=== PATIENT | female | born 1995 | race Caucasian/White ===

== ENCOUNTER 2019-03-29 01:18 | Inpatient (IN) ==
[2019-03-29] MEDS ORDERED: SODIUM CHLORIDE 0.9% 1000ML 1,000 ML IV ONE ×3 (01:31→02:42)
[2019-03-29] MEDS ORDERED: CALCIUM CHLORIDE 10% 1,000 MG in SODIUM CHLORIDE 0.9% 50 ML IV STA ×2 (01:52→02:48)
[2019-03-29] MEDS ORDERED: SODIUM BICARB 8.4% INJ 50 MEQ/50 ML SYR IV STA ×2 (01:52→05:04)
[2019-03-29] MEDS ORDERED: CALCIUM CHLORIDE 10% 10 ML SYR IV ONE ×2 (01:57→02:55)
[2019-03-29 02:10] LABS: Hematocrit (blood only) 47.9 % (37-47); Hemoglobin 15.3 g/dL (12.0-16.0); Mean Corpuscular Hemoglobin 30.4 pg (25-34); Mean Corpuscular Hgb Conc 31.9 g/dL (32-36); Mean Corpuscular Volume 95.2 fL (80-100); Mean Platelet Volume 12.3 fL (7.4-10.4); Platelet Count 384 K/uL (130-400); RDW Coefficient of Variation 12.9 % (11.5-14.5); RDW Standard Deviation 44.4 fL (36.4-46.3); Red Blood Count 5.03 M/uL (4.2-5.4)
[2019-03-29] MEDS ORDERED: GLUCAGON FOR INJ 1 MG VIAL SQ PRN (02:19)
[2019-03-29] MEDS ORDERED: GLUCOSE 40% GEL 15 GM TUBE PO PRN ×2 (02:19→02:30)
[2019-03-29] MEDS ORDERED: DKA GOAL RANGE 150-250 mg/dl ONE ×2 (02:19→09:22)
[2019-03-29] MEDS ORDERED: GLUCOSE 10 TABS/TUBE PO PRN ×2 (02:19→02:30)
[2019-03-29] MEDS ORDERED: ED DKA INSULIN DRIP ONE (02:19)
[2019-03-29] MEDS ORDERED: CARBOHYDRATES FOR HYPOGLYCEMIA PO PRN ×2 (02:19→02:30)
[2019-03-29] MEDS ORDERED: DEXTROSE 50% 50 ML SYRINGE IV PRN ×2 (02:19→02:30)
[2019-03-29] MEDS ORDERED: ALBUTEROL 0.5% NEB SOLN 2.5 MG/0.5 ML VIAL NEB STA (02:20)
[2019-03-29] MEDS ORDERED: INSULIN HUMAN REGULAR PER UNIT 10 UNITS in SYRINGE 9.9 ML IV STA (02:20)
[2019-03-29] MEDS ORDERED: FUROSEMIDE 20 MG in SYRINGE 0 ML IV STA (02:20)
[2019-03-29 02:25] LABS: Basophils # (auto) 0.08 K/uL (0-0.2); Basophils % (auto) 0.2 %; Eosinophils # (auto) 0.04 K/uL (0-0.5); Eosinophils % (auto) 0.1 %; Immature Granulocytes # (auto) 0.75 K/uL (0.00-0.02); Immature Granulocytes % (auto) 1.8 %; Lymphocytes # (auto) 4.45 K/uL (1.2-3.4); Lymphocytes % (auto) 10.7 %; Monocytes % (auto) 9.9 %; Neutrophils # (auto) 32.18 K/uL (1.4-6.5); Neutrophils % (auto) 77.3 %; Toxic Vacuolation 3+
[2019-03-29] MEDS ORDERED: GLUCAGON FOR INJ 1 MG VIAL IM PRN (02:30)
[2019-03-29] MEDS ORDERED: NovoLIN-R BOLUS FROM BAG IV ONE (02:30)
[2019-03-29] MEDS ORDERED: FUROSEMIDE 40 MG/4 ML VIAL IV ONE (02:37)
[2019-03-29] MEDS ORDERED: NovoLIN-R INSULIN PER UNIT CHARGE ONE (02:38)
[2019-03-29] MEDS: INSULIN REGULAR 250 UNITS in SODIUM CHLORIDE 0.9% 247.5 ML IV SCH ×2 (02:40→21:08)
[2019-03-29 02:44] LABS: Albumin Level 4.2 gm/dl (3.4-5.0); Bilirubin,Total 0.5 mg/dl (0.2-1); Creatinine Clr Calc Pharmacy 45.1 ml/min; Est GFR (Non-African American) 35.4; Total Protein 8.4 gm/dl (6.4-8.2)
[2019-03-29 02:45] LABS: BUN Creatinine Ratio 14.8 (10-20); Globulin 4.2 gm/dl (2.5-4.0); Phosphorus 8.7 mg/dl (2.5-4.9)
[2019-03-29 03:02] LABS: Base Excess ABG -26.8 mEq/L (-9-1.8); HCO3 ABG 4 mmol/L (19-24); Oxygen Saturation ABG 99.2 % (90-95); PCO2 ABG 18 mmHg (35-46); PO2 ABG 201 mm/Hg (80-95)
[2019-03-29 03:06] LABS: Allen Test POS (Pos)
[2019-03-29] MEDS: SODIUM BICARBONATE 8.4% 150 MEQ in WATER, STERILE 1,000 ML IV SCH ×2 (03:10→11:12)
[2019-03-29 03:13] LABS: pH ABG 6.95 (7.35-7.45)
[2019-03-29] MEDS ORDERED: CALCIUM CHLORIDE 10% 500 MG in SODIUM CHLORIDE 0.9% 50 ML IV STA (03:29)
[2019-03-29 03:31] LABS: Magnesium 2.4 mg/dl (1.8-2.4)
[2019-03-29 03:53] LABS: iSTAT Creatinine 1.5 mg/dl (0.6-1.3); iSTAT Hemoglobin 16.3 g/dl (12.0-16.0); iSTAT Ionized Calcium 1.36 mmol/l (1.12-1.32)
--- NOTE | 2019-03-29 04:11 | History & Physical Report ---
Date of Service March 29, 2019 Assessment & Plan (1) DKA (diabetic ketoacidoses): 24 y/o F Hx DM I, celiac disease, autism. Pt is brought in by her mother as her glucometer was reading "high". She has had nausea, vomiting and diarrhea for 2 days. A fever was not confirmed. Initial labs on arrival to the ER were alarming and demonstrate severe acidosis with a PH of 6.95, CLEMENTINE and a K of 8.0, NA 123, leukocytosis - WBC 41. The pt was hypothermic on arrival to the ER as well with a temp of 94.5. Initial EKG demonstrated tachycardia and a RBBB which resolved on a subsequent following an hour of treatment in the ER. 1) Critical DKA - IVF/bicarb, insulin provided - trend and correct electrolytes as possible. The pt may be transferred to a tertiary center as her PH and clinical condition have not improved. 2) Enteritis / infection - provided with empiric Zosyn due to critical condition - no other source of infection has been identified. A UA is pending and she has not had diarrhea while in the ER. 3) Hyperkalemia may have improved per repeat ABG - repeat BMP pending - it is difficult to discern specific changes on the EKG due to the rate. Aggressive IVF is provided. 4) Hypothermia - warming blanket Course of treatment and potential transfer TBD - mother at bedside and aware of pt's critical condition. Total time for this initial medical evaluation including review of labs, meds, imaging, records, EKG - discussion with pt's mother, ER attending - 46 min includes critical care time. The ER attending has discussed the case both with the ICU attending and the ICU attending at [facility] to discuss transfer. Present on Admission?: Yes History of Present Illness Chief Complaint: AMS, hyperglycemia Primary Care Provider: NO PCP 24 y/o F Hx DM I, celiac disease, autism. Pt is brought in by her mother as her glucometer was reading "high". She has had nausea, vomiting and diarrhea for 2 days. A fever was not confirmed. Initial labs on arrival to the ER were alarming and demonstrate severe acidosis with a PH of 6.95, CLEMENTINE and a K of 8.0, NA 123, leukocytosis - WBC 41. The pt was hypothermic on arrival to the ER as well with a temp of 94.5. Initial EKG demonstrated tachycardia and a RBBB which resolved on a subsequent following an hour of treatment in the ER. The pt received 3L saline, 3 amps calcium gluconate, bicarb, insulin. Despite this, her repeat ABG demonstrated a PH of 6.85. Her HR remains between 130-140 at the time of medical evaluation, she has had transient hypotensive episodes and her resp rate is over 30. PMH: 1) Celiac disease 2) DM I - diagnosed age 11 3) Autism - Mother states that this is relatively severe Surgical: Limited to wisdom tooth extraction Social: No history of drinking or smoking, under the care of her mother Family: Mother with DM and history of CVA Father alive and well Sister with celiac disease Allergies Allergy/AdvReac Type Severity Reaction Status Date / Time adhesive tape Allergy Unknown Verified 03/29/19 02:18 erythromycin base Allergy Unknown Verified 03/29/19 02:18 gluten Allergy Unknown Verified 03/29/19 02:18 Penicillins Allergy Unknown Verified 03/29/19 02:18 Sulfa (Sulfonamide Allergy Unknown Verified 03/29/19 02:18 Antibiotics) wheat Allergy Unknown Verified 03/29/19 02:18 Home Medications Home Medications Medication Instructions Recorded Confirmed Type insulin glargine [Lantus U-100 30 unit SUBCUT QAM 03/29/19 03/29/19 History Insulin] insulin lispro [Humalog U-100 1 sliding scale dose SUBCUT 03/29/19 03/29/19 History Insulin] USEASDIRECTD Past Med/Surg History Medical History Autism Celiac disease Type 1 diabetes Surgical History No pertinent past surgical history Social History Feels Safe at Home: Yes Smoking Status: Never smoker Review of Systems Review of Systems: Unobtainable due to cognitive status Cannot obtain from pt. She was bought in by her mother per the HPI. Physical Exam Physical Exam: General: Young female who is tachypneic and appears u ncomfortable. Eyes: RADHA, EOMI Head and neck: Normocephalic, atraumatic, No JVD, neck is supple. Chest/heart: Nontender, S1,2, tachy, no murmurs, no gallops Lungs: CTAB, no wheezing or crackles Abdomen: Nontender, nondistended, BS+ Neuro: Awake, somnolent, no unilateral weakness Musculoskeletal: No joint inflammation, muscle tenderness, FROM Skin: No acute rashes or ulcers Extremities: Extremities have good capillary return but do exhibit some purple discoloration. Results & Data Vital Signs (Past 12 Hours) Vital Signs Temp Pulse Pulse Resp BP BP Pulse Ox 03/29/19 04:03 127 H 35 H 153/88 H 100 03/29/19 03:52 131 H 30 H 140/92 99 03/29/19 03:46 94.5 F L 03/29/19 03:03 127 H 28 H 108/91 100 03/29/19 01:53 96.4 F L 123 H 32 H 82/56 L 94 PG Care Time/CCT Total # of Minutes Spent Total Time Spent with Patient: Total time spent is greater than 50% in coordination of care (as documented) at patient's floor/unit and/or counseling patient:
[2019-03-29] MEDS ORDERED: VANCOMYCIN CONSULT ACTIVE PRN (04:31)
[2019-03-29] MEDS ORDERED: CEFEPIME 2,000 MG/20 ML VIAL IV STA (04:31)
[2019-03-29] MEDS ORDERED: VANCOMYCIN CONSULT ACTIVE ONE (04:31)
[2019-03-29] MEDS ORDERED: VANCOMYCIN HCL 1,750 MG in SODIUM CHLORIDE 0.9% 500 ML IV ONE (04:31)
[2019-03-29 05:15] LABS: BUN Creatinine Ratio 16.6 (10-20); Blood Urea Nitrogen 28 mg/dl (7-18); Calcium 12.7 mg/dl (8.5-10.1); Carbon Dioxide 6 mmol/L (21-32); Chloride 110 mmol/L (98-107); Est GFR (African American) 48.8; Est GFR (Non-African American) 42.1; Glucose 477 mg/dl (70-99)
[2019-03-29 05:19] LABS: Sodium 136 mmol/L (136-145)
[2019-03-29 05:28] LABS: Appearance Urine Cloudy (Clear); Bacteria Urine Automated Negative (Negative); Bilirubin Urine Negative (Negative); Blood Urine 2+ (Negative); Color Urine Yellow; Epithelial Cell Urine Auto >30 /lpf (0-5); Glucose Urine UA 3+ (Negative); Ketones Urine 2+ (Negative); Leukocyte Esterase Urine Negative (Negative); Nitrite Urine Negative (Negative); Protein Urine 2+ (Negative); Specific Gravity Urine 1.023 (1.000-1.030); Urobilinogen Urine Negative (Negative)
--- NOTE | 2019-03-29 05:31 | Critical Care Consultation ---
Date of Consultation March 29, 2019 Assessment & Plan (1) Admitted to intensive care unit: Reason Critically Ill: 24-year-old female presenting with severe DKA and high anion gap metabolic acidosis in the setting of DKA requiring aggressive hydration and electrolyte management. Presenting with hyperkalemia and concern EKG changes with widening QRS pattern. NEURO - * CAM ICU: Unable to assess secondary to patient's baseline mental status. CARDIAC/VASCULAR - * EKG changes: * Presenting with QRS widening with near sinusoidal wave pattern in the setting of hyperkalemia. * Showed resolve with return to sinus tachycardia after aggressive management. * Likely all metabolically induced. * Will continue to monitor and replace lytes as needed. * Monitor on telemetry. RESPIRATORY - * Tachypnea: * Compensatory in the DKA patient. * Monitor ABGs frequently. GI/NUTRITION - * N.p.o. at this time. RENAL/LYTES - * Hyperkalemia: * With concerning EKG changes on presentation. * Since resolved after aggressive management. * We will continue to monitor electrolytes and replace as needed in the setting of DKA. * CLEMENTINE: * Prerenal in the setting of severe dehydration with gastroenteritis and DKA. * IVF: Per protocol. - * Joel in place - Strict I&Os. ENDO - * DKA: * Insulin drip per unit protocol. HEME - * Leukocytosis: * Likely secondary to stress with reported significant vomiting as well as metabolic demands in the DKA patient. * Stable H&H. ID - * Meets sirs criteria: * CT the abdomen pelvis demonstrates a enlarged area in the pelvic region. * Currently being treated with Zosyn. Vancomycin ordered. * Can likely discontinue vancomycin. * Trend lactate. * Check procalcitonin. LINES/IV ACCESS - * PIVs x2 * LEFT radial arterial line DVT PROPHYLAXIS - * SCDs I have personally spent 45 minutes of critical care time in the direct management of this patient. This is a life/limb threatening event. This includes time spent evaluating patient, direct bedside care, chart review, placing orders, interpretation of diagnostic studies, discussion with consultants, patient, and family members, as well as other required patient management activities. This time is exclusive of all separately billable procedures, and teaching time and separate from and in addition to any other critical care service time. Thank you for allowing us to participate in the care of this patient. Please refer to my attending physician's documentation for any further recommendations. (2) DKA (diabetic ketoacidoses): (3) Hyperkalemia: (4) Acute electrocardiogram changes: (5) Tachycardia: (6) Diarrhea: (7) Vomiting: (8) Dehydration: (9) Type 1 diabetes: (10) Celiac disease: (11) Autism: Supervising Physician Co-Signing Physician Notes I was advised of this patient via telephone from the ED provider. Upon my arrival in the ED I was updated with regards to the patient's treatment course she received while in the emergency department. The patient is critically ill. The patient's mother is highly involved in the care of this patient. It was expressed that the patient's mother had been in contact with the endocrinology department at [facility] for which she follows up with. It is the mother's desire to have the admitted at [facility]. At this time no beds were available for admission in the foreseeable future. Transfer to [facility] and its pediatric endocrinology service was considered and discussed. Per report the [facility] medical team felt as if she was receiving appropriate therapy and could continue to receive therapy at [facility]. At this point I was contacted for further evaluation and management. Please see my documentation for additional information. History of Present Illness History of Present Illness Patient is a 24-year-old female with a significant past medical history of autism, insulin-dependent diabetes, and celiac disease who presented to the emergency department after 24 hours of nausea, vomiting, diarrhea. Her mother had been sick with previous symptoms over the past week. Daughter started with diarrhea yesterday. She started vomiting last evening and mother noticed that she was breathing heavy as well. She had been taking her blood sugar readings which had been reading "high" for most of the day. Upon awakening from a nap, the mother noted that the patient appeared more somnolent which was concerning to her. She contacted the patient's endocrinology team in [place] and it was recommended that she come to the emergency department. Patient arrived via EMS. Upon arrival, the patient was noted to be tachycardic with heart rates in the 150s as well as tachypneic. EKG demonstrated a near sinusoidal wave pattern with QRS widening. Patient was aggressively treated with calcium, insulin, bicarb, and Lasix. This did show great improvement with QRS complex. Patient received a total of 3 L initially of crystalloid therapy. She was started on bicarb drip after she was noted to be severely acidotic. She was noted to have significant leukocytosis. She is noted to have an CLEMENTINE as well. Her potassium came back at greater than 8. This appears to have been corrected status post aggressive administration of IV medications. Upon evaluation in the emergency department, the patient is somnolent. She pers everates questions. Her mother is present at bedside and reports that she does appear to be improving somewhat. She is at least somewhat communicative at this point. Mother reports that she was complaining of diffuse abdominal pain, however she was unable to localize area. Mother was adamant that they had been checking her vomiting stool and there had not been any blood noted. Allergies Allergy/AdvReac Type Severity Reaction Status Date / Time adhesive tape Allergy Unknown Verified 03/29/19 02:18 erythromycin base Allergy Unknown Verified 03/29/19 02:18 gluten Allergy Unknown Verified 03/29/19 02:18 Penicillins Allergy Unknown Verified 03/29/19 02:18 Sulfa (Sulfonamide Allergy Unknown Verified 03/29/19 02:18 Antibiotics) wheat Allergy Unknown Verified 03/29/19 02:18 Home Medications Home Medications Medication Instructions Recorded Confirmed Type insulin glargine [Lantus U-100 30 unit SUBCUT QAM 03/29/19 03/29/19 History Insulin] insulin lispro [Humalog U-100 1 sliding scale dose SUBCUT 03/29/19 03/29/19 History Insulin] USEASDIRECTD Patient History Medical History Autism Celiac disease DKA (diabetic ketoacidoses) (Acute) Tachycardia (Acute) Type 1 diabetes Surgical History No pertinent past surgical history Social History Preferred Language: Upper Sorbian Communication Ability: Impaired Office Services Clerk Required: No Beliefs That Will Affect Care: None Current Living Situation: Parent and Family Other Information That Helps Us Care for You: No Feels Safe at Home: Yes Safety Concerns: Feels Safe At This Time Smoking Status: Never smoker Hx Alcohol Use: No Hx Substance Use: No Review of Systems Review of Systems: Unobtainable due to cognitive status Physical Exam Physical Exam: VITAL SIGNS - Vital signs and nursing notes were reviewed. GENERAL - 24-year-old female appearing her stated age who is in moderate respiratory distress. Perseverates. SKIN - Without rashes. HEAD - NC/AT. EYES - PERRL with EOMI bilaterally. Sclera anicteric. EARS - No deformities of external structures noted on gross examination bilaterally. NOSE - Midline and without cyanosis. No epistaxis or purulent drainage noted. MOUTH/OROPHARYNX - Without perioral cyanosis. Buccal mucosa pink and dry. Tongue midline with equal elevation of palate bilaterally. NECK - Neck with FROM. Supple to palpation. No lymphadenopathy noted. No nuchal rigidity. LUNGS - Tachypneic. All symmetric without accessory muscle use, intercostals retractions, or central cyanosis. Normal vesicular breath sounds CTA B/L. No wheezes, rales, or rhonchi appreciated. CARDIAC - RRR with S1/S2. No murmur, rubs, or gallops appreciated. ABDOMEN - Abdominal contour obese without pulsations or visible masses. BS hyperactive all four quadrants. Mild TTP throughout. No palpable masses, hepatosplenomegaly, or ascites noted. EXTREMITIES - Moderate edema noted to the RIGHT upper bicep area. No clubbing or peripheral cyanosis. No pretibial edema present. +2/5 radial and dorsalis pedis pulses palpated throughout. NEUROLOGIC - Cranial nerves II through XII grossly intact. PSYCH - A&O to conversation. She perseverates answers which is apparently close to baseline per mother. Limited secondary to baseline mental status. Results & Data Vital Signs (Past 12 Hours) Vital Signs Temp Pulse Pulse Resp BP BP Pulse Ox 03/29/19 04:03 127 H 35 H 153/88 H 100 03/29/19 03:52 131 H 30 H 140/92 99 03/29/19 03:46 34.7 C L 03/29/19 03:03 127 H 28 H 108/91 100 03/29/19 01:53 35.8 C L 123 H 32 H 82/56 L 94 Coding Level of Care Code Critical Care 1st 30-74 mins Diagnoses Admitted to intensive care unit Z78.9 DKA (diabetic ketoacidoses) E10.10 Diabetes mellitus complication detail: without coma Diabetes mellitus type: type 1 Hyperkalemia E87.5 Acute electrocardiogram changes R94.31 Tachycardia R00.0 Diarrhea R19.7 Diarrhea type: unspecified type Vomiting R11.10 Nausea presence: unspecified Vomiting Intractability: unspecified Vomiting type: unspecified Dehydration E86.0 Type 1 diabetes E10.9 Celiac disease K90.0 Autism F84.0 Time Spent (min) 45 (1) DKA (diabetic ketoacidoses) Diabetes mellitus complication detail: without coma Diabetes mellitus type: type 1 Qualified Code(s): E10.10 - Type 1 diabetes mellitus with ketoacidosis without coma (2) Diarrhea Diarrhea type: unspecified type Qualified Code(s): R19.7 - Diarrhea, unspecified (3) Vomiting Nausea presence: unspecified Vomiting Intractability: unspecified Vomiting type: unspecified Qualified Code(s): R11.10 - Vomiting, unspecified
[2019-03-29 05:44] LABS: Allen Test Pos (Pos); Base Excess ABG -27.1 mEq/L (-9-1.8); HCO3 ABG 4 mmol/L (19-24); PCO2 ABG 16 mmHg (35-46); PO2 ABG 116 mm/Hg (80-95)
[2019-03-29 05:45] LABS: pH ABG 6.95 (7.35-7.45)
[2019-03-29] MEDS ORDERED: SODIUM BICARBONATE 8.4% INJ 50 MEQ/50 ML VIAL ONE (05:48)
[2019-03-29 05:51] LABS: Pregnancy Test, Serum Negative (Negative)
[2019-03-29 06:09] LABS: Estimated Average Glucose 229 mg/dl; Hemoglobin A1C 9.6 % (4.5-5.6)
[2019-03-29 06:15] LABS: Potassium 4.7 mmol/L (3.5-5.1)
--- NOTE | 2019-03-29 07:23 | Procedure Note ---
Procedure Note Date of Service March 29, 2019 Procedure: Arterial Line Placement Attending: Dr. Ring APC: Apolinar Henry PA-C Indication: Monitoring on Pressors Anesthesia: Lidocaine 1% I had a lengthy discussion with the patient's family regarding management of patient and need for close hemodynamic monitoring as well as frequent ABGs in the DKA patient. Given her tenuous status with hypotension, verbal consent obtained to proceed emergently with procedure. Indication, risks, and benefits were explained at length. A time-out was completed verifying correct patient, procedure, site, positioning, and implant(s) or special equipment if applicable. Allens test was performed to ensure adequate perfusion. Patients LEFT wrist was prepped and draped in the usual sterile fashion. Ultrasound guidance was used to aid needle placement. A 20g Arrow arterial line was introduced into the LEFT radial artery. Catheter was threaded, and the needle was removed with appropriate blood return. Good waveform was observed. The patient tolerated the procedure well. Confirmation of placement with ultrasound. Blood Loss: Minimal Complications: None Procedural Ultrasound Guidance: Procedure Date: 03/29/2018 Indication: Frequent ABGs, Frequent lab draws Attending: Dr. Ring APC: Apolinar Henry PA-C Artery Identified: YES Line confirmed in Artery with ultrasound: YES Complications: NONE Patient tolerated procedure: WELL Supervising Physician Co-Signing Physician Notes I would was advised of this patient via telephone from the ED provider Dr. skaggs. By the time I arrived in the ED the arterial line had already been placed, again it was placed for a wide-complex tachycardia and what was felt to be caused by significant hyperkalemia with associated hypotension from profound hypotension due to diabetic ketoacidosis. Coding CPT Codes Tubes, Drains, and Vasc Access - Tubes, Drains, and Vasc Access: [id number] Place Catheter In Artery ([id number])
--- NOTE | 2019-03-29 07:27 | XRay Report ---
XR chest 1V portable HISTORY: Nausea. Vomiting. Diarrhea. COMPARISON: None. FINDINGS: There are low lung volumes. Significant gaseous distention of the stomach. The heart is nor mal in size. No pleural effusions. No pneumothorax. No rib fractures. No evidence for pulmonary edema . IMPRESSION: 1. Low lung volumes. Otherwise, no acute process within the chest. 2. Significant gaseous distention of the stomach. ACT 112: Negative or not required by law. Electronically signed by: Prem Dickson M.D. 03/29/2019 7:26 AM
--- NOTE | 2019-03-29 07:27 | XRay Report ---
KUB HISTORY: Nausea. Vomiting. Diarrhea. COMPARISON: None. FINDINGS: Significant gaseous distention of the stomach. The remaining loops of large and small bowel are normal in caliber. No renal calculi. No ureteral calculi. No pneumoperitoneum or pneumatosis. IMPRESSION: Significant gaseous distention of the stomach concerning for gastric outlet obstruction. ACT 112: Negative or not required by law. Electronically signed by: Prem Dickson M.D. 03/29/2019 7:26 AM
[2019-03-29] MEDS ORDERED: INSULIN ASPART 100 UNITS/ML 3 ML PEN SC SCH (07:30)
--- NOTE | 2019-03-29 07:32 | CT Scan Report ---
CT OF THE ABDOMEN AND PELVIS WITHOUT CONTRAST CLINICAL HISTORY: Nausea, vomiting and diarrhea. COMPARISON STUDY: KUB March 29, 2019 at 2:31 AM. TECHNIQUE: Axial images of the abdomen and pelvis were obtained without IV contrast. Images were revi ewed in the axial, sagittal, and coronal planes. Automated exposure control was utilized for the sridhar dy. A dose lowering technique was utilized adhering to the principles of ALARA. FINDINGS: Imaged portions of the right upper arm demonstrate subcutaneous partially visualize multipl e locules of gas as well as moderate fluid within the deep subcutaneous tissues. Evaluation of the ab domen and pelvis is suboptimal on this unenhanced exam, particularly given motion artifact. The stoma ch is moderately distended. There is probable fatty infiltration of the liver. The spleen, adrenal gl ands, kidneys and pancreas are unremarkable on this unenhanced exam. There is no biliary or pancreati c ductal dilatation. No pneumatosis, free air or portal venous gas is present. There is no evidence f or a bowel obstruction. Visualized portions of the appendix are normal. The appendix is partially obs cured. 3 cm water attenuation right adnexal lesion favors an ovarian cyst. A Joel balloon is present within the bladder. There are no suspicious osseous lesions. IMPRESSION: 1. Soft tissue gas and fluid within the deep subcutaneous tissues of the right upper arm, partially i hilda on this exam. By report, recent IV infiltration which would account for these findings. This wa s discussed with Apolinar Henry at time of dictation. 2. Moderate gastric distention. 3. No bowel obstruction. 4. Exam mildly compromised given motion artifact and lack of contrast. Appendix partially obscured bu t visualized portions normal. 5. 3 cm right ovarian cyst. ACT 112: Negative or not required by law. Electronically signed by: Carlos Bermeo M.D. 03/29/2019 7:31 AM
[2019-03-29 08:37] LABS: Influenza A virus by PCR Neg for Influ A (Neg); Influenza B virus by PCR Neg for Influ B (Neg)
--- NOTE | 2019-03-29 09:20 | Anesthesiology Consultation ---
Date of Service March 29, 2019 Assessment & Plan (1) Encounter for pre-operative examination: Chart Review Chart Review: Patient NOT seen in Pre Admission Testing See assessment below Consults Requested none ASA ASA4 Proposed Anesthesia Anesthesia Type: MAC Risk / Benefits Reviewed With: PT / POA / Parent / Guardian, Accepts Plan and Informed Consent Obtained Additional Notes Patient admitted early this morning in DKA. PMH significant for autism and per patients mother, patient has been complaining of abdominal pain. Imaging this morning revealed ovarian cyst and primary team is concerned about possible ovarian torsion with the history of abdominal pain. Patient has been vomiting and, although improved from earlier this morning, is actively in DKA. At this time our options for safe anesthetics are limited. We could provide a small dosage of anxiety medications, but with DKA, a distended stomach on imaging, and a history of recent N/V, it is imperative that the patient remain awake enough to provide her own airway protection due to being a high aspiration risk and that we dont sedate to the point of slowing her respiratory rate and thereby, worsening her acidosis. The only other remaining option at this time would be to provide a rapid sequence intubation for full airway protection and mechanical ventilation. I spoke with the patient's mother and older sister extensively about these limitations. At this time they would like to have further discussions with the primary team before proceeding. History Height/Weight Height: 5 ft 2 in Weight: 84.4 kg Allergies Allergy/AdvReac Type Severity Reaction Status Date / Time adhesive tape Allergy Unknown Verified 04/01/19 14:41 erythromycin base Allergy Unknown Verified 04/01/19 14:41 gluten Allergy Unknown Verified 04/01/19 14:41 Penicillins Allergy Unknown Verified 04/01/19 14:41 Sulfa (Sulfonamide Allergy Unknown Verified 04/01/19 14:41 Antibiotics) wheat Allergy Unknown Verified 04/01/19 14:41 Medications Home Medications Medication Instructions Recorded Confirmed Last Taken insulin lispro [Humalog U-100 1 sliding scale dose SUBCUT TIDM 03/29/19 04/01/19 03/31/19 Insulin] Lantus U-100 Insulin 30 unit SUBCUT QAM 04/01/19 04/01/19 04/01/19 nystatin 300,000 units BUCCAL QID 7 Days 04/01/19 04/01/19 Unknown #84 ml NPO Date Last Intake of Fluids: 03/28/19 Time Last Intake of Fluids: 23:59 Date Last Intake of Solids: 03/28/19 Time Last Intake of Solids: 23:59 Past Medical History Medical History Autism Celiac disease DKA (diabetic ketoacidoses) (Acute) Tachycardia (Acute) Type 1 diabetes Exercise / Class Metabolic Activity III < 4 Walking/Shop/Light housework Past Surgical History Surgical History No pertinent past surgical history Past Anesthesia History No Hx of Anesthesia Complications History of PONV No Hx of PONV Social History Smoking Status: Never smoker Review of Systems Positive for N/V Positive for abdominal pain Physical Exam Vital Signs Last Vital Signs Temp 37.4 C 03/31/19 10:51 Pulse 92 H 03/31/19 10:51 Resp 20 03/31/19 10:51 BP 129/83 03/31/19 10:51 Pulse Ox 99 03/31/19 10:51 Constitutional + obese ENMT Mouth: + small oral opening; no TMJ abnormality Thyromental Distance: > or= 3.5 Finger Breadths Mallampati Class: III Neck normal visual inspection Respiratory + tachypneic Auscultation: lungs clear to auscultation bilaterally Cardiovascular Rate/Rhythm: regular rhythm and + tachycardic Heart Sounds: no murmur Neurologic moves all extremities Psychiatric Orientation: alert Patient with a history of Autism. Mildly cooperative on exam. Oriented to self. Testing Laboratory Results 03/31/19 07:34 03/30/19 18:52 Hemoglobin A1c 9.6 % (4.5-5.6) H 03/29/19 02:47 Urine Color Yellow 03/29/19 05:18 Urine Appearance Cloudy (Clear) A 03/29/19 05:18 Urine pH 5.0 (4.5-7.5) 03/29/19 05:18 Ur Specific [place] 1.023 (1.000-1.030) 03/29/19 05:18 Urine Protein 2+ (Negative) H 03/29/19 05:18 Urine Glucose (UA) 3+ (Negative) H 03/29/19 05:18 Urine Ketones 2+ (Negative) H 03/29/19 05:18 Urine Nitrite Negative (Negative) 03/29/19 05:18 Ur Leukocyte Esterase Negative (Negative) 03/29/19 05:18 Urine WBC (Auto) 1-5 /hpf (0-5) 03/29/19 05:18 Urine RBC (Auto) 5-10 /hpf (0-4) H 03/29/19 05:18 U Hyaline Cast (Auto) 5-10 /lpf (0-5) H 03/29/19 05:18 U Epithel Cells (Auto) >30 /lpf (0-5) H 03/29/19 05:18 Urine Bacteria (Auto) Negative (Negative) 03/29/19 05:18 03/29/19 16:20 Urine Culture - Final Urine,Indwelling Cath No growth - less than 1,000 colonies/mL. 03/29/19 04:44 Aerobic Blood Culture - Preliminary Blood No growth in Aerobic bottle after 48 hours. Anaerobic Blood Culture - Preliminary No growth in Anaerobic bottle after 48 hours. 03/29/19 02:40 Aerobic Blood Culture - Preliminary Blood No growth in Aerobic bottle after 48 hours. Anaerobic Blood Culture - Preliminary No growth in Anaerobic bottle after 48 hours. 03/29/19 03/29/19 03/29/19 10:13 09:12 07:47 POC Glucose 230 H 275 H 341 H* POC Glucose (other) 03/29/19 03/29/19 03/29/19 06:41 05:27 04:35 POC Glucose 327 H* 398 H* 544 H* POC Glucose (other) 03/29/19 03/29/19 03/29/19 03:34 03:31 02:33 POC Glucose > 600 H* > 600 H* POC Glucose (other) 640 H* 03/29/19 03/29/19 03/29/19 02:03 01:29 01:26 POC Glucose > 600 H* > 600 H* POC Glucose (other) > 700 H* Electrocardiogram Date: 03/29/19 Findings: + ST @ (139) Most recent EKG significantly improved from prior 2 EKGs this morning now that patients potassium is normalized. Chest X-Ray Date: 03/29/19 1. Low lung volumes. Otherwise, no acute process within the chest. 2. Significant gaseous distention of the stomach.
[2019-03-29] MEDS ORDERED: PHARMACY GLYCEMIC MGMT CONSULT STA (09:22)
[2019-03-29] MEDS ORDERED: LANTUS PER UNIT CHARGE SQ SCH (09:22)
[2019-03-29] MEDS ORDERED: INSULIN REGULAR 250 UNITS in SODIUM CHLORIDE 0.9% 247.5 ML IV SCH (09:22)
[2019-03-29] MEDS ORDERED: DC ALL PREVIOUSLY ORDERED DIABETES MEDS ONE (09:22)
[2019-03-29] MEDS ORDERED: ICU PROTOCOL FOR HYPERGLYCEMIA PRN ×3 (09:22)
[2019-03-29 10:07] LABS: Allen Test A LINE (Pos); Base Excess ABG -14.9 mEq/L (-9-1.8); HCO3 ABG 10 mmol/L (19-24); Oxygen Saturation ABG 97.2 % (90-95); PCO2 ABG 20 mmHg (35-46); PO2 ABG 95 mm/Hg (80-95); pH ABG 7.29 (7.35-7.45)
[2019-03-29] MEDS ORDERED: NORMOSOL-R 1,000 ML IV SCH (10:15)
[2019-03-29 10:22] LABS: Calcium 9.8 mg/dl (8.5-10.1); Creatinine Clr Calc Pharmacy 70.5 ml/min; Est GFR (African American) 70.4; Est GFR (Non-African American) 60.7; Magnesium 1.4 mg/dl (1.8-2.4); Phosphorus 1.1 mg/dl (2.5-4.9); Potassium 4.1 mmol/L (3.5-5.1)
[2019-03-29] MEDS ORDERED: METOCLOPRAMIDE HCL INJ 5 MG/ML 2 ML VIAL IV PRN (10:31)
[2019-03-29] MEDS ORDERED: MAGNESIUM SULFATE / D5W 1 GM/100 ML BAG IV ONE (10:45)
[2019-03-29] MEDS: SODIUM CHLORIDE 0.9% 1000ML 1,000 ML IV SCH ×2 (10:48→11:25)
[2019-03-29 10:58] LABS: iSTAT Blood Urea Nitrogen 45 mg/dl (7-18); iSTAT Carbon Dioxide < 5 mEq/l (24-31); iSTAT Chloride 107 mEq/L (101-112); iSTAT Creatinine 1.7 mg/dl (0.6-1.3); iSTAT Glucose > 700 mg/dl (70-99); iSTAT Hematocrit 45 % (37-47); iSTAT Hemoglobin 15.3 g/dl (12.0-16.0); iSTAT Ionized Calcium 1.11 mmol/l (1.12-1.32); iSTAT Potassium > 9.0 mEq/L (3.3-5.0); iSTAT Sodium 123 mEq/L (135-144)
[2019-03-29] MEDS: INSULIN ASPART 100 UNITS/ML 3 ML PEN SC SCH ×4 (11:15→21:13)
[2019-03-29] MEDS: PENDING D5 1/2NS+20mEq KCL IVF SCH ×2 (11:16→12:43)
--- NOTE | 2019-03-29 11:18 | Communication Note ---
Date of Service: March 29, 2019 Patient's mother refusing to go through with transvaginal ultrasound secondary to concerns of lifelong mental trauma. Spoke with Dr. Robertson and her PA Dr. Sylwia Sa[facility] from [facility] [place] who patient follows with regularly. They agree that patient would benefit from transvaginal ultrasound to rule out torsion and knowing the patient they feel she would tolerate this procedure well with just some benzodiazepine sedation if needed. They have generously offered to call the mother and offer their recommendation to her directly since they already have an established trusting relationship. We are very appreciative of their input.
[2019-03-29 11:30] LABS: iSTAT Hematocrit 44 % (37-47); iSTAT Potassium 4.6 mEq/L (3.3-5.0); iSTAT Sodium 136 mEq/L (135-144)
[2019-03-29 11:31] LABS: iSTAT Arterial Blood Gas HCO3 3 meg/L (19-24); iSTAT Arterial Blood Gas pCO2 124 mmHg (35-46); iSTAT Arterial Blood Gas pH 6.92 (7.35-7.45); iSTAT Arterial Blood Gas pO2 124 mmHg (80-95); iSTAT Carbon Dioxide < 5 mEq/l (24-31)
[2019-03-29 11:32] LABS: iSTAT Sample Type Arterial
[2019-03-29] MEDS ORDERED: POTASSIUM ACETATE IV SCH (11:45)
[2019-03-29] MEDS ORDERED: DEXTROSE 5% IV SCH (11:45)
[2019-03-29] MEDS ORDERED: SODIUM BICARBONATE IV SCH (11:45)
--- NOTE | 2019-03-29 12:16 | OB/GYN Consultation ---
Date of Consultation March 29, 2019 Assessment & Plan (1) Right ovarian cyst: Patient is a reproductive-age female with multiple current possible causes of abdominal discomfort. The most likely cause currently seems to be gastroenteritis, which her mother notes has already gone through several members of the family and all had debilitating gut cramps during their infection. There are of course other possibilities, and one of them is the 3cm ovarian cyst identified on CT scan. I am consulted to help evaluate this in the setting of a developmentally delayed and acutely encephalopathic young woman whose mother prefers to avoid any vaginal exams or procedures without anesthesia, but for whom no adult has legal guardianship or decision making authority, and in whom anesthesia is currently not an option. The patient herself is unable to understand the risks and/or to offer consent for such exams at this time. Her mother, who is at the bedside, appears to be acting in both good duran and from a well-informed standpoint. She is able to explain to me her understanding that an ovarian cyst can lead to ovarian torsion, which manifests as abdominal pain. She understands that if torsion is present and we do not diagnose or treat it, her daughter could experience loss of fertility and/or worsening condition due to ovarian . She and I did discuss that statistically a 3cm cyst is not very likely to cause torsion, but that the possibility is not zero; that her daughter is not currently responding to abdominal exam in a way that suggests she has a torsed ovary in her RLQ, but that abdominal exam has very limited sensitivity and specificity for ovarian torsion; and that although a 3cm cyst in a 24yo is often a part of normal ovary function, it can also be a pathologic finding. At this time she wishes to decline both a bimanual exam and a transvaginal ultrasound in favor of continued observation. I feel this is reasonable for this patient at this time. History of Present Illness Reason for Consultation: Right ovarian cyst Requesting Physician: Jhonathan Attending Physician: Ivis Pratt DO History of Present Illness 24yo G0 developmentally delayed female with T1DM and celiac disease as well as recent exposure to gastroenteritis, admitted in DKA with cardiac arrhythmia due to hyperkalemia. History provided includes mom with 7 days of severely painful gastroenteritis including emesis and diarrhea. Patient herself began to exhibit signs of abdominal discomfort, emesis and diarrhea about 36-48 hours ago. She began to experience uncontrolled hyperglycemia and was brought to ER and found to have K 8.0, wide complex tachycardia, hypothermia and acidosis with pH 6.95. She was stabilized and admitted to ICU where I see her today. I am consulted because during the patient's workup, she was found to have a 3cm R ovarian cyst on CT scan. Given her obvious abdominal discomfort and limited ability to communicate her symptoms with specificity, it was recommended by the admitting team that further testing be done to evaluate for the possibility of ovarian torsion. Mom is hesitant to accept either transvaginal ultrasound or pelvic exam and has asked to decline both of these in order to avoid traumatizing the patient. She notes that the patient was planned for her first pelvic exam and pap smear at age 25, under general anesthesia, by her usual providers at [facility]. She is aware that at this time our anesthesia team feels comfortable only with conscious sedation, and not with GETA, due to the patient's current medical condition. She also notes that she is aware of the risks associated with undiagnosed and untreated ovarian torsion and still does not wish further evaluation. The patient is 24 and unable to consent for self at this time, however mom has not yet established guardianship due solely to the legal costs involved, which she notes she has been unable to pay. The patient's parents are and admitting team is also attempting to communicate with patient's father who is not present in room today. Allergies Allergy/AdvReac Type Severity Reaction Status Date / Time adhesive tape Allergy Unknown Verified 03/29/19 02:18 erythromycin base Allergy Unknown Verified 03/29/19 02:18 gluten Allergy Unknown Verified 03/29/19 02:18 Penicillins Allergy Unknown Verified 03/29/19 02:18 Sulfa (Sulfonamide Allergy Unknown Verified 03/29/19 02:18 Antibiotics) wheat Allergy Unknown Verified 03/29/19 02:18 Home Medications Home Medications Medication Instructions Recorded Confirmed Type insulin glargine [Lantus U-100 30 unit SUBCUT QAM 03/29/19 03/29/19 History Insulin] insulin lispro [Humalog U-100 1 sliding scale dose SUBCUT 03/29/19 03/29/19 History Insulin] USEASDIRECTD Patient History Medical History Autism Celiac disease DKA (diabetic ketoacidoses) (Acute) Tachycardia (Acute) Type 1 diabetes Surgical History No pertinent past surgical history Social History Preferred Language: [place] Communication Ability: Impaired 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 She notes on and off nausea, but otherwise offers no spontaneous complaints. She appears to be resting comfortably in between episodes of nausea and does not currently display grimace or painful postures. Eyes: reactive pupils; no conjunctival abnormality ENMT: Ears: no hearing impairment (responds normally to vocal stimulus from both sides of bed.) Neck: Line in place with dressing, c/d/i. Respiratory: no respiratory distress Cardiovascular: Rate/Rhythm: regular rate and regular rhythm Chest (Breasts): Additional Comments: Chest normal above gown. Breast development appears present and approp for age. Gastrointestinal (Abdomen): Inspection/Auscultation: abdomen normal to inspect ion Percussion/Palpation: abdomen soft; abdomen nontender and no guarding Patient's abdomen soft, nontender to palpation in all four quadrants. She displays no guarding, no rigidity, no desire to push examiner's hand away or resist exam. Normal dark pubic hair present on mons. Musculoskeletal: Head/Neck/Chest: normocephalic and head atraumatic Skin: no rashes, warm and dry Belly and visible skin areas only Psychiatric: Affect: euthymic affect (appears calm, pleasant demeanor.) Results & Data Vital Signs (Past 12 Hours) Vital Signs Temp Pulse Pulse Resp BP BP Pulse Ox 03/29/19 11:00 115 H 22 100 03/29/19 10:35 114 H 22 113/78 88 L 03/29/19 10:09 99.7 F H 128 H 24 107/72 100 03/29/19 10:00 120 H 25 H 100 03/29/19 09:36 127 H 28 H 107/72 100 03/29/19 09:27 99.3 F 127 H 31 H 100 03/29/19 08:30 127 H 26 H 97 03/29/19 08:15 124 H 25 H 95/35 L 98 03/29/19 08:00 126 H 25 H 99/40 L 98 03/29/19 07:30 134 H 27 H 100/37 L 99 03/29/19 07:00 132 H 27 H 106/38 L 99 03/29/19 06:13 148 H 23 03/29/19 05:50 140 H 33 H 98 03/29/19 05:40 98.6 F 144 H 34 H 98 03/29/19 05:30 141 H 36 H 116/76 98 03/29/19 05:20 141 H 34 H 99 03/29/19 05:15 143 H 31 H 110/70 97 03/29/19 05:11 141 H 33 H 97 03/29/19 05:09 141 H 35 H 123/66 97 03/29/19 05:01 143 H 29 H 116/76 98 03/29/19 05:00 143 H 31 H 98 03/29/19 04:50 142 H 35 H 97 03/29/19 04:45 136 H 29 H 103/71 98 03/29/19 04:40 139 H 35 H 98 03/29/19 04:35 140 H 32 H 85/64 L 97 03/29/19 04:30 133 H 32 H 98 03/29/19 04:20 135 H 28 H 98 03/29/19 04:16 126 H 32 H 112/74 99 03/29/19 04:10 123 H 34 H 98 03/29/19 04:03 127 H 35 H 153/88 H 100 03/29/19 04:01 131 H 29 H 153/88 H 98 03/29/19 04:00 129 H 33 H 98 03/29/19 03:52 131 H 30 H 140/92 99 03/29/19 03:50 133 H 39 H 99 03/29/19 03:46 94.5 F L 03/29/19 03:45 131 H 35 H 140/92 100 03/29/19 03:40 135 H 38 H 99 03/29/19 03:30 137 H 39 H 99 03/29/19 03:21 133 H 39 H 98 03/29/19 03:19 133 H 34 H 127/103 H 98 03/29/19 03:10 129 H 40 H 95 03/29/19 03:03 127 H 28 H 108/91 100 03/29/19 03:00 131 H 32 H 95 03/29/19 02:56 129 H 44 H 106/55 L 98 03/29/19 02:53 131 H 47 H 155/102 H 98 03/29/19 02:50 130 H 37 H 99 03/29/19 02:40 124 H 36 H 03/29/19 02:31 120 H 36 H 117/80 03/29/19 02:30 121 H 31 H 03/29/19 02:29 121 H 29 H 149/54 H 03/29/19 02:20 122 H 37 H 03/29/19 02:10 108 H 41 H 92 03/29/19 02:00 112 H 29 H 89 L 03/29/19 01:53 96.4 F L 123 H 32 H 82/56 L 94 03/29/19 01:50 110 H 33 H 97 03/29/19 01:40 135 H 33 H 95 03/29/19 01:32 137 H 44 H 95 03/29/19 01:30 135 H 44 H 82/56 L 95
[2019-03-29 12:21] LABS: iSTAT Arterial Blood Gas HCO3 5 meg/L (19-24); iSTAT Arterial Blood Gas pCO2 28 mmHg (35-46); iSTAT Arterial Blood Gas pH 6.86 (7.35-7.45); iSTAT Arterial Blood Gas pO2 29 mmHg (80-95); iSTAT Carbon Dioxide 6 mEq/l (24-31); iSTAT Hematocrit 44 % (37-47); iSTAT Potassium 5.4 mEq/L (3.3-5.0); iSTAT Sodium 133 mEq/L (135-144)
[2019-03-29 12:22] LABS: iSTAT Sample Type Arterial
--- NOTE | 2019-03-29 12:22 | Communication Note ---
Date of Service: March 29, 2019 During my initial evaluation of the patient she exhibits clinical signs consistent with severe diabetic ketoacidosis. General: Moderate distress. Exhibiting tachypnea and breath odor consistent with ketoacidosis Skin: Warm, dry, Head: Atraumatic Ears, nose, mouth and throat: airway patent, by enlarge part dry mucous membranes (in the setting of having recent large-volume crystalloid administration) Cardiovascular: Normal peripheral perfusion, tachycardia Respiratory: Tachypnea Gastrointestinal: Non distended, positive tenderness, grimacing with moderate palpation, tenderness through all 4 quadrants, no guarding no obvious rebound at this time no obvious hepatosplenomegaly Neuro: Somnolent, able to follow most one-step simple commands, not able to hold conversation. I reviewed the EKGs, laboratory analysis, as well as the radiology report of the CT scan of the chest and independently reviewed the images. Initial discussion with the patient's surrogate decision maker: Her mother, the mother's understanding at that time was the patient was going to be admitted temporarily at our institution while awaiting transfer to [facility]. That was not my understanding so I contacted [facility] to clarify. In speaking with the PICU fellow who controls bed flow, the [facility] is on total [facility] and does not have any available bed openings in the foreseeable future. Additionally I discussed with the pediatric endocrinology service fellow who reports that the service will at times indivi dually admit patients to their own service however, they would not admit a patient in DKA and those are routinely sent to the pediatric ICU. The [facility] transfer center did indicate that they had beds currently available at [facility]. This was declined by the patient's mother. We discussed the possibility of transfer to [facility] however this had been explored by the emergency department team and it was reported that her she declined the transfer as we were treating the patient appropriately and there was not significant additional services that the [facility] system could offer at the present moment. I discussed with the mother additional possible transfers such as [place] for which she responded that she would not go there as it was 1 of the worst hospitals in the nation according to the [employer]. Emphasized we will undertake the best care possible not withstanding the limitations we have in resources when compared to [facility] and additional therapeutic modalities for patients with developmental delays such as autism. Repeat evaluation the patient still had abdominal pain and would grimace with movement. I reviewed the CT scan which demonstrated a what appeared to be an ovarian cyst. I was concerned that this could be a possible cause of patient's DKA as the patient's mother felt this was profoundly rapid onset compared to previous episodes and the lack of vomiting and diarrhea in the emergency department. Mother was obviously concerned that the patient has not had a pelvic exam and is scheduled for her first pelvic exam under the assistance of general anesthesia at [facility] in [place]. Mother's concerns are regarding long-term mental health considerations of possible PTSD. Admitted this concerns are certainly valid however the symptoms could have been caused by a compromised organs such as a torsed ovary and the patient has limited capacity to describe the pain and was exhibiting signs of abdominal irritation. Additionally the patient is still encephalopathic which may mask additional underlying conditions. Accordingly we will attempt to provide some form of sedation or at least anxiolysis. I discussed the possibility of anesthesiology providing sedation during a transvaginal ultrasound to evaluate for flow as I felt that would be the most information providing and least invasive imaging modality to check for possible surgical emergency. Anesthesiology evaluated the patient and would attempt to provide anxiolysis but up she was not a candidate for safe sedation. Subsequent to that the patient's mother refused additional evaluation of the pelvic ultrasound. My staff discussed this with [facility] providers which the patient's mother called, report given to me was these providers were going to attempt and call the patient's mother back and attempt to express our concerns. As the patient currently unable to consent for herself patient's surrogate decision maker would be her mother, and father. Given the long-term issue of fertility as well as hormonal implications if the patient were to lose an ovary I discussed the case with administration. I have additionally consulted gynecology to further weigh in given the evidence we have. Of note patient's mother states they would be attempting to obtain guardianship of this patient in 2 years when the patient's sisters are all of legal age (18) (the sisters are 18 and 16 respectively) and due to costs of legal fees they family is hoping to complete this process once. I discussed the case with Dr. Garrett, please see her evaluation for further details. I evaluated the patient again after Dr. Garcia, the patient does appear to have an improving abdominal exam. The patient's mother does not desire additional testing at this time and I have had the patient's mother sign a treatment refusal form for the pelvic ultrasound indicating she understands that we may be missing a potential surgical emergency. I also discussed this with the patient's father who is in agreement with the patient's mother to defer evaluation at this time. Given the clinical improvement of the abdominal exam it is reassuring and d ecreases the likelihood but not totally excluding the chance of an ovarian torsion or intermittent torsion; and given that the patient's parents both understand our potential concerns of a missed diagnosis, and I do feel that the parents have the patient's best interest in mind we can continue to observe the patient clinically as she recovers from severe diabetic ketoacidosis and if we see additional worrisome signs we could rediscuss diagnostic and therapeutic modalities at that time.
[2019-03-29] MEDS ORDERED: PHARMACY GLYCEMIC MGMT CONSULT PRN (13:09)
[2019-03-29 13:30] LABS: Base Excess ABG -6.6 mEq/L (-9-1.8); HCO3 ABG 17 mmol/L (19-24); Oxygen Saturation ABG 97.2 % (90-95); PCO2 ABG 27 mmHg (35-46); PO2 ABG 89 mm/Hg (80-95)
--- NOTE | 2019-03-29 13:30 | Pharmacy Report ---
Glycemic Control Consultation - Date of Service March 29, 2019 - Scope Scope: Glycemic Pharmacist consulted by Dr Burkett on 03/29/19 for glycemic control and to write orders per [facility] inpatient glycemic control protocol - Objective Weight: 84.4 kg Accuchecks BSG (last 24hrs): 03/29/19 03/29/19 03/29/19 01:26 01:29 01:51 Glucose 800 H* POC Glucose > 600 H* > 600 H* POC Glucose (other) 03/29/19 03/29/19 03/29/19 02:03 02:33 03:31 Glucose POC Glucose > 600 H* > 600 H* POC Glucose (other) > 700 H* 03/29/19 03/29/19 03/29/19 03:34 04:35 04:44 Glucose 477 H* POC Glucose 544 H* POC Glucose (other) 640 H* 03/29/19 03/29/19 03/29/19 05:27 06:41 07:47 Glucose POC Glucose 398 H* 327 H* 341 H* POC Glucose (other) 03/29/19 03/29/19 03/29/19 09:12 09:30 10:13 Glucose 234 H POC Glucose 275 H 230 H POC Glucose (other) 03/29/19 03/29/19 11:36 12:31 Glucose POC Glucose 187 H 167 H POC Glucose (other) Laboratory Data (last 24hrs): 03/29/19 03/29/19 03/29/19 01:51 02:47 04:44 Potassium 8.0 H* TNP Carbon Dioxide 5 L* 6 L* Anion Gap 24.0 H 20.0 H Creatinine 1.94 H 1.68 H Est Cr Clr Drug Dosing 45.1 52.0 Osmolality Beta-Hydroxybutyric Acd 03/29/19 03/29/19 03/29/19 05:18 05:18 09:30 Potassium 4.7 D 4.1 Carbon Dioxide 8 L* Anion Gap 22.0 H Creatinine 1.24 H D Est Cr Clr Drug Dosing 70.5 Osmolality 325 H Beta-Hydroxybutyric Acd HbA1c: Hemoglobin A1c 9.6 % (4.5-5.6) H 03/29/19 02:47 - Recent Pertinent Medications Outpatient Anti-diabetic Regimen: * Lantus 30 units HS, Novolog per sliding scale * A1c = 9.6 % 03/29/19 The patient is currently receiving: * Insulin infusion @ 14 units an hour Risk Factors for Insulin Resistance: * Infection: Rocephin + Doxy (dose of cefepime in the ED) * IVF: 150 meq Bicarb + 10 meq K acetate in D5W * Diet: NPO - Assessment & Plan Assessment & Plan: ASSESSMENT: * 24 y/o F Hx DM I, celiac disease, autism presenting to emergency department in severe DKA; per home medication list patient takes 30 units of lantus in the evening in addition to novolog with meals/correctional * AM labs anion gap 22, bicarb 8, arterial pH 7.29, potassium 4.1 * Potassium has corrected and now within normal range, glucose also down to goal range and fluids switched to 150 meQ Bicarb + 10 meq Potassium acetate in D5W @150 ml/hr * Patient continues on insulin infusion; Leukocytosis on admission, started empirically on ceftriaxone/doxycycline, also with abdominal pain. PLAN FOR INPATIENT GLYCEMIC CONTROL: * Continuing insulin infusion per DKA protocol * Goal Range 150-250 mg/dl; will continue infusion protocol until determined safe to transition and DKA resolved * Please note that the plan above was derived based on current level of insulin resistance and hospital stress. These recommendations are appropriate for inpatient admission only. Plan of care upon discharge will need to be reassessed to avoid potential outpatient hypo/hyperglycemia. Thank you.
[2019-03-29 13:34] LABS: Allen Test ARTLINE (Pos)
[2019-03-29 13:43] LABS: BUN Creatinine Ratio 17.3 (10-20); Calcium 9.8 mg/dl (8.5-10.1); Creatinine Clr Calc Pharmacy 78.7 ml/min; Est GFR (African American) 80.5; Est GFR (Non-African American) 69.5; Magnesium 1.6 mg/dl (1.8-2.4); Potassium 3.7 mmol/L (3.5-5.1)
[2019-03-29 13:58] LABS: Phosphorus 1.1 mg/dl (2.5-4.9)
[2019-03-29] MEDS ORDERED: cefTRIAXone SODIUM 2,000 MG in DEXTROSE 5% 50 ML IV SCH (14:00)
[2019-03-29] MEDS ORDERED: POTASSIUM PHOS 3 MMOL/1 ML INFUSION IV STA (14:14)
[2019-03-29] MEDS ORDERED: POTASSIUM PHOSPHATE 30 MMOL in SODIUM CHLORIDE 0.9% 500 ML IV ONE (14:30)
--- NOTE | 2019-03-29 16:39 | Ultrasound Report ---
ULTRASOUND OF THE PELVIS CLINICAL HISTORY: Right ovarian cyst. COMPARISON STUDY: Pelvic CT dated 03/29/2019. TECHNIQUE: Real-time, grayscale, and color flow sonography of the pelvis is performed transabdominall y. The endovaginal examination was deferred. Images are reviewed in the transverse and longitudinal p lanes. FINDINGS: Uterus: The uterus is normal in size and echotexture, measuring 6.0 x 3.4 x 4.3 cm. Endometrium: The endometrium is normal in appearance, and the endometrial stripe is normal in thickne ss measuring up to 0.8 cm. Ovaries: The ovaries are normal in size and morphology. The right ovary measures 3.7 x 2.8 x 2.9 cm a nd the left ovary measures 3.0 x 1.9 x 2.5 cm. A 3.3 cm dominant follicle is noted in the right ovary . Additional smaller follicles are seen bilaterally. Normal Doppler waveforms are shown within both o varies. Pelvis: There is no free fluid in the cul-de-sac. No concerning adnexal lesion is seen. IMPRESSION: 1. No acute sonographic abnormality is identified in the pelvis. 2. A 3.3 cm dominant follicle is incidentally noted in the right ovary. ACT 112: Negative or not required by law. Electronically signed by: Fede Nettles M.D. 03/29/2019 4:38 PM
[2019-03-29 17:50] LABS: Base Excess ABG -0.9 mEq/L (-9-1.8); HCO3 ABG 22 mmol/L (19-24); Oxygen Saturation ABG 96.8 % (90-95); PCO2 ABG 32 mmHg (35-46); PO2 ABG 82 mm/Hg (80-95); pH ABG 7.46 (7.35-7.45)
[2019-03-29 17:56] LABS: BUN Creatinine Ratio 15.3 (10-20); Est GFR (African American) 87.1; Est GFR (Non-African American) 75.1; Magnesium 1.6 mg/dl (1.8-2.4); Potassium 4.2 mmol/L (3.5-5.1)
[2019-03-29 17:58] LABS: Allen Test POS (Pos)
[2019-03-29] MEDS ORDERED: D5W AND 1/2NSS + 20MEQ KCL 20 MEQ/1,000 ML BAG IV SCH (18:30)
[2019-03-29] MEDS: MAGNESIUM SULFATE / D5W 1 GM/100 ML BAG IV SCH ×2 (19:09→20:17)
[2019-03-29 20:33] LABS: Phosphorus 2.9 mg/dl (2.5-4.9)
[2019-03-29] MEDS: DOXYCYCLINE HYCLATE 100 MG in DEXTROSE 5% 100 ML IV SCH (21:40)
[2019-03-30 00:01] LABS: Base Excess ABG 0.6 mEq/L (-9-1.8); HCO3 ABG 24 mmol/L (19-24); Oxygen Saturation ABG 96.7 % (90-95); PCO2 ABG 32 mmHg (35-46); PO2 ABG 80 mm/Hg (80-95); pH ABG 7.48 (7.35-7.45)
[2019-03-30 00:49] LABS: BUN Creatinine Ratio 14.5 (10-20); Calcium 8.9 mg/dl (8.5-10.1); Creatinine Clr Calc Pharmacy 87.4 ml/min; Est GFR (African American) 91.3; Est GFR (Non-African American) 78.8; Magnesium 2.2 mg/dl (1.8-2.4); Phosphorus 2.4 mg/dl (2.5-4.9)
[2019-03-30 01:25] LABS: Potassium 3.5 mmol/L (3.5-5.1)
[2019-03-30] MEDS ORDERED: POTASSIUM CHLORIDE / WTR 10 MEQ/100 ML PLCT IV ONE (01:48)
[2019-03-30 03:01] LABS: Basophils # (auto) 0.01 K/uL (0-0.2); Eosinophils # (auto) 0.02 K/uL (0-0.5); Eosinophils % (auto) 0.1 %; Hematocrit (blood only) 35.3 % (37-47); Hemoglobin 12.6 g/dL (12.0-16.0); Immature Granulocytes # (auto) 0.09 K/uL (0.00-0.02); Immature Granulocytes % (auto) 0.4 %; Lymphocytes % (auto) 10.5 %; Mean Corpuscular Hemoglobin 29.4 pg (25-34); Mean Corpuscular Hgb Conc 35.7 g/dL (32-36); Mean Corpuscular Volume 82.3 fL (80-100); Monocytes # (auto) 2.09 K/uL (0.11-0.59); Monocytes % (auto) 9.9 %; Neutrophils % (auto) 79.1 %; Platelet Count 179 K/uL (130-400); RDW Coefficient of Variation 13.1 % (11.5-14.5); Red Blood Count 4.29 M/uL (4.2-5.4); White Blood Count 21.01 K/uL (4.8-10.8)
[2019-03-30 03:23] LABS: Est GFR (African American) 97.2; Est GFR (Non-African American) 83.8; Magnesium 2.2 mg/dl (1.8-2.4); Phosphorus 2.2 mg/dl (2.5-4.9); Potassium 3.5 mmol/L (3.5-5.1)
[2019-03-30] MEDS ORDERED: POTASSIUM PHOS 3 MMOL/1 ML INFUSION IV STA (03:53)
[2019-03-30] MEDS ORDERED: POTASSIUM PHOSPHATE 15 MMOL in SODIUM CHLORIDE 0.9% 250 ML IV ONE (05:00)
--- NOTE | 2019-03-30 06:22 | Critical Care Progress Note ---
Date of Service March 30, 2019 Assessment & Plan (1) Autism: Reason critically ill: Lucy Romero is a 24 year old admitted to the ICU for DKA in existing type I diabetic young woman with autism Neuro: At baseline mentation SOmewhat somnolent today Intellectual disability at baseline REspiratory: No concerns breathing comfortably on room air Cardiovascular: ECG normalized with correction in serum potassium No acute concerns GI: Abdominal pain resolved Abdominal echo shows pelvic mass as enlarged ovarian cyst Renal/Lytes: Electrolytes completely resolved Gap closed Continuing insulin drip and D5 fluid Endocrine: Gap closed Electrolytes and sugars normalized no further ketones measured Okay to transition from insulin drip to basal insulin Will continue insulin drip for two hours post admnistration of basal insulin to prevent rebound Okay to transition to floor (2) Celiac disease: (3) Type 1 diabetes: (4) DKA (diabetic ketoacidoses): (5) Dehydration: (6) Vomiting: (7) Diarrhea: (8) Hyperkalemia: (9) Tachycardia: (10) Encounter for pre-operative examination: (11) Admitted to intensive care unit: (12) Acute electrocardiogram changes: (13) Right ovarian cyst: Supervising Physician Co-Signing Physician Notes Dr. Mckinnon was resident physician during care of patient. I separately evaluated patient for mcneill portions of the history and the exam. I was present during the critical portion of medical decision making, and I discussed the case with the resident. I generally agree with the findings and plan. Patient's anion gap has closed, will transition from insulin infusion to subcutaneous insulin. Extremely elevated white count I would consider to be a leukemoid reaction, continue to trend to rule out any other form of blood dyscrasia which I think is unlikely at this time. There is been no growth in her blood cultures nor urine culture. She has not required supplemental oxygen. I suspect the most likely trigger is a viral enteritis which mother reports symptoms of a few days preceding. Patient is stable for downgrade out of the ICU. Subjective Lucy Romero is sleeping comfortably in bed this morning, dad at bedside updated of Lucy's improvement in her labwork and plan to wean off of insulin drip this morning. Review of Systems Review of Systems: Unobtainable due to cognitive status Physical Exam Physical Exam: Constitutional: Ms. Romero is lying in bed sleeping soundly this morning, no apparent distress at this time though dried tears present in corner of her eyes. Respiratory: Chest expansion symmetric, no increased work of breathing, lungs clear to auscultation Cardiovascular: heart sounds dual, tachycardic, peripheral pulses intact. GI: Abdomen soft, previous tenderness appears to have abated. Skin: No rashes warm and dry Results & Data Vital Signs (Past 12 Hours) Vital Signs Temp Pulse Resp Pulse Ox 03/30/19 05:00 116 H 20 99 03/30/19 04:00 37.0 C 129 H 23 98 03/30/19 03:00 126 H 17 98 03/30/19 02:00 123 H 24 100 03/30/19 01:00 121 H 15 100 03/30/19 00:00 37.5 C 120 H 23 100 03/29/19 23:00 37.6 C H 128 H 22 100 03/29/19 22:00 111 H 19 100 03/29/19 21:00 113 H 24 100 03/29/19 20:45 114 H 03/29/19 20:00 36.8 C 113 H 16 97 03/29/19 19:00 114 H 16 100 Resident Activity Tracking Resident Involvement: Resident Care Provided Care Provided: Adult Hospital Medicine (1) DKA (diabetic ketoacidoses) Diabetes mellitus complication detail: without coma Diabetes mellitus type: type 1 Qualified Code(s): E10.10 - Type 1 diabetes mellitus with ketoacidosis without coma (2) Diarrhea Diarrhea type: unspecified type Qualified Code(s): R19.7 - Diarrhea, unspecified (3) Vomiting Nausea presence: unspecified Vomiting Intractability: unspecified Vomiting type: unspecified Qualified Code(s): R11.10 - Vomiting, unspecified
[2019-03-30] MEDS: INSULIN REGULAR 250 UNITS in SODIUM CHLORIDE 0.9% 247.5 ML IV SCH (07:53)
[2019-03-30] MEDS: INSULIN ASPART 100 UNITS/ML 3 ML PEN SC SCH ×2 (07:53→11:41)
[2019-03-30] MEDS: DOXYCYCLINE HYCLATE 100 MG in DEXTROSE 5% 100 ML IV SCH (07:55)
--- NOTE | 2019-03-30 08:14 | Electrocardiogram Report ---
Test Reason : Blood Pressure : / mmHG Vent. Rate : 139 BPM Atrial Rate : 139 BPM P-R Int : 132 ms QRS Dur : 082 ms QT Int : 294 ms P-R-T Axes : 048 047 039 degrees QTc Int : 447 ms Poor data quality, interpretation may be adversely affected Sinus tachycardia Otherwise normal ECG When compared with ECG of 29-MAR-2019 02:46, (unconfirmed) Right bundle branch block is no longer Present Confirmed by Damien Henderson ([id number]) on 03/29/2019 5:41:25 PM Referred By: REFERRED SELF Confirmed By:Asael Henderson
[2019-03-30] MEDS ORDERED: INSULIN GLARGINE SOLOSTAR 100 UNITS/ML 3 ML PEN SC ONE (09:15)
--- NOTE | 2019-03-30 10:32 | Hospitalist Progress Note ---
Date of Service March 30, 2019 Assessment & Plan (1) DKA (diabetic ketoacidoses): Lucy is a 24yo F PMH severe autism, type 1 diabetes, celiac disease, admitted to ICU on 03/29/19 for severe DKA, severe electrolyte abnormality, wide complex tachycardia. DKA, resolving -On 03/30/19 her electrolytes have normalized, her anion gap had closed, and she was tolerating PO intake -Will resume home bolus/basal regimen and wean insulin drip. Appreciate pharmacy input -Remove dextrose from IVF -WBC improving from metabolic stress of DKA T1DM -Resume home regimen, wean drip as above -BSG ACHS -Pt will not tolerate insulin pump -Mom requesting SQ injections from vials, not pens as well as humalog and lantus brands. -Pt may bring home insulin Celiac disease -Gluten free diet Severe autism -mom reaching out for assistance with establishing guardianship for Lucy -Legal visited this AM to help cut down on costs of this. R ovarian cyst -Follow clinically. Will DC antibiotics at this time. Dispo: admit to medical, expect 1 more day in hospital DVTP: SCDs Code: FULL (2) Type 1 diabetes: (3) Celiac disease: (4) Autism: (5) Right ovarian cyst: Supervising Physician Co-Signing Physician Notes Attending attestation Pt seen and examined in concert with Dr. Johnson. In agreement with the documented findings as noted in the resident documentation with any exceptions or additions as noted here. Patient without complaints at present, mental status at baseline per family at bedside. Full history unobtainable from this patient. On examination, S1/S2 nl, tachycardic, no M/C/G. CTAB. Abd NT/ND BS +ve DKA in the setting of type 1 DM - transition to SQ insulin per protocol. Continue IVF supplementation, encourage POI. Monitor BMP. Mother checking glucose frequently, would benefit from CGM if tolerated. Else see resident documentation as noted. Subjective Lucy is awake and alert this morning, sitting up and eating breakfast. Dad at bedside, reports she looks "a lot better". Unfortunately, Lucy cannot appropriately answer questions but does not appear in any distress. Review of Systems Review of Systems: Unobtainable due to cognitive status (Denies belly pain, nausea, headache.) Physical Exam Constitutional: WD/WN, vitals as above + behavioral limitations Eyes: PERRL, conjunctivae normal, anicteric sclerae ENMT: external ear and nose normal, oropharynx normal Neck: normal visual inspection Respiratory: normal respiratory effort, lungs clear to auscultation Cardiovascular: RRR, no murmur, no edema Gastrointestinal (Abdomen): normal bowel sounds, soft, nontender, no hepatosplenomegaly Musculoskeletal: no cyanosis or clubbing, extremities motor strength 5/5 Skin: no rashes, warm and dry Neurologic: PERRL, EOMI, accommodation nl, no face palsy, no dysarthria Psychiatric: Orientation: alert Insight: + limited insight Results & Data Vital Signs (Past 12 Hours) Vital Signs Temp Pulse Resp Pulse Ox 03/30/19 05:00 116 H 20 99 03/30/19 04:00 98.6 F 129 H 23 98 03/30/19 03:00 126 H 17 98 03/30/19 02:00 123 H 24 100 03/30/19 01:00 121 H 15 100 03/30/19 00:00 99.5 F 120 H 23 100 03/29/19 23:00 99.7 F H 128 H 22 100 Laboratory Results 03/30/19 03/30/19 03/30/19 Range/Units 07:21 06:02 05:01 WBC (4.8-10.8) K/uL RBC (4.2-5.4) M/uL Hgb (12.0-16.0) g/dL POC Hgb (12.0-16.0) g/dl Hct (37-47) % POC Hct (37-47) % MCV (80-100) fL MCH (25-34) pg MCHC (32-36) g/dL RDW Std Deviation (36.4-46.3) fL RDW Coeff of Olesya (11.5-14.5) % Plt Count (130-400) K/uL MPV (7.4-10.4) fL Immature Gran % (Auto) % Neut % (Auto) % Lymph % (Auto) % Maury % (Auto) % Eos % (Auto) % Baso % (Auto) % Immature Gran # (Auto) (0.00-0.02) K/uL Neut # (Auto) (1.4-6.5) K/uL Lymph # (Auto) (1.2-3.4) K/uL Maury # (Auto) (0.11-0.59) K/uL Eos # (Auto) (0-0.5) K/uL Baso # (Auto) (0-0.2) K/uL Specimen Type POC pH (7.35-7.45) POC pCO2 (35-46) mmHg POC pO2 (80-95) mmHg POC HCO3 (19-24) jeremiah/L POC Base Excess (-9-1.8) jeremiah/L POC O2 Saturation ABG pH (7.35-7.45) ABG pCO2 (35-46) mmHg ABG pO2 (80-95) mm/Hg ABG HCO3 (19-24) mmol/L ABG O2 Saturation (90-95) % ABG Base Excess (-9-1.8) mEq/L Jovon Test (Pos) VBG pH Barometric Pressure mm/Hg Oxygen Given POC Sodium (135-144) mEq/L Sodium (136-145) mmol/L POC Potassium (3.3-5.0) mEq/L Potassium (3.5-5.1) mmol/L POC Chloride (101-112) mEq/L Chloride (98-107) mmol/L Carbon Dioxide (21-32) mmol/L POC Total CO2 (24-31) mEq/l Anion Gap (3-11) POC Anion Gap POC BUN (7-18) mg/dl BUN (7-18) mg/dl Creatinine (0.6-1.2) mg/dl POC Creatinine (0.6-1.3) mg/dl Est Cr Clr Drug Dosing ml/min Est GFR ( Amer) Est GFR (Non-Af Amer) BUN/Creatinine Ratio (10-20) Glucose (70-99) mg/dl POC Glucose 192 H 204 H 210 H (70-99) POC Glucose (other) (70-99) mg/dl Calcium (8.5-10.1) mg/dl POC Ioniz Calcium Jose (1.12-1.32) mmol/l Phosphorus (2.5-4.9) mg/dl Magnesium (1.8-2.4) mg/dl Specimen Hemolysis Nasal Screen MRSA (PCR) (Negative) 03/30/19 03/30/19 03/30/19 Range/Units 04:03 03:12 02:34 WBC (4.8-10.8) K/uL RBC (4.2-5.4) M/uL Hgb (12.0-16.0) g/dL POC Hgb (12.0-16.0) g/dl Hct (37-47) % POC Hct (37-47) % MCV (80-100) fL MCH (25-34) pg MCHC (32-36) g/dL RDW Std Deviation (36.4-46.3) fL RDW Coeff of Olesya (11.5-14.5) % Plt Count (130-400) K/uL MPV (7.4-10.4) fL Immature Gran % (Auto) % Neut % (Auto) % Lymph % (Auto) % Maury % (Auto) % Eos % (Auto) % Baso % (Auto) % Immature Gran # (Auto) (0.00-0.02) K/uL Neut # (Auto) (1.4-6.5) K/uL Lymph # (Auto) (1.2-3.4) K/uL Maury # (Auto) (0.11-0.59) K/uL Eos # (Auto) (0-0.5) K/uL Baso # (Auto) (0-0.2) K/uL Specimen Type POC pH (7.35-7.45) POC pCO2 (35-46) mmHg POC pO2 (80-95) mmHg POC HCO3 (19-24) jeremiah/L POC Base Excess (-9-1.8) jeremiah/L POC O2 Saturation ABG pH (7.35-7.45) ABG pCO2 (35-46) mmHg ABG pO2 (80-95) mm/Hg ABG HCO3 (19-24) mmol/L ABG O2 Saturation (90-95) % ABG Base Excess (-9-1.8) mEq/L Jovon Test (Pos) VBG pH Barometric Pressure mm/Hg Oxygen Given POC Sodium (135-144) mEq/L Sodium (136-145) mmol/L POC Potassium (3.3-5.0) mEq/L Potassium (3.5-5.1) mmol/L POC Chloride (101-112) mEq/L Chloride (98-107) mmol/L Carbon Dioxide (21-32) mmol/L POC Total CO2 (24-31) mEq/l Anion Gap (3-11) POC Anion Gap POC BUN (7-18) mg/dl BUN (7-18) mg/dl Creatinine (0.6-1.2) mg/dl POC Creatinine (0.6-1.3) mg/dl Est Cr Clr Drug Dosing ml/min Est GFR ( Amer) Est GFR (Non-Af Amer) BUN/Creatinine Ratio (10-20) Glucose (70-99) mg/dl POC Glucose 184 H 160 H 107 H (70-99) POC Glucose (other) (70-99) mg/dl Calcium (8.5-10.1) mg/dl POC Ioniz Calcium Jose (1.12-1.32) mmol/l Phosphorus (2.5-4.9) mg/dl Magnesium (1.8-2.4) mg/dl Specimen Hemolysis Nasal Screen MRSA (PCR) (Negative) 03/30/19 03/30/19 03/30/19 Range/Units 02:32 02:32 02:11 WBC 21.01 H (4.8-10.8) K/uL RBC 4.29 (4.2-5.4) M/uL Hgb 12.6 (12.0-16.0) g/dL POC Hgb (12.0-16.0) g/dl Hct 35.3 L (37-47) % POC Hct (37-47) % MCV 82.3 D (80-100) fL MCH 29.4 (25-34) pg MCHC 35.7 (32-36) g/dL RDW Std Deviation 39.0 (36.4-46.3) fL RDW Coeff of Olesya 13.1 (11.5-14.5) % Plt Count 179 D (130-400) K/uL MPV 11.0 H (7.4-10.4) fL Immature Gran % (Auto) 0.4 % Neut % (Auto) 79.1 % Lymph % (Auto) 10.5 % Maury % (Auto) 9.9 % Eos % (Auto) 0.1 % Baso % (Auto) 0.0 % Immature Gran # (Auto) 0.09 H (0.00-0.02) K/uL Neut # (Auto) 16.60 H (1.4-6.5) K/uL Lymph # (Auto) 2.20 (1.2-3.4) K/uL Maury # (Auto) 2.09 H (0.11-0.59) K/uL Eos # (Auto) 0.02 (0-0.5) K/uL Baso # (Auto) 0.01 (0-0.2) K/uL Specimen Type POC pH (7.35-7.45) POC pCO2 (35-46) mmHg POC pO2 (80-95) mmHg POC HCO3 (19-24) jeremiah/L POC Base Excess (-9-1.8) jeremiah/L POC O2 Saturation ABG pH (7.35-7.45) ABG pCO2 (35-46) mmHg ABG pO2 (80-95) mm/Hg ABG HCO3 (19-24) mmol/L ABG O2 Saturation (90-95) % ABG Base Excess (-9-1.8) mEq/L Jovon Test (Pos) VBG pH Barometric Pressure mm/Hg Oxygen Given POC Sodium (135-144) mEq/L Sodium 138 (136-145) mmol/L POC Potassium (3.3-5.0) mEq/L Potassium 3.5 (3.5-5.1) mmol/L POC Chloride (101-112) mEq/L Chloride 107 (98-107) mmol/L Carbon Dioxide 23 (21-32) mmol/L POC Total CO2 (24-31) mEq/l Anion Gap 8.0 (3-11) POC Anion Gap POC BUN (7-18) mg/dl BUN 13 (7-18) mg/dl Creatinine 0.95 (0.6-1.2) mg/dl POC Creatinine (0.6-1.3) mg/dl Est Cr Clr Drug Dosing 92.0 ml/min Est GFR ( Amer) 97.2 Est GFR (Non-Af Amer) 83.8 BUN/Creatinine Ratio 14.0 (10-20) Glucose 104 H (70-99) mg/dl POC Glucose 110 H (70-99) POC Glucose (other) (70-99) mg/dl Calcium 9.0 (8.5-10.1) mg/dl POC Ioniz Calcium Jose (1.12-1.32) mmol/l Phosphorus 2.2 L (2.5-4.9) mg/dl Magnesium 2.2 (1.8-2.4) mg/dl Specimen Hemolysis Nasal Screen MRSA (PCR) (Negative) 03/30/19 03/29/19 03/29/19 Range/Units 01:03 23:53 23:53 WBC (4.8-10.8) K/uL RBC (4.2-5.4) M/uL Hgb (12.0-16.0) g/dL POC Hgb (12.0-16.0) g/dl Hct (37-47) % POC Hct (37-47) % MCV (80-100) fL MCH (25-34) pg MCHC (32-36) g/dL RDW Std Deviation (36.4-46.3) fL RDW Coeff of Olesya (11.5-14.5) % Plt Count (130-400) K/uL MPV (7.4-10.4) fL Immature Gran % (Auto) % Neut % (Auto) % Lymph % (Auto) % Maury % (Auto) % Eos % (Auto) % Baso % (Auto) % Immature Gran # (Auto) (0.00-0.02) K/uL Neut # (Auto) (1.4-6.5) K/uL Lymph # (Auto) (1.2-3.4) K/uL Maury # (Auto) (0.11-0.59) K/uL Eos # (Auto) (0-0.5) K/uL Baso # (Auto) (0-0.2) K/uL Specimen Type POC pH (7.35-7.45) POC pCO2 (35-46) mmHg POC pO2 (80-95) mmHg POC HCO3 (19-24) jeremiah/L POC Base Excess (-9-1.8) jeremiah/L POC O2 Saturation ABG pH 7.48 H (7.35-7.45) ABG pCO2 32 L (35-46) mmHg ABG pO2 80 (80-95) mm/Hg ABG HCO3 24 (19-24) mmol/L ABG O2 Saturation 96.7 H (90-95) % ABG Base Excess 0.6 (-9-1.8) mEq/L Jovon Test TNP (Pos) VBG pH Barometric Pressure 726.8 mm/Hg Oxygen Given ROOM AIR POC Sodium (135-144) mEq/L Sodium 138 (136-145) mmol/L POC Potassium (3.3-5.0) mEq/L Potassium 3.5 D (3.5-5.1) mmol/L POC Chloride (101-112) mEq/L Chloride 107 (98-107) mmol/L Carbon Dioxide 24 (21-32) mmol/L POC Total CO2 (24-31) mEq/l Anion Gap 7.0 (3-11) POC Anion Gap POC BUN (7-18) mg/dl BUN 15 (7-18) mg/dl Creatinine 1.00 (0.6-1.2) mg/dl POC Creatinine (0.6-1.3) mg/dl Est Cr Clr Drug Dosing 87.4 ml/min Est GFR ( Amer) 91.3 Est GFR (Non-Af Amer) 78.8 BUN/Creatinine Ratio 14.5 (10-20) Glucose 136 H (70-99) mg/dl POC Glucose 121 H (70-99) POC Glucose (other) (70-99) mg/dl Calcium 8.9 (8.5-10.1) mg/dl POC Ioniz Calcium Jose (1.12-1.32) mmol/l Phosphorus 2.4 L (2.5-4.9) mg/dl Magnesium 2.2 (1.8-2.4) mg/dl Specimen Hemolysis Nasal Screen MRSA (PCR) (Negative) 03/29/19 03/29/19 03/29/19 Range/Units 23:52 23:02 21:59 WBC (4.8-10.8) K/uL RBC (4.2-5.4) M/uL Hgb (12.0-16.0) g/dL POC Hgb (12.0-16.0) g/dl Hct (37-47) % POC Hct (37-47) % MCV (80-100) fL MCH (25-34) pg MCHC (32-36) g/dL RDW Std Deviation (36.4-46.3) fL RDW Coeff of Olesya (11.5-14.5) % Plt Count (130-400) K/uL MPV (7.4-10.4) fL Immature Gran % (Auto) % Neut % (Auto) % Lymph % (Auto) % Maury % (Auto) % Eos % (Auto) % Baso % (Auto) % Immature Gran # (Auto) (0.00-0.02) K/uL Neut # (Auto) (1.4-6.5) K/uL Lymph # (Auto) (1.2-3.4) K/uL Maury # (Auto) (0.11-0.59) K/uL Eos # (Auto) (0-0.5) K/uL Baso # (Auto) (0-0.2) K/uL Specimen Type POC pH (7.35-7.45) POC pCO2 (35-46) mmHg POC pO2 (80-95) mmHg POC HCO3 (19-24) jeremiah/L POC Base Excess (-9-1.8) jeremiah/L POC O2 Saturation ABG pH (7.35-7.45) ABG pCO2 (35-46) mmHg ABG pO2 (80-95) mm/Hg ABG HCO3 (19-24) mmol/L ABG O2 Saturation (90-95) % ABG Base Excess (-9-1.8) mEq/L Jovon Test (Pos) VBG pH Barometric Pressure mm/Hg Oxygen Given POC Sodium (135-144) mEq/L Sodium (136-145) mmol/L POC Potassium (3.3-5.0) mEq/L Potassium (3.5-5.1) mmol/L POC Chloride (101-112) mEq/L Chloride (98-107) mmol/L Carbon Dioxide (21-32) mmol/L POC Total CO2 (24-31) mEq/l Anion Gap (3-11) POC Anion Gap POC BUN (7-18) mg/dl BUN (7-18) mg/dl Creatinine (0.6-1.2) mg/dl POC Creatinine (0.6-1.3) mg/dl Est Cr Clr Drug Dosing ml/min Est GFR ( Amer) Est GFR (Non-Af Amer) BUN/Creatinine Ratio (10-20) Glucose (70-99) mg/dl POC Glucose 140 H 168 H 171 H (70-99) POC Glucose (other) (70-99) mg/dl Calcium (8.5-10.1) mg/dl POC Ioniz Calcium Jose (1.12-1.32) mmol/l Phosphorus (2.5-4.9) mg/dl Magnesium (1.8-2.4) mg/dl Specimen Hemolysis Nasal Screen MRSA (PCR) (Negative) 03/29/19 03/29/19 03/29/19 Range/Units 21:02 20:32 20:04 WBC (4.8-10.8) K/uL RBC (4.2-5.4) M/uL Hgb (12.0-16.0) g/dL POC Hgb (12.0-16.0) g/dl Hct (37-47) % POC Hct (37-47) % MCV (80-100) fL MCH (25-34) pg MCHC (32-36) g/dL RDW Std Deviation (36.4-46.3) fL RDW Coeff of Olesya (11.5-14.5) % Plt Count (130-400) K/uL MPV (7.4-10.4) fL Immature Gran % (Auto) % Neut % (Auto) % Lymph % (Auto) % Maury % (Auto) % Eos % (Auto) % Baso % (Auto) % Immature Gran # (Auto) (0.00-0.02) K/uL Neut # (Auto) (1.4-6.5) K/uL Lymph # (Auto) (1.2-3.4) K/uL Maury # (Auto) (0.11-0.59) K/uL Eos # (Auto) (0-0.5) K/uL Baso # (Auto) (0-0.2) K/uL Specimen Type POC pH (7.35-7.45) POC pCO2 (35-46) mmHg POC pO2 (80-95) mmHg POC HCO3 (19-24) jeremiah/L POC Base Excess (-9-1.8) jeremiah/L POC O2 Saturation ABG pH (7.35-7.45) ABG pCO2 (35-46) mmHg ABG pO2 (80-95) mm/Hg ABG HCO3 (19-24) mmol/L ABG O2 Saturation (90-95) % ABG Base Excess (-9-1.8) mEq/L Jovon Test (Pos) VBG pH Barometric Pressure mm/Hg Oxygen Given POC Sodium (135-144) mEq/L Sodium (136-145) mmol/L POC Potassium (3.3-5.0) mEq/L Potassium (3.5-5.1) mmol/L POC Chloride (101-112) mEq/L Chloride (98-107) mmol/L Carbon Dioxide (21-32) mmol/L POC Total CO2 (24-31) mEq/l Anion Gap (3-11) POC Anion Gap POC BUN (7-18) mg/dl BUN (7-18) mg/dl Creatinine (0.6-1.2) mg/dl POC Creatinine (0.6-1.3) mg/dl Est Cr Clr Drug Dosing ml/min Est GFR ( Amer) Est GFR (Non-Af Amer) BUN/Creatinine Ratio (10-20) Glucose (70-99) mg/dl POC Glucose 171 H 144 H 129 H (70-99) POC Glucose (other) (70-99) mg/dl Calcium (8.5-10.1) mg/dl POC Ioniz Calcium Jose (1.12-1.32) mmol/l Phosphorus (2.5-4.9) mg/dl Magnesium (1.8-2.4) mg/dl Specimen Hemolysis Nasal Screen MRSA (PCR) (Negative) 03/29/19 03/29/19 03/29/19 Range/Units 19:27 19:03 18:35 WBC (4.8-10.8) K/uL RBC (4.2-5.4) M/uL Hgb (12.0-16.0) g/dL POC Hgb (12.0-16.0) g/dl Hct (37-47) % POC Hct (37-47) % MCV (80-100) fL MCH (25-34) pg MCHC (32-36) g/dL RDW Std Deviation (36.4-46.3) fL RDW Coeff of Olesya (11.5-14.5) % Plt Count (130-400) K/uL MPV (7.4-10.4) fL Immature Gran % (Auto) % Neut % (Auto) % Lymph % (Auto) % Maury % (Auto) % Eos % (Auto) % Baso % (Auto) % Immature Gran # (Auto) (0.00-0.02) K/uL Neut # (Auto) (1.4-6.5) K/uL Lymph # (Auto) (1.2-3.4) K/uL Maury # (Auto) (0.11-0.59) K/uL Eos # (Auto) (0-0.5) K/uL Baso # (Auto) (0-0.2) K/uL Specimen Type POC pH (7.35-7.45) POC pCO2 (35-46) mmHg POC pO2 (80-95) mmHg POC HCO3 (19-24) jeremiah/L POC Base Excess (-9-1.8) jeremiah/L POC O2 Saturation ABG pH (7.35-7.45) ABG pCO2 (35-46) mmHg ABG pO2 (80-95) mm/Hg ABG HCO3 (19-24) mmol/L ABG O2 Saturation (90-95) % ABG Base Excess (-9-1.8) mEq/L Jovon Test (Pos) VBG pH Barometric Pressure mm/Hg Oxygen Given POC Sodium (135-144) mEq/L Sodium (136-145) mmol/L POC Potassium (3.3-5.0) mEq/L Potassium (3.5-5.1) mmol/L POC Chloride (101-112) mEq/L Chloride (98-107) mmol/L Carbon Dioxide (21-32) mmol/L POC Total CO2 (24-31) mEq/l Anion Gap (3-11) POC Anion Gap POC BUN (7-18) mg/dl BUN (7-18) mg/dl Creatinine (0.6-1.2) mg/dl POC Creatinine (0.6-1.3) mg/dl Est Cr Clr Drug Dosing ml/min Est GFR ( Amer) Est GFR (Non-Af Amer) BUN/Creatinine Ratio (10-20) Glucose (70-99) mg/dl POC Glucose 107 H 109 H 114 H (70-99) POC Glucose (other) (70-99) mg/dl Calcium (8.5-10.1) mg/dl POC Ioniz Calcium Jose (1.12-1.32) mmol/l Phosphorus (2.5-4.9) mg/dl Magnesium (1.8-2.4) mg/dl Specimen Hemolysis Nasal Screen MRSA (PCR) (Negative) 03/29/19 03/29/19 03/29/19 Range/Units 17:25 17:25 17:25 WBC (4.8-10.8) K/uL RBC (4.2-5.4) M/uL Hgb (12.0-16.0) g/dL POC Hgb (12.0-16.0) g/dl Hct (37-47) % POC Hct (37-47) % MCV (80-100) fL MCH (25-34) pg MCHC (32-36) g/dL RDW Std Deviation (36.4-46.3) fL RDW Coeff of Olesya (11.5-14.5) % Plt Count (130-400) K/uL MPV (7.4-10.4) fL Immature Gran % (Auto) % Neut % (Auto) % Lymph % (Auto) % Maury % (Auto) % Eos % (Auto) % Baso % (Auto) % Immature Gran # (Auto) (0.00-0.02) K/uL Neut # (Auto) (1.4-6.5) K/uL Lymph # (Auto) (1.2-3.4) K/uL Maury # (Auto) (0.11-0.59) K/uL Eos # (Auto) (0-0.5) K/uL Baso # (Auto) (0-0.2) K/uL Specimen Type POC pH (7.35-7.45) POC pCO2 (35-46) mmHg POC pO2 (80-95) mmHg POC HCO3 (19-24) jeremiah/L POC Base Excess (-9-1.8) jeremiah/L POC O2 Saturation ABG pH 7.46 H (7.35-7.45) ABG pCO2 32 L (35-46) mmHg ABG pO2 82 (80-95) mm/Hg ABG HCO3 22 (19-24) mmol/L ABG O2 Saturation 96.8 H (90-95) % ABG Base Excess -0.9 (-9-1.8) mEq/L Jovon Test POS (Pos) VBG pH Barometric Pressure 727.2 mm/Hg Oxygen Given ROOM AIR POC Sodium (135-144) mEq/L Sodium 138 (136-145) mmol/L POC Potassium (3.3-5.0) mEq/L Potassium 4.2 (3.5-5.1) mmol/L POC Chloride (101-112) mEq/L Chloride 107 (98-107) mmol/L Carbon Dioxide 24 (21-32) mmol/L POC Total CO2 (24-31) mEq/l Anion Gap 7.0 (3-11) POC Anion Gap POC BUN (7-18) mg/dl BUN 16 (7-18) mg/dl Creatinine 1.04 (0.6-1.2) mg/dl POC Creatinine (0.6-1.3) mg/dl Est Cr Clr Drug Dosing 84.0 ml/min Est GFR ( Amer) 87.1 Est GFR (Non-Af Amer) 75.1 BUN/Creatinine Ratio 15.3 (10-20) Glucose 146 H (70-99) mg/dl POC Glucose 152 H (70-99) POC Glucose (other) (70-99) mg/dl Calcium 9.0 (8.5-10.1) mg/dl POC Ioniz Calcium Jose (1.12-1.32) mmol/l Phosphorus 2.9 D (2.5-4.9) mg/dl Magnesium 1.6 L (1.8-2.4) mg/dl Specimen Hemolysis Nasal Screen MRSA (PCR) (Negative) 03/29/19 03/29/19 03/29/19 Range/Units 16:35 15:32 14:30 WBC (4.8-10.8) K/uL RBC (4.2-5.4) M/uL Hgb (12.0-16.0) g/dL POC Hgb (12.0-16.0) g/dl Hct (37-47) % POC Hct (37-47) % MCV (80-100) fL MCH (25-34) pg MCHC (32-36) g/dL RDW Std Deviation (36.4-46.3) fL RDW Coeff of Olesya (11.5-14.5) % Plt Count (130-400) K/uL MPV (7.4-10.4) fL Immature Gran % (Auto) % Neut % (Auto) % Lymph % (Auto) % Maury % (Auto) % Eos % (Auto) % Baso % (Auto) % Immature Gran # (Auto) (0.00-0.02) K/uL Neut # (Auto) (1.4-6.5) K/uL Lymph # (Auto) (1.2-3.4) K/uL Maury # (Auto) (0.11-0.59) K/uL Eos # (Auto) (0-0.5) K/uL Baso # (Auto) (0-0.2) K/uL Specimen Type POC pH (7.35-7.45) POC pCO2 (35-46) mmHg POC pO2 (80-95) mmHg POC HCO3 (19-24) jeremiah/L POC Base Excess (-9-1.8) jeremiah/L POC O2 Saturation ABG pH (7.35-7.45) ABG pCO2 (35-46) mmHg ABG pO2 (80-95) mm/Hg ABG HCO3 (19-24) mmol/L ABG O2 Saturation (90-95) % ABG Base Excess (-9-1.8) mEq/L Jovon Test (Pos) VBG pH Barometric Pressure mm/Hg Oxygen Given POC Sodium (135-144) mEq/L Sodium (136-145) mmol/L POC Potassium (3.3-5.0) mEq/L Potassium (3.5-5.1) mmol/L POC Chloride (101-112) mEq/L Chloride (98-107) mmol/L Carbon Dioxide (21-32) mmol/L POC Total CO2 (24-31) mEq/l Anion Gap (3-11) POC Anion Gap POC BUN (7-18) mg/dl BUN (7-18) mg/dl Creatinine (0.6-1.2) mg/dl POC Creatinine (0.6-1.3) mg/dl Est Cr Clr Drug Dosing ml/min Est GFR ( Amer) Est GFR (Non-Af Amer) BUN/Creatinine Ratio (10-20) Glucose (70-99) mg/dl POC Glucose 133 H 151 H 170 H (70-99) POC Glucose (other) (70-99) mg/dl Calcium (8.5-10.1) mg/dl POC Ioniz Calcium Jose (1.12-1.32) mmol/l Phosphorus (2.5-4.9) mg/dl Magnesium (1.8-2.4) mg/dl Specimen Hemolysis Nasal Screen MRSA (PCR) (Negative) 03/29/19 03/29/19 03/29/19 Range/Units 13:30 13:20 13:20 WBC (4.8-10.8) K/uL RBC (4.2-5.4) M/uL Hgb (12.0-16.0) g/dL POC Hgb (12.0-16.0) g/dl Hct (37-47) % POC Hct (37-47) % MCV (80-100) fL MCH (25-34) pg MCHC (32-36) g/dL RDW Std Deviation (36.4-46.3) fL RDW Coeff of Olesya (11.5-14.5) % Plt Count (130-400) K/uL MPV (7.4-10.4) fL Immature Gran % (Auto) % Neut % (Auto) % Lymph % (Auto) % Maury % (Auto) % Eos % (Auto) % Baso % (Auto) % Immature Gran # (Auto) (0.00-0.02) K/uL Neut # (Auto) (1.4-6.5) K/uL Lymph # (Auto) (1.2-3.4) K/uL Maury # (Auto) (0.11-0.59) K/uL Eos # (Auto) (0-0.5) K/uL Baso # (Auto) (0-0.2) K/uL Specimen Type POC pH (7.35-7.45) POC pCO2 (35-46) mmHg POC pO2 (80-95) mmHg POC HCO3 (19-24) jeremiah/L POC Base Excess (-9-1.8) jeremiah/L POC O2 Saturation ABG pH 7.40 (7.35-7.45) ABG pCO2 27 L (35-46) mmHg ABG pO2 89 (80-95) mm/Hg ABG HCO3 17 L (19-24) mmol/L ABG O2 Saturation 97.2 H (90-95) % ABG Base Excess -6.6 (-9-1.8) mEq/L Jovon Test ARTLINE (Pos) VBG pH Barometric Pressure 727.9 mm/Hg Oxygen Given ROOM AIR POC Sodium (135-144) mEq/L Sodium 140 (136-145) mmol/L POC Potassium (3.3-5.0) mEq/L Potassium 3.7 (3.5-5.1) mmol/L POC Chloride (101-112) mEq/L Chloride 109 H (98-107) mmol/L Carbon Dioxide 16 L (21-32) mmol/L POC Total CO2 (24-31) mEq/l Anion Gap 15.0 H (3-11) POC Anion Gap POC BUN (7-18) mg/dl BUN 19 H (7-18) mg/dl Creatinine 1.11 (0.6-1.2) mg/dl POC Creatinine (0.6-1.3) mg/dl Est Cr Clr Drug Dosing 78.7 ml/min Est GFR ( Amer) 80.5 Est GFR (Non-Af Amer) 69.5 BUN/Creatinine Ratio 17.3 (10-20) Glucose 157 H (70-99) mg/dl POC Glucose 134 H (70-99) POC Glucose (other) (70-99) mg/dl Calcium 9.8 (8.5-10.1) mg/dl POC Ioniz Calcium Jose (1.12-1.32) mmol/l Phosphorus 1.1 L* (2.5-4.9) mg/dl Magnesium 1.6 L (1.8-2.4) mg/dl Specimen Hemolysis Nasal Screen MRSA (PCR) (Negative) 03/29/19 03/29/19 03/29/19 Range/Units 12:31 11:36 10:13 WBC (4.8-10.8) K/uL RBC (4.2-5.4) M/uL Hgb (12.0-16.0) g/dL POC Hgb (12.0-16.0) g/dl Hct (37-47) % POC Hct (37-47) % MCV (80-100) fL MCH (25-34) pg MCHC (32-36) g/dL RDW Std Deviation (36.4-46.3) fL RDW Coeff of Olesya (11.5-14.5) % Plt Count (130-400) K/uL MPV (7.4-10.4) fL Immature Gran % (Auto) % Neut % (Auto) % Lymph % (Auto) % Maury % (Auto) % Eos % (Auto) % Baso % (Auto) % Immature Gran # (Auto) (0.00-0.02) K/uL Neut # (Auto) (1.4-6.5) K/uL Lymph # (Auto) (1.2-3.4) K/uL Maury # (Auto) (0.11-0.59) K/uL Eos # (Auto) (0-0.5) K/uL Baso # (Auto) (0-0.2) K/uL Specimen Type POC pH (7.35-7.45) POC pCO2 (35-46) mmHg POC pO2 (80-95) mmHg POC HCO3 (19-24) jeremiah/L POC Base Excess (-9-1.8) jeremiah/L POC O2 Saturation ABG pH (7.35-7.45) ABG pCO2 (35-46) mmHg ABG pO2 (80-95) mm/Hg ABG HCO3 (19-24) mmol/L ABG O2 Saturation (90-95) % ABG Base Excess (-9-1.8) mEq/L Jovon Test (Pos) VBG pH Barometric Pressure mm/Hg Oxygen Given POC Sodium (135-144) mEq/L Sodium (136-145) mmol/L POC Potassium (3.3-5.0) mEq/L Potassium (3.5-5.1) mmol/L POC Chloride (101-112) mEq/L Chloride (98-107) mmol/L Carbon Dioxide (21-32) mmol/L POC Total CO2 (24-31) mEq/l Anion Gap (3-11) POC Anion Gap POC BUN (7-18) mg/dl BUN (7-18) mg/dl Creatinine (0.6-1.2) mg/dl POC Creatinine (0.6-1.3) mg/dl Est Cr Clr Drug Dosing ml/min Est GFR ( Amer) Est GFR (Non-Af Amer) BUN/Creatinine Ratio (10-20) Glucose (70-99) mg/dl POC Glucose 167 H 187 H 230 H (70-99) POC Glucose (other) (70-99) mg/dl Calcium (8.5-10.1) mg/dl POC Ioniz Calcium Jose (1.12-1.32) mmol/l Phosphorus (2.5-4.9) mg/dl Magnesium (1.8-2.4) mg/dl Specimen Hemolysis Nasal Screen MRSA (PCR) (Negative) 03/29/19 03/29/19 03/29/19 Range/Units 09:42 09:37 09:30 WBC (4.8-10.8) K/uL RBC (4.2-5.4) M/uL Hgb (12.0-16.0) g/dL POC Hgb (12.0-16.0) g/dl Hct (37-47) % POC Hct (37-47) % MCV (80-100) fL MCH (25-34) pg MCHC (32-36) g/dL RDW Std Deviation (36.4-46.3) fL RDW Coeff of Olesya (11.5-14.5) % Plt Count (130-400) K/uL MPV (7.4-10.4) fL Immature Gran % (Auto) % Neut % (Auto) % Lymph % (Auto) % Maury % (Auto) % Eos % (Auto) % Baso % (Auto) % Immature Gran # (Auto) (0.00-0.02) K/uL Neut # (Auto) (1.4-6.5) K/uL Lymph # (Auto) (1.2-3.4) K/uL Maury # (Auto) (0.11-0.59) K/uL Eos # (Auto) (0-0.5) K/uL Baso # (Auto) (0-0.2) K/uL Specimen Type POC pH (7.35-7.45) POC pCO2 (35-46) mmHg POC pO2 (80-95) mmHg POC HCO3 (19-24) jeremiah/L POC Base Excess (-9-1.8) jeremiah/L POC O2 Saturation ABG pH (7.35-7.45) ABG pCO2 (35-46) mmHg ABG pO2 (80-95) mm/Hg ABG HCO3 (19-24) mmol/L ABG O2 Saturation (90-95) % ABG Base Excess (-9-1.8) mEq/L Jovon Test (Pos) VBG pH Cancelled Barometric Pressure mm/Hg Oxygen Given POC Sodium (135-144) mEq/L Sodium 138 (136-145) mmol/L POC Potassium (3.3-5.0) mEq/L Potassium 4.1 (3.5-5.1) mmol/L POC Chloride (101-112) mEq/L Chloride 109 H (98-107) mmol/L Carbon Dioxide 8 L* (21-32) mmol/L POC Total CO2 (24-31) mEq/l Anion Gap 22.0 H (3-11) POC Anion Gap POC BUN (7-18) mg/dl BUN 24 H (7-18) mg/dl Creatinine 1.24 H D (0.6-1.2) mg/dl POC Creatinine (0.6-1.3) mg/dl Est Cr Clr Drug Dosing 70.5 ml/min Est GFR ( Amer) 70.4 Est GFR (Non-Af Amer) 60.7 BUN/Creatinine Ratio 19.0 (10-20) Glucose 234 H (70-99) mg/dl POC Glucose (70-99) POC Glucose (other) (70-99) mg/dl Calcium 9.8 D (8.5-10.1) mg/dl POC Ioniz Calcium Jose (1.12-1.32) mmol/l Phosphorus 1.1 L* D (2.5-4.9) mg/dl Magnesium 1.4 L (1.8-2.4) mg/dl Specimen Hemolysis Nasal Screen MRSA (PCR) Negative (Negative) 03/29/19 03/29/19 03/29/19 Range/Units 09:12 05:21 04:23 WBC (4.8-10.8) K/uL RBC (4.2-5.4) M/uL Hgb (12.0-16.0) g/dL POC Hgb 15.0 15.0 (12.0-16.0) g/dl Hct (37-47) % POC Hct 44 44 (37-47) % MCV (80-100) fL MCH (25-34) pg MCHC (32-36) g/dL RDW Std Deviation (36.4-46.3) fL RDW Coeff of Olesya (11.5-14.5) % Plt Count (130-400) K/uL MPV (7.4-10.4) fL Immature Gran % (Auto) % Neut % (Auto) % Lymph % (Auto) % Maury % (Auto) % Eos % (Auto) % Baso % (Auto) % Immature Gran # (Auto) (0.00-0.02) K/uL Neut # (Auto) (1.4-6.5) K/uL Lymph # (Auto) (1.2-3.4) K/uL Maury # (Auto) (0.11-0.59) K/uL Eos # (Auto) (0-0.5) K/uL Baso # (Auto) (0-0.2) K/uL Specimen Type Arterial Arterial POC pH 6.92 L* 6.86 L* (7.35-7.45) POC pCO2 124 H 28 L (35-46) mmHg POC pO2 124 H 29 L (80-95) mmHg POC HCO3 3 L 5 L (19-24) jeremiah/L POC Base Excess -30.0 L -29.0 L (-9-1.8) jeremiah/L POC O2 Saturation 95 23 ABG pH (7.35-7.45) ABG pCO2 (35-46) mmHg ABG pO2 (80-95) mm/Hg ABG HCO3 (19-24) mmol/L ABG O2 Saturation (90-95) % ABG Base Excess (-9-1.8) mEq/L Jovon Test (Pos) VBG pH Barometric Pressure mm/Hg Oxygen Given POC Sodium 136 133 L (135-144) mEq/L Sodium (136-145) mmol/L POC Potassium 4.6 5.4 H (3.3-5.0) mEq/L Potassium (3.5-5.1) mmol/L POC Chloride (101-112) mEq/L Chloride (98-107) mmol/L Carbon Dioxide (21-32) mmol/L POC Total CO2 < 5 L* 6 L* (24-31) mEq/l Anion Gap (3-11) POC Anion Gap POC BUN (7-18) mg/dl BUN (7-18) mg/dl Creatinine (0.6-1.2) mg/dl POC Creatinine (0.6-1.3) mg/dl Est Cr Clr Drug Dosing ml/min Est GFR ( Amer) Est GFR (Non-Af Amer) BUN/Creatinine Ratio (10-20) Glucose (70-99) mg/dl POC Glucose 275 H (70-99) POC Glucose (other) (70-99) mg/dl Calcium (8.5-10.1) mg/dl POC Ioniz Calcium Jose (1.12-1.32) mmol/l Phosphorus (2.5-4.9) mg/dl Magnesium (1.8-2.4) mg/dl Specimen Hemolysis Nasal Screen MRSA (PCR) (Negative) 03/29/19 03/29/19 03/29/19 Range/Units 03:31 02:33 02:03 WBC (4.8-10.8) K/uL RBC (4.2-5.4) M/uL Hgb (12.0-16.0) g/dL POC Hgb 15.3 (12.0-16.0) g/dl Hct (37-47) % POC Hct 45 (37-47) % MCV (80-100) fL MCH (25-34) pg MCHC (32-36) g/dL RDW Std Deviation (36.4-46.3) fL RDW Coeff of Olesya (11.5-14.5) % Plt Count (130-400) K/uL MPV (7.4-10.4) fL Immature Gran % (Auto) % Neut % (Auto) % Lymph % (Auto) % Maury % (Auto) % Eos % (Auto) % Baso % (Auto) % Immature Gran # (Auto) (0.00-0.02) K/uL Neut # (Auto) (1.4-6.5) K/uL Lymph # (Auto) (1.2-3.4) K/uL Maury # (Auto) (0.11-0.59) K/uL Eos # (Auto) (0-0.5) K/uL Baso # (Auto) (0-0.2) K/uL Specimen Type POC pH (7.35-7.45) POC pCO2 (35-46) mmHg POC pO2 (80-95) mmHg POC HCO3 (19-24) jeremiah/L POC Base Excess (-9-1.8) jeremiah/L POC O2 Saturation ABG pH (7.35-7.45) ABG pCO2 (35-46) mmHg ABG pO2 (80-95) mm/Hg ABG HCO3 (19-24) mmol/L ABG O2 Saturation (90-95) % ABG Base Excess (-9-1.8) mEq/L Jovon Test (Pos) VBG pH Barometric Pressure mm/Hg Oxygen Given POC Sodium 123 L (135-144) mEq/L Sodium (136-145) mmol/L POC Potassium > 9.0 H* (3.3-5.0) mEq/L Potassium (3.5-5.1) mmol/L POC Chloride 107 (101-112) mEq/L Chloride (98-107) mmol/L Carbon Dioxide (21-32) mmol/L POC Total CO2 < 5 L* (24-31) mEq/l Anion Gap (3-11) POC Anion Gap TNP POC BUN 45 H (7-18) mg/dl BUN (7-18) mg/dl Creatinine (0.6-1.2) mg/dl POC Creatinine 1.7 H (0.6-1.3) mg/dl Est Cr Clr Drug Dosing ml/min Est GFR ( Amer) Est GFR (Non-Af Amer) BUN/Creatinine Ratio (10-20) Glucose (70-99) mg/dl POC Glucose > 600 H* > 600 H* (70-99) POC Glucose (other) > 700 H* (70-99) mg/dl Calcium (8.5-10.1) mg/dl POC Ioniz Calcium Jose 1.11 L (1.12-1.32) mmol/l Phosphorus (2.5-4.9) mg/dl Magnesium (1.8-2.4) mg/dl Specimen Hemolysis Nasal Screen MRSA (PCR) (Negative) 03/29/19 03/29/19 Range/Units 01:29 01:26 WBC (4.8-10.8) K/uL RBC (4.2-5.4) M/uL Hgb (12.0-16.0) g/dL POC Hgb (12.0-16.0) g/dl Hct (37-47) % POC Hct (37-47) % MCV (80-100) fL MCH (25-34) pg MCHC (32-36) g/dL RDW Std Deviation (36.4-46.3) fL RDW Coeff of Olesya (11.5-14.5) % Plt Count (130-400) K/uL MPV (7.4-10.4) fL Immature Gran % (Auto) % Neut % (Auto) % Lymph % (Auto) % Maury % (Auto) % Eos % (Auto) % Baso % (Auto) % Immature Gran # (Auto) (0.00-0.02) K/uL Neut # (Auto) (1.4-6.5) K/uL Lymph # (Auto) (1.2-3.4) K/uL Maury # (Auto) (0.11-0.59) K/uL Eos # (Auto) (0-0.5) K/uL Baso # (Auto) (0-0.2) K/uL Specimen Type POC pH (7.35-7.45) POC pCO2 (35-46) mmHg POC pO2 (80-95) mmHg POC HCO3 (19-24) jeremiah/L POC Base Excess (-9-1.8) jeremiah/L POC O2 Saturation ABG pH (7.35-7.45) ABG pCO2 (35-46) mmHg ABG pO2 (80-95) mm/Hg ABG HCO3 (19-24) mmol/L ABG O2 Saturation (90-95) % ABG Base Excess (-9-1.8) mEq/L Jovon Test (Pos) VBG pH Barometric Pressure mm/Hg Oxygen Given POC Sodium (135-144) mEq/L Sodium (136-145) mmol/L POC Potassium (3.3-5.0) mEq/L Potassium (3.5-5.1) mmol/L POC Chloride (101-112) mEq/L Chloride (98-107) mmol/L Carbon Dioxide (21-32) mmol/L POC Total CO2 (24-31) mEq/l Anion Gap (3-11) POC Anion Gap POC BUN (7-18) mg/dl BUN (7-18) mg/dl Creatinine (0.6-1.2) mg/dl POC Creatinine (0.6-1.3) mg/dl Est Cr Clr Drug Dosing ml/min Est GFR ( Amer) Est GFR (Non-Af Amer) BUN/Creatinine Ratio (10-20) Glucose (70-99) mg/dl POC Glucose > 600 H* > 600 H* (70-99) POC Glucose (other) (70-99) mg/dl Calcium (8.5-10.1) mg/dl POC Ioniz Calcium Jose (1.12-1.32) mmol/l Phosphorus (2.5-4.9) mg/dl Magnesium (1.8-2.4) mg/dl Specimen Hemolysis Nasal Screen MRSA (PCR) (Negative) Medications Administered Current Inpatient Medications Dextrose (Dextrose 50%) 25 - 50 ml IV UD PRN; Protocol PRN Reason: Hypoglycemia Protocol Stop: 04/28/19 02:18 Insulin Human Regular 250 (units/ Sodium Chloride) 250 mls @ 4 mls/hr IV .Q24H MATIAS; Protocol Stop: 04/28/19 02:29 Last Titration: 03/30/19 07:55 Dose: 1.6 units/hr, 1.6 mls/hr Documented by: Ceftriaxone Sodium 2,000 mg/ (Dextrose) 70 mls @ 140 mls/hr IV Q24H MATIAS Stop: 03/31/19 13:59 Last Infusion: 03/29/19 15:05 Dose: Infused Documented by: Doxycycline Hyclate 100 mg/ (Dextrose) 110 mls @ 55 mls/hr IV BID MATIAS Stop: 03/31/19 20:59 Last Infusion: 03/30/19 10:07 Dose: Infused Documented by: Potassium Chloride/Dextrose/Sod Cl (D5w And 1/2nss + 20meq Kcl) 20 meq in 1,000 mls @ 50 mls/hr IV .Q20H [facility] Stop: 04/28/19 18:29 Last Admin: 03/29/19 19:09 Dose: 50 mls/hr Documented by: Insulin Aspart (Novolog Flexpen) 0 units SC ACHS MATIAS Stop: 04/28/19 09:21 Last Admin: 03/30/19 07:53 Dose: Not Given Documented by: Metoclopramide HCl (Reglan) 10 mg IV Q6H PRN PRN Reason: Nausea Stop: 04/28/19 10:30 Miscellaneous (Icu Protocol For Hyperglycemia) 1 ea N/A PRN PRN; Protocol PRN Reason: Hyperglycemia Protocol Stop: 03/31/19 09:21 Miscellaneous Information (Consult Glycemic Management Pharmacy) 1 ea N/A UD PRN PRN Reason: Consult Stop: 04/28/19 13:08 Resident Activity Tracking Resident Involvement: Resident Care Provided Care Provided: Adult Hospital Medicine (1) DKA (diabetic ketoacidoses) Diabetes mellitus complication detail: without coma Diabetes mellitus type: type 1 Qualified Code(s): E10.10 - Type 1 diabetes mellitus with ketoacidosis without coma
[2019-03-30] MEDS: SODIUM CHLOR 0.45% + 20MEQ KCL 20 MEQ/1,000 ML BAG IV SCH (13:18)
--- NOTE | 2019-03-30 14:38 | Pharmacy Report ---
Pharmacy Glycemic Short Note 2 - Date of Service March 30, 2019 - Glycemic Short BSG Results (Last 24 hours): 03/29/19 03/29/19 03/29/19 14:30 15:32 16:35 Glucose POC Glucose 170 H 151 H 133 H 03/29/19 03/29/19 03/29/19 17:25 17:25 18:35 Glucose 146 H POC Glucose 152 H 114 H 03/29/19 03/29/19 03/29/19 19:03 19:27 20:04 Glucose POC Glucose 109 H 107 H 129 H 03/29/19 03/29/19 03/29/19 20:32 21:02 21:59 Glucose POC Glucose 144 H 171 H 171 H 03/29/19 03/29/19 03/29/19 23:02 23:52 23:53 Glucose 136 H POC Glucose 168 H 140 H 03/30/19 03/30/19 03/30/19 01:03 02:11 02:32 Glucose 104 H POC Glucose 121 H 110 H 03/30/19 03/30/19 03/30/19 02:34 03:12 04:03 Glucose POC Glucose 107 H 160 H 184 H 03/30/19 03/30/19 03/30/19 05:01 06:02 07:21 Glucose POC Glucose 210 H 204 H 192 H 03/30/19 03/30/19 03/30/19 07:57 09:55 11:04 Glucose POC Glucose 180 H 225 H 234 H 03/30/19 03/30/19 12:51 14:04 Glucose POC Glucose 217 H 242 H OUTPATIENT ANTIDIABETIC REGIMEN: * Lantus 30 units QAM * Humalog 6-15 units with breakfast; 8-15 units with lunch, 8-20 units with dinner ASSESSMENT: * Discussed with provider patient to transition off of insulin infusion this morning, insulin infusion currently running @ 1.6 units/hr- ~38 units of insulin * 33 units of lantus to help transition from drip (10% increase from home dose) * Per [employer] Infrastructure [employer] note, patient typically receives insulin post-prandially as uncertain of patient's intake as well as being unable to communicate hypoglycemia symptoms, patient usually ranges 150-250s, and 300 post meals, therefore will start conservative goal range of 150-180. * Will begin prandial/correctional with a correction factor of 25 and carb ratio of 8- this between weight based stress of 2 and 3, and a stress of 2 of patient's low end total daily dose * Discussed with provider- patient's mother requesting humalog and lantus vials- will switch to these * Patient follows with head teller in [place] recommend close follow-up with this provider PLAN FOR INPATIENT GLYCEMIC CONTROL: * Hold outpatient oral diabetes medications * Basal insulin * Lantus 33 units this morning * Bolus insulin * NovoLog per scale ACHS or Q6hrs while NPO * Goal Range: Low 150 mg/dL - High 180 mg/dL * Correction Factor: 25 mg/dL/unit * Nutritional / Prandial insulin per carb ratio of 1 unit per 8 grams CHO consumed
[2019-03-30] MEDS ORDERED: INSULIN ASPART 100 UNITS/ML 3 ML PEN SC SCH (16:30)
[2019-03-30] MEDS: INSULIN HUMAN LISPRO (humaLOG) 100 UNITS/ML VIAL SC SCH ×2 (17:24→20:44)
--- NOTE | 2019-03-30 18:52 | Billing Data ---
Date of Service March 30, 2019 Coding Level of Care Code 70045 Subseq Hosp Care Lvl 3
[2019-03-30 19:40] LABS: BUN Creatinine Ratio 10.3 (10-20); Creatinine Clr Calc Pharmacy 90.1 ml/min; Est GFR (African American) 94.7; Est GFR (Non-African American) 81.7
[2019-03-30] MEDS ORDERED: GLUCOSE 40% GEL 15 GM TUBE PO PRN (20:30)
[2019-03-30] MEDS ORDERED: GLUCAGON FOR INJ 1 MG VIAL IM PRN (20:30)
[2019-03-30] MEDS ORDERED: CARBOHYDRATES FOR HYPOGLYCEMIA PO PRN (20:30)
[2019-03-30] MEDS ORDERED: DEXTROSE 50% 50 ML SYRINGE IV PRN (20:30)
[2019-03-30] MEDS ORDERED: GLUCOSE 10 TABS/TUBE PO PRN (20:30)
--- NOTE | 2019-03-31 07:23 | Electrocardiogram Report ---
Test Reason : Blood Pressure : / mmHG Vent. Rate : 130 BPM Atrial Rate : 130 BPM P-R Int : 152 ms QRS Dur : 154 ms QT Int : 364 ms P-R-T Axes : 000 082 044 degrees QTc Int : 535 ms Probably sinus tachycardia Right bundle branch block , consider Brugada Abnormal ECG Confirmed by Damien Henderson ([id number]) on 03/31/2019 7:23:17 AM Referred By: REFERRED SELF Confirmed By:Asael Henderson
--- NOTE | 2019-03-31 07:55 | Electrocardiogram Report ---
Test Reason : Blood Pressure : / mmHG Vent. Rate : 136 BPM Atrial Rate : 136 BPM P-R Int : 128 ms QRS Dur : 178 ms QT Int : 328 ms P-R-T Axes : 041 092 204 degrees QTc Int : 493 ms Sinus tachycardia Right bundle branch block QRS widening concerning for electrolyte abnormality Abnormal ECG No previous ECGs available Confirmed by Damien Henderson ([id number]) on 03/31/2019 7:55:13 AM Referred By: REFERRED SELF Confirmed By:Asael Henderson
[2019-03-31 07:57] LABS: Basophils # (auto) 0.01 K/uL (0-0.2); Basophils % (auto) 0.1 %; Eosinophils # (auto) 0.01 K/uL (0-0.5); Eosinophils % (auto) 0.1 %; Hematocrit (blood only) 33.8 % (37-47); Hemoglobin 11.5 g/dL (12.0-16.0); Immature Granulocytes # (auto) 0.01 K/uL (0.00-0.02); Immature Granulocytes % (auto) 0.1 %; Lymphocytes # (auto) 2.24 K/uL (1.2-3.4); Mean Corpuscular Volume 85.1 fL (80-100); Mean Platelet Volume 11.7 fL (7.4-10.4); Monocytes # (auto) 0.77 K/uL (0.11-0.59); Monocytes % (auto) 7.2 %; Neutrophils # (auto) 7.63 K/uL (1.4-6.5); Neutrophils % (auto) 71.5 %; Platelet Count 142 K/uL (130-400); RDW Coefficient of Variation 13.5 % (11.5-14.5); Red Blood Count 3.97 M/uL (4.2-5.4); White Blood Count 10.67 K/uL (4.8-10.8)
--- NOTE | 2019-03-31 08:59 | Pharmacy Report ---
Pharmacy Glycemic Short Note 2 - Date of Service March 31, 2019 - Glycemic Short BSG Results (Last 24 hours): 03/30/19 03/30/19 03/30/19 07:57 09:55 11:04 Glucose POC Glucose 180 H 225 H 234 H 03/30/19 03/30/19 03/30/19 12:51 14:04 16:21 Glucose POC Glucose 217 H 242 H 251 H 03/30/19 03/30/19 03/31/19 18:52 20:07 07:34 Glucose 245 H POC Glucose 211 H 265 H OUTPATIENT ANTIDIABETIC REGIMEN: * Lantus 30 units QAM * Humalog 6-15 units with breakfast; 8-15 units with lunch, 8-20 units with dinner ASSESSMENT: * 24yo T1DM female admitted for DKA. * 03/29/18: Initiated on IV insulin infusion per protocol * 03/30/18: Transitioned to SQ basal bolus * Patient received 38 units of SQ insulin + IV insulin infusion yesterday * 33 units of basal insulin * 5 units of prandial/correctional insulin (d/t minimal CHO intake) * BSGs ranging 160- 251 over the past 24hrs but mainly all >200 * Changes needed for the next 24hrs d/t : * AM Fasting BSG = 265 mg/dl therefore Basal insulin needs increased * Total daily dose = 35 units therefore may need to evenly re-distribute regimen 50%:50% basal:prandial to prevent hypo/hyperglycemia. Regimen is weighted towards basal insulin secondary to low CHO intake (minimal HCO coverage given yesterday) * Post-prandial BSGs are elevated/BSGs rise throughout the day therefore Tighten CF/CR * Discussed with provider- patient's mother requesting humalog and lantus vials- will switch to these * Patient follows with account specialist in [place] recommend close follow-up with this provider PLAN FOR INPATIENT GLYCEMIC CONTROL: * Basal insulin: increase dosing from 33-40 units * Lantus 40 units this morning * Bolus insulin: lower goal range and tighten CR. No change needed to CF since we are increasing basal. * NovoLog per scale ACHS or Q6hrs while NPO * Goal Range: Low 120 mg/dL - High 160 mg/dL * Correction Factor: 25 mg/dL/unit * Nutritional / Prandial insulin per carb ratio of 1 unit per 6 grams CHO consumed
[2019-03-31] MEDS ORDERED: INSULIN GLARGINE 100 UNIT/ML VIAL SC SCH (09:00)
[2019-03-31] MEDS: SODIUM CHLOR 0.45% + 20MEQ KCL 20 MEQ/1,000 ML BAG IV SCH (09:00)
[2019-03-31] MEDS: INSULIN HUMAN LISPRO (humaLOG) 100 UNITS/ML VIAL SC SCH (09:08)
--- NOTE | 2019-03-31 09:42 | Discharge Summary ---
Date of Service March 31, 2019 Admission HPI Per Admitting Provider 24 y/o F Hx DM I, celiac disease, autism. Pt is brought in by her mother as her glucometer was reading "high". She has had nausea, vomiting and diarrhea for 2 days. A fever was not confirmed. Initial labs on arrival to the ER were alarming and demonstrate severe acidosis with a PH of 6.95, CLEMENTINE and a K of 8.0, NA 123, leukocytosis - WBC 41. The pt was hypothermic on arrival to the ER as well with a temp of 94.5. Initial EKG demonstrated tachycardia and a RBBB which resolved on a subsequent following an hour of treatment in the ER. The pt received 3L saline, 3 amps calcium gluconate, bicarb, insulin. Despite this, her repeat ABG demonstrated a PH of 6.85. Her HR remains between 130-140 at the time of medical evaluation, she has had transient hypotensive episodes and her resp rate is over 30. PMH: 1) Celiac disease 2) DM I - diagnosed age 11 3) Autism - Mother states that this is relatively severe Surgical: Limited to wisdom tooth extraction Social: No history of drinking or smoking, under the care of her mother Family: Mother with DM and history of CVA Father alive and well Sister with celiac disease Principal Diagnosis DKA Discharge Exam Constitutional WD/WN, vitals as above Eyes PERRL, conjunctivae normal, anicteric sclerae ENMT external ear and nose normal, oropharynx normal Neck normal visual inspection and trachea midline Respiratory normal respiratory effort, lungs clear to auscultation Cardiovascular RRR, no murmur, no edema Gastrointestinal (Abdomen) Percussion/Palpation: abdomen soft; abdomen nontender, no guarding and abdomen not rigid Musculoskeletal Head/Neck/Chest: normocephalic and head atraumatic Skin no rashes, warm and dry Neurologic moves all extremities and awake Psychiatric A+Ox3, euthymic affect Discharge Data Allergies Allergy/AdvReac Type Severity Reaction Status Date / Time adhesive tape Allergy Unknown Verified 03/29/19 15:49 erythromycin base Allergy Unknown Verified 03/29/19 15:49 gluten Allergy Unknown Verified 03/29/19 15:49 Penicillins Allergy Unknown Verified 03/29/19 15:49 Sulfa (Sulfonamide Allergy Unknown Verified 03/29/19 15:49 Antibiotics) wheat Allergy Unknown Verified 03/29/19 15:49 Consultations 03/29/19 06:14 ED Decision to Admit Stat 03/29/19 08:13 Consult Anesthesiology Stat 03/29/19 09:22 Consult Case Management - Discharge Planning Routine Consult Case Management - Discharge Planning Routine Consult Case Management - Discharge Planning Routine Consult Sensitized Paper Tester Routine 03/29/19 11:50 Consult Gynecology Routine Ordered Studies 03/29/19 04:28 CT abd pelvis wo con Urgent 1. Soft tissue gas and fluid within the deep subcutaneous tissues of the right upper arm, partially imaged on this exam. By report, recent IV infiltration which would account for these findings. This was discussed with Apolinar Henry at time of dictation. 2. Moderate gastric distention. 3. No bowel obstruction. 4. Exam mildly compromised given motion artifact and lack of contrast. Appendix partially obscured but visualized portions normal. 5. 3 cm right ovarian cyst. 03/29/19 07:10 US pelvic complete Stat 1. No acute sonographic abnormality is identified in the pelvis. 2. A 3.3 cm dominant follicle is incidentally noted in the right ovary. Hospital Course (1) Autism: (2) Celiac disease: (3) Type 1 diabetes: (4) DKA (diabetic ketoacidoses): Lucy is a 24yo F PMH severe autism, type 1 diabetes, celiac disease, admitted to ICU on 03/29/19 for severe DKA, severe electrolyte abnormality, wide complex tachycardia. Reported to have a viral gastroenteritis which resolved but caused volume depletion. DKA, resolved -On 03/30/19 her electrolytes have normalized, her anion gap had closed, and she was tolerating PO intake -Resumed home Insulin Glargine but increased from 30 units to 40 units qAM, recommended to mom to continue this dose as outpatient. -Hgb A1C here was 9.6 -WBC improving from metabolic stress of DKA T1DM -Resume home regimen, wean drip as above -BSG ACHS -Pt will not tolerate insulin pump -Mom requesting SQ injections from vials, not pens as well as humalog and lantus brands. -Recommended to avoid over frequent home glucose checks Celiac disease -Gluten free diet Severe autism -mom reaching out for assistance with establishing guardianship for Lucy -Legal visited to help cut down on costs of this. R ovarian cyst -Follow clinically. Will DC antibiotics at this time. -There was concern of possible intra abdominal infection, US Pelvis was performed without signs of infectious process Dispo: admit to medical, expect 1 more day in hospital DVTP: SCDs Code: FULL (5) Dehydration: (6) Vomiting: (7) Diarrhea: (8) Hyperkalemia: (9) Tachycardia: (10) Encounter for pre-operative examination: (11) Admitted to intensive care unit: (12) Acute electrocardiogram changes: (13) Right ovarian cyst: Total Time Total Time Spent Total Time Spent (In Minutes): 35 Total Time Includes: Examination of the Patient, Discharge Planning and Medication Reconciliation Discharge Plan Discharge Items Patient Disposition: Home - Self-Care Reason For Visit: DKA Discharge Diagnosis: DKA Activity: Resume your previous activity Non-emergency contact: Primary Care Provider Call non-emergency contact if: you have any medication questions and your symptoms worsen Follow-up/Referrals: PCP,NO [Physician] - Diet: Carb Count or DM1 Addtl Attending Provider Instructions: You were admitted for elevated Glucose level leading to Diabetic Keto Acidosis. You also were dealing with a stomach virus that caused further dehydration. You were treated with insulin and IV fluids here. You are okay to return home, but please make sure you take your diabetic medications and stay well hydrated. Please check your blood sugars. It is [facility] that [facility] and call for next available appointment. We do recommend increasing your Lantus to 40 units daily. Also please do not over do or take too many blood glucose checks. Pending Studies at Discharge: No Stand-Alone Forms: My [facility] UPR-Online, Smoking Cessation Medications and DC Order Prescriptions: Continued Insulin Lispro (Humalog) INJECTION 0 SC Qty: 0 RF: 0 Insulin Regular (Humulin-R) INJECTION Qty: 0 RF: 0 insulin lispro [Humalog U-100 Insulin] 100 unit/mL Solution 1 sliding scale dose SUBCUT USEASDIRECTD RF: 0 Changed Lantus U-100 Insulin 100 unit/mL Solution 40 unit SUBCUT QAM Qty: 0 RF: 0 Discharge Orders: Discharge Order (Routine); Ordered 03/31/19 Ordered By: Eddie Gu Admission Data Admit Date/Time: 03/29/19 09:05 Attending Provider: Yazan Grigsby Admit Provider: Mateo Mckinnon Primary Care Provider: Jose Paredes Other Providers: Eleno Burkett ; Trudy Peter ; Jesus Ring ; Mandi Alvarez Other Interventions: Discharge Summary Assessment (RN) Last Done: 03/31/19 10:51 DC Date/Time DO NOT enter until pt leaves facility: 03/31/19 11:34 Supervising Physician Co-Signing Physician Notes Attending attestation Pt seen and examined in concert with Dr. Gu. In agreement with the documented findings as noted in the resident documentation with any exceptions or additions as noted here. Comfortable in bed without complaint at family reported baseline. Full history unobtainable 2/2 severe autism. On examination, S1/S2 nl RRR no MCG. CTAB. Abd NT/ND BS+ve DKA in the setting of T1DM - increase home regimen to 40U lantus and continue present novolog regimen. Counseled on appropriate frequency of glycemic checks. Per family does not tolerate CGM. Else see resident documentation as noted. Resident Activity Tracking Resident Involvement: Resident Care Provided Care Provided: Adult Hospital Medicine
--- NOTE | 2019-03-31 19:05 | Emergency Department Note ---
Entered by Minal Loera acting as a scribe for History of Present Illness General Chief complaint: Illness Stated complaint: ILLNESS Time Seen by Provider: 03/29/19 01:20 Source: family (mother) and EMS Mode of arrival: EMS History of Present Illness Onset (ago): day(s) 1 Location: abdomen Pain Consistency: + constant Quality: + sharp Relieved By: + none Exacerbated By: + none Associated symptoms: + nausea/vomiting and + other (diarrhea, hyperglycemia, tachycardic, abdominal pain, back pain) The patient is a 24 year old female who presents to the Emergency Room with complaints of illness that began this morning. The patients mother reports that the flu has been going around their house recently. EMS reports the patient is tachycardic, hyperglycemic, and has an increased rate or respiration. She has a history of type 1 diabetes, Celiacs disease, and severe autism. Her mother notes that the patient first got sick this morning. The patient started throwing up, and complains of sharp abdominal pain and back pain. Her mother also noted she complained of diarrhea last night. The patient drank some water and ate a few pretzels earlier today, but has had nothing since. She reports her sugar has been reading "high" on their glucometer all day. Mother denies any prior history of admission for high blood sugar or DKA. Home Medications Home Medications Medication Instructions Recorded Confirmed Type Insulin Lispro (Humalog) 0 SC #0 10/08/08 History Insulin Regular (Humulin-R) #0 10/08/08 History insulin lispro [Humalog U-100 1 sliding scale dose SUBCUT 03/29/19 03/29/19 History Insulin] USEASDIRECTD Lantus U-100 Insulin 40 unit SUBCUT QAM #0 ml 03/31/19 03/29/19 Rx Allergies Allergy/AdvReac Type Severity Reaction Status Date / Time adhesive tape Allergy Unknown Verified 03/29/19 15:49 erythromycin base Allergy Unknown Verified 03/29/19 15:49 gluten Allergy Unknown Verified 03/29/19 15:49 Penicillins Allergy Unknown Verified 03/29/19 15:49 Sulfa (Sulfonamide Allergy Unknown Verified 03/29/19 15:49 Antibiotics) wheat Allergy Unknown Verified 03/29/19 15:49 Past Med/Surg History Medical History Autism Celiac disease DKA (diabetic ketoacidoses) (Acute) Tachycardia (Acute) Type 1 diabetes Surgical History No pertinent past surgical history Social History Preferred Language: Ukrainian Communication Ability: Effective Director Of Dementia Operations Required: No Beliefs That Will Affect Care: None Current Living Situation: Parent and Family Feels Safe at Home: Yes Smoking Status: Never smoker Hx Alcohol Use: No Hx Substance Use: No Review of Systems See HPI for pertinent positives & negatives. and A total of 10 systems reviewed and were otherwise negative Physical Exam Vital Signs Vital Signs - 24 hr 03/29/19 01:30 03/29/19 01:32 03/29/19 01:40 Temperature Temperature Source Pulse Rate 135 H 137 H 135 H Pulse Rate [Apical] Pulse Rate from SpO2 Sensor 136 H 139 H 135 H Pulse Rhythm [Apical] Respiratory Rate 44 H 44 H 33 H Respiratory Depth Blood Pressure 82/56 L Blood Pressure [Left Arm] Blood Pressure Mean 64 Blood Pressure Mean [Left Arm] Blood Pressure Position Pulse Oximetry 95 95 95 Oxygen Delivery Method Sepsis Recent Fever Within 48 Hours Sepsis New/Unexplained Change in Mental Status Sepsis Action Taken by Nursing Arterial BP Systolic Arterial BP Diastolic Arterial BP Mean Arterial Pulse Rate 03/29/19 01:50 03/29/19 01:53 03/29/19 02:00 Temperature 35.8 C L Temperature Source Rectal Pulse Rate 110 H 123 H 112 H Pulse Rate [Apical] Pulse Rate from SpO2 Sensor 118 H 106 H Pulse Rhythm [Apical] Respiratory Rate 33 H 32 H 29 H Respiratory Depth Blood Pressure 82/56 L Blood Pressure [Left Arm] Blood Pressure Mean 64 Blood Pressure Mean [Left Arm] Blood Pressure Position Lying Pulse Oximetry 97 94 89 L Oxygen Delivery Method Sepsis Recent Fever Within 48 Hours No Sepsis New/Unexplained Change in Mental Status No Sepsis Action Taken by Nursing Physician Notified Arterial BP Systolic Arterial BP Diastolic Arterial BP Mean Arterial Pulse Rate 03/29/19 02:10 03/29/19 02:20 03/29/19 02:29 Temperature Temperature Source Pulse Rate 108 H 122 H 121 H Pulse Rate [Apical] Pulse Rate from SpO2 Sensor 117 H Pulse Rhythm [Apical] Respiratory Rate 41 H 37 H 29 H Respiratory Depth Blood Pressure 149/54 H Blood Pressure [Left Arm] Blood Pressure Mean 64 Blood Pressure Mean [Left Arm] Blood Pressure Position Pulse Oximetry 92 Oxygen Delivery Method Sepsis Recent Fever Within 48 Hours Sepsis New/Unexplained Change in Mental Status Sepsis Action Taken by Nursing Arterial BP Systolic Arterial BP Diastolic Arterial BP Mean Arterial Pulse Rate 03/29/19 02:30 03/29/19 02:31 03/29/19 02:40 Temperature Temperature Source Pulse Rate 121 H 120 H 124 H Pulse Rate [Apical] Pulse Rate from SpO2 Sensor Pulse Rhythm [Apical] Respiratory Rate 31 H 36 H 36 H Respiratory Depth Blood Pressure 117/80 Blood Pressure [Left Arm] Blood Pressure Mean 93 Blood Pressure Mean [Left Arm] Blood Pressure Position Pulse Oximetry Oxygen Delivery Method Sepsis Recent Fever Within 48 Hours Sepsis New/Unexplained Change in Mental Status Sepsis Action Taken by Nursing Arterial BP Systolic Arterial BP Diastolic Arterial BP Mean Arterial Pulse Rate 03/29/19 02:50 03/29/19 02:53 03/29/19 02:56 Temperature Temperature Source Pulse Rate 130 H 131 H 129 H Pulse Rate [Apical] Pulse Rate from SpO2 Sensor 130 H 131 H 133 H Pulse Rhythm [Apical] Respiratory Rate 37 H 47 H 44 H Respiratory Depth Blood Pressure 155/102 H 106/55 L Blood Pressure [Left Arm] Blood Pressure Mean 106 95 Blood Pressure Mean [Left Arm] Blood Pressure Position Pulse Oximetry 99 98 98 Oxygen Delivery Method Sepsis Recent Fever Within 48 Hours Sepsis New/Unexplained Change in Mental Status Sepsis Action Taken by Nursing Arterial BP Systolic Arterial BP Diastolic Arterial BP Mean Arterial Pulse Rate 03/29/19 03:00 03/29/19 03:03 03/29/19 03:10 Temperature Temperature Source Pulse Rate 131 H 129 H Pulse Rate [Apical] 127 H Pulse Rate from SpO2 Sensor 129 H 130 H Pulse Rhythm [Apical] Regular Respiratory Rate 32 H 28 H 40 H Respiratory Depth Shallow Blood Pressure Blood Pressure [Left Arm] 108/91 Blood Pressure Mean Blood Pressure Mean [Left Arm] 96 Blood Pressure Position Pulse Oximetry 95 100 95 Oxygen Delivery Method Room Air Sepsis Recent Fever Within 48 Hours Sepsis New/Unexplained Change in Mental Status Sepsis Action Taken by Nursing Arterial BP Systolic Arterial BP Diastolic Arterial BP Mean Arterial Pulse Rate 03/29/19 03:19 03/29/19 03:21 03/29/19 03:30 Temperature Temperature Source Pulse Rate 133 H 133 H 137 H Pulse Rate [Apical] Pulse Rate from SpO2 Sensor 137 H 133 H 140 H Pulse Rhythm [Apical] Respiratory Rate 34 H 39 H 39 H Respiratory Depth Blood Pressure 127/103 H Blood Pressure [Left Arm] Blood Pressure Mean 116 Blood Pressure Mean [Left Arm] Blood Pressure Position Pulse Oximetry 98 98 99 Oxygen Delivery Method Sepsis Recent Fever Within 48 Hours Sepsis New/Unexplained Change in Mental Status Sepsis Action Taken by Nursing Arterial BP Systolic Arterial BP Diastolic Arterial BP Mean Arterial Pulse Rate 03/29/19 03:40 03/29/19 03:45 03/29/19 03:46 Temperature 34.7 C L Temperature Source Rectal Pulse Rate 135 H 131 H Pulse Rate [Apical] Pulse Rate from SpO2 Sensor 139 H 131 H Pulse Rhythm [Apical] Respiratory Rate 38 H 35 H Respiratory Depth Blood Pressure 140/92 Blood Pressure [Left Arm] Blood Pressure Mean 109 Blood Pressure Mean [Left Arm] Blood Pressure Position Pulse Oximetry 99 100 Oxygen Delivery Method Sepsis Recent Fever Within 48 Hours Sepsis New/Unexplained Change in Mental Status Sepsis Action Taken by Nursing Arterial BP Systolic Arterial BP Diastolic Arterial BP Mean Arterial Pulse Rate 03/29/19 03:50 03/29/19 03:52 03/29/19 04:00 Temperature Temperature Source Pulse Rate 133 H 129 H Pulse Rate [Apical] 131 H Pulse Rate from SpO2 Sensor 133 H 129 H Pulse Rhythm [Apical] Regular Respiratory Rate 39 H 30 H 33 H Respiratory Depth Shallow Blood Pressure Blood Pressure [Left Arm] 140/92 Blood Pressure Mean Blood Pressure Mean [Left Arm] 108 Blood Pressure Position Pulse Oximetry 99 99 98 Oxygen Delivery Method Nebulizer Sepsis Recent Fever Within 48 Hours Sepsis New/Unexplained Change in Mental Status Sepsis Action Taken by Nursing Arterial BP Systolic Arterial BP Diastolic Arterial BP Mean Arterial Pulse Rate 03/29/19 04:01 03/29/19 04:03 03/29/19 04:10 Temperature Temperature Source Pulse Rate 131 H 123 H Pulse Rate [Apical] 127 H Pulse Rate from SpO2 Sensor 131 H 123 H Pulse Rhythm [Apical] Respiratory Rate 29 H 35 H 34 H Respiratory Depth Shallow Blood Pressure 153/88 H Blood Pressure [Left Arm] 153/88 H Blood Pressure Mean 109 Blood Pressure Mean [Left Arm] 109 Blood Pressure Position Pulse Oximetry 98 100 98 Oxygen Delivery Method Nebulizer Sepsis Recent Fever Within 48 Hours Sepsis New/Unexplained Change in Mental Status Sepsis Action Taken by Nursing Arterial BP Systolic Arterial BP Diastolic Arterial BP Mean Arterial Pulse Rate 03/29/19 04:16 03/29/19 04:20 03/29/19 04:30 Temperature Temperature Source Pulse Rate 126 H 135 H 133 H Pulse Rate [Apical] Pulse Rate from SpO2 Sensor 126 H 136 H 133 H Pulse Rhythm [Apical] Respiratory Rate 32 H 28 H 32 H Respiratory Depth Blood Pressure 112/74 Blood Pressure [Left Arm] Blood Pressure Mean 83 Blood Pressure Mean [Left Arm] Blood Pressure Position Pulse Oximetry 99 98 98 Oxygen Delivery Method Sepsis Recent Fever Within 48 Hours Sepsis New/Unexplained Change in Mental Status Sepsis Action Taken by Nursing Arterial BP Systolic Arterial BP Diastolic Arterial BP Mean Arterial Pulse Rate 03/29/19 04:35 03/29/19 04:40 03/29/19 04:45 Temperature Temperature Source Pulse Rate 140 H 139 H 136 H Pulse Rate [Apical] Pulse Rate from SpO2 Sensor 140 H 139 H 136 H Pulse Rhythm [Apical] Respiratory Rate 32 H 35 H 29 H Respiratory Depth Blood Pressure 85/64 L 103/71 Blood Pressure [Left Arm] Blood Pressure Mean 77 85 Blood Pressure Mean [Left Arm] Blood Pressure Position Pulse Oximetry 97 98 98 Oxygen Delivery Method Sepsis Recent Fever Within 48 Hours Sepsis New/Unexplained Change in Mental Status Sepsis Action Taken by Nursing Arterial BP Systolic Arterial BP Diastolic Arterial BP Mean Arterial Pulse Rate 03/29/19 04:50 03/29/19 05:00 03/29/19 05:01 Temperature Temperature Source Pulse Rate 142 H 143 H 143 H Pulse Rate [Apical] Pulse Rate from SpO2 Sensor 142 H 143 H 143 H Pulse Rhythm [Apical] Respiratory Rate 35 H 31 H 29 H Respiratory Depth Blood Pressure 116/76 Blood Pressure [Left Arm] Blood Pressure Mean 86 Blood Pressure Mean [Left Arm] Blood Pressure Position Pulse Oximetry 97 98 98 Oxygen Delivery Method Sepsis Recent Fever Within 48 Hours Sepsis New/Unexplained Change in Mental Status Sepsis Action Taken by Nursing Arterial BP Systolic 26 Arterial BP Diastolic Arterial BP Mean Arterial Pulse Rate 278 H 03/29/19 05:09 03/29/19 05:11 03/29/19 05:15 Temperature Temperature Source Pulse Rate 141 H 141 H 143 H Pulse Rate [Apical] Pulse Rate from SpO2 Sensor 141 H 141 H 142 H Pulse Rhythm [Apical] Respiratory Rate 35 H 33 H 31 H Respiratory Depth Blood Pressure 123/66 110/70 Blood Pressure [Left Arm] Blood Pressure Mean 93 93 Blood Pressure Mean [Left Arm] Blood Pressure Position Pulse Oximetry 97 97 97 Oxygen Delivery Method Sepsis Recent Fever Within 48 Hours Sepsis New/Unexplained Change in Mental Status Sepsis Action Taken by Nursing Arterial BP Systolic 126 114 85 Arterial BP Diastolic 33 30 50 Arterial BP Mean 60 54 62 Arterial Pulse Rate 141 H 141 H 143 H 03/29/19 05:20 03/29/19 05:30 03/29/19 05:40 Temperature 37 C Temperature Source Rectal Pulse Rate 141 H 141 H 144 H Pulse Rate [Apical] Pulse Rate from SpO2 Sensor 143 H 142 H 144 H Pulse Rhythm [Apical] Respiratory Rate 34 H 36 H 34 H Respiratory Depth Blood Pressure 116/76 Blood Pressure [Left Arm] Blood Pressure Mean 92 Blood Pressure Mean [Left Arm] Blood Pressure Position Pulse Oximetry 99 98 98 Oxygen Delivery Method Sepsis Recent Fever Within 48 Hours Sepsis New/Unexplained Change in Mental Status Sepsis Action Taken by Nursing Arterial BP Systolic 108 141 Arterial BP Diastolic 25 56 Arterial BP Mean 56 76 Arterial Pulse Rate 0 L 141 H 144 H GENERAL: ill appearing, agitated, moderate distress, tachypnea, tachycardia EYE EXAM: normal conjunctiva, PERRL and EOM's grossly intact OROPHARYNX: no exudate, no erythema, lips, buccal mucosa, and tongue normal. Mucous membranes are dry. NECK: supple, no nuchal rigidity, no adenopathy, non-tender LUNGS: Tachypneic. Clear to auscultation. Normal chest wall mechanics, no w/r/r HEART: Tachycardic. no murmurs, S1 normal and S2 normal ABDOMEN: Mild generalized abdominal discomfort. abdomen soft, normo-active bowel sounds, no masses, no rebound or guarding. BACK: Back is symmetrical on inspection and there is no deformity, no midline tenderness, no CVA tenderness. SKIN: no rashes and no bruising UPPER EXTREMITIES: upper extremities are grossly normal. FROM, nml pulses b/l. LOWER EXTREMITIES: No pitting edema. FROM, nml pulses b/l. NEURO EXAM: Patient awake, responds to voice. Difficulty following commands, unable to perform other strength and neuro testing. Course Course 0117: Past medical records reviewed. The patient was evaluated in room B06. A complete history and physical exam was performed. 0157: I rechecked on the patient, and we are still trying to obtain IV access. 0213: I spoke to the patients mother, who agreed to placing the central line. The patient was moved to room B01 due to her clinical condition. 0236: QRS complex narrowed after administration of calcium chloride. 0300: Heart rate improved. Patient wakes up to voice, will answer a few questions. 0306: I updated the patients mother. 0316: I spoke to Dr. Arita, Pediatric [facility] [employer] [facility] at [facility], who states that he will call back to let us know if a bed is available for the patient. 0340: [facility] transfer center returned my call, and informed me that they have no available PICU beds. I discussed this with the mother at bedside, who states that she would not like to go to any other [facility] facility at this time. She would like to stay here at [facility] if possible. 0412: Discussed with ICU PA regarding the patient. 0416: I spoke to Dr. Burkett, [facility] hospitalist, who agreed to take over care of the patient. The patients mother understands and is agreeable to the treatment plan. The patient will be further evaluated. 0504: I consulted Dr. Ring, [facility] [employer], and updated him on the situation. I will call him back after speaking to Adalgisa. 0507: I spoke to Dr. Ruiz, [facility], who recommended keeping the patient at [facility]. 0524: I updated the patients mother on my phone call with Adalgisa. 0615: Dr. Ring now at bedside evaluating the patient. Administered Medications Discontinued Medications Albuterol (Ventolin 0.5% 2.5mg/0.5ml) 2.5 mg NEB NOW STA Stop: 03/29/19 02:21 Last Admin: 03/29/19 03:51 Dose: Not Given Documented by: [id number] Calcium Chloride (Calcium Chloride 10%) Confirm Administered Dose 1,000 mg IV .STK-MED ONE Stop: 03/29/19 01:58 Last Admin: 03/29/19 02:01 Dose: 1,000 mg Documented by: [id number] Calcium Chloride (Calcium Chloride 10%) Confirm Administered Dose 1,000 mg IV .STK-MED ONE Stop: 03/29/19 02:56 Last Admin: 03/29/19 03:51 Dose: 1,000 mg Documented by: [id number] Furosemide (Lasix) Confirm Administered Dose 40 mg IV .STK-MED ONE Stop: 03/29/19 02:38 Last Admin: 03/29/19 02:51 Dose: Not Given Documented by: [id number] Sodium Chloride (Nss 1000ml) 1,000 mls @ 999 mls/hr IV .Q1H1M ONE Stop: 03/29/19 02:31 Last Infusion: 03/29/19 03:01 Dose: 0 mls/hr Documented by: [id number] Admin: 03/29/19 01:46 Dose: 999 mls/hr Documented by: [id number] Calcium Chloride 1,000 mg/ (Sodium Chloride) 60 mls @ 240 mls/hr IV NOW STA Stop: 03/29/19 02:06 Last Infusion: 03/29/19 03:01 Dose: 0 mls/hr Documented by: [id number] Admin: 03/29/19 01:58 Dose: 240 mls/hr Documented by: [id number] Sodium Chloride (Nss 1000ml) 1,000 mls @ 999 mls/hr IV .Q1H1M ONE Stop: 03/29/19 03:19 Last Infusion: 03/29/19 03:01 Dose: 0 mls/hr Documented by: [id number] Admin: 03/29/19 02:35 Dose: 999 mls/hr Documented by: [id number] Insulin Human Regular 250 (units/ Sodium Chloride) 250 mls @ 1.6 mls/hr IV .Q24H [facility]; Protocol Stop: 04/28/19 02:29 Last Titration: 03/30/19 12:06 Dose: 0 units/hr, 0 mls/hr Documented by: [id number] Cosigned by: [id number] Titration: 03/30/19 10:00 Dose: 1.6 units/hr, 1.6 mls/hr Documented by: [id number] Cosigned by: [id number] Titration: 03/30/19 07:55 Dose: 1.6 units/hr, 1.6 mls/hr Documented by: [id number] Cosigned by: [id number] Admin: 03/30/19 07:53 Dose: Not Given Documented by: [id number] Titration: 03/30/19 07:13 Dose: 1.6 units/hr, 1.6 mls/hr Documented by: [id number] Cosigned by: [id number] Titration: 03/30/19 05:00 Dose: 1.6 units/hr, 1.6 mls/hr Documented by: [id number] Cosigned by: [id number] Titration: 03/30/19 04:00 Dose: 1.6 units/hr, 1.6 mls/hr Documented by: [id number] Cosigned by: [id number] Titration: 03/30/19 03:00 Dose: 1.6 units/hr, 1.6 mls/hr Documented by: [id number] Cosigned by: [id number] Titration: 03/30/19 02:00 Dose: 0 units/hr, 0 mls/hr Documented by: [id number] Cosigned by: [id number] Titration: 03/30/19 01:00 Dose: 2.6 units/hr, 2.6 mls/hr Documented by: [id number] Cosigned by: [id number] Titration: 03/30/19 00:00 Dose: 3.2 units/hr, 3.2 mls/hr Documented by: [id number] Cosigned by: [id number] Titration: 03/29/19 23:00 Dose: 4 units/hr, 4 mls/hr Documented by: [id number] Cosigned by: [id number] Titration: 03/29/19 22:00 Dose: 4 units/hr, 4 mls/hr Documented by: [id number] Cosigned by: [id number] Admin: 03/29/19 21:08 Dose: 4 units/hr, 4 mls/hr Documented by: [id number] Cosigned by: [id number] Titration: 03/29/19 21:08 Dose: 0 units/hr, 0 mls/hr Documented by: [id number] Cosigned by: [id number] Titration: 03/29/19 18:39 Dose: 0 units/hr, 0 mls/hr Documented by: [id number] Cosigned by: [id number] Titration: 03/29/19 17:43 Dose: 11 units/hr, 11 mls/hr Documented by: [id number] Cosigned by: [id number] Titration: 03/29/19 16:45 Dose: 11 units/hr, 11 mls/hr Documented by: [id number] Cosigned by: [id number] Titration: 03/29/19 15:34 Dose: 13.7 units/hr, 13.7 mls/hr Documented by: [id number] Cosigned by: [id number] Titration: 03/29/19 14:33 Dose: 13.7 units/hr, 13.7 mls/hr Documented by: [id number] Cosigned by: [id number] Titration: 03/29/19 13:32 Dose: 11.2 units/hr, 11.2 mls/hr Documented by: [id number] Cosigned by: [id number] Titration: 03/29/19 12:33 Dose: 14 units/hr, 14 mls/hr Documented by: [id number] Cosigned by: [id number] Titration: 03/29/19 11:30 Dose: 14 units/hr, 14 mls/hr Documented by: [id number] Cosigned by: [id number] Titration: 03/29/19 10:30 Dose: 17.5 units/hr, 17.5 mls/hr Documented by: [id number] Cosigned by: [id number] Titration: 03/29/19 09:13 Dose: 17.5 units/hr, 17.5 mls/hr Documented by: [id number] Cosigned by: [id number] Titration: 03/29/19 07:58 Dose: 17.5 units/hr, 17.5 mls/hr Documented by: [id number] Cosigned by: [id number] Titration: 03/29/19 06:44 Dose: 14.6 units/hr, 14.6 mls/hr Documented by: [id number] Cosigned by: [id number] Titration: 03/29/19 05:32 Dose: 14.6 units/hr, 14.6 mls/hr Documented by: [id number] Cosigned by: [id number] Titration: 03/29/19 04:38 Dose: 12.2 units/hr, 12.2 mls/hr Documented by: [id number] Cosigned by: [id number] Titration: 03/29/19 03:43 Dose: 10.2 units/hr, 10.2 mls/hr Documented by: [id number] Cosigned by: [id number] Admin: 03/29/19 02:40 Dose: 8.5 units/hr, 8.5 mls/hr Documented by: [id number] Cosigned by: [id number] Furosemide 20 mg/ Syringe 2 mls @ 4 mls/min IV NOW STA Stop: 03/29/19 02:21 Last Admin: 03/29/19 02:40 Dose: 4 mls/min Documented by: [id number] Sodium Chloride (Nss 1000ml) 1,000 mls @ 999 mls/hr IV .Q1H1M ONE Stop: 03/29/19 03:42 Last Infusion: 03/29/19 05:29 Dose: 0 mls/hr Documented by: [id number] Admin: 03/29/19 03:13 Dose: 999 mls/hr Documented by: [id number] Calcium Chloride 1,000 mg/ (Sodium Chloride) 60 mls @ 240 mls/hr IV NOW STA Stop: 03/29/19 03:02 Last Infusion: 03/29/19 03:01 Dose: 0 mls/hr Documented by: [id number] Admin: 03/29/19 02:57 Dose: 240 mls/hr Documented by: [id number] Sodium Bicarbonate 150 meq/ (Sterile Water) 1,150 mls @ 150 mls/hr IV .Q7H40M [facility] Stop: 03/29/19 11:45 Last Infusion: 03/29/19 12:43 Dose: 0 mls/hr Documented by: [id number] Infusion: 03/29/19 12:43 Dose: 0 mls/hr Documented by: [id number] Admin: 03/29/19 11:12 Dose: 150 mls/hr Documented by: [id number] Infusion: 03/29/19 10:51 Dose: 150 mls/hr Documented by: [id number] Admin: 03/29/19 03:10 Dose: 150 mls/hr Documented by: [id number] Calcium Chloride 500 mg/ (Sodium Chloride) 55 mls @ 240 mls/hr IV NOW STA Stop: 03/29/19 03:42 Last Admin: 03/29/19 03:50 Dose: Not Given Documented by: [id number] Sodium Chloride (Nss 1000ml) 1,000 mls @ 200 mls/hr IV .Q5H [facility] Stop: 04/28/19 03:59 Last Admin: 03/29/19 11:25 Dose: Not Given Documented by: [id number] Admin: 03/29/19 10:48 Dose: Not Given Documented by: [id number] Cefepime HCl (Maxipime) 2,000 mg in 20 mls @ 5 mls/min IV NOW STA Stop: 03/29/19 04:34 Last Admin: 03/29/19 05:24 Dose: 5 mls/min Documented by: [id number] Vancomycin HCl 1,750 mg/ (Sodium Chloride) 535 mls @ 200 mls/hr IV NOW ONE Stop: 03/29/19 07:11 Last Infusion: 03/29/19 13:50 Dose: 0 mls/hr Documented by: [id number] Infusion: 03/29/19 05:25 Dose: 0 mls/hr Documented by: [id number] Admin: 03/29/19 05:24 Dose: 200 mls/hr Documented by: [id number] Magnesium Sulfate/Dextrose (Magnesium Sulfate / D5w) 1 gm in 100 mls @ 50 mls/hr IV NOW ONE Stop: 03/29/19 12:44 Last Infusion: 03/29/19 14:33 Dose: 0 mls/hr Documented by: [id number] Admin: 03/29/19 12:25 Dose: 50 mls/hr Documented by: [id number] Sodium Bicarbonate 150 meq/Potassium Acetate 10 meq/Dextrose 1,155 mls @ 150 mls/hr IV .Q7H42M [facility] Stop: 04/28/19 11:44 Last Infusion: 03/29/19 19:08 Dose: 0 mls/hr Documented by: [id number] Admin: 03/29/19 12:25 Dose: 150 mls/hr Documented by: [id number] Ceftriaxone Sodium 2,000 mg/ (Dextrose) 70 mls @ 140 mls/hr IV Q24H [facility] Stop: 03/31/19 13:59 Last Infusion: 03/29/19 15:05 Dose: 0 mls/hr Documented by: [id number] Admin: 03/29/19 14:24 Dose: 140 mls/hr Documented by: [id number] Doxycycline Hyclate 100 mg/ (Dextrose) 110 mls @ 55 mls/hr IV BID [facility] Stop: 03/31/19 20:59 Last Infusion: 03/30/19 10:07 Dose: 0 mls/hr Documented by: [id number] Admin: 03/30/19 07:55 Dose: 55 mls/hr Documented by: [id number] Infusion: 03/29/19 23:45 Dose: 0 mls/hr Documented by: [id number] Admin: 03/29/19 21:40 Dose: 55 mls/hr Documented by: [id number] Potassium Phosphate 30 mmol/ (Sodium Chloride) 510 mls @ 88 mls/hr IV ONE ONE Stop: 03/29/19 20:17 Last Infusion: 03/29/19 21:13 Dose: 0 mls/hr Documented by: [id number] Admin: 03/29/19 15:04 Dose: 88 mls/hr Documented by: [id number] Potassium Chloride/Dextrose/Sod Cl (D5w And 1/2nss + 20meq Kcl) 20 meq in 1,000 mls @ 50 mls/hr IV .Q20H [facility] Stop: 04/28/19 18:29 Last Infusion: 03/30/19 11:41 Dose: 0 mls/hr Documented by: [id number] Admin: 03/29/19 19:09 Dose: 50 mls/hr Documented by: [id number] Magnesium Sulfate/Dextrose (Magnesium Sulfate / D5w) 1 gm in 100 mls @ 100 mls/hr IV Q1H [facility] Stop: 03/29/19 20:44 Last Infusion: 03/29/19 21:13 Dose: 0 mls/hr Documented by: [id number] Admin: 03/29/19 20:17 Dose: 100 mls/hr Documented by: [id number] Infusion: 03/29/19 20:09 Dose: 100 mls/hr Documented by: [id number] Admin: 03/29/19 19:09 Dose: 100 mls/hr Documented by: [id number] Potassium Chloride (K Zaid / Wtr) 10 meq in 100 mls @ 100 mls/hr IV ONE ONE Stop: 03/30/19 02:47 Last Infusion: 03/30/19 05:23 Dose: 0 mls/hr Documented by: [id number] Admin: 03/30/19 04:14 Dose: 100 mls/hr Documented by: [id number] Potassium Phosphate 15 mmol/ (Sodium Chloride) 255 mls @ 100 mls/hr IV ONE ONE Stop: 03/30/19 07:32 Last Infusion: 03/30/19 08:13 Dose: 0 mls/hr Documented by: [id number] Admin: 03/30/19 05:20 Dose: 100 mls/hr Documented by: [id number] Potassium Chloride/Sodium Chloride (1/2 Nss + 20meq Kcl 1000ml) 20 meq in 1,000 mls @ 50 mls/hr IV .Q20H [facility] Stop: 04/29/19 12:29 Last Admin: 03/31/19 09:00 Dose: 50 mls/hr Documented by: [id number] Infusion: 03/31/19 09:00 Dose: 50 mls/hr Documented by: [id number] Admin: 03/30/19 13:18 Dose: 50 mls/hr Documented by: [id number] Insulin Aspart (Novolog Flexpen) 0 units SC [facility] Stop: 04/28/19 07:29 Last Admin: 03/29/19 09:53 Dose: Not Given Documented by: [id number] Cosigned by: [id number] Insulin Aspart (Novolog Flexpen) 0 units SC [facility] Stop: 04/28/19 09:21 Last Admin: 03/30/19 11:41 Dose: Not Given Documented by: [id number] Cosigned by: [id number] Admin: 03/30/19 07:53 Dose: Not Given Documented by: [id number] Cosigned by: [id number] Admin: 03/29/19 21:13 Dose: Not Given Documented by: [id number] Cosigned by: [id number] Admin: 03/29/19 16:48 Dose: Not Given Documented by: [id number] Cosigned by: [id number] Admin: 03/29/19 11:44 Dose: Not Given Documented by: [id number] Cosigned by: [id number] Admin: 03/29/19 11:15 Dose: Not Given Documented by: [id number] Cosigned by: [id number] Insulin Glargine (Lantus Solostar Pen) 33 units SC NOW ONE Stop: 03/30/19 09:16 Last Admin: 03/30/19 10:26 Dose: 33 units Documented by: [id number] Cosigned by: [id number] Insulin Glargine (Lantus) 40 units SC [facility]ILY [facility] Stop: 04/30/19 08:59 Last Admin: 03/31/19 09:07 Dose: 40 units Documented by: [id number] Cosigned by: [id number] Insulin Human Lispro (Humalog) 0 units SC [facility] Stop: 04/29/19 16:29 Last Admin: 03/31/19 09:08 Dose: 8 units Documented by: [id number] Cosigned by: [id number] Admin: 03/30/19 20:44 Dose: 2 units Documented by: [id number] Cosigned by: [id number] Admin: 03/30/19 17:24 Dose: 3 units Documented by: [id number] Cosigned by: [id number] Insulin Human Regular (Novolin R Bolus From Bag) 8.5 units IV ONE ONE Stop: 03/29/19 02:31 Last Admin: 03/29/19 02:40 Dose: 8.5 units Documented by: [id number] Cosigned by: [id number] Insulin Human Regular (Novolin R U-100 Per Unit) Confirm Administered Dose 1 units .ROUTE .STK-MED ONE Stop: 03/29/19 02:39 Last Admin: 03/29/19 02:41 Dose: Not Given Documented by: [id number] Miscellaneous (Insulin Protocol Dka Goal Range) 1 ea N/A ONE ONE Stop: 03/29/19 02:20 Last Admin: 03/29/19 10:50 Dose: Not Given Documented by: [id number] Miscellaneous (Insulin Protocol Dka Goal Range) 1 ea N/A ONE ONE Stop: 03/29/19 09:23 Last Admin: 03/29/19 11:15 Dose: Not Given Documented by: [id number] Miscellaneous (Pending D5 1/2ns+20meq Kcl Ivf) 1 ea N/A Q2H MATIAS Stop: 04/28/19 09:21 Last Admin: 03/29/19 12:43 Dose: Not Given Documented by: [id number] Admin: 03/29/19 11:16 Dose: Not Given Documented by: [id number] Miscellaneous Information (Consult) 1 ea N/A UD ONE Stop: 03/29/19 04:32 Last Admin: 03/29/19 10:50 Dose: Not Given Documented by: [id number] Miscellaneous Information (Dc All Previously Ordered Diabetes Meds) 1 ea N/A ONE ONE Stop: 03/29/19 09:23 Last Admin: 03/29/19 11:15 Dose: Not Given Documented by: [id number] Miscellaneous Information (Consult Glycemic Management Pharmacy) 1 ea N/A NOW STA Stop: 03/29/19 09:23 Last Admin: 03/29/19 10:50 Dose: Not Given Documented by: [id number] Sodium Bicarbonate (Sodium Bicarbonate 8.4%) 1 meq IV ONCE STA Stop: 03/29/19 01:53 Last Admin: 03/29/19 01:58 Dose: 1 meq Documented by: [id number] Sodium Bicarbonate (Sodium Bicarbonate 8.4%) 100 meq IV NOW STA Stop: 03/29/19 05:05 Last Admin: 03/29/19 06:18 Dose: Not Given Documented by: [id number] Sodium Bicarbonate (Sodium Bicarbonate 8.4%) Confirm Administered Dose 100 meq .ROUTE .STK-MED ONE Stop: 03/29/19 05:49 Last Admin: 03/29/19 05:51 Dose: 100 meq Documented by: [id number] Critical Care Time Critical Care Time: Yes Total Critical Care Time: 95 I have personally spent 95 minutes of critical care time in the direct management of this patient. This includes bedside care, interpretation of diagnostic studies, and testing, discussion with consultants, patient, and family members, and other required patient management activities. This 95 minutes is in excess of all separately billable procedures. Medical Decision Making Differential Diagnosis Differential diagnosis includes: gastroenteritis, food borne illness, infections, appendicitis, diverticulitis, inflammatory bowel disease, obstruction, GI bleed, biliary pathology, DKA, sepsis, renal failure, electrolyte abnormalities, as well as others were entertained. Medical Records Attestation: I reviewed the patient's medical records. Home Medications Current Medication List: was personally reviewed by me Laboratory Data Attestation: I reviewed the patient's lab results. Result diagrams: 03/31/19 07:34 03/30/19 18:52 Lab Results 03/29/19 03/29/19 03/29/19 Range/Units 01:26 01:29 01:51 WBC 41.60 H* (4.8-10.8) K/uL RBC 5.03 (4.2-5.4) M/uL Hgb 15.3 (12.0-16.0) g/dL POC Hgb (12.0-16.0) g/dl Hct 47.9 H (37-47) % POC Hct (37-47) % MCV 95.2 (80-100) fL MCH 30.4 (25-34) pg MCHC 31.9 L (32-36) g/dL RDW Std Deviation 44.4 (36.4-46.3) fL RDW Coeff of Olesya 12.9 (11.5-14.5) % Plt Count 384 (130-400) K/uL MPV 12.3 H (7.4-10.4) fL Immature Gran % (Auto) 1.8 % Neut % (Auto) 77.3 % Lymph % (Auto) 10.7 % [place] % (Auto) 9.9 % Eos % (Auto) 0.1 % Baso % (Auto) 0.2 % Immature Gran # (Auto) 0.75 H (0.00-0.02) K/uL Neut # (Auto) 32.18 H (1.4-6.5) K/uL Lymph # (Auto) 4.45 H (1.2-3.4) K/uL [place] # (Auto) 4.10 H (0.11-0.59) K/uL Eos # (Auto) 0.04 (0-0.5) K/uL Baso # (Auto) 0.08 (0-0.2) K/uL Toxic Vacuolation 3+ Specimen Type POC pH (7.35-7.45) POC pCO2 (35-46) mmHg POC pO2 (80-95) mmHg POC HCO3 (19-24) jeremiah/L POC Base Excess (-9-1.8) jeremiah/L POC O2 Saturation ABG pH (7.35-7.45) ABG pCO2 (35-46) mmHg ABG pO2 (80-95) mm/Hg ABG HCO3 (19-24) mmol/L ABG O2 Saturation (90-95) % ABG Base Excess (-9-1.8) mEq/L Jovon Test (Pos) Barometric Pressure mm/Hg Oxygen Given POC Sodium (135-144) mEq/L Sodium (136-145) mmol/L POC Potassium (3.3-5.0) mEq/L Potassium (3.5-5.1) mmol/L POC Chloride (101-112) mEq/L Chloride (98-107) mmol/L Carbon Dioxide (21-32) mmol/L POC Total CO2 (24-31) mEq/l Anion Gap (3-11) POC Anion Gap POC BUN (7-18) mg/dl BUN (7-18) mg/dl Creatinine (0.6-1.2) mg/dl POC Creatinine (0.6-1.3) mg/dl Est Cr Clr Drug Dosing ml/min Est GFR ( Amer) Est GFR (Non-Af Amer) BUN/Creatinine Ratio (10-20) Glucose (70-99) mg/dl POC Glucose > 600 H* > 600 H* (70-99) POC Glucose (other) (70-99) mg/dl Estimat Average Glucose mg/dl Hemoglobin A1c (4.5-5.6) % Osmolality (280-300) mOsm/kg POC Lactic Acid Arter (0.36-1.25) mmol/L POC Lactic Acid Matthew (0.90-1.70) mmol/L Lactate (0.4-2.0) mmol/L Calcium (8.5-10.1) mg/dl POC Ioniz Calcium Jose (1.12-1.32) mmol/l Phosphorus (2.5-4.9) mg/dl Magnesium (1.8-2.4) mg/dl Total Bilirubin (0.2-1) mg/dl AST (15-37) U/L ALT (12-78) U/L Alkaline Phosphatase (45-117) U/L Total Protein (6.4-8.2) gm/dl Albumin (3.4-5.0) gm/dl Globulin (2.5-4.0) gm/dl Albumin/Globulin Ratio (0.9-2) Beta-Hydroxybutyric Acd (0.2-2.81) mg/dl HCG, Qual (Negative) Specimen Hemolysis Urine Color Urine Appearance (Clear) Urine pH (4.5-7.5) Ur Specific [place] (1.000-1.030) Urine Protein (Negative) Urine Glucose (UA) (Negative) Urine Ketones (Negative) Urine Blood (Negative) Urine Nitrite (Negative) Urine Bilirubin (Negative) Urine Urobilinogen (Negative) Ur Leukocyte Esterase (Negative) Urine WBC (Auto) (0-5) /hpf Urine RBC (Auto) (0-4) /hpf U Hyaline Cast (Auto) (0-5) /lpf U Epithel Cells (Auto) (0-5) /lpf Urine Bacteria (Auto) (Negative) Urine Osmolality (500-800) mOsm/kg Influenza Type A (PCR) (Neg) Influenza Type B (PCR) (Neg) 03/29/19 03/29/19 03/29/19 Range/Units 01:51 02:03 02:25 WBC (4.8-10.8) K/uL RBC (4.2-5.4) M/uL Hgb (12.0-16.0) g/dL POC Hgb 15.3 (12.0-16.0) g/dl Hct (37-47) % POC Hct 45 (37-47) % MCV (80-100) fL MCH (25-34) pg MCHC (32-36) g/dL RDW Std Deviation (36.4-46.3) fL RDW Coeff of Olesya (11.5-14.5) % Plt Count (130-400) K/uL MPV (7.4-10.4) fL Immature Gran % (Auto) % Neut % (Auto) % Lymph % (Auto) % [place] % (Auto) % Eos % (Auto) % Baso % (Auto) % Immature Gran # (Auto) (0.00-0.02) K/uL Neut # (Auto) (1.4-6.5) K/uL Lymph # (Auto) (1.2-3.4) K/uL [place] # (Auto) (0.11-0.59) K/uL Eos # (Auto) (0-0.5) K/uL Baso # (Auto) (0-0.2) K/uL Toxic Vacuolation Specimen Type POC pH (7.35-7.45) POC pCO2 (35-46) mmHg POC pO2 (80-95) mmHg POC HCO3 (19-24) jeremiah/L POC Base Excess (-9-1.8) jeremiah/L POC O2 Saturation ABG pH (7.35-7.45) ABG pCO2 (35-46) mmHg ABG pO2 (80-95) mm/Hg ABG HCO3 (19-24) mmol/L ABG O2 Saturation (90-95) % ABG Base Excess (-9-1.8) mEq/L Jovon Test (Pos) Barometric Pressure mm/Hg Oxygen Given POC Sodium 123 L (135-144) mEq/L Sodium 127 L (136-145) mmol/L POC Potassium > 9.0 H* (3.3-5.0) mEq/L Potassium (3.5-5.1) mmol/L POC Chloride 107 (101-112) mEq/L Chloride 98 (98-107) mmol/L Carbon Dioxide 5 L* (21-32) mmol/L POC Total CO2 < 5 L* (24-31) mEq/l Anion Gap 24.0 H (3-11) POC Anion Gap TNP POC BUN 45 H (7-18) mg/dl BUN 29 H (7-18) mg/dl Creatinine 1.94 H (0.6-1.2) mg/dl POC Creatinine 1.7 H (0.6-1.3) mg/dl Est Cr Clr Drug Dosing 45.1 ml/min Est GFR ( Amer) 41.0 Est GFR (Non-Af Amer) 35.4 BUN/Creatinine Ratio 14.8 (10-20) Glucose 800 H* (70-99) mg/dl POC Glucose (70-99) POC Glucose (other) > 700 H* (70-99) mg/dl Estimat Average Glucose mg/dl Hemoglobin A1c (4.5-5.6) % Osmolality (280-300) mOsm/kg POC Lactic Acid Arter (0.36-1.25) mmol/L POC Lactic Acid Matthew (0.90-1.70) mmol/L Lactate (0.4-2.0) mmol/L Calcium 9.0 (8.5-10.1) mg/dl POC Ioniz Calcium Jose 1.11 L (1.12-1.32) mmol/l Phosphorus 8.7 H (2.5-4.9) mg/dl Magnesium (1.8-2.4) mg/dl Total Bilirubin 0.5 (0.2-1) mg/dl AST (15-37) U/L ALT 33 (12-78) U/L Alkaline Phosphatase 145 H (45-117) U/L Total Protein 8.4 H (6.4-8.2) gm/dl Albumin 4.2 (3.4-5.0) gm/dl Globulin 4.2 H (2.5-4.0) gm/dl Albumin/Globulin Ratio 1.0 (0.9-2) Beta-Hydroxybutyric Acd (0.2-2.81) mg/dl HCG, Qual (Negative) Specimen Hemolysis Urine Color Urine Appearance (Clear) Urine pH (4.5-7.5) Ur Specific [place] (1.000-1.030) Urine Protein (Negative) Urine Glucose (UA) (Negative) Urine Ketones (Negative) Urine Blood (Negative) Urine Nitrite (Negative) Urine Bilirubin (Negative) Urine Urobilinogen (Negative) Ur Leukocyte Esterase (Negative) Urine WBC (Auto) (0-5) /hpf Urine RBC (Auto) (0-4) /hpf U Hyaline Cast (Auto) (0-5) /lpf U Epithel Cells (Auto) (0-5) /lpf Urine Bacteria (Auto) (Negative) Urine Osmolality 467 L (500-800) mOsm/kg Influenza Type A (PCR) (Neg) Influenza Type B (PCR) (Neg) 03/29/19 03/29/19 03/29/19 Range/Units 02:30 02:33 02:45 WBC (4.8-10.8) K/uL RBC (4.2-5.4) M/uL Hgb (12.0-16.0) g/dL POC Hgb (12.0-16.0) g/dl Hct (37-47) % POC Hct (37-47) % MCV (80-100) fL MCH (25-34) pg MCHC (32-36) g/dL RDW Std Deviation (36.4-46.3) fL RDW Coeff of Olesya (11.5-14.5) % Plt Count (130-400) K/uL MPV (7.4-10.4) fL Immature Gran % (Auto) % Neut % (Auto) % Lymph % (Auto) % [place] % (Auto) % Eos % (Auto) % Baso % (Auto) % Immature Gran # (Auto) (0.00-0.02) K/uL Neut # (Auto) (1.4-6.5) K/uL Lymph # (Auto) (1.2-3.4) K/uL [place] # (Auto) (0.11-0.59) K/uL Eos # (Auto) (0-0.5) K/uL Baso # (Auto) (0-0.2) K/uL Toxic Vacuolation Specimen Type POC pH (7.35-7.45) POC pCO2 (35-46) mmHg POC pO2 (80-95) mmHg POC HCO3 (19-24) jeremiah/L POC Base Excess (-9-1.8) jeremiah/L POC O2 Saturation ABG pH 6.95 L* (7.35-7.45) ABG pCO2 18 L (35-46) mmHg ABG pO2 201 H (80-95) mm/Hg ABG HCO3 4 L (19-24) mmol/L ABG O2 Saturation 99.2 H (90-95) % ABG Base Excess -26.8 L (-9-1.8) mEq/L Jovon Test POS (Pos) Barometric Pressure 729.4 mm/Hg Oxygen Given 8L POC Sodium (135-144) mEq/L Sodium (136-145) mmol/L POC Potassium (3.3-5.0) mEq/L Potassium (3.5-5.1) mmol/L POC Chloride (101-112) mEq/L Chloride (98-107) mmol/L Carbon Dioxide (21-32) mmol/L POC Total CO2 (24-31) mEq/l Anion Gap (3-11) POC Anion Gap POC BUN (7-18) mg/dl BUN (7-18) mg/dl Creatinine (0.6-1.2) mg/dl POC Creatinine (0.6-1.3) mg/dl Est Cr Clr Drug Dosing ml/min Est GFR ( Amer) Est GFR (Non-Af Amer) BUN/Creatinine Ratio (10-20) Glucose (70-99) mg/dl POC Glucose > 600 H* (70-99) POC Glucose (other) (70-99) mg/dl Estimat Average Glucose mg/dl Hemoglobin A1c (4.5-5.6) % Osmolality (280-300) mOsm/kg POC Lactic Acid Arter (0.36-1.25) mmol/L POC Lactic Acid Matthew 5.33 H (0.90-1.70) mmol/L Lactate (0.4-2.0) mmol/L Calcium (8.5-10.1) mg/dl POC Ioniz Calcium Jose (1.12-1.32) mmol/l Phosphorus (2.5-4.9) mg/dl Magnesium (1.8-2.4) mg/dl Total Bilirubin (0.2-1) mg/dl AST (15-37) U/L ALT (12-78) U/L Alkaline Phosphatase (45-117) U/L Total Protein (6.4-8.2) gm/dl Albumin (3.4-5.0) gm/dl Globulin (2.5-4.0) gm/dl Albumin/Globulin Ratio (0.9-2) Beta-Hydroxybutyric Acd (0.2-2.81) mg/dl HCG, Qual (Negative) Specimen Hemolysis Urine Color Urine Appearance (Clear) Urine pH (4.5-7.5) Ur Specific [place] (1.000-1.030) Urine Protein (Negative) Urine Glucose (UA) (Negative) Urine Ketones (Negative) Urine Blood (Negative) Urine Nitrite (Negative) Urine Bilirubin (Negative) Urine Urobilinogen (Negative) Ur Leukocyte Esterase (Negative) Urine WBC (Auto) (0-5) /hpf Urine RBC (Auto) (0-4) /hpf U Hyaline Cast (Auto) (0-5) /lpf U Epithel Cells (Auto) (0-5) /lpf Urine Bacteria (Auto) (Negative) Urine Osmolality (500-800) mOsm/kg Influenza Type A (PCR) (Neg) Influenza Type B (PCR) (Neg) 03/29/19 03/29/19 03/29/19 Range/Units 02:47 02:47 03:31 WBC (4.8-10.8) K/uL RBC (4.2-5.4) M/uL Hgb (12.0-16.0) g/dL POC Hgb (12.0-16.0) g/dl Hct (37-47) % POC Hct (37-47) % MCV (80-100) fL MCH (25-34) pg MCHC (32-36) g/dL RDW Std Deviation (36.4-46.3) fL RDW Coeff of Olesya (11.5-14.5) % Plt Count (130-400) K/uL MPV (7.4-10.4) fL Immature Gran % (Auto) % Neut % (Auto) % Lymph % (Auto) % [place] % (Auto) % Eos % (Auto) % Baso % (Auto) % Immature Gran # (Auto) (0.00-0.02) K/uL Neut # (Auto) (1.4-6.5) K/uL Lymph # (Auto) (1.2-3.4) K/uL [place] # (Auto) (0.11-0.59) K/uL Eos # (Auto) (0-0.5) K/uL Baso # (Auto) (0-0.2) K/uL Toxic Vacuolation Specimen Type POC pH (7.35-7.45) POC pCO2 (35-46) mmHg POC pO2 (80-95) mmHg POC HCO3 (19-24) jeremiah/L POC Base Excess (-9-1.8) jeremiah/L POC O2 Saturation ABG pH (7.35-7.45) ABG pCO2 (35-46) mmHg ABG pO2 (80-95) mm/Hg ABG HCO3 (19-24) mmol/L ABG O2 Saturation (90-95) % ABG Base Excess (-9-1.8) mEq/L Jovon Test (Pos) Barometric Pressure mm/Hg Oxygen Given POC Sodium (135-144) mEq/L Sodium (136-145) mmol/L POC Potassium (3.3-5.0) mEq/L Potassium 8.0 H* (3.5-5.1) mmol/L POC Chloride (101-112) mEq/L Chloride (98-107) mmol/L Carbon Dioxide (21-32) mmol/L POC Total CO2 (24-31) mEq/l Anion Gap (3-11) POC Anion Gap POC BUN (7-18) mg/dl BUN (7-18) mg/dl Creatinine (0.6-1.2) mg/dl POC Creatinine (0.6-1.3) mg/dl Est Cr Clr Drug Dosing ml/min Est GFR ( Amer) Est GFR (Non-Af Amer) BUN/Creatinine Ratio (10-20) Glucose (70-99) mg/dl POC Glucose > 600 H* (70-99) POC Glucose (other) (70-99) mg/dl Estimat Average Glucose 229 mg/dl Hemoglobin A1c 9.6 H (4.5-5.6) % Osmolality (280-300) mOsm/kg POC Lactic Acid Arter (0.36-1.25) mmol/L POC Lactic Acid Matthew (0.90-1.70) mmol/L Lactate (0.4-2.0) mmol/L Calcium (8.5-10.1) mg/dl POC Ioniz Calcium Jose (1.12-1.32) mmol/l Phosphorus (2.5-4.9) mg/dl Magnesium 2.4 (1.8-2.4) mg/dl Total Bilirubin (0.2-1) mg/dl AST 13 L (15-37) U/L ALT (12-78) U/L Alkaline Phosphatase (45-117) U/L Total Protein (6.4-8.2) gm/dl Albumin (3.4-5.0) gm/dl Globulin (2.5-4.0) gm/dl Albumin/Globulin Ratio (0.9-2) Beta-Hydroxybutyric Acd (0.2-2.81) mg/dl HCG, Qual (Negative) Specimen Hemolysis Urine Color Urine Appearance (Clear) Urine pH (4.5-7.5) Ur Specific [place] (1.000-1.030) Urine Protein (Negative) Urine Glucose (UA) (Negative) Urine Ketones (Negative) Urine Blood (Negative) Urine Nitrite (Negative) Urine Bilirubin (Negative) Urine Urobilinogen (Negative) Ur Leukocyte Esterase (Negative) Urine WBC (Auto) (0-5) /hpf Urine RBC (Auto) (0-4) /hpf U Hyaline Cast (Auto) (0-5) /lpf U Epithel Cells (Auto) (0-5) /lpf Urine Bacteria (Auto) (Negative) Urine Osmolality (500-800) mOsm/kg Influenza Type A (PCR) (Neg) Influenza Type B (PCR) (Neg) 03/29/19 03/29/19 03/29/19 Range/Units 03:34 04:23 04:35 WBC (4.8-10.8) K/uL RBC (4.2-5.4) M/uL Hgb (12.0-16.0) g/dL POC Hgb 16.3 H 15.0 (12.0-16.0) g/dl Hct (37-47) % POC Hct 48 H 44 (37-47) % MCV (80-100) fL MCH (25-34) pg MCHC (32-36) g/dL RDW Std Deviation (36.4-46.3) fL RDW Coeff of Olesya (11.5-14.5) % Plt Count (130-400) K/uL MPV (7.4-10.4) fL Immature Gran % (Auto) % Neut % (Auto) % Lymph % (Auto) % [place] % (Auto) % Eos % (Auto) % Baso % (Auto) % Immature Gran # (Auto) (0.00-0.02) K/uL Neut # (Auto) (1.4-6.5) K/uL Lymph # (Auto) (1.2-3.4) K/uL [place] # (Auto) (0.11-0.59) K/uL Eos # (Auto) (0-0.5) K/uL Baso # (Auto) (0-0.2) K/uL Toxic Vacuolation Specimen Type Arterial POC pH 6.86 L* (7.35-7.45) POC pCO2 28 L (35-46) mmHg POC pO2 29 L (80-95) mmHg POC HCO3 5 L (19-24) jeremiah/L POC Base Excess -29.0 L (-9-1.8) jeremiah/L POC O2 Saturation 23 ABG pH (7.35-7.45) ABG pCO2 (35-46) mmHg ABG pO2 (80-95) mm/Hg ABG HCO3 (19-24) mmol/L ABG O2 Saturation (90-95) % ABG Base Excess (-9-1.8) mEq/L Jovon Test (Pos) Barometric Pressure mm/Hg Oxygen Given POC Sodium 131 L 133 L (135-144) mEq/L Sodium (136-145) mmol/L POC Potassium 7.0 H* 5.4 H (3.3-5.0) mEq/L Potassium (3.5-5.1) mmol/L POC Chloride 112 (101-112) mEq/L Chloride (98-107) mmol/L Carbon Dioxide (21-32) mmol/L POC Total CO2 7 L* 6 L* (24-31) mEq/l Anion Gap (3-11) POC Anion Gap 20.0 POC BUN 48 H (7-18) mg/dl BUN (7-18) mg/dl Creatinine (0.6-1.2) mg/dl POC Creatinine 1.5 H (0.6-1.3) mg/dl Est Cr Clr Drug Dosing ml/min Est GFR ( Amer) Est GFR (Non-Af Amer) BUN/Creatinine Ratio (10-20) Glucose (70-99) mg/dl POC Glucose 544 H* (70-99) POC Glucose (other) 640 H* (70-99) mg/dl Estimat Average Glucose mg/dl Hemoglobin A1c (4.5-5.6) % Osmolality (280-300) mOsm/kg POC Lactic Acid Arter (0.36-1.25) mmol/L POC Lactic Acid Matthew (0.90-1.70) mmol/L Lactate (0.4-2.0) mmol/L Calcium (8.5-10.1) mg/dl POC Ioniz Calcium Jose 1.36 H (1.12-1.32) mmol/l Phosphorus (2.5-4.9) mg/dl Magnesium (1.8-2.4) mg/dl Total Bilirubin (0.2-1) mg/dl AST (15-37) U/L ALT (12-78) U/L Alkaline Phosphatase (45-117) U/L Total Protein (6.4-8.2) gm/dl Albumin (3.4-5.0) gm/dl Globulin (2.5-4.0) gm/dl Albumin/Globulin Ratio (0.9-2) Beta-Hydroxybutyric Acd (0.2-2.81) mg/dl HCG, Qual (Negative) Specimen Hemolysis Urine Color Urine Appearance (Clear) Urine pH (4.5-7.5) Ur Specific [place] (1.000-1.030) Urine Protein (Negative) Urine Glucose (UA) (Negative) Urine Ketones (Negative) Urine Blood (Negative) Urine Nitrite (Negative) Urine Bilirubin (Negative) Urine Urobilinogen (Negative) Ur Leukocyte Esterase (Negative) Urine WBC (Auto) (0-5) /hpf Urine RBC (Auto) (0-4) /hpf U Hyaline Cast (Auto) (0-5) /lpf U Epithel Cells (Auto) (0-5) /lpf Urine Bacteria (Auto) (Negative) Urine Osmolality (500-800) mOsm/kg Influenza Type A (PCR) (Neg) Influenza Type B (PCR) (Neg) 03/29/19 03/29/19 03/29/19 Range/Units 04:44 05:10 05:18 WBC (4.8-10.8) K/uL RBC (4.2-5.4) M/uL Hgb (12.0-16.0) g/dL POC Hgb (12.0-16.0) g/dl Hct (37-47) % POC Hct (37-47) % MCV (80-100) fL MCH (25-34) pg MCHC (32-36) g/dL RDW Std Deviation (36.4-46.3) fL RDW Coeff of Olesya (11.5-14.5) % Plt Count (130-400) K/uL MPV (7.4-10.4) fL Immature Gran % (Auto) % Neut % (Auto) % Lymph % (Auto) % [place] % (Auto) % Eos % (Auto) % Baso % (Auto) % Immature Gran # (Auto) (0.00-0.02) K/uL Neut # (Auto) (1.4-6.5) K/uL Lymph # (Auto) (1.2-3.4) K/uL [place] # (Auto) (0.11-0.59) K/uL Eos # (Auto) (0-0.5) K/uL Baso # (Auto) (0-0.2) K/uL Toxic Vacuolation Specimen Type POC pH (7.35-7.45) POC pCO2 (35-46) mmHg POC pO2 (80-95) mmHg POC HCO3 (19-24) jeremiah/L POC Base Excess (-9-1.8) jeremiah/L POC O2 Saturation ABG pH (7.35-7.45) ABG pCO2 (35-46) mmHg ABG pO2 (80-95) mm/Hg ABG HCO3 (19-24) mmol/L ABG O2 Saturation (90-95) % ABG Base Excess (-9-1.8) mEq/L Jovon Test (Pos) Barometric Pressure mm/Hg Oxygen Given POC Sodium (135-144) mEq/L Sodium 136 D (136-145) mmol/L POC Potassium (3.3-5.0) mEq/L Potassium TNP (3.5-5.1) mmol/L POC Chloride (101-112) mEq/L Chloride 110 H (98-107) mmol/L Carbon Dioxide 6 L* (21-32) mmol/L POC Total CO2 (24-31) mEq/l Anion Gap 20.0 H (3-11) POC Anion Gap POC BUN (7-18) mg/dl BUN 28 H (7-18) mg/dl Creatinine 1.68 H (0.6-1.2) mg/dl POC Creatinine (0.6-1.3) mg/dl Est Cr Clr Drug Dosing 52.0 ml/min Est GFR ( Amer) 48.8 Est GFR (Non-Af Amer) 42.1 BUN/Creatinine Ratio 16.6 (10-20) Glucose 477 H* (70-99) mg/dl POC Glucose (70-99) POC Glucose (other) (70-99) mg/dl Estimat Average Glucose mg/dl Hemoglobin A1c (4.5-5.6) % Osmolality (280-300) mOsm/kg POC Lactic Acid Arter 3.25 H (0.36-1.25) mmol/L POC Lactic Acid Matthew (0.90-1.70) mmol/L Lactate (0.4-2.0) mmol/L Calcium 12.7 H* D (8.5-10.1) mg/dl POC Ioniz Calcium Jose (1.12-1.32) mmol/l Phosphorus (2.5-4.9) mg/dl Magnesium (1.8-2.4) mg/dl Total Bilirubin (0.2-1) mg/dl AST (15-37) U/L ALT (12-78) U/L Alkaline Phosphatase (45-117) U/L Total Protein (6.4-8.2) gm/dl Albumin (3.4-5.0) gm/dl Globulin (2.5-4.0) gm/dl Albumin/Globulin Ratio (0.9-2) Beta-Hydroxybutyric Acd (0.2-2.81) mg/dl HCG, Qual (Negative) Specimen Hemolysis Urine Color Yellow Urine Appearance Cloudy A (Clear) Urine pH 5.0 (4.5-7.5) Ur Specific [place] 1.023 (1.000-1.030) Urine Protein 2+ H (Negative) Urine Glucose (UA) 3+ H (Negative) Urine Ketones 2+ H (Negative) Urine Blood 2+ H (Negative) Urine Nitrite Negative (Negative) Urine Bilirubin Negative (Negative) Urine Urobilinogen Negative (Negative) Ur Leukocyte Esterase Negative (Negative) Urine WBC (Auto) 1-5 (0-5) /hpf Urine RBC (Auto) 5-10 H (0-4) /hpf U Hyaline Cast (Auto) 5-10 H (0-5) /lpf U Epithel Cells (Auto) >30 H (0-5) /lpf Urine Bacteria (Auto) Negative (Negative) Urine Osmolality (500-800) mOsm/kg Influenza Type A (PCR) (Neg) Influenza Type B (PCR) (Neg) 03/29/19 03/29/19 03/29/19 Range/Units 05:18 05:18 05:18 WBC (4.8-10.8) K/uL RBC (4.2-5.4) M/uL Hgb (12.0-16.0) g/dL POC Hgb (12.0-16.0) g/dl Hct (37-47) % POC Hct (37-47) % MCV (80-100) fL MCH (25-34) pg MCHC (32-36) g/dL RDW Std Deviation (36.4-46.3) fL RDW Coeff of [place] (11.5-14.5) % Plt Count (130-400) K/uL MPV (7.4-10.4) fL Immature Gran % (Auto) % Neut % (Auto) % Lymph % (Auto) % [place] % (Auto) % Eos % (Auto) % Baso % (Auto) % Immature Gran # (Auto) (0.00-0.02) K/uL Neut # (Auto) (1.4-6.5) K/uL Lymph # (Auto) (1.2-3.4) K/uL [place] # (Auto) (0.11-0.59) K/uL Eos # (Auto) (0-0.5) K/uL Baso # (Auto) (0-0.2) K/uL Toxic Vacuolation Specimen Type POC pH (7.35-7.45) POC pCO2 (35-46) mmHg POC pO2 (80-95) mmHg POC HCO3 (19-24) jeremiah/L POC Base Excess (-9-1.8) jeremiah/L POC O2 Saturation ABG pH (7.35-7.45) ABG pCO2 (35-46) mmHg ABG pO2 (80-95) mm/Hg ABG HCO3 (19-24) mmol/L ABG O2 Saturation (90-95) % ABG Base Excess (-9-1.8) mEq/L Jovon Test (Pos) Barometric Pressure mm/Hg Oxygen Given POC Sodium (135-144) mEq/L Sodium (136-145) mmol/L POC Potassium (3.3-5.0) mEq/L Potassium 4.7 D (3.5-5.1) mmol/L POC Chloride (101-112) mEq/L Chloride (98-107) mmol/L Carbon Dioxide (21-32) mmol/L POC Total CO2 (24-31) mEq/l Anion Gap (3-11) POC Anion Gap POC BUN (7-18) mg/dl BUN (7-18) mg/dl Creatinine (0.6-1.2) mg/dl POC Creatinine (0.6-1.3) mg/dl Est Cr Clr Drug Dosing ml/min Est GFR ( Amer) Est GFR (Non-Af Amer) BUN/Creatinine Ratio (10-20) Glucose (70-99) mg/dl POC Glucose (70-99) POC Glucose (other) (70-99) mg/dl Estimat Average Glucose mg/dl Hemoglobin A1c (4.5-5.6) % Osmolality 325 H (280-300) mOsm/kg POC Lactic Acid Arter (0.36-1.25) mmol/L POC Lactic Acid Matthew (0.90-1.70) mmol/L Lactate 3.4 H* (0.4-2.0) mmol/L Calcium (8.5-10.1) mg/dl POC Ioniz Calcium Jose (1.12-1.32) mmol/l Phosphorus (2.5-4.9) mg/dl Magnesium (1.8-2.4) mg/dl Total Bilirubin (0.2-1) mg/dl AST (15-37) U/L ALT (12-78) U/L Alkaline Phosphatase (45-117) U/L Total Protein (6.4-8.2) gm/dl Albumin (3.4-5.0) gm/dl Globulin (2.5-4.0) gm/dl Albumin/Globulin Ratio (0.9-2) Beta-Hydroxybutyric Acd (0.2-2.81) mg/dl HCG, Qual (Negative) Specimen Hemolysis Urine Color Urine Appearance (Clear) Urine pH (4.5-7.5) Ur Specific [place] (1.000-1.030) Urine Protein (Negative) Urine Glucose (UA) (Negative) Urine Ketones (Negative) Urine Blood (Negative) Urine Nitrite (Negative) Urine Bilirubin (Negative) Urine Urobilinogen (Negative) Ur Leukocyte Esterase (Negative) Urine WBC (Auto) (0-5) /hpf Urine RBC (Auto) (0-4) /hpf U Hyaline Cast (Auto) (0-5) /lpf U Epithel Cells (Auto) (0-5) /lpf Urine Bacteria (Auto) (Negative) Urine Osmolality (500-800) mOsm/kg Influenza Type A (PCR) (Neg) Influenza Type B (PCR) (Neg) 03/29/19 03/29/19 03/29/19 Range/Units 05:18 05:18 05:21 WBC (4.8-10.8) K/uL RBC (4.2-5.4) M/uL Hgb (12.0-16.0) g/dL POC Hgb 15.0 (12.0-16.0) g/dl Hct (37-47) % POC Hct 44 (37-47) % MCV (80-100) fL MCH (25-34) pg MCHC (32-36) g/dL RDW Std Deviation (36.4-46.3) fL RDW Coeff of Olesya (11.5-14.5) % Plt Count (130-400) K/uL MPV (7.4-10.4) fL Immature Gran % (Auto) % Neut % (Auto) % Lymph % (Auto) % [place] % (Auto) % Eos % (Auto) % Baso % (Auto) % Immature Gran # (Auto) (0.00-0.02) K/uL Neut # (Auto) (1.4-6.5) K/uL Lymph # (Auto) (1.2-3.4) K/uL [place] # (Auto) (0.11-0.59) K/uL Eos # (Auto) (0-0.5) K/uL Baso # (Auto) (0-0.2) K/uL Toxic Vacuolation Specimen Type Arterial POC pH 6.92 L* (7.35-7.45) POC pCO2 124 H (35-46) mmHg POC pO2 124 H (80-95) mmHg POC HCO3 3 L (19-24) jeremiah/L POC Base Excess -30.0 L (-9-1.8) jeremiah/L POC O2 Saturation 95 ABG pH 6.95 L* (7.35-7.45) ABG pCO2 16 L (35-46) mmHg ABG pO2 116 H (80-95) mm/Hg ABG HCO3 4 L (19-24) mmol/L ABG O2 Saturation 97.0 H (90-95) % ABG Base Excess -27.1 L (-9-1.8) mEq/L Jovon Test Pos (Pos) Barometric Pressure 730.0 mm/Hg Oxygen Given ROOM AIR POC Sodium 136 (135-144) mEq/L Sodium (136-145) mmol/L POC Potassium 4.6 (3.3-5.0) mEq/L Potassium (3.5-5.1) mmol/L POC Chloride (101-112) mEq/L Chloride (98-107) mmol/L Carbon Dioxide (21-32) mmol/L POC Total CO2 < 5 L* (24-31) mEq/l Anion Gap (3-11) POC Anion Gap POC BUN (7-18) mg/dl BUN (7-18) mg/dl Creatinine (0.6-1.2) mg/dl POC Creatinine (0.6-1.3) mg/dl Est Cr Clr Drug Dosing ml/min Est GFR ( Amer) Est GFR (Non-Af Amer) BUN/Creatinine Ratio (10-20) Glucose (70-99) mg/dl POC Glucose (70-99) POC Glucose (other) (70-99) mg/dl Estimat Average Glucose mg/dl Hemoglobin A1c (4.5-5.6) % Osmolality (280-300) mOsm/kg POC Lactic Acid Arter (0.36-1.25) mmol/L POC Lactic Acid Matthew (0.90-1.70) mmol/L Lactate (0.4-2.0) mmol/L Calcium (8.5-10.1) mg/dl POC Ioniz Calcium Jose (1.12-1.32) mmol/l Phosphorus (2.5-4.9) mg/dl Magnesium (1.8-2.4) mg/dl Total Bilirubin (0.2-1) mg/dl AST (15-37) U/L ALT (12-78) U/L Alkaline Phosphatase (45-117) U/L Total Protein (6.4-8.2) gm/dl Albumin (3.4-5.0) gm/dl Globulin (2.5-4.0) gm/dl Albumin/Globulin Ratio (0.9-2) Beta-Hydroxybutyric Acd (0.2-2.81) mg/dl HCG, Qual Negative (Negative) Specimen Hemolysis Urine Color Urine Appearance (Clear) Urine pH (4.5-7.5) Ur Specific [place] (1.000-1.030) Urine Protein (Negative) Urine Glucose (UA) (Negative) Urine Ketones (Negative) Urine Blood (Negative) Urine Nitrite (Negative) Urine Bilirubin (Negative) Urine Urobilinogen (Negative) Ur Leukocyte Esterase (Negative) Urine WBC (Auto) (0-5) /hpf Urine RBC (Auto) (0-4) /hpf U Hyaline Cast (Auto) (0-5) /lpf U Epithel Cells (Auto) (0-5) /lpf Urine Bacteria (Auto) (Negative) Urine Osmolality (500-800) mOsm/kg Influenza Type A (PCR) (Neg) Influenza Type B (PCR) (Neg) 03/29/19 03/29/19 03/29/19 Range/Units 05:27 06:41 06:41 WBC (4.8-10.8) K/uL RBC (4.2-5.4) M/uL Hgb (12.0-16.0) g/dL POC Hgb (12.0-16.0) g/dl Hct (37-47) % POC Hct (37-47) % MCV (80-100) fL MCH (25-34) pg MCHC (32-36) g/dL RDW Std Deviation (36.4-46.3) fL RDW Coeff of Olesya (11.5-14.5) % Plt Count (130-400) K/uL MPV (7.4-10.4) fL Immature Gran % (Auto) % Neut % (Auto) % Lymph % (Auto) % [place] % (Auto) % Eos % (Auto) % Baso % (Auto) % Immature Gran # (Auto) (0.00-0.02) K/uL Neut # (Auto) (1.4-6.5) K/uL Lymph # (Auto) (1.2-3.4) K/uL [place] # (Auto) (0.11-0.59) K/uL Eos # (Auto) (0-0.5) K/uL Baso # (Auto) (0-0.2) K/uL Toxic Vacuolation Specimen Type POC pH (7.35-7.45) POC pCO2 (35-46) mmHg POC pO2 (80-95) mmHg POC HCO3 (19-24) jeremiah/L POC Base Excess (-9-1.8) jeremiah/L POC O2 Saturation ABG pH (7.35-7.45) ABG pCO2 (35-46) mmHg ABG pO2 (80-95) mm/Hg ABG HCO3 (19-24) mmol/L ABG O2 Saturation (90-95) % ABG Base Excess (-9-1.8) mEq/L Jovon Test (Pos) Barometric Pressure mm/Hg Oxygen Given POC Sodium (135-144) mEq/L Sodium (136-145) mmol/L POC Potassium (3.3-5.0) mEq/L Potassium (3.5-5.1) mmol/L POC Chloride (101-112) mEq/L Chloride (98-107) mmol/L Carbon Dioxide (21-32) mmol/L POC Total CO2 (24-31) mEq/l Anion Gap (3-11) POC Anion Gap POC BUN (7-18) mg/dl BUN (7-18) mg/dl Creatinine (0.6-1.2) mg/dl POC Creatinine (0.6-1.3) mg/dl Est Cr Clr Drug Dosing ml/min Est GFR ( Amer) Est GFR (Non-Af Amer) BUN/Creatinine Ratio (10-20) Glucose (70-99) mg/dl POC Glucose 398 H* 327 H* (70-99) POC Glucose (other) (70-99) mg/dl Estimat Average Glucose mg/dl Hemoglobin A1c (4.5-5.6) % Osmolality (280-300) mOsm/kg POC Lactic Acid Arter (0.36-1.25) mmol/L POC Lactic Acid Matthew (0.90-1.70) mmol/L Lactate (0.4-2.0) mmol/L Calcium (8.5-10.1) mg/dl POC Ioniz Calcium Jose (1.12-1.32) mmol/l Phosphorus (2.5-4.9) mg/dl Magnesium (1.8-2.4) mg/dl Total Bilirubin (0.2-1) mg/dl AST (15-37) U/L ALT (12-78) U/L Alkaline Phosphatase (45-117) U/L Total Protein (6.4-8.2) gm/dl Albumin (3.4-5.0) gm/dl Globulin (2.5-4.0) gm/dl Albumin/Globulin Ratio (0.9-2) Beta-Hydroxybutyric Acd (0.2-2.81) mg/dl HCG, Qual (Negative) Specimen Hemolysis Urine Color Urine Appearance (Clear) Urine pH (4.5-7.5) Ur Specific [place] (1.000-1.030) Urine Protein (Negative) Urine Glucose (UA) (Negative) Urine Ketones (Negative) Urine Blood (Negative) Urine Nitrite (Negative) Urine Bilirubin (Negative) Urine Urobilinogen (Negative) Ur Leukocyte Esterase (Negative) Urine WBC (Auto) (0-5) /hpf Urine RBC (Auto) (0-4) /hpf U Hyaline Cast (Auto) (0-5) /lpf U Epithel Cells (Auto) (0-5) /lpf Urine Bacteria (Auto) (Negative) Urine Osmolality (500-800) mOsm/kg Influenza Type A (PCR) Neg for Influ A (Neg) Influenza Type B (PCR) Neg for Influ B (Neg) 03/29/19 Range/Units 07:47 WBC (4.8-10.8) K/uL RBC (4.2-5.4) M/uL Hgb (12.0-16.0) g/dL POC Hgb (12.0-16.0) g/dl Hct (37-47) % POC Hct (37-47) % MCV (80-100) fL MCH (25-34) pg MCHC (32-36) g/dL RDW Std Deviation (36.4-46.3) fL RDW Coeff of Olesya (11.5-14.5) % Plt Count (130-400) K/uL MPV (7.4-10.4) fL Immature Gran % (Auto) % Neut % (Auto) % Lymph % (Auto) % [place] % (Auto) % Eos % (Auto) % Baso % (Auto) % Immature Gran # (Auto) (0.00-0.02) K/uL Neut # (Auto) (1.4-6.5) K/uL Lymph # (Auto) (1.2-3.4) K/uL [place] # (Auto) (0.11-0.59) K/uL Eos # (Auto) (0-0.5) K/uL Baso # (Auto) (0-0.2) K/uL Toxic Vacuolation Specimen Type POC pH (7.35-7.45) POC pCO2 (35-46) mmHg POC pO2 (80-95) mmHg POC HCO3 (19-24) jeremiah/L POC Base Excess (-9-1.8) jeremiah/L POC O2 Saturation ABG pH (7.35-7.45) ABG pCO2 (35-46) mmHg ABG pO2 (80-95) mm/Hg ABG HCO3 (19-24) mmol/L ABG O2 Saturation (90-95) % ABG Base Excess (-9-1.8) mEq/L Jovon Test (Pos) Barometric Pressure mm/Hg Oxygen Given POC Sodium (135-144) mEq/L Sodium (136-145) mmol/L POC Potassium (3.3-5.0) mEq/L Potassium (3.5-5.1) mmol/L POC Chloride (101-112) mEq/L Chloride (98-107) mmol/L Carbon Dioxide (21-32) mmol/L POC Total CO2 (24-31) mEq/l Anion Gap (3-11) POC Anion Gap POC BUN (7-18) mg/dl BUN (7-18) mg/dl Creatinine (0.6-1.2) mg/dl POC Creatinine (0.6-1.3) mg/dl Est Cr Clr Drug Dosing ml/min Est GFR ( Amer) Est GFR (Non-Af Amer) BUN/Creatinine Ratio (10-20) Glucose (70-99) mg/dl POC Glucose 341 H* (70-99) POC Glucose (other) (70-99) mg/dl Estimat Average Glucose mg/dl Hemoglobin A1c (4.5-5.6) % Osmolality (280-300) mOsm/kg POC Lactic Acid Arter (0.36-1.25) mmol/L POC Lactic Acid Matthew (0.90-1.70) mmol/L Lactate (0.4-2.0) mmol/L Calcium (8.5-10.1) mg/dl POC Ioniz Calcium Jose (1.12-1.32) mmol/l Phosphorus (2.5-4.9) mg/dl Magnesium (1.8-2.4) mg/dl Total Bilirubin (0.2-1) mg/dl AST (15-37) U/L ALT (12-78) U/L Alkaline Phosphatase (45-117) U/L Total Protein (6.4-8.2) gm/dl Albumin (3.4-5.0) gm/dl Globulin (2.5-4.0) gm/dl Albumin/Globulin Ratio (0.9-2) Beta-Hydroxybutyric Acd (0.2-2.81) mg/dl HCG, Qual (Negative) Specimen Hemolysis Urine Color Urine Appearance (Clear) Urine pH (4.5-7.5) Ur Specific [place] (1.000-1.030) Urine Protein (Negative) Urine Glucose (UA) (Negative) Urine Ketones (Negative) Urine Blood (Negative) Urine Nitrite (Negative) Urine Bilirubin (Negative) Urine Urobilinogen (Negative) Ur Leukocyte Esterase (Negative) Urine WBC (Auto) (0-5) /hpf Urine RBC (Auto) (0-4) /hpf U Hyaline Cast (Auto) (0-5) /lpf U Epithel Cells (Auto) (0-5) /lpf Urine Bacteria (Auto) (Negative) Urine Osmolality (500-800) mOsm/kg Influenza Type A (PCR) (Neg) Influenza Type B (PCR) (Neg) Imaging Data Attestation: I personally reviewed and interpreted this imaging study as follows: My Impression: 1V Chest XR - read by me No cardiomegaly. No effusion. No focal consolidation. No wide mediastinum KUB Abdomen - read by me Gastric distension noted. No SBO. ECG Data Attestation: I personally reviewed and interpreted this ECG as follows: Indication: + altered mental status Rate (beats per minute): 136 Rhythm: + sinus tachycardia ECG Intervals/blocks: + Prolonged QT; no Normal QRS ECG ST segments: + ST depression ECG Findings: + Peaked T waves Additional Comments: 0246: Sinus tachycardia. Rate 130. Prolonged QRS and QTc. No acute ischemic changes. Rhythm now appears less chaotic. 0335: Sinus tachycardia. Rate 139. Normal intervals. Normal axis. No acute ischemic changes. Blood Pressure Blood Pressure Findings: Elevated blood pressure Blood Pressure Disposition: further management by hospitalist PASQUALE Brandon There is a 24-year-old type I diabetic who presented significantly ill with what family initially thought was a GI illness that several other family numbers had already had. Mother reports patient's glucometer had read high all day, and she was not eating or drinking at all. Patient with no prior history of DKA or admission for hyperglycemia. Due to high suspicion for DKA, attempts at IV access and blood draw were aggressively pursued. Lab a blood draw could not be performed, so i-STAT sent initially. Patient tachycardic and tachypneic, dehydrated in appearance. Concern due to telemetry tracing as well as bedside EKG which showed abnormal ST and T wave changes concerning for electrolyte abnormality. Initial i-STAT showed glucose of 800 and potassium greater than 9. Upon establishing an IV, IV fluids started, calcium given, bicarb given, patient moved to resuscitation room. Additional IV access obtained. Labs eventually revealed potassium of 8, glucose confirmed at 800, and an anion gap of 24. Additional hyperkalemia treatments continued including albuterol neb, Lasix, and IV insulin. Patient also found to have new acute kidney injury likely secondary to dehydration and DKA. Pharmacy was contacted regarding need for emergent insulin drip as well as bicarb drip. These were both started. Patient was provided volume resuscitation, and a repeat chemistry panel was drawn 2 hours and which showed slight improvement in the potassium, glucose, and anion gap. There was some delay in obtaining the ABG due to other treatment modalities being initiated, however this revealed the patient to be significantly acidemic. Treatment was continued on repeat ABG was drawn which appeared slightly worse. Patient's family had initially requested the patient be sent back to [facility] given that her specialist were there. They did not have any bed availability. After this patient's mother stated she was comfortable the patient staying here. As the patient continued to have lab abnormalities and derangements that were concerning, as well as persistent tachypnea and tachycardia, I did discuss with mom concern for possible additional treatment needed. Mom asked that we contact [facility] to discuss case with them for pos sible transfer. Upon discussion with her she, they felt that we were providing appropriate treatment, did not feel the patient required transfer at this time, and they had limited bed availability. This was conveyed to mom as well. Neurology Technologist contacted due to worsening blood gas despite appropriate initial treatment. IV fluids were continued, repeat blood gas and BMP added. Additional amps of bicarb given after repeat blood gas revealed worsening acidemia. Patient's mom kept updated on all results. Patient was checked frequently throughout her time in the emergency room. After second blood gas revealed worsening acidemia, patient covered with IV antibiotics, flu swab added, and patient sent for CT of the abdomen and pelvis as a precaution although my initial suspicion was that the leukocytosis was secondary to the GI symptoms and DKA and less likely from occult infectious etiology. CT was pending at the time of arrival of the set up mechanic coating machines at bedside. Around this time patient seemed much brighter. She had slowly become more awake and conversational during her volume resuscitation, however after 3 hours she seemed to make a more substantial improvement in her alertness and cooperation. Patient remained persistently tachycardic despite volume resuscitation, as well as tachypneic although this was slightly improved compared to her initial presentation. Patient was initially hypotensive, blood pressure did come up and stabilized with volume resuscitation. Renal function improved on repeat chemistry panel with volume resuscitation. At time patient was transferred to the intensive care unit, potassium down to 5.4, and repeat lactic acid improved from greater than 5 down to 3. Impression & Plan DKA (diabetic ketoacidoses), Dehydration, Vomiting, Diarrhea, Hyperkalemia, Tachycardia, Hypotension, Tachypnea, Acidemia, Acute renal failure (ARF) Discharge Plan Visit Data *Final* Discharge Date/Time: 03/29/19 08:50 Chief Complaint: Illness Stated Complaint: ILLNESS ED Provider: Dottie Hall Discharge Problem: DKA (diabetic ketoacidoses), Dehydration, Vomiting, Diarrhea, Hyperkalemia, Tachycardia, Hypotension, Tachypnea, Acidemia, Acute renal failure (ARF) Patient Disposition: Admitted As Inpatient Discharge Instructions Interventions: ED Discharge Assessment Last Done: 03/29/19 08:50 Discharge Problem: DKA (diabetic ketoacidoses) Qualifiers: Diabetes mellitus type: type 1 Diabetes mellitus complication detail: without coma Qualified Code(s): E10.10 - Type 1 diabetes mellitus with ketoacidosis without coma Vomiting Qualifiers: Vomiting type: unspecified Vomiting Intractability: unspecified Nausea presence: unspecified Qualified Code(s): R11.10 - Vomiting, unspecified Diarrhea Qualifiers: Diarrhea type: unspecified type Qualified Code(s): R19.7 - Diarrhea, unspecified Hypotension Qualifiers: Hypotension type: unspecified hypotension type Qualified Code(s): I95.9 - Hypotension, unspecified Acute renal failure (ARF) Qualifiers: Acute renal failure type: unspecified Qualified Code(s): N17.9 - Acute kidney failure, unspecified The scribe's documentation has been prepared under my direction and personally reviewed by me in its entirety. I confirm that the note above accurately reflects all work, treatment, procedures, and medical decision making performed by me.
== END 2019-03-31 11:34 | disposition home or self-care (01) | DRG 638 ==
LOC: ED 01:18 → 1E 08:50 → MERGE 09:05 → SUATTDRO 09:05 → 2W 03-30 12:16

== ENCOUNTER 2019-04-03 12:04 | Inpatient (IN) ==
[2019-04-03] MEDS ORDERED: SODIUM CHLORIDE 0.9% 1000ML 2,000 ML IV ONE (12:28)
[2019-04-03] MEDS ORDERED: ONDANSETRON INJ 2 MG/ML 2 ML VIAL ONE (13:08)
--- NOTE | 2019-04-03 13:15 | XRay Report ---
XR chest 1V portable CLINICAL HISTORY: Sepsis. COMPARISON STUDY: Chest radiograph April 01, 2019. FINDINGS: Lung volumes are diminished. Lungs are clear. There is no pneumothorax or pleural effusion. Cardiac size is normal. Mediastinal contours are normal. There is no evidence for pulmonary edema. IMPRESSION: Low lung volumes. No acute findings. ACT 112: Negative or not required by law. Electronically signed by: Carlos Bermeo M.D. 04/03/2019 1:14 PM
[2019-04-03] MEDS ORDERED: DKA GOAL RANGE 150-250 mg/dl ONE (13:18)
[2019-04-03] MEDS ORDERED: DEXTROSE 50% 50 ML SYRINGE IV PRN (13:30)
[2019-04-03] MEDS ORDERED: CARBOHYDRATES FOR HYPOGLYCEMIA PO PRN ×2 (13:30→16:11)
[2019-04-03] MEDS ORDERED: GLUCOSE 10 TABS/TUBE PO PRN ×2 (13:30→16:11)
[2019-04-03] MEDS ORDERED: NovoLIN-R BOLUS FROM BAG IV ONE (13:30)
[2019-04-03] MEDS ORDERED: GLUCOSE 40% GEL 15 GM TUBE PO PRN ×2 (13:30→16:11)
[2019-04-03] MEDS ORDERED: GLUCAGON FOR INJ 1 MG VIAL IM PRN (13:30)
[2019-04-03 13:34] LABS: Partial Thromboplastin Ratio 0.9; Partial Thromboplastin Time 25.4 Seconds (21.0-31.0); Prothrombin Time 10.3 Seconds (9.0-12.0)
[2019-04-03 13:42] LABS: Alanine Aminotransferase 33 U/L (12-78); Albumin Globulin Ratio 0.9 (0.9-2); Albumin Level 3.9 gm/dl (3.4-5.0); Alkaline Phosphatase 152 U/L (45-117); BUN Creatinine Ratio 10.7 (10-20); Bilirubin,Total 0.5 mg/dl (0.2-1); Blood Urea Nitrogen 12 mg/dl (7-18); Calcium 9.6 mg/dl (8.5-10.1); Carbon Dioxide < 5 mmol/L (21-32); Chloride 108 mmol/L (98-107); Creatinine Clr Calc Pharmacy 80.6 ml/min; Est GFR (African American) 81.4; Est GFR (Non-African American) 70.2; Globulin 4.2 gm/dl (2.5-4.0); Glucose 417 mg/dl (70-99); Sodium 133 mmol/L (136-145); Total Protein 8.1 gm/dl (6.4-8.2); Troponin I < 0.015 ng/ml (0-0.045)
[2019-04-03 13:51] LABS: Hemoglobin 14.3 g/dL (12.0-16.0); Mean Corpuscular Hemoglobin 29.6 pg (25-34); Mean Corpuscular Hgb Conc 32.5 g/dL (32-36); Mean Corpuscular Volume 91.1 fL (80-100); Platelet Count 357 K/uL (130-400); Red Blood Count 4.83 M/uL (4.2-5.4)
[2019-04-03] MEDS: INSULIN REGULAR 250 UNITS in SODIUM CHLORIDE 0.9% 247.5 ML IV SCH (13:53)
[2019-04-03 13:54] LABS: Basophils # (auto) 0.03 K/uL (0-0.2); Basophils % (auto) 0.2 %; Eosinophils # (auto) 0.03 K/uL (0-0.5); Eosinophils % (auto) 0.2 %; Immature Granulocytes # (auto) 0.13 K/uL (0.00-0.02); Immature Granulocytes % (auto) 0.7 %; Lymphocytes # (auto) 0.95 K/uL (1.2-3.4); Lymphocytes % (auto) 5.4 %; Monocytes # (auto) 0.77 K/uL (0.11-0.59); Monocytes % (auto) 4.4 %; Neutrophils # (auto) 15.69 K/uL (1.4-6.5); Neutrophils % (auto) 89.1 %; Toxic Vacuolation 1+
[2019-04-03 13:57] LABS: Base Excess VBG -27.3 mEq/L; Oxygen Saturation VBG 77.4 %; pH VBG 6.94 (7.36-7.41)
[2019-04-03] MEDS ORDERED: CEFEPIME 1,000 MG in SYRINGE 0 ML IV STA (13:58)
[2019-04-03] MEDS ORDERED: SODIUM CHLORIDE 0.9% 1000ML 1,000 ML IV ONE (14:01)
--- NOTE | 2019-04-03 14:04 | Electrocardiogram Report ---
Test Reason : Blood Pressure : / mmHG Vent. Rate : 116 BPM Atrial Rate : 116 BPM P-R Int : 148 ms QRS Dur : 086 ms QT Int : 338 ms P-R-T Axes : 073 069 060 degrees QTc Int : 469 ms Sinus tachycardia Otherwise normal ECG When compared with ECG of 01-APR-2019 14:30, No significant change was found Confirmed by Liang Dominguez ([id number]) on 04/03/2019 2:04:07 PM Referred By: REFERRED SELF Confirmed By:Liang Dominguez
[2019-04-03 14:24] LABS: Magnesium 2.1 mg/dl (1.8-2.4); Potassium 7.1 mmol/L (3.5-5.1)
[2019-04-03] MEDS ORDERED: SODIUM BICARB 8.4% INJ 50 MEQ/50 ML SYR IV STA ×4 (14:24→18:20)
[2019-04-03 14:25] LABS: Appearance Urine Clear (Clear); Bacteria Urine Automated Negative (Negative); Bilirubin Urine Negative (Negative); Blood Urine 3+ (Negative); Color Urine Yellow; Epithelial Cell Urine Auto 20-30 /lpf (0-5); Glucose Urine UA 3+ (Negative); Leukocyte Esterase Urine Negative (Negative); Nitrite Urine Negative (Negative); Protein Urine 1+ (Negative); RBC Urine Automated >30 /hpf (0-4); Specific Gravity Urine 1.023 (1.000-1.030); Urobilinogen Urine Negative (Negative)
[2019-04-03 14:29] LABS: Ketones Urine 4+ (Negative)
--- NOTE | 2019-04-03 14:39 | History & Physical Report ---
Date of Service April 03, 2019 Assessment & Plan (1) DKA, type 1: Admit to ICU for DKA type I and hyperkalemia. Monitor patient as per ICU team. 3 L of IV fluids are given in the emergency room. Continue insulin drip with bolus and adjusting IV fluids. pH is 6.94, A1c 9.2. It appears that mother did not understand properly how to administer Lantus at home with a sliding scale. This would need adjustment as well as total education. Patient would also need to follow-up with endocrinology in the transition to discharge home. With severe autism patient is at extremely low risk to have similar situation occurs again. Patient is a full code Present on Admission?: Yes (2) Metabolic acidosis: As the above Present on Admission?: Yes (3) Dehydration: Patient already received 3 L of fluid in the emergency room. Continue monitoring IV hydration in setting of DKA type I. Present on Admission?: Yes (4) Hyperkalemia: Continue monitoring potassium very closely as patient DKA and metabolic acidosis are resolving. Patient is asymptomatic at this time. Present on Admission?: Yes (5) Acute renal failure (ARF): Most likely due to acute dehydration and DKA type I. Avoid nephrotoxic agents. Continue monitoring creatinine and GFR. Continue IV fluid hydration. Present on Admission?: Yes (6) Hyponatremia: It is a part of DKA type I. Continue monitoring. Continue replenishing IV fluids. Present on Admission?: Yes (7) Autism: This is a chronic issue since the patient . Patient is severely autistic. She needs lifelong supportive care. The most importantly mom needs to be properly injured educated how to use long- acting insulin and sliding scale. They would need close follow-up with resistor tester. Present on Admission?: Yes History of Present Illness Chief Complaint: Shortness of breath and diabetic ketoacidosis Primary Care Juan morrison: Jose Staceybelle Patient is a 24 years old female with type 1 diabetes on insulin Lantus and lispro, autism, who presents to the emergency room for shortness of breath and feeling sick in general. Patient was brought by her mother who takes care of her. Patient said have severe autism. She is alert and oriented but unable to speak in articulate manner and due to her autism. She presented with tachypnea hypotension dehydration fever and hyperkalemia. Patient's mother reports that patient had stomach bug since March 28 as well as other members of their family. Labs are reviewed which shows: WBC 17.6, hemoglobin 14.3, hematocrit 44, platelets 357, PT 10.3, INR 1.0, APTT 25.4, VBG 6.92, PCO2 124, PO2 124, bicarb 3, calcium of 7.1, sodium of 133, creatinine of 1.1, GFR of 70, glucose of 417, lactate 1.7, AST 10, ALT 33, alkaline phosphatase 152, troponin 0.015. Urine urine positive for ketones 4+ urine nitrate negative urine leukocyte esterase negative, over 30 of RBCs. Urine test negative. Patient had checked flu A and B and that was negative on April 01. Chest x-rays: Lungs are clear. There is no pneumothorax or pleural effusion. Decision was made to admit patient to the ICU to critical care for DKA. Allergies Allergy/AdvReac Type Severity Reaction Status Date / Time adhesive tape Allergy Unknown Verified 04/03/19 15:01 erythromycin base Allergy Unknown Verified 04/03/19 15:01 gluten Allergy Unknown Verified 04/03/19 15:01 Penicillins Allergy Unknown Verified 04/03/19 15:01 Sulfa (Sulfonamide Allergy Unknown Verified 04/03/19 15:01 Antibiotics) wheat Allergy Unknown Verified 04/03/19 15:01 Home Medications Home Medications Medication Instructions Recorded Confirmed Type insulin lispro [Humalog U-100 1 sliding scale dose SUBCUT TIDM 03/29/19 04/03/19 History Insulin] Lantus U-100 Insulin 30 unit SUBCUT QAM 04/01/19 04/03/19 History nystatin 300,000 units BUCCAL QID 7 Days 04/01/19 04/03/19 Rx #84 ml Past Med/Surg History Medical History Acidemia (Acute) Acute renal failure (ARF) (Acute) Autism Celiac disease DKA (diabetic ketoacidoses) (Acute) DKA, type 1 Hyperkalemia (Acute) Hypotension (Acute) Metabolic acidosis Right ovarian cyst S/P admission to ICU (intensive care unit) Tachycardia (Acute) Tachypnea (Acute) Type 1 diabetes Surgical History No pertinent past surgical history Social History Preferred Language: French Communication Ability: Effective Advertising Copy Writer Required: No Beliefs That Will Affect Care: None Current Living Situation: Parent Other Information That Helps Us Care for You: No Feels Safe at Home: Yes Safety Concerns: Feels Safe At This Time Smoking Status: Never smoker Do You Dip or Chew Tobacco: No ; Second Hand Exposure: No ; Tobacco Cessation Education Requested by Patient: No Hx Alcohol Use: No Hx Substance Use: No Review of Systems Review of Systems: All systems reviewed & are unremarkable except as noted in HPI & below Physical Exam Constitutional: WD/WN, vitals as above well developed and + obese Eyes: PERRL, conjunctivae normal, anicteric sclerae ENMT: external ear and nose normal, oropharynx normal Neck: trachea midline, no thyromegaly normal visual inspection Respiratory: + respiratory distress and + labored breathing Cardiovascular: Rate/Rhythm: + tachycardic Heart Sounds: normal S1 and normal S2 Gastrointestinal (Abdomen): normal bowel sounds, soft, nontender, no hepatosp lenomegaly Musculoskeletal: no cyanosis or clubbing, extremities motor strength 5/5 Skin: no rashes, warm and dry Neurologic: patellar DTR's 2+ bilat, sensation intact CN's II-XI intact bilaterally Psychiatric: A+Ox3, euthymic affect Lymphatic: no cervical or axillary lymphadenopathy Results & Data Vital Signs (Past 12 Hours) Vital Signs Temp Pulse Resp BP Pulse Ox 04/03/19 13:45 117 H 36 H 04/03/19 13:30 120 H 38 H 100 04/03/19 13:15 126 H 42 H 100 04/03/19 13:00 134 H 25 H 04/03/19 12:12 129 H 29 H 184/95 H 04/03/19 12:10 36.6 C 125 H 24 184/95 H 95 Code Status & VTE Plan Code Status Full code VTE Prophylaxis Plan VTE Prophylaxis will be ordered: Yes PG Care Time/CCT Total # of Minutes Spent Total Time Spent with Patient: Total time spent is greater than 50% in coordination of care (as documented) at patient's floor/unit and/or counseling patient: (1) Acute renal failure (ARF) Acute renal failure type: unspecified Qualified Code(s): N17.9 - Acute kidney failure, unspecified (2) DKA, type 1 Diabetes mellitus complication detail: without coma Qualified Code(s): E10.10 - Type 1 diabetes mellitus with ketoacidosis without coma
[2019-04-03 15:46] LABS: iSTAT Creatinine 0.6 mg/dl (0.6-1.3); iSTAT Hemoglobin 15.6 g/dl (12.0-16.0); iSTAT Ionized Calcium 1.34 mmol/l (1.12-1.32); iSTAT Potassium 7.4 mEq/L (3.3-5.0)
[2019-04-03] MEDS ORDERED: POLYETHYLENE (MIRALAX) 17 GM PACK PO PRN (16:11)
[2019-04-03] MEDS ORDERED: ALUMINUM/MAGNESIUM SUSP 30 ML UDC PO PRN (16:11)
[2019-04-03] MEDS ORDERED: GLUCAGON FOR INJ 1 MG VIAL SQ PRN (16:11)
[2019-04-03] MEDS ORDERED: ACETAMINOPHEN 325 MG TAB PO PRN (16:11)
[2019-04-03] MEDS ORDERED: MAGNESIUM HYDROXIDE SUSP 30 ML UDC PO PRN (16:11)
[2019-04-03] MEDS ORDERED: ONDANSETRON INJ 2 MG/ML 2 ML VIAL IV PRN (16:11)
[2019-04-03] MEDS ORDERED: NORMOSOL-R 1,000 ML IV ONE ×2 (16:12→18:21)
[2019-04-03] MEDS ORDERED: CALCIUM GLUCONATE 10% 1,000 MG in SODIUM CHLORIDE 0.9% 50 ML IV STA (16:12)
[2019-04-03] MEDS ORDERED: PHARMACY GLYCEMIC MGMT CONSULT PRN (16:18)
--- NOTE | 2019-04-03 16:35 | Critical Care Consultation ---
Date of Consultation April 03, 2019 Assessment & Plan (1) S/P admission to ICU (intensive care unit): Patient with severe DKA and hyperkalemia. She has received IV insulin as a bolus and is currently on an insulin drip. She received 3 L of fluid in the emergency department. We are giving her another liter of Normosol. We are starting her on half-normal saline with D5 at 250 mL an hour. Continue insulin drip. Her glucose at this moment is 250. We are rechecking a BMP. We are maritza g to follow BMPs every 2 hours. We will also obtain a VBG given that she had a pH of 6.94. She does not appear to have peaked T waves on the EKG at this present time. However, given her severe hyperkalemia we will proceed cautiously and give her 1 g of calcium gluconate. Chest x-ray is unremarkable. Lactic acid is unremarkable as well. LFTs are generally unremarkable. Notably, she does have an hemoglobin A1c of 9.2 from her most recent DKA admission which was just within the past week. I am concerned that there is some misunderstanding at the home situation. The mother told me that she is giving her daughter 30 units of Lantus at home with a sliding scale. This likely needs adjustment. She will need close follow-up with endocrinology. I suggested we get endocrinology involved here while she is an inpatient to help transition when she is at home. Clearly, the patient is a very fragile diabetic. There is some concern previously mentioned of an ovarian cyst. This was worked up to a certain degree. A pelvic ultrasound was performed on 03/29/2019 which demonstrated a 3.3 cm dominant follicle in the right ovary. There is no acute sonographic abnormality identified in the pelvis. There were some smaller follicles noted bilaterally. Of note she is currently having her menstrual cycle and this may be related to her menstrual cycle. I do not think this is playing a pathological role in her diabetic ketoacidosis at this time. I have personally spent 35 minutes of critical care time in the direct management of this patient. This is a life/limb threatening event. This includes time spent evaluating patient, direct bedside care, chart review, placing orders, interpretation of diagnostic studies, discussion with consultants, patient, and family members, as well as other required patient management activities. This time is exclusive of all separately billable procedures, and teaching time and separate from and in addition to any other critical care service time. Thank you for allowing us to participate in the care of this patient. (2) DKA, type 1: (3) Dehydration: (4) Autism: (5) Tachypnea: (6) Tachycardia: (7) Hyperkalemia: (8) Metabolic acidosis: History of Present Illness Reason for Consultation: Severe diabetic ketoacidosis with hyperkalemia Requesting Physician: Dr. Bryan Attending Physician: Marisela Bryan MD History of Present Illness This is a 24-year-old female with a past medical history of type 1 diabetes mellitus on 30 units of Lantus every morning and sliding scale insulin with meals who is followed by [facility] pediatric endocrinology, history of severe autism and recent diabetic ketoacidosis who presented to the hospital and is accompanied by her mom and 2 sisters. Mother states that patient was having some abdominal discomfort and she had the impression that her daughter was having an infection with gastroenteritis. She was recently discharged on 03/31/19 for an episode of severe diabetic ketoacidosis with hyperkalemia. Since that discharge, she was actually very recently in the emergency department with thrush. The patient herself is unable to give much history as she has severe underlying autism. The mother notes that the patient has not been quite herself throughout the day. She notes that her glucose readings have been very high. The mother notes that she checks her daughters glucose 12 times a day and frequently in the evening as the patient cannot "sense hypoglycemia". The mother notes that the daughter recently started her menstrual cycle. A1c on 03/29/2019 was 9.2. The mother does note that the first episode of DKA happened this past week. She does follow closely with [facility] endocrinology and has an appointment scheduled with them in 2 weeks. She lives with her mother and is cared for by her mother and her sisters. Her sisters are 16 years old. Patient's mother is and the father does occasionally take care of the daughter. In the emergency department, she was found to have a leukocytosis of 17,600. VBG indicated a severe acidosis with a pH of 6.94. Potassium was 7.4 and bicarb was 6. Glucose was 432 on admission. Currently it is 250. LFTs were generally unremarkable. EKG demonstrated sinus tachycardia. Lactate was normal. Allergies Allergy/AdvReac Type Severity Reaction Status Date / Time adhesive tape Allergy Unknown Verified 04/03/19 15:01 erythromycin base Allergy Unknown Verified 04/03/19 15:01 gluten Allergy Unknown Verified 04/03/19 15:01 Penicillins Allergy Unknown Verified 04/03/19 15:01 Sulfa (Sulfonamide Allergy Unknown Verified 04/03/19 15:01 Antibiotics) wheat Allergy Unknown Verified 04/03/19 15:01 Home Medications Home Medications Medication Instructions Recorded Confirmed Type insulin lispro [Humalog U-100 1 sliding scale dose SUBCUT TIDM 03/29/19 04/03/19 History Insulin] Lantus U-100 Insulin 30 unit SUBCUT QAM 04/01/19 04/03/19 History nystatin 300,000 units BUCCAL QID 7 Days 04/01/19 04/03/19 Rx #84 ml Patient History Medical History Acidemia (Acute) Acute renal failure (ARF) (Acute) Autism Celiac disease DKA (diabetic ketoacidoses) (Acute) Hyperkalemia (Acute) Hypotension (Acute) Right ovarian cyst Tachycardia (Acute) Tachypnea (Acute) Type 1 diabetes Surgical History No pertinent past surgical history Social History Preferred Language: Macedonian Communication Ability: Effective Stripper Soft Plastic Required: No Beliefs That Will Affect Care: None Current Living Situation: Parent Other Information That Helps Us Care for You: No Feels Safe at Home: Yes Safety Concerns: Feels Safe At This Time Smoking Status: Never smoker Do You Dip or Chew Tobacco: No ; Second Hand Exposure: No ; Tobacco Cessation Education Requested by Patient: No Hx Alcohol Use: No Hx Substance Use: No Review of Systems Review of Systems: Unobtainable due to mental health condition Physical Exam Constitutional: The patient is short in stature. She is laying in bed. She is smiling. She is very tachypneic. Eyes: PERRL, conjunctivae normal, anicteric sclerae ENMT: external ear and nose normal, oropharynx normal Neck: normal visual inspection Respiratory: Severe tachypnea. Clear to auscultation bilaterally. Cardiovascular: Tachycardia. No murmurs rubs or gallops. Gastrointestinal (Abdomen): Soft, nontender, nondistended. Musculoskeletal: no cyanosis or clubbing, extremities motor strength 5/5 Skin: no rashes, warm and dry Neurologic: CN's II-XI intact bilaterally Psychiatric: Makes good eye contact. Smiling. Baseline autism. Results & Data Vital Signs (Past 12 Hours) Vital Signs Temp Pulse Resp BP Pulse Ox 04/03/19 15:16 33 H 144/92 H 100 04/03/19 15:00 30 H 150/101 H 98 04/03/19 14:45 29 H 139/109 H 100 04/03/19 14:15 130 H 25 H 138/71 100 04/03/19 14:01 128 H 33 H 147/103 H 100 04/03/19 13:50 119 H 37 H 147/83 H 100 04/03/19 13:45 117 H 36 H 04/03/19 13:30 120 H 38 H 100 04/03/19 13:15 126 H 42 H 100 04/03/19 13:00 134 H 25 H 04/03/19 12:12 129 H 29 H 184/95 H 04/03/19 12:10 97.9 F 125 H 24 184/95 H 95 I personally reviewed the patient's pertinent labs, chest imaging and recent notes. Coding Level of Care Code Critical Care 1st 30-74 mins Diagnoses S/P admission to ICU (intensive care unit) DKA, type 1 E10.10 Diabetes mellitus complication detail: without coma Dehydration E86.0 Autism F84.0 Tachypnea R06.82 Tachycardia R00.0 Hyperkalemia E87.5 Metabolic acidosis E87.2 Time Spent (min) 35 (1) DKA, type 1 Diabetes mellitus complication detail: without coma Qualified Code(s): E10.10 - Type 1 diabetes mellitus with ketoacidosis without coma
[2019-04-03] MEDS: D5W AND 1/2NSS 1,000 ML IV SCH ×2 (16:38→21:26)
[2019-04-03 17:35] LABS: Acetaminophen < 2 ug/ml (10-30); Salicylate 3.8 mg/dl (2.8-20)
[2019-04-03 18:13] LABS: BUN Creatinine Ratio 14.9 (10-20); Calcium 8.1 mg/dl (8.5-10.1); Creatinine Clr Calc Pharmacy 113.1 ml/min; Est GFR (African American) 123.3; Est GFR (Non-African American) 106.4; Magnesium 2.2 mg/dl (1.8-2.4)
[2019-04-03 18:14] LABS: Phosphorus 2.9 mg/dl (2.5-4.9); Potassium 5.5 mmol/L (3.5-5.1)
--- NOTE | 2019-04-03 18:57 | Emergency Department Note ---
Entered by Shobha Marshall acting as a scribe for History of Present Illness General Chief complaint: Illness Stated complaint: hypergylcemia Source: patient History of Present Illness Provider complaint: illness Location: left Severity: similar to prior episodes Pain Consistency: + constant Quality: + other (illness) Associated symptoms: + nausea/vomiting and + other (Positive abdominal pain; Positive back pain; Positive exacerbated breathing; Negative exacerbated breathing;) The patient, who is a 24 year old female with a medical history of autism, celiac disease and DKA, presents to the Emergency Room with complaints of an illness that started six days ago. The patient's mother states that on March 28 the patient was diagnosed with a stomach virus. The patient's mother explains that since her last visit to the hospital the patient has not been feeling well. The patient's mother states that the patient has had nausea and vomiting this morning. The patient mother expresses that the patient has abdominal pain and back pain. The patients mother states that the patient is experiencing exacerbated breathing. The patient denies diarrhea. The patient's mother informs that the patient was seen here two days ago for the same symptoms and received an oral flush. The patient's mother states that the patient was not DKA at the times. The patient's mother expresses that the patient is in ketoacidosis based on similar symptoms from a prior episode. The patient's mother informs that the patient currently has ketones. The patient's mother confirms that the patient has Type 1 diabetes and severe autism. Home Medications Home Medications Medication Instructions Recorded Confirmed Type insulin lispro [Humalog U-100 1 sliding scale dose SUBCUT TIDM 03/29/19 04/03/19 History Insulin] Lantus U-100 Insulin 30 unit SUBCUT QAM 04/01/19 04/03/19 History nystatin 300,000 units BUCCAL QID 7 Days 04/01/19 04/03/19 Rx #84 ml Allergies Allergy/AdvReac Type Severity Reaction Status Date / Time adhesive tape Allergy Unknown Verified 04/03/19 15:01 erythromycin base Allergy Unknown Verified 04/03/19 15:01 gluten Allergy Unknown Verified 04/03/19 15:01 Penicillins Allergy Unknown Verified 04/03/19 15:01 Sulfa (Sulfonamide Allergy Unknown Verified 04/03/19 15:01 Antibiotics) wheat Allergy Unknown Verified 04/03/19 15:01 Past Med/Surg History Medical History (Updated 04/03/19 @ 18:57 by Nicolas Hernandes DO) Acidemia (Acute) Acute renal failure (ARF) (Acute) Autism Celiac disease DKA (diabetic ketoacidoses) (Acute) DKA, type 1 Hyperkalemia (Acute) Hypotension (Acute) Metabolic acidosis Right ovarian cyst S/P admission to ICU (intensive care unit) Tachycardia (Acute) Tachypnea (Acute) Type 1 diabetes Surgical History No pertinent past surgical history Social History Preferred Language: Singaporean Communication Ability: Effective Trader Required: No Beliefs That Will Affect Care: None Current Living Situation: Parent Other Information That Helps Us Care for You: No Feels Safe at Home: Yes Safety Concerns: Feels Safe At This Time Smoking Status: Never smoker Do You Dip or Chew Tobacco: No ; Second Hand Exposure: No ; Tobacco Cessation Education Requested by Patient: No Hx Alcohol Use: No Hx Substance Use: No Review of Systems Unobtainable due to cognitive status Physical Exam Vital Signs Vital Signs - 24 hr 04/03/19 12:10 04/03/19 12:12 04/03/19 13:00 Temperature 36.6 C Temperature Source Oral Pulse Rate 125 H 129 H 134 H Pulse Rate from SpO2 Sensor Respiratory Rate 24 29 H 25 H Respiratory Effort / Characteristics Non-Labored Spontaneous Respiratory Depth Normal Respiratory Pattern Regular Blood Pressure 184/95 H 184/95 H Blood Pressure Mean 124 116 Blood Pressure Position Lying Pulse Oximetry 95 Oxygen Delivery Method Room Air Room Air Room Air Sepsis Recent Fever Within 48 Hours No Sepsis New/Unexplained Change in Mental Status No Sepsis Action Taken by Nursing No Action Required 04/03/19 13:15 04/03/19 13:30 04/03/19 13:45 Temperature Temperature Source Pulse Rate 126 H 120 H 117 H Pulse Rate from SpO2 Sensor 129 H 121 H Respiratory Rate 42 H 38 H 36 H Respiratory Effort / Characteristics Respiratory Depth Respiratory Pattern Blood Pressure Blood Pressure Mean Blood Pressure Position Pulse Oximetry 100 100 Oxygen Delivery Method Room Air Room Air Room Air Sepsis Recent Fever Within 48 Hours Sepsis New/Unexplained Change in Mental Status Sepsis Action Taken by Nursing 04/03/19 13:50 Temperature Temperature Source Pulse Rate 119 H Pulse Rate from SpO2 Sensor 118 H Respiratory Rate 37 H Respiratory Effort / Characteristics Respiratory Depth Respiratory Pattern Blood Pressure 147/83 H Blood Pressure Mean 101 Blood Pressure Position Pulse Oximetry 100 Oxygen Delivery Method Room Air Sepsis Recent Fever Within 48 Hours Sepsis New/Unexplained Change in Mental Status Sepsis Action Taken by Nursing GENERAL: laying in bed, tachypneic, moderate distress, in hospital gown EYE EXAM: normal conjunctiva OROPHARYNX: no exudate, no erythema, lips, buccal mucosa, and tongue normal and mucous membranes are dry NECK: supple, no nuchal rigidity, no adenopathy, non-tender LUNGS: Clear to auscultation. Normal chest wall mechanics HEART: no murmurs, S1 normal and S2 normal, tachycardic ABDOMEN: abdomen soft, mild tenderness to the epigastric region, normo-active bowel sounds, no masses, no rebound or guarding. BACK: Back is symmetrical on inspection and there is no deformity, no midline tenderness, no CVA tenderness. SKIN: no rashes and no bruising UPPER EXTREMITIES: upper extremities are grossly normal. LOWER EXTREMITIES: No pitting edema. NEURO EXAM: autistic at baseline per mother, sitting up in bed, moving all extremities, nonfocal Course Course ED COURSE: Vital signs were reviewed and showed hypertensive The patients medical record was reviewed The above diagnostic studies were performed and reviewed. ED treatments and interventions as stated above. 1225: The patient was evaluated in room C1. A complete history and physical examination was performed. 1308: I reassessed the patient who is DKA and has a bicarbonate of 6. 1338: I reassessed the patient and requested that the assign nurse get an WA stat again. 1359: I reviewed the patient's case with Dr. Jerome. [He will evaluate the patient for further management.] 1402: I reviewed the patient's case with Dr. Bryan. [She will evaluate the patient for further management. 1407: Upon reevaluation, the patient is resting.I discussed my findings with the patient's mother. I rediscussed with the patient's mother per ICU and she states that she is uncomfortable with transfer at this time. The patient's mother states that she would like to stay here. The patient's mother understands and agrees with the treatment plan. 1424: I reassessed te patient and administered AMP Bicarb. 1437: I reassessed the patient whose fluids were stopped for a short time. I made the nurse start the fluids and they are grabbing the bicarb now. 1450: I reassessed the patient and updated the patient's mother about the next plan of action. The patient is receiving fluids and the bicarb is going up now. Based on the patients age, coexisting illnesses, exam and lab findings the decision to treat as an inpatient was made. The patient remained stable while under my care. The patient will be evaluated for further management. Consultations Consultation #1: I reviewed the patient's case with Dr. Jerome. He will evaluate the patient for further management. Time: 13:59 Consultation #2: I reviewed the patient's case with Dr. Jerome. He will evaluate the patient for further management. Time: 14:02 Administered Medications Insulin Human Regular 250 (units/ Sodium Chloride) 250 mls @ 6.6 mls/hr IV .Q24H MATIAS; Protocol Stop: 05/03/19 13:29 Last Titration: 04/03/19 18:36 Dose: 6.6 units/hr, 6.6 mls/hr Documented by: [id number] Cosigned by: [id number] Titration: 04/03/19 17:31 Dose: 6.6 units/hr, 6.6 mls/hr Documented by: [id number] Cosigned by: [id number] Titration: 04/03/19 16:00 Dose: 8.3 units/hr, 8.3 mls/hr Documented by: [id number] Cosigned by: [id number] Admin: 04/03/19 13:53 Dose: 8.3 units/hr, 8.3 mls/hr Documented by: [id number] Cosigned by: [id number] Dextrose/Sodium Chloride (D5w And 1/2nss) 1,000 mls @ 250 mls/hr IV .Q4H MATIAS Stop: 05/03/19 17:12 Last Admin: 04/03/19 16:38 Dose: 250 mls/hr Documented by: [id number] Parenteral Electrolytes (Normosol-R) 1,000 mls @ 999 mls/hr IV .Q1H1M ONE Stop: 04/03/19 19:21 Last Admin: 04/03/19 18:33 Dose: 999 mls/hr Documented by: [id number] Discontinued Medications Sodium Chloride (Nss 1000ml) 2,000 mls @ 999 mls/hr IV .Q2H1M ONE Stop: 04/03/19 14:28 Last Infusion: 04/03/19 15:10 Dose: 0 mls/hr Documented by: [id number] Admin: 04/03/19 13:00 Dose: 999 mls/hr Documented by: [id number] Cefepime HCl 1,000 mg/ Syringe 11.3 mls @ 5.5 mls/min IV NOW STA; Protocol Stop: 04/03/19 14:00 Last Admin: 04/03/19 14:49 Dose: 5.5 mls/min Documented by: [id number] Sodium Chloride (Nss 1000ml) 1,000 mls @ 999 mls/hr IV .Q1H1M ONE Stop: 04/03/19 15:01 Last Infusion: 04/03/19 16:38 Dose: 0 mls/hr Documented by: [id number] Admin: 04/03/19 14:53 Dose: 999 mls/hr Documented by: [id number] Calcium Gluconate 1,000 mg/ (Sodium Chloride) 60 mls @ 240 mls/hr IV NOW STA Stop: 04/03/19 16:26 Last Infusion: 04/03/19 17:04 Dose: 0 mls/hr Documented by: [id number] Admin: 04/03/19 16:42 Dose: 240 mls/hr Documented by: [id number] Parenteral Electrolytes (Normosol-R) 1,000 mls @ 999 mls/hr IV .Q1H1M ONE Stop: 04/03/19 17:12 Last Infusion: 04/03/19 17:31 Dose: 0 mls/hr Documented by: [id number] Admin: 04/03/19 16:37 Dose: 999 mls/hr Documented by: [id number] Insulin Human Regular (Novolin R Bolus From Bag) 8.3 units IV ONE ONE Stop: 04/03/19 13:31 Last Admin: 04/03/19 13:53 Dose: 8.3 units Documented by: [id number] Cosigned by: [id number] Miscellaneous (Insulin Protocol Dka Goal Range) 1 ea N/A ONE ONE Stop: 04/03/19 13:19 Last Admin: 04/03/19 14:44 Dose: Not Given Documented by: [id number] Ondansetron HCl (Zofran) Confirm Administered Dose 4 mg .ROUTE .STK-MED ONE Stop: 04/03/19 13:09 Last Admin: 04/03/19 13:12 Dose: 4 mg Documented by: [id number] Sodium Bicarbonate (Sodium Bicarbonate 8.4%) 50 meq IV NOW STA Stop: 04/03/19 14:37 Last Admin: 04/03/19 14:53 Dose: 50 meq Documented by: [id number] Sodium Bicarbonate (Sodium Bicarbonate 8.4%) 50 meq IV NOW STA Stop: 04/03/19 14:37 Last Admin: 04/03/19 15:02 Dose: Not Given Documented by: [id number] Sodium Bicarbonate (Sodium Bicarbonate 8.4%) 50 meq IV NOW STA Stop: 04/03/19 18:21 Last Admin: 04/03/19 18:33 Dose: 50 meq Documented by: [id number] Critical Care Time Critical Care Time: Yes Total Critical Care Time: 75 I have personally spent approximatley 75 minutes of critical care time in the direct management of this patient. This includes bedside care, interpretation of diagnostic studies, and testing, discussion with consultants, patient, and family members, and other required patient management activities. This 75 minutes is in excess of all separately billable procedures. Medical Decision Making Differential Diagnosis Differential diagnoses includes but is not limited to gastritis, peptic ulcer disease, GERD, gallbladder disease, pancreatitis, small bowel obstruction, acute coronary syndrome, pericarditis, ischemic bowel, irritable bowel disease, irritable bowel syndrome, appendicitis, diverticulitis, malignancy, hernia, urinary tract infection, torsion, perforation, trauma, infectious, as well as others were entertained Medical Records Attestation: I reviewed the patient's medical records. The patient was here on March 29 for similar symptoms. Home Medications Current Medication List: was personally reviewed by me Laboratory Data Attestation: I reviewed the patient's lab results. Result diagrams: 04/03/19 13:04 04/03/19 17:02 Lab Results 04/03/19 04/03/19 04/03/19 Range/Units 12:16 13:04 13:04 WBC 17.60 H (4.8-10.8) K/uL RBC 4.83 (4.2-5.4) M/uL Hgb 14.3 D (12.0-16.0) g/dL POC Hgb (12.0-16.0) g/dl Hct 44.0 (37-47) % POC Hct (37-47) % MCV 91.1 D (80-100) fL MCH 29.6 (25-34) pg MCHC 32.5 (32-36) g/dL Plt Count 357 D (130-400) K/uL Immature Gran % (Auto) 0.7 % Neut % (Auto) 89.1 % Lymph % (Auto) 5.4 % [place] % (Auto) 4.4 % Eos % (Auto) 0.2 % Baso % (Auto) 0.2 % Immature Gran # (Auto) 0.13 H (0.00-0.02) K/uL Neut # (Auto) 15.69 H (1.4-6.5) K/uL Lymph # (Auto) 0.95 L (1.2-3.4) K/uL [place] # (Auto) 0.77 H (0.11-0.59) K/uL Eos # (Auto) 0.03 (0-0.5) K/uL Baso # (Auto) 0.03 (0-0.2) K/uL Toxic Vacuolation 1+ PT 10.3 (9.0-12.0) Seconds INR 1.0 (0.9-1.1) APTT 25.4 (21.0-31.0) Seconds PTT Ratio 0.9 VBG pH (7.36-7.41) VBG pCO2 (38-50) mmHg VBG pO2 mmHg VBG HCO3 mmol/L VBG O2 Saturation % VBG Base Excess mEq/L Barometric Pressure mm/Hg POC Sodium (135-144) mEq/L Sodium (136-145) mmol/L POC Potassium (3.3-5.0) mEq/L Potassium (3.5-5.1) mmol/L POC Chloride (101-112) mEq/L Chloride (98-107) mmol/L Carbon Dioxide (21-32) mmol/L POC Total CO2 (24-31) mEq/l Anion Gap (3-11) POC Anion Gap (16-25) mmol/L POC BUN (7-18) mg/dl BUN (7-18) mg/dl Creatinine (0.6-1.2) mg/dl POC Creatinine (0.6-1.3) mg/dl Est Cr Clr Drug Dosing ml/min Est GFR ( Amer) Est GFR (Non-Af Amer) BUN/Creatinine Ratio (10-20) Glucose (70-99) mg/dl POC Glucose 395 H* (70-99) POC Glucose (other) (70-99) mg/dl Lactate (0.4-2.0) mmol/L Calcium (8.5-10.1) mg/dl POC Ioniz Calcium Jose (1.12-1.32) mmol/l Phosphorus (2.5-4.9) mg/dl Magnesium (1.8-2.4) mg/dl Total Bilirubin (0.2-1) mg/dl AST (15-37) U/L ALT (12-78) U/L Alkaline Phosphatase (45-117) U/L Troponin I (0-0.045) ng/ml Total Protein (6.4-8.2) gm/dl Albumin (3.4-5.0) gm/dl Globulin (2.5-4.0) gm/dl Albumin/Globulin Ratio (0.9-2) Beta-Hydroxybutyric Acd (0.2-2.81) mg/dl Urine Color Urine Appearance (Clear) Urine pH (4.5-7.5) Ur Specific [place] (1.000-1.030) Urine Protein (Negative) Urine Glucose (UA) (Negative) Urine Ketones (Negative) Urine Blood (Negative) Urine Nitrite (Negative) Urine Bilirubin (Negative) Urine Urobilinogen (Negative) Ur Leukocyte Esterase (Negative) Urine WBC (Auto) (0-5) /hpf Urine RBC (Auto) (0-4) /hpf U Hyaline Cast (Auto) (0-5) /lpf U Epithel Cells (Auto) (0-5) /lpf Urine Bacteria (Auto) (Negative) 04/03/19 04/03/19 04/03/19 Range/Units 13:04 13:04 13:06 WBC (4.8-10.8) K/uL RBC (4.2-5.4) M/uL Hgb (12.0-16.0) g/dL POC Hgb 15.6 (12.0-16.0) g/dl Hct (37-47) % POC Hct 46 (37-47) % MCV (80-100) fL MCH (25-34) pg MCHC (32-36) g/dL Plt Count (130-400) K/uL Immature Gran % (Auto) % Neut % (Auto) % Lymph % (Auto) % [place] % (Auto) % Eos % (Auto) % Baso % (Auto) % Immature Gran # (Auto) (0.00-0.02) K/uL Neut # (Auto) (1.4-6.5) K/uL Lymph # (Auto) (1.2-3.4) K/uL [place] # (Auto) (0.11-0.59) K/uL Eos # (Auto) (0-0.5) K/uL Baso # (Auto) (0-0.2) K/uL Toxic Vacuolation PT (9.0-12.0) Seconds INR (0.9-1.1) APTT (21.0-31.0) Seconds PTT Ratio VBG pH (7.36-7.41) VBG pCO2 (38-50) mmHg VBG pO2 mmHg VBG HCO3 mmol/L VBG O2 Saturation % VBG Base Excess mEq/L Barometric Pressure mm/Hg POC Sodium 133 L (135-144) mEq/L Sodium 133 L (136-145) mmol/L POC Potassium 7.4 H* (3.3-5.0) mEq/L Potassium (3.5-5.1) mmol/L POC Chloride 116 H (101-112) mEq/L Chloride 108 H (98-107) mmol/L Carbon Dioxide < 5 L* (21-32) mmol/L POC Total CO2 6 L* (24-31) mEq/l Anion Gap 21.0 H (3-11) POC Anion Gap 20.0 (16-25) mmol/L POC BUN 14 (7-18) mg/dl BUN 12 (7-18) mg/dl Creatinine 1.10 D (0.6-1.2) mg/dl POC Creatinine 0.6 (0.6-1.3) mg/dl Est Cr Clr Drug Dosing 80.6 ml/min Est GFR ( Amer) 81.4 Est GFR (Non-Af Amer) 70.2 BUN/Creatinine Ratio 10.7 (10-20) Glucose 417 H* (70-99) mg/dl POC Glucose (70-99) POC Glucose (other) 432 H* (70-99) mg/dl Lactate (0.4-2.0) mmol/L Calcium 9.6 D (8.5-10.1) mg/dl POC Ioniz Calcium Jose 1.34 H (1.12-1.32) mmol/l Phosphorus 4.2 (2.5-4.9) mg/dl Magnesium (1.8-2.4) mg/dl Total Bilirubin 0.5 (0.2-1) mg/dl AST (15-37) U/L ALT 33 (12-78) U/L Alkaline Phosphatase 152 H (45-117) U/L Troponin I < 0.015 (0-0.045) ng/ml Total Protein 8.1 D (6.4-8.2) gm/dl Albumin 3.9 (3.4-5.0) gm/dl Globulin 4.2 H (2.5-4.0) gm/dl Albumin/Globulin Ratio 0.9 (0.9-2) Beta-Hydroxybutyric Acd (0.2-2.81) mg/dl Urine Color Urine Appearance (Clear) Urine pH (4.5-7.5) Ur Specific [place] (1.000-1.030) Urine Protein (Negative) Urine Glucose (UA) (Negative) Urine Ketones (Negative) Urine Blood (Negative) Urine Nitrite (Negative) Urine Bilirubin (Negative) Urine Urobilinogen (Negative) Ur Leukocyte Esterase (Negative) Urine WBC (Auto) (0-5) /hpf Urine RBC (Auto) (0-4) /hpf U Hyaline Cast (Auto) (0-5) /lpf U Epithel Cells (Auto) (0-5) /lpf Urine Bacteria (Auto) (Negative) 04/03/19 04/03/19 04/03/19 Range/Units 13:32 13:38 13:41 WBC (4.8-10.8) K/uL RBC (4.2-5.4) M/uL Hgb (12.0-16.0) g/dL POC Hgb (12.0-16.0) g/dl Hct (37-47) % POC Hct (37-47) % MCV (80-100) fL MCH (25-34) pg MCHC (32-36) g/dL Plt Count (130-400) K/uL Immature Gran % (Auto) % Neut % (Auto) % Lymph % (Auto) % [place] % (Auto) % Eos % (Auto) % Baso % (Auto) % Immature Gran # (Auto) (0.00-0.02) K/uL Neut # (Auto) (1.4-6.5) K/uL Lymph # (Auto) (1.2-3.4) K/uL [place] # (Auto) (0.11-0.59) K/uL Eos # (Auto) (0-0.5) K/uL Baso # (Auto) (0-0.2) K/uL Toxic Vacuolation PT (9.0-12.0) Seconds INR (0.9-1.1) APTT (21.0-31.0) Seconds PTT Ratio VBG pH 6.94 L (7.36-7.41) VBG pCO2 18 L (38-50) mmHg VBG pO2 51 mmHg VBG HCO3 4 mmol/L VBG O2 Saturation 77.4 % VBG Base Excess -27.3 mEq/L Barometric Pressure 729.5 mm/Hg POC Sodium (135-144) mEq/L Sodium (136-145) mmol/L POC Potassium (3.3-5.0) mEq/L Potassium 7.1 H* D (3.5-5.1) mmol/L POC Chloride (101-112) mEq/L Chloride (98-107) mmol/L Carbon Dioxide (21-32) mmol/L POC Total CO2 (24-31) mEq/l Anion Gap (3-11) POC Anion Gap (16-25) mmol/L POC BUN (7-18) mg/dl BUN (7-18) mg/dl Creatinine (0.6-1.2) mg/dl POC Creatinine (0.6-1.3) mg/dl Est Cr Clr Drug Dosing ml/min Est GFR ( Amer) Est GFR (Non-Af Amer) BUN/Creatinine Ratio (10-20) Glucose (70-99) mg/dl POC Glucose (70-99) POC Glucose (other) (70-99) mg/dl Lactate 1.7 (0.4-2.0) mmol/L Calcium (8.5-10.1) mg/dl POC Ioniz Calcium Jose (1.12-1.32) mmol/l Phosphorus (2.5-4.9) mg/dl Magnesium 2.1 (1.8-2.4) mg/dl Total Bilirubin (0.2-1) mg/dl AST 10 L (15-37) U/L ALT (12-78) U/L Alkaline Phosphatase (45-117) U/L Troponin I (0-0.045) ng/ml Total Protein (6.4-8.2) gm/dl Albumin (3.4-5.0) gm/dl Globulin (2.5-4.0) gm/dl Albumin/Globulin Ratio (0.9-2) Beta-Hydroxybutyric Acd (0.2-2.81) mg/dl Urine Color Urine Appearance (Clear) Urine pH (4.5-7.5) Ur Specific [place] (1.000-1.030) Urine Protein (Negative) Urine Glucose (UA) (Negative) Urine Ketones (Negative) Urine Blood (Negative) Urine Nitrite (Negative) Urine Bilirubin (Negative) Urine Urobilinogen (Negative) Ur Leukocyte Esterase (Negative) Urine WBC (Auto) (0-5) /hpf Urine RBC (Auto) (0-4) /hpf U Hyaline Cast (Auto) (0-5) /lpf U Epithel Cells (Auto) (0-5) /lpf Urine Bacteria (Auto) (Negative) 04/03/19 04/03/19 Range/Units 13:44 13:49 WBC (4.8-10.8) K/uL RBC (4.2-5.4) M/uL Hgb (12.0-16.0) g/dL POC Hgb (12.0-16.0) g/dl Hct (37-47) % POC Hct (37-47) % MCV (80-100) fL MCH (25-34) pg MCHC (32-36) g/dL Plt Count (130-400) K/uL Immature Gran % (Auto) % Neut % (Auto) % Lymph % (Auto) % [place] % (Auto) % Eos % (Auto) % Baso % (Auto) % Immature Gran # (Auto) (0.00-0.02) K/uL Neut # (Auto) (1.4-6.5) K/uL Lymph # (Auto) (1.2-3.4) K/uL [place] # (Auto) (0.11-0.59) K/uL Eos # (Auto) (0-0.5) K/uL Baso # (Auto) (0-0.2) K/uL Toxic Vacuolation PT (9.0-12.0) Seconds INR (0.9-1.1) APTT (21.0-31.0) Seconds PTT Ratio VBG pH (7.36-7.41) VBG pCO2 (38-50) mmHg VBG pO2 mmHg VBG HCO3 mmol/L VBG O2 Saturation % VBG Base Excess mEq/L Barometric Pressure mm/Hg POC Sodium (135-144) mEq/L Sodium (136-145) mmol/L POC Potassium (3.3-5.0) mEq/L Potassium (3.5-5.1) mmol/L POC Chloride (101-112) mEq/L Chloride (98-107) mmol/L Carbon Dioxide (21-32) mmol/L POC Total CO2 (24-31) mEq/l Anion Gap (3-11) POC Anion Gap (16-25) mmol/L POC BUN (7-18) mg/dl BUN (7-18) mg/dl Creatinine (0.6-1.2) mg/dl POC Creatinine (0.6-1.3) mg/dl Est Cr Clr Drug Dosing ml/min Est GFR ( Amer) Est GFR (Non-Af Amer) BUN/Creatinine Ratio (10-20) Glucose (70-99) mg/dl POC Glucose 346 H* (70-99) POC Glucose (other) (70-99) mg/dl Lactate (0.4-2.0) mmol/L Calcium (8.5-10.1) mg/dl POC Ioniz Calcium Jose (1.12-1.32) mmol/l Phosphorus (2.5-4.9) mg/dl Magnesium (1.8-2.4) mg/dl Total Bilirubin (0.2-1) mg/dl AST (15-37) U/L ALT (12-78) U/L Alkaline Phosphatase (45-117) U/L Troponin I (0-0.045) ng/ml Total Protein (6.4-8.2) gm/dl Albumin (3.4-5.0) gm/dl Globulin (2.5-4.0) gm/dl Albumin/Globulin Ratio (0.9-2) Beta-Hydroxybutyric Acd (0.2-2.81) mg/dl Urine Color Yellow Urine Appearance Clear (Clear) Urine pH 5.0 (4.5-7.5) Ur Specific [place] 1.023 (1.000-1.030) Urine Protein 1+ H (Negative) Urine Glucose (UA) 3+ H (Negative) Urine Ketones 4+ H (Negative) Urine Blood 3+ H (Negative) Urine Nitrite Negative (Negative) Urine Bilirubin Negative (Negative) Urine Urobilinogen Negative (Negative) Ur Leukocyte Esterase Negative (Negative) Urine WBC (Auto) 1-5 (0-5) /hpf Urine RBC (Auto) >30 H (0-4) /hpf U Hyaline Cast (Auto) 1-5 (0-5) /lpf U Epithel Cells (Auto) 20-30 H (0-5) /lpf Urine Bacteria (Auto) Negative (Negative) Imaging Data Radiologist's Impression: Radiology results as stated below per my review and the radiologist's interpretation: XR chest 1V portable CLINICAL HISTORY: Sepsis. COMPARISON STUDY: Chest radiograph April 01, 2019. FINDINGS: Lung volumes are diminished. Lungs are clear. There is no pneumothorax or pleural effusion. Cardiac size is normal. Mediastinal contours are normal. There is no evidence for pulmonary edema. IMPRESSION: Low lung volumes. No acute findings. ACT 112: Negative or not required by law. Electronically signed by: Carlos Bermeo M.D. 04/03/2019 1:14 PM ECG Data Attestation: I personally reviewed and interpreted this ECG as follows: Indication: + other (hyperkalemia) Rate (beats per minute): 116 Rhythm: + sinus tachycardia ECG Intervals/blocks: + Normal QT-c ECG Waterman: + Normal ECG Findings: + Peaked T waves (Anterior) and + Other (Poor baseline;) Blood Pressure Blood Pressure Findings: Elevated blood pressure Blood Pressure Disposition: further management by hospitalist PASQUALE Brandon The patient, who is a 24 year old female with a medical history of autism, celiac disease and DKA, presents to the Emergency Room with complaints of an illness that started six days ago. Upon arrival patient is in moderate distress and is extremely tachypneic and tachycardic. Initially called a sepsis alert to facilitate blood work and IVs. IV was placed by IV team. Patient was ordered 2 L IV fluids. Following the result of the i-STAT with a glucose of just under 500 and a bicarb of 6 insulin was started as the potassium was elevated at 7.4. EKG showed some peaked T waves but do favor this will come down after the insulin bolus and once we obtained a pH of 6.9 patient was given an amp of bicarb as well. CBC resulted and showed a leukocytosis of 17,000. INR was unremarkable. BMP with some mild hyponatremia, elevated potassium 7.4, anion gap as well as a CO2 of 5. LFTs bilirubin magnesium was unremarkable. UA with plus for ketones. Patient was given a total of 3 L IV fluids while in the ER as well as given an insulin drip and an insulin bolus. Mom was updated at bedside as well as the child. Discussed with the hospitalist as well as the windows systems administrator. Consulting Engineer did initially recommend transfer but family would prefer to stay here due to weather which I felt was very reasonable. I did give her a dose of antibiotics just in case there was an infectious source. Chest x-ray without any focal infiltrate. Impression & Plan DKA (diabetic ketoacidoses), Tachycardia, Metabolic acidosis, Hyponatremia, Hyperkalemia Discharge Plan Visit Data *Final* Discharge Date/Time: 04/03/19 15:11 Chief Complaint: Illness Stated Complaint: hypergylcemia ED Provider: Nicolas Hernandes Discharge Problem: DKA (diabetic ketoacidoses), Tachycardia, Metabolic acidosis, Hyponatremia, Hyperkalemia Patient Disposition: Admitted As Inpatient Discharge Instructions Interventions: ED Discharge Assessment Last Done: 04/03/19 15:11 Discharge Problem: DKA (diabetic ketoacidoses) Qualifiers: Diabetes mellitus type: type 1 Diabetes mellitus complication detail: without coma Qualified Code(s): E10.10 - Type 1 diabetes mellitus with ketoacidosis without coma The scribe's documentation has been prepared under my direction and personally reviewed by me in its entirety. I confirm that the note above accurately reflects all work, treatment, procedures, and medical decision making performed by me.
[2019-04-03 19:31] LABS: Base Excess VBG -18.9 mEq/L; Oxygen Saturation VBG 60.4 %; pH VBG 7.19 (7.36-7.41)
[2019-04-03 19:56] LABS: BUN Creatinine Ratio 12.7 (10-20); Calcium 7.7 mg/dl (8.5-10.1); Creatinine Clr Calc Pharmacy 131.6 ml/min; Est GFR (African American) 142.6; Phosphorus 0.9 mg/dl (2.5-4.9); Potassium 4.7 mmol/L (3.5-5.1)
[2019-04-03] MEDS ORDERED: SODIUM PHOSPHATE 3 MMOL/1 ML 5 ML VIAL IV SCH (20:00)
[2019-04-03] MEDS ORDERED: INSULIN ASPART 100 UNITS/ML 3 ML PEN SC SCH (21:00)
[2019-04-03] MEDS ORDERED: SODIUM PHOSPHATE 15 MMOL in SODIUM CHLORIDE 0.9% 250 ML IV ONE (21:00)
[2019-04-03] MEDS: NYSTATIN SUSP 500,000 U/5 ML UDC PO SCH (21:26)
[2019-04-03 23:53] LABS: BUN Creatinine Ratio 8.9 (10-20); Calcium 7.6 mg/dl (8.5-10.1); Creatinine Clr Calc Pharmacy 117.6 ml/min; Est GFR (African American) 129.3; Est GFR (Non-African American) 111.6; Potassium 4.1 mmol/L (3.5-5.1)
[2019-04-04] MEDS ORDERED: SODIUM BICARB 8.4% INJ 50 MEQ/50 ML SYR IV STA (00:28)
[2019-04-04] MEDS: D5W AND 1/2NSS + 20MEQ KCL 20 MEQ/1,000 ML BAG IV SCH ×3 (00:43→10:28)
[2019-04-04 03:10] LABS: Base Excess VBG -9.9 mEq/L; HCO3 VBG 15 mmol/L; Oxygen Saturation VBG 92.2 %; PCO2 VBG 28 mmHg (38-50); PO2 VBG 58 mmHg; pH VBG 7.34 (7.36-7.41)
[2019-04-04 03:15] LABS: Basophils # (auto) 0.01 K/uL (0-0.2); Basophils % (auto) 0.1 %; Eosinophils # (auto) 0.02 K/uL (0-0.5); Eosinophils % (auto) 0.3 %; Hematocrit (blood only) 29.9 % (37-47); Hemoglobin 10.5 g/dL (12.0-16.0); Immature Granulocytes # (auto) 0.04 K/uL (0.00-0.02); Immature Granulocytes % (auto) 0.5 %; Lymphocytes # (auto) 1.59 K/uL (1.2-3.4); Lymphocytes % (auto) 20.1 %; Mean Corpuscular Hgb Conc 35.1 g/dL (32-36); Mean Corpuscular Volume 85.4 fL (80-100); Mean Platelet Volume 9.8 fL (7.4-10.4); Monocytes # (auto) 0.89 K/uL (0.11-0.59); Monocytes % (auto) 11.2 %; Neutrophils # (auto) 5.37 K/uL (1.4-6.5); Neutrophils % (auto) 67.8 %; Platelet Count 216 K/uL (130-400); RDW Coefficient of Variation 13.2 % (11.5-14.5); RDW Standard Deviation 40.1 fL (36.4-46.3); White Blood Count 7.92 K/uL (4.8-10.8)
[2019-04-04 03:36] LABS: BUN Creatinine Ratio 8.8 (10-20); Calcium 7.5 mg/dl (8.5-10.1); Creatinine Clr Calc Pharmacy 122.5 ml/min; Est GFR (African American) 135.9; Est GFR (Non-African American) 117.2; Potassium 3.5 mmol/L (3.5-5.1)
[2019-04-04 04:10] LABS: Magnesium 1.7 mg/dl (1.8-2.4)
[2019-04-04] MEDS ORDERED: POTASSIUM PHOS 3 MMOL/1 ML INFUSION IV STA (04:10)
[2019-04-04] MEDS ORDERED: POTASSIUM PHOSPHATE 21 MMOL in SODIUM CHLORIDE 0.9% 500 ML IV ONE (04:15)
[2019-04-04] MEDS: MAGNESIUM SULFATE / D5W 1 GM/100 ML BAG IV SCH ×2 (04:34→05:29)
[2019-04-04 08:07] LABS: BUN Creatinine Ratio 7.7 (10-20); Calcium 7.8 mg/dl (8.5-10.1); Creatinine Clr Calc Pharmacy 122.2 ml/min; Est GFR (African American) 133.6; Est GFR (Non-African American) 115.3; Potassium 3.5 mmol/L (3.5-5.1)
[2019-04-04] MEDS: NYSTATIN SUSP 500,000 U/5 ML UDC PO SCH ×4 (09:24→20:37)
--- NOTE | 2019-04-04 10:00 | Hospitalist Progress Note ---
Date of Service April 04, 2019 Assessment & Plan (1) DKA (diabetic ketoacidoses): 24-year-old female with a past medical history of autism, type 1 diabetes, celiac disease, recently discharged from the hospital in early March for DKA admitted to the ICU for evaluation and management of DKA #DKA Patient with a history of type 1 diabetes, recently discharged from [facility] for DKA. During her last admission hemoglobin A1c was determined to be 9.2 indicating poor sugar control. Patient presented to the emergency department yesterday evening by personal transport, she was with her mother and 2 sisters. On presentation she was tachypneic, poorly mentating, sub jective fever. There does not appear to be any acute trigger to cause her DKA, with the exception of poor glucose control. VBG on presentation demonstrated a pH of 6.94, she was hyperkalemic, hyponatremic, appeared dehydrated on physical exam, and tachypneic. Patient was transferred to the ICU for further evaluation and management. She was placed on insulin drip, and her gap closed overnight. This morning she received 40 units of glargine, and tolerated her diet. She was subsequently deemed stable for transfer to the general medical floors. Blood sugar checks every hour Glycemic consult placed pharmacy managing Daily BMP Monitor for signs and symptoms of recurrence clinical staff educator consulted -DC fluids when patient is tolerating p.o. #Diabetes type 1 Patient with history of diabetes type 1, most recent A1c 9.2 indicating poor sugar control. Given the recent discharge from the hospital, and readmission for DKA. We are suspicious that the family needs education with regards to diet and glucose control. Furthermore they would likely benefit from having a local physical therapy aide. Should these episodes continue to recur and the patient become hyperglycemic with a would be able to contact the physical therapy aide for recommendations prior to presenting to the hospital hopefully averting a DKA admission. -clinical staff educator consulted -Pharmacy glycemic consult placed -Blood sugar checks every hour #Thrush Patient diagnosed with thrush as an outpatient on presentation in the ED. -Continue nystatin 4 times daily #Electrolyte abnormalities Patient presented with significant hyperkalemia and hyponatremia likely secondary to DKA. Mental status was intact. Most recent BMP demonstrated potassium of 3.5 and sodium of 141 within normal limits. -Trend daily BMP -Replace electrolytes as indicated FENa: Diabetic type I diet, gluten-free Code Status: Full code DVT PPX: Lovenox PT/OT: Not indicated Dispo: [facility] Lamberto Anne MD PGY 2, FCM This chart was completed utilizing [employer] voice recognition software. Grammatical errors, random word insertions, pronoun errors, and in complete sentences are an occasional consequence of the system. Any questions or concerns about the content, text, or information contained within the body of this dictation should be addressed directly to the physician for clarification. (2) S/P admission to ICU (intensive care unit): (3) Autism: (4) Celiac disease: (5) Type 1 diabetes: (6) Hyperkalemia: Supervising Physician Co-Signing Physician Notes I personally examined the patient and verified all mcneill points of history and exam, discussed case, and agree with decision making with Dr Anne. Seems to be feeling better. Eating dinner, her only complaint seems to be that she does not like the food. Father present. Updated and answered all questions. No other new issues today. He notes that the patient's mother takes care of the insulin. Vitals noted, in general she is awake and alert no distress. HEENT normocephalic atraumatic mucous membranes are moist, no mucosal lesions. Skin shows no rashes no pallor or icterus. Breathing unlabored no accessory muscle use good effort. No focal neuro deficits. DKAuncertain inciting etiology, will need to discuss with the mother who administers her insulin. Improved. Stable for transfer out of the ICU, continue fluid and insulin management. Otherwise as above. Thrushseems to have improved. Subjective Patient sitting up in bed this morning in no acute distress. Limited patient participation in the interview secondary to intellectual disability. Patient's father was in the room however patient lives with her mother father does not know a lot about her day-to-day care. Reports that when the patient is with him he attempts to ensure she eats a good diet. Will need to have diabetic education with the mother. Currently patient denies any pain is in no acute distress, gap is closed, eating applesauce while I was in the room, voiding, stooling, no acute distress. Acute concerns related to diabetic education, all questions answered. Physical Exam Physical Exam: General: Obese female in no acute distress HEENT: Normocephalic atraumatic Neck: Normal to visual inspection, negative JVD Cardiac: Regular rate and rhythm, I did not appreciate any significant murmurs, rubs, gallops, normal S1, normal S2, negative pedal edema, negative calf tenderness Respiratory: Clear to auscultation bilaterally with symmetrical chest expansion, I did not appreciate any significant wheezes, rales, rhonchi GI: Soft, nontender, nondistended, bowel sounds present MSK: Moves all extremities Neuro: Alert unable to assess orientation Psych: Calm, cooperative with the interview. Results & Data Vital Signs (Past 12 Hours) Vital Signs Temp Pulse Pulse Resp BP BP Pulse Ox 04/04/19 08:38 91 H 18 121/68 99 04/04/19 08:00 92 H 19 98 04/04/19 07:38 93 H 19 101/57 L 99 04/04/19 07:00 90 18 98 04/04/19 06:00 107 H 20 110/66 99 04/04/19 05:00 98 H 20 128/72 100 04/04/19 04:00 37.4 C 103 H 20 96/48 L 100 04/04/19 03:00 103 H 20 118/55 L 98 04/04/19 02:00 100 H 20 99/38 L 99 04/04/19 01:00 104 H 22 99 04/04/19 00:00 37.5 C 112 H 22 102/67 100 04/03/19 23:00 121 H 24 117/62 100 04/03/19 22:00 105 H 24 142/91 H 100 Laboratory Results 04/04/19 04/04/19 04/04/19 Range/Units 11:40 10:23 09:16 WBC (4.8-10.8) K/uL RBC (4.2-5.4) M/uL Hgb (12.0-16.0) g/dL POC Hgb (12.0-16.0) g/dl Hct (37-47) % POC Hct (37-47) % MCV (80-100) fL MCH (25-34) pg MCHC (32-36) g/dL RDW Std Deviation (36.4-46.3) fL RDW Coeff of Olesya (11.5-14.5) % Plt Count (130-400) K/uL MPV (7.4-10.4) fL Immature Gran % (Auto) % Neut % (Auto) % Lymph % (Auto) % Bee % (Auto) % Eos % (Auto) % Baso % (Auto) % Immature Gran # (Auto) (0.00-0.02) K/uL Neut # (Auto) (1.4-6.5) K/uL Lymph # (Auto) (1.2-3.4) K/uL Bee # (Auto) (0.11-0.59) K/uL Eos # (Auto) (0-0.5) K/uL Baso # (Auto) (0-0.2) K/uL Toxic Vacuolation PT (9.0-12.0) Seconds INR (0.9-1.1) APTT (21.0-31.0) Seconds PTT Ratio VBG pH (7.36-7.41) VBG pCO2 (38-50) mmHg VBG pO2 mmHg VBG HCO3 mmol/L VBG O2 Saturation % VBG Base Excess mEq/L Barometric Pressure mm/Hg POC Sodium (135-144) mEq/L Sodium (136-145) mmol/L POC Potassium (3.3-5.0) mEq/L Potassium (3.5-5.1) mmol/L POC Chloride (101-112) mEq/L Chloride (98-107) mmol/L Carbon Dioxide (21-32) mmol/L POC Total CO2 (24-31) mEq/l Anion Gap (3-11) POC Anion Gap (16-25) mmol/L POC BUN (7-18) mg/dl BUN (7-18) mg/dl Creatinine (0.6-1.2) mg/dl POC Creatinine (0.6-1.3) mg/dl Est Cr Clr Drug Dosing ml/min Est GFR ( Amer) Est GFR (Non-Af Amer) BUN/Creatinine Ratio (10-20) Glucose (70-99) mg/dl POC Glucose 124 H 104 H 132 H (70-99) POC Glucose (other) (70-99) mg/dl Lactate (0.4-2.0) mmol/L Calcium (8.5-10.1) mg/dl POC Ioniz Calcium Jose (1.12-1.32) mmol/l Phosphorus (2.5-4.9) mg/dl Magnesium (1.8-2.4) mg/dl Total Bilirubin (0.2-1) mg/dl AST (15-37) U/L ALT (12-78) U/L Alkaline Phosphatase (45-117) U/L Troponin I (0-0.045) ng/ml Total Protein (6.4-8.2) gm/dl Albumin (3.4-5.0) gm/dl Globulin (2.5-4.0) gm/dl Albumin/Globulin Ratio (0.9-2) Beta-Hydroxybutyric Acd (0.2-2.81) mg/dl Procalcitonin (0-0.5) ng/ml Urine Color Urine Appearance (Clear) Urine pH (4.5-7.5) Ur Specific Colon (1.000-1.030) Urine Protein (Negative) Urine Glucose (UA) (Negative) Urine Ketones (Negative) Urine Blood (Negative) Urine Nitrite (Negative) Urine Bilirubin (Negative) Urine Urobilinogen (Negative) Ur Leukocyte Esterase (Negative) Urine WBC (Auto) (0-5) /hpf Urine RBC (Auto) (0-4) /hpf U Hyaline Cast (Auto) (0-5) /lpf U Epithel Cells (Auto) (0-5) /lpf Urine Bacteria (Auto) (Negative) Nasal Screen MRSA (PCR) (Negative) Salicylates (2.8-20) mg/dl Acetaminophen (10-30) ug/ml 04/04/19 04/04/19 04/04/19 Range/Units 07:20 06:23 04:32 WBC (4.8-10.8) K/uL RBC (4.2-5.4) M/uL Hgb (12.0-16.0) g/dL POC Hgb (12.0-16.0) g/dl Hct (37-47) % POC Hct (37-47) % MCV (80-100) fL MCH (25-34) pg MCHC (32-36) g/dL RDW Std Deviation (36.4-46.3) fL RDW Coeff of Olesya (11.5-14.5) % Plt Count (130-400) K/uL MPV (7.4-10.4) fL Immature Gran % (Auto) % Neut % (Auto) % Lymph % (Auto) % Bee % (Auto) % Eos % (Auto) % Baso % (Auto) % Immature Gran # (Auto) (0.00-0.02) K/uL Neut # (Auto) (1.4-6.5) K/uL Lymph # (Auto) (1.2-3.4) K/uL Bee # (Auto) (0.11-0.59) K/uL Eos # (Auto) (0-0.5) K/uL Baso # (Auto) (0-0.2) K/uL Toxic Vacuolation PT (9.0-12.0) Seconds INR (0.9-1.1) APTT (21.0-31.0) Seconds PTT Ratio VBG pH (7.36-7.41) VBG pCO2 (38-50) mmHg VBG pO2 mmHg VBG HCO3 mmol/L VBG O2 Saturation % VBG Base Excess mEq/L Barometric Pressure mm/Hg POC Sodium (135-144) mEq/L Sodium 141 (136-145) mmol/L POC Potassium (3.3-5.0) mEq/L Potassium 3.5 (3.5-5.1) mmol/L POC Chloride (101-112) mEq/L Chloride 118 H (98-107) mmol/L Carbon Dioxide 17 L (21-32) mmol/L POC Total CO2 (24-31) mEq/l Anion Gap 6.0 (3-11) POC Anion Gap (16-25) mmol/L POC BUN (7-18) mg/dl BUN 6 L (7-18) mg/dl Creatinine 0.73 (0.6-1.2) mg/dl POC Creatinine (0.6-1.3) mg/dl Est Cr Clr Drug Dosing 122.2 ml/min Est GFR ( Amer) 133.6 Est GFR (Non-Af Amer) 115.3 BUN/Creatinine Ratio 7.7 L (10-20) Glucose 184 H (70-99) mg/dl POC Glucose 206 H 203 H (70-99) POC Glucose (other) (70-99) mg/dl Lactate (0.4-2.0) mmol/L Calcium 7.8 L (8.5-10.1) mg/dl POC Ioniz Calcium Jose (1.12-1.32) mmol/l Phosphorus (2.5-4.9) mg/dl Magnesium (1.8-2.4) mg/dl Total Bilirubin (0.2-1) mg/dl AST (15-37) U/L ALT (12-78) U/L Alkaline Phosphatase (45-117) U/L Troponin I (0-0.045) ng/ml Total Protein (6.4-8.2) gm/dl Albumin (3.4-5.0) gm/dl Globulin (2.5-4.0) gm/dl Albumin/Globulin Ratio (0.9-2) Beta-Hydroxybutyric Acd (0.2-2.81) mg/dl Procalcitonin (0-0.5) ng/ml Urine Color Urine Appearance (Clear) Urine pH (4.5-7.5) Ur Specific Colon (1.000-1.030) Urine Protein (Negative) Urine Glucose (UA) (Negative) Urine Ketones (Negative) Urine Blood (Negative) Urine Nitrite (Negative) Urine Bilirubin (Negative) Urine Urobilinogen (Negative) Ur Leukocyte Esterase (Negative) Urine WBC (Auto) (0-5) /hpf Urine RBC (Auto) (0-4) /hpf U Hyaline Cast (Auto) (0-5) /lpf U Epithel Cells (Auto) (0-5) /lpf Urine Bacteria (Auto) (Negative) Nasal Screen MRSA (PCR) (Negative) Salicylates (2.8-20) mg/dl Acetaminophen (10-30) ug/ml 04/04/19 04/04/19 04/04/19 Range/Units 02:53 02:53 02:53 WBC 7.92 (4.8-10.8) K/uL RBC 3.50 L (4.2-5.4) M/uL Hgb 10.5 L D (12.0-16.0) g/dL POC Hgb (12.0-16.0) g/dl Hct 29.9 L (37-47) % POC Hct (37-47) % MCV 85.4 D (80-100) fL MCH 30.0 (25-34) pg MCHC 35.1 (32-36) g/dL RDW Std Deviation 40.1 (36.4-46.3) fL RDW Coeff of Olesya 13.2 (11.5-14.5) % Plt Count 216 (130-400) K/uL MPV 9.8 (7.4-10.4) fL Immature Gran % (Auto) 0.5 % Neut % (Auto) 67.8 % Lymph % (Auto) 20.1 % Bee % (Auto) 11.2 % Eos % (Auto) 0.3 % Baso % (Auto) 0.1 % Immature Gran # (Auto) 0.04 H (0.00-0.02) K/uL Neut # (Auto) 5.37 (1.4-6.5) K/uL Lymph # (Auto) 1.59 (1.2-3.4) K/uL Bee # (Auto) 0.89 H (0.11-0.59) K/uL Eos # (Auto) 0.02 (0-0.5) K/uL Baso # (Auto) 0.01 (0-0.2) K/uL Toxic Vacuolation PT (9.0-12.0) Seconds INR (0.9-1.1) APTT (21.0-31.0) Seconds PTT Ratio VBG pH 7.34 L (7.36-7.41) VBG pCO2 28 L (38-50) mmHg VBG pO2 58 mmHg VBG HCO3 15 mmol/L VBG O2 Saturation 92.2 % VBG Base Excess -9.9 mEq/L Barometric Pressure mm/Hg POC Sodium (135-144) mEq/L Sodium 141 (136-145) mmol/L POC Potassium (3.3-5.0) mEq/L Potassium 3.5 (3.5-5.1) mmol/L POC Chloride (101-112) mEq/L Chloride 119 H (98-107) mmol/L Carbon Dioxide 16 L (21-32) mmol/L POC Total CO2 (24-31) mEq/l Anion Gap 6.0 (3-11) POC Anion Gap (16-25) mmol/L POC BUN (7-18) mg/dl BUN 6 L (7-18) mg/dl Creatinine 0.72 (0.6-1.2) mg/dl POC Creatinine (0.6-1.3) mg/dl Est Cr Clr Drug Dosing 122.5 ml/min Est GFR ( Amer) 135.9 Est GFR (Non-Af Amer) 117.2 BUN/Creatinine Ratio 8.8 L (10-20) Glucose 220 H (70-99) mg/dl POC Glucose (70-99) POC Glucose (other) (70-99) mg/dl Lactate (0.4-2.0) mmol/L Calcium 7.5 L (8.5-10.1) mg/dl POC Ioniz Calcium Jose (1.12-1.32) mmol/l Phosphorus 1.0 L* (2.5-4.9) mg/dl Magnesium 1.7 L (1.8-2.4) mg/dl Total Bilirubin (0.2-1) mg/dl AST (15-37) U/L ALT (12-78) U/L Alkaline Phosphatase (45-117) U/L Troponin I (0-0.045) ng/ml Total Protein (6.4-8.2) gm/dl Albumin (3.4-5.0) gm/dl Globulin (2.5-4.0) gm/dl Albumin/Globulin Ratio (0.9-2) Beta-Hydroxybutyric Acd (0.2-2.81) mg/dl Procalcitonin (0-0.5) ng/ml Urine Color Urine Appearance (Clear) Urine pH (4.5-7.5) Ur Specific Colon (1.000-1.030) Urine Protein (Negative) Urine Glucose (UA) (Negative) Urine Ketones (Negative) Urine Blood (Negative) Urine Nitrite (Negative) Urine Bilirubin (Negative) Urine Urobilinogen (Negative) Ur Leukocyte Esterase (Negative) Urine WBC (Auto) (0-5) /hpf Urine RBC (Auto) (0-4) /hpf U Hyaline Cast (Auto) (0-5) /lpf U Epithel Cells (Auto) (0-5) /lpf Urine Bacteria (Auto) (Negative) Nasal Screen MRSA (PCR) (Negative) Salicylates (2.8-20) mg/dl Acetaminophen (10-30) ug/ml 04/04/19 04/04/19 04/03/19 Range/Units 02:08 00:13 23:17 WBC (4.8-10.8) K/uL RBC (4.2-5.4) M/uL Hgb (12.0-16.0) g/dL POC Hgb (12.0-16.0) g/dl Hct (37-47) % POC Hct (37-47) % MCV (80-100) fL MCH (25-34) pg MCHC (32-36) g/dL RDW Std Deviation (36.4-46.3) fL RDW Coeff of Olesya (11.5-14.5) % Plt Count (130-400) K/uL MPV (7.4-10.4) fL Immature Gran % (Auto) % Neut % (Auto) % Lymph % (Auto) % Bee % (Auto) % Eos % (Auto) % Baso % (Auto) % Immature Gran # (Auto) (0.00-0.02) K/uL Neut # (Auto) (1.4-6.5) K/uL Lymph # (Auto) (1.2-3.4) K/uL Bee # (Auto) (0.11-0.59) K/uL Eos # (Auto) (0-0.5) K/uL Baso # (Auto) (0-0.2) K/uL Toxic Vacuolation PT (9.0-12.0) Seconds INR (0.9-1.1) APTT (21.0-31.0) Seconds PTT Ratio VBG pH (7.36-7.41) VBG pCO2 (38-50) mmHg VBG pO2 mmHg VBG HCO3 mmol/L VBG O2 Saturation % VBG Base Excess mEq/L Barometric Pressure mm/Hg POC Sodium (135-144) mEq/L Sodium (136-145) mmol/L POC Potassium (3.3-5.0) mEq/L Potassium (3.5-5.1) mmol/L POC Chloride (101-112) mEq/L Chloride (98-107) mmol/L Carbon Dioxide (21-32) mmol/L POC Total CO2 (24-31) mEq/l Anion Gap (3-11) POC Anion Gap (16-25) mmol/L POC BUN (7-18) mg/dl BUN (7-18) mg/dl Creatinine (0.6-1.2) mg/dl POC Creatinine (0.6-1.3) mg/dl Est Cr Clr Drug Dosing ml/min Est GFR ( Amer) Est GFR (Non-Af Amer) BUN/Creatinine Ratio (10-20) Glucose (70-99) mg/dl POC Glucose 224 H 240 H 206 H (70-99) POC Glucose (other) (70-99) mg/dl Lactate (0.4-2.0) mmol/L Calcium (8.5-10.1) mg/dl POC Ioniz Calcium Jose (1.12-1.32) mmol/l Phosphorus (2.5-4.9) mg/dl Magnesium (1.8-2.4) mg/dl Total Bilirubin (0.2-1) mg/dl AST (15-37) U/L ALT (12-78) U/L Alkaline Phosphatase (45-117) U/L Troponin I (0-0.045) ng/ml Total Protein (6.4-8.2) gm/dl Albumin (3.4-5.0) gm/dl Globulin (2.5-4.0) gm/dl Albumin/Globulin Ratio (0.9-2) Beta-Hydroxybutyric Acd (0.2-2.81) mg/dl Procalcitonin (0-0.5) ng/ml Urine Color Urine Appearance (Clear) Urine pH (4.5-7.5) Ur Specific Colon (1.000-1.030) Urine Protein (Negative) Urine Glucose (UA) (Negative) Urine Ketones (Negative) Urine Blood (Negative) Urine Nitrite (Negative) Urine Bilirubin (Negative) Urine Urobilinogen (Negative) Ur Leukocyte Esterase (Negative) Urine WBC (Auto) (0-5) /hpf Urine RBC (Auto) (0-4) /hpf U Hyaline Cast (Auto) (0-5) /lpf U Epithel Cells (Auto) (0-5) /lpf Urine Bacteria (Auto) (Negative) Nasal Screen MRSA (PCR) (Negative) Salicylates (2.8-20) mg/dl Acetaminophen (10-30) ug/ml 04/03/19 04/03/19 04/03/19 Range/Units 23:10 22:16 21:23 WBC (4.8-10.8) K/uL RBC (4.2-5.4) M/uL Hgb (12.0-16.0) g/dL POC Hgb (12.0-16.0) g/dl Hct (37-47) % POC Hct (37-47) % MCV (80-100) fL MCH (25-34) pg MCHC (32-36) g/dL RDW Std Deviation (36.4-46.3) fL RDW Coeff of Olesya (11.5-14.5) % Plt Count (130-400) K/uL MPV (7.4-10.4) fL Immature Gran % (Auto) % Neut % (Auto) % Lymph % (Auto) % Bee % (Auto) % Eos % (Auto) % Baso % (Auto) % Immature Gran # (Auto) (0.00-0.02) K/uL Neut # (Auto) (1.4-6.5) K/uL Lymph # (Auto) (1.2-3.4) K/uL Bee # (Auto) (0.11-0.59) K/uL Eos # (Auto) (0-0.5) K/uL Baso # (Auto) (0-0.2) K/uL Toxic Vacuolation PT (9.0-12.0) Seconds INR (0.9-1.1) APTT (21.0-31.0) Seconds PTT Ratio VBG pH (7.36-7.41) VBG pCO2 (38-50) mmHg VBG pO2 mmHg VBG HCO3 mmol/L VBG O2 Saturation % VBG Base Excess mEq/L Barometric Pressure mm/Hg POC Sodium (135-144) mEq/L Sodium 139 (136-145) mmol/L POC Potassium (3.3-5.0) mEq/L Potassium 4.1 (3.5-5.1) mmol/L POC Chloride (101-112) mEq/L Chloride 118 H (98-107) mmol/L Carbon Dioxide 9 L* (21-32) mmol/L POC Total CO2 (24-31) mEq/l Anion Gap 12.0 H (3-11) POC Anion Gap (16-25) mmol/L POC BUN (7-18) mg/dl BUN 7 (7-18) mg/dl Creatinine 0.75 (0.6-1.2) mg/dl POC Creatinine (0.6-1.3) mg/dl Est Cr Clr Drug Dosing 117.6 ml/min Est GFR ( Amer) 129.3 Est GFR (Non-Af Amer) 111.6 BUN/Creatinine Ratio 8.9 L (10-20) Glucose 246 H (70-99) mg/dl POC Glucose 217 H 208 H (70-99) POC Glucose (other) (70-99) mg/dl Lactate (0.4-2.0) mmol/L Calcium 7.6 L (8.5-10.1) mg/dl POC Ioniz Calcium Jose (1.12-1.32) mmol/l Phosphorus (2.5-4.9) mg/dl Magnesium (1.8-2.4) mg/dl Total Bilirubin (0.2-1) mg/dl AST (15-37) U/L ALT (12-78) U/L Alkaline Phosphatase (45-117) U/L Troponin I (0-0.045) ng/ml Total Protein (6.4-8.2) gm/dl Albumin (3.4-5.0) gm/dl Globulin (2.5-4.0) gm/dl Albumin/Globulin Ratio (0.9-2) Beta-Hydroxybutyric Acd (0.2-2.81) mg/dl Procalcitonin (0-0.5) ng/ml Urine Color Urine Appearance (Clear) Urine pH (4.5-7.5) Ur Specific Colon (1.000-1.030) Urine Protein (Negative) Urine Glucose (UA) (Negative) Urine Ketones (Negative) Urine Blood (Negative) Urine Nitrite (Negative) Urine Bilirubin (Negative) Urine Urobilinogen (Negative) Ur Leukocyte Esterase (Negative) Urine WBC (Auto) (0-5) /hpf Urine RBC (Auto) (0-4) /hpf U Hyaline Cast (Auto) (0-5) /lpf U Epithel Cells (Auto) (0-5) /lpf Urine Bacteria (Auto) (Negative) Nasal Screen MRSA (PCR) (Negative) Salicylates (2.8-20) mg/dl Acetaminophen (10-30) ug/ml 04/03/19 04/03/19 04/03/19 Range/Units 20:25 20:07 19:52 WBC (4.8-10.8) K/uL RBC (4.2-5.4) M/uL Hgb (12.0-16.0) g/dL POC Hgb (12.0-16.0) g/dl Hct (37-47) % POC Hct (37-47) % MCV (80-100) fL MCH (25-34) pg MCHC (32-36) g/dL RDW Std Deviation (36.4-46.3) fL RDW Coeff of Olesya (11.5-14.5) % Plt Count (130-400) K/uL MPV (7.4-10.4) fL Immature Gran % (Auto) % Neut % (Auto) % Lymph % (Auto) % Bee % (Auto) % Eos % (Auto) % Baso % (Auto) % Immature Gran # (Auto) (0.00-0.02) K/uL Neut # (Auto) (1.4-6.5) K/uL Lymph # (Auto) (1.2-3.4) K/uL Bee # (Auto) (0.11-0.59) K/uL Eos # (Auto) (0-0.5) K/uL Baso # (Auto) (0-0.2) K/uL Toxic Vacuolation PT (9.0-12.0) Seconds INR (0.9-1.1) APTT (21.0-31.0) Seconds PTT Ratio VBG pH (7.36-7.41) VBG pCO2 (38-50) mmHg VBG pO2 mmHg VBG HCO3 mmol/L VBG O2 Saturation % VBG Base Excess mEq/L Barometric Pressure mm/Hg POC Sodium (135-144) mEq/L Sodium (136-145) mmol/L POC Potassium (3.3-5.0) mEq/L Potassium (3.5-5.1) mmol/L POC Chloride (101-112) mEq/L Chloride (98-107) mmol/L Carbon Dioxide (21-32) mmol/L POC Total CO2 (24-31) mEq/l Anion Gap (3-11) POC Anion Gap (16-25) mmol/L POC BUN (7-18) mg/dl BUN (7-18) mg/dl Creatinine (0.6-1.2) mg/dl POC Creatinine (0.6-1.3) mg/dl Est Cr Clr Drug Dosing ml/min Est GFR ( Amer) Est GFR (Non-Af Amer) BUN/Creatinine Ratio (10-20) Glucose (70-99) mg/dl POC Glucose 165 H 139 H 128 H (70-99) POC Glucose (other) (70-99) mg/dl Lactate (0.4-2.0) mmol/L Calcium (8.5-10.1) mg/dl POC Ioniz Calcium Jose (1.12-1.32) mmol/l Phosphorus (2.5-4.9) mg/dl Magnesium (1.8-2.4) mg/dl Total Bilirubin (0.2-1) mg/dl AST (15-37) U/L ALT (12-78) U/L Alkaline Phosphatase (45-117) U/L Troponin I (0-0.045) ng/ml Total Protein (6.4-8.2) gm/dl Albumin (3.4-5.0) gm/dl Globulin (2.5-4.0) gm/dl Albumin/Globulin Ratio (0.9-2) Beta-Hydroxybutyric Acd (0.2-2.81) mg/dl Procalcitonin (0-0.5) ng/ml Urine Color Urine Appearance (Clear) Urine pH (4.5-7.5) Ur Specific Colon (1.000-1.030) Urine Protein (Negative) Urine Glucose (UA) (Negative) Urine Ketones (Negative) Urine Blood (Negative) Urine Nitrite (Negative) Urine Bilirubin (Negative) Urine Urobilinogen (Negative) Ur Leukocyte Esterase (Negative) Urine WBC (Auto) (0-5) /hpf Urine RBC (Auto) (0-4) /hpf U Hyaline Cast (Auto) (0-5) /lpf U Epithel Cells (Auto) (0-5) /lpf Urine Bacteria (Auto) (Negative) Nasal Screen MRSA (PCR) (Negative) Salicylates (2.8-20) mg/dl Acetaminophen (10-30) ug/ml 04/03/19 04/03/19 04/03/19 Range/Units 19:33 19:17 19:17 WBC (4.8-10.8) K/uL RBC (4.2-5.4) M/uL Hgb (12.0-16.0) g/dL POC Hgb (12.0-16.0) g/dl Hct (37-47) % POC Hct (37-47) % MCV (80-100) fL MCH (25-34) pg MCHC (32-36) g/dL RDW Std Deviation (36.4-46.3) fL RDW Coeff of Olesya (11.5-14.5) % Plt Count (130-400) K/uL MPV (7.4-10.4) fL Immature Gran % (Auto) % Neut % (Auto) % Lymph % (Auto) % Bee % (Auto) % Eos % (Auto) % Baso % (Auto) % Immature Gran # (Auto) (0.00-0.02) K/uL Neut # (Auto) (1.4-6.5) K/uL Lymph # (Auto) (1.2-3.4) K/uL Bee # (Auto) (0.11-0.59) K/uL Eos # (Auto) (0-0.5) K/uL Baso # (Auto) (0-0.2) K/uL Toxic Vacuolation PT (9.0-12.0) Seconds INR (0.9-1.1) APTT (21.0-31.0) Seconds PTT Ratio VBG pH 7.19 L (7.36-7.41) VBG pCO2 20 L (38-50) mmHg VBG pO2 29 mmHg VBG HCO3 7 mmol/L VBG O2 Saturation 60.4 % VBG Base Excess -18.9 mEq/L Barometric Pressure 730.5 mm/Hg POC Sodium (135-144) mEq/L Sodium 142 (136-145) mmol/L POC Potassium (3.3-5.0) mEq/L Potassium 4.7 (3.5-5.1) mmol/L POC Chloride (101-112) mEq/L Chloride 119 H (98-107) mmol/L Carbon Dioxide 10 L (21-32) mmol/L POC Total CO2 (24-31) mEq/l Anion Gap 13.0 H (3-11) POC Anion Gap (16-25) mmol/L POC BUN (7-18) mg/dl BUN 9 (7-18) mg/dl Creatinine 0.67 (0.6-1.2) mg/dl POC Creatinine (0.6-1.3) mg/dl Est Cr Clr Drug Dosing 131.6 ml/min Est GFR ( Amer) 142.6 Est GFR (Non-Af Amer) 123.0 BUN/Creatinine Ratio 12.7 (10-20) Glucose 147 H (70-99) mg/dl POC Glucose 132 H (70-99) POC Glucose (other) (70-99) mg/dl Lactate (0.4-2.0) mmol/L Calcium 7.7 L (8.5-10.1) mg/dl POC Ioniz Calcium Jose (1.12-1.32) mmol/l Phosphorus 0.9 L* D (2.5-4.9) mg/dl Magnesium 2.0 (1.8-2.4) mg/dl Total Bilirubin (0.2-1) mg/dl AST (15-37) U/L ALT (12-78) U/L Alkaline Phosphatase (45-117) U/L Troponin I (0-0.045) ng/ml Total Protein (6.4-8.2) gm/dl Albumin (3.4-5.0) gm/dl Globulin (2.5-4.0) gm/dl Albumin/Globulin Ratio (0.9-2) Beta-Hydroxybutyric Acd (0.2-2.81) mg/dl Procalcitonin (0-0.5) ng/ml Urine Color Urine Appearance (Clear) Urine pH (4.5-7.5) Ur Specific Colon (1.000-1.030) Urine Protein (Negative) Urine Glucose (UA) (Negative) Urine Ketones (Negative) Urine Blood (Negative) Urine Nitrite (Negative) Urine Bilirubin (Negative) Urine Urobilinogen (Negative) Ur Leukocyte Esterase (Negative) Urine WBC (Auto) (0-5) /hpf Urine RBC (Auto) (0-4) /hpf U Hyaline Cast (Auto) (0-5) /lpf U Epithel Cells (Auto) (0-5) /lpf Urine Bacteria (Auto) (Negative) Nasal Screen MRSA (PCR) (Negative) Salicylates (2.8-20) mg/dl Acetaminophen (10-30) ug/ml 04/03/19 04/03/19 04/03/19 Range/Units 19:17 18:35 17:17 WBC (4.8-10.8) K/uL RBC (4.2-5.4) M/uL Hgb (12.0-16.0) g/dL POC Hgb (12.0-16.0) g/dl Hct (37-47) % POC Hct (37-47) % MCV (80-100) fL MCH (25-34) pg MCHC (32-36) g/dL RDW Std Deviation (36.4-46.3) fL RDW Coeff of Olesya (11.5-14.5) % Plt Count (130-400) K/uL MPV (7.4-10.4) fL Immature Gran % (Auto) % Neut % (Auto) % Lymph % (Auto) % Bee % (Auto) % Eos % (Auto) % Baso % (Auto) % Immature Gran # (Auto) (0.00-0.02) K/uL Neut # (Auto) (1.4-6.5) K/uL Lymph # (Auto) (1.2-3.4) K/uL Bee # (Auto) (0.11-0.59) K/uL Eos # (Auto) (0-0.5) K/uL Baso # (Auto) (0-0.2) K/uL Toxic Vacuolation PT (9.0-12.0) Seconds INR (0.9-1.1) APTT (21.0-31.0) Seconds PTT Ratio VBG pH (7.36-7.41) VBG pCO2 (38-50) mmHg VBG pO2 mmHg VBG HCO3 mmol/L VBG O2 Saturation % VBG Base Excess mEq/L Barometric Pressure mm/Hg POC Sodium (135-144) mEq/L Sodium (136-145) mmol/L POC Potassium (3.3-5.0) mEq/L Potassium (3.5-5.1) mmol/L POC Chloride (101-112) mEq/L Chloride (98-107) mmol/L Carbon Dioxide (21-32) mmol/L POC Total CO2 (24-31) mEq/l Anion Gap (3-11) POC Anion Gap (16-25) mmol/L POC BUN (7-18) mg/dl BUN (7-18) mg/dl Creatinine (0.6-1.2) mg/dl POC Creatinine (0.6-1.3) mg/dl Est Cr Clr Drug Dosing ml/min Est GFR ( Amer) Est GFR (Non-Af Amer) BUN/Creatinine Ratio (10-20) Glucose (70-99) mg/dl POC Glucose 170 H 171 H (70-99) POC Glucose (other) (70-99) mg/dl Lactate (0.4-2.0) mmol/L Calcium (8.5-10.1) mg/dl POC Ioniz Calcium Jose (1.12-1.32) mmol/l Phosphorus (2.5-4.9) mg/dl Magnesium (1.8-2.4) mg/dl Total Bilirubin (0.2-1) mg/dl AST (15-37) U/L ALT (12-78) U/L Alkaline Phosphatase (45-117) U/L Troponin I (0-0.045) ng/ml Total Protein (6.4-8.2) gm/dl Albumin (3.4-5.0) gm/dl Globulin (2.5-4.0) gm/dl Albumin/Globulin Ratio (0.9-2) Beta-Hydroxybutyric Acd (0.2-2.81) mg/dl Procalcitonin 1.63 H (0-0.5) ng/ml Urine Color Urine Appearance (Clear) Urine pH (4.5-7.5) Ur Specific Colon (1.000-1.030) Urine Protein (Negative) Urine Glucose (UA) (Negative) Urine Ketones (Negative) Urine Blood (Negative) Urine Nitrite (Negative) Urine Bilirubin (Negative) Urine Urobilinogen (Negative) Ur Leukocyte Esterase (Negative) Urine WBC (Auto) (0-5) /hpf Urine RBC (Auto) (0-4) /hpf U Hyaline Cast (Auto) (0-5) /lpf U Epithel Cells (Auto) (0-5) /lpf Urine Bacteria (Auto) (Negative) Nasal Screen MRSA (PCR) (Negative) Salicylates (2.8-20) mg/dl Acetaminophen (10-30) ug/ml 04/03/19 04/03/19 04/03/19 Range/Units 17:12 17:02 17:02 WBC (4.8-10.8) K/uL RBC (4.2-5.4) M/uL Hgb (12.0-16.0) g/dL POC Hgb (12.0-16.0) g/dl Hct (37-47) % POC Hct (37-47) % MCV (80-100) fL MCH (25-34) pg MCHC (32-36) g/dL RDW Std Deviation (36.4-46.3) fL RDW Coeff of Olesya (11.5-14.5) % Plt Count (130-400) K/uL MPV (7.4-10.4) fL Immature Gran % (Auto) % Neut % (Auto) % Lymph % (Auto) % Bee % (Auto) % Eos % (Auto) % Baso % (Auto) % Immature Gran # (Auto) (0.00-0.02) K/uL Neut # (Auto) (1.4-6.5) K/uL Lymph # (Auto) (1.2-3.4) K/uL Bee # (Auto) (0.11-0.59) K/uL Eos # (Auto) (0-0.5) K/uL Baso # (Auto) (0-0.2) K/uL Toxic Vacuolation PT (9.0-12.0) Seconds INR (0.9-1.1) APTT (21.0-31.0) Seconds PTT Ratio VBG pH (7.36-7.41) VBG pCO2 (38-50) mmHg VBG pO2 mmHg VBG HCO3 mmol/L VBG O2 Saturation % VBG Base Excess mEq/L Barometric Pressure mm/Hg POC Sodium (135-144) mEq/L Sodium 143 D (136-145) mmol/L POC Potassium (3.3-5.0) mEq/L Potassium 5.5 H D (3.5-5.1) mmol/L POC Chloride (101-112) mEq/L Chloride 119 H (98-107) mmol/L Carbon Dioxide 5 L* (21-32) mmol/L POC Total CO2 (24-31) mEq/l Anion Gap 18.0 H (3-11) POC Anion Gap (16-25) mmol/L POC BUN (7-18) mg/dl BUN 12 (7-18) mg/dl Creatinine 0.78 D (0.6-1.2) mg/dl POC Creatinine (0.6-1.3) mg/dl Est Cr Clr Drug Dosing 113.1 ml/min Est GFR ( Amer) 123.3 Est GFR (Non-Af Amer) 106.4 BUN/Creatinine Ratio 14.9 (10-20) Glucose 183 H (70-99) mg/dl POC Glucose (70-99) POC Glucose (other) (70-99) mg/dl Lactate (0.4-2.0) mmol/L Calcium 8.1 L D (8.5-10.1) mg/dl POC Ioniz Calcium Jose (1.12-1.32) mmol/l Phosphorus 2.9 D (2.5-4.9) mg/dl Magnesium 2.2 (1.8-2.4) mg/dl Total Bilirubin (0.2-1) mg/dl AST (15-37) U/L ALT (12-78) U/L Alkaline Phosphatase (45-117) U/L Troponin I (0-0.045) ng/ml Total Protein (6.4-8.2) gm/dl Albumin (3.4-5.0) gm/dl Globulin (2.5-4.0) gm/dl Albumin/Globulin Ratio (0.9-2) Beta-Hydroxybutyric Acd (0.2-2.81) mg/dl Procalcitonin (0-0.5) ng/ml Urine Color Urine Appearance (Clear) Urine pH (4.5-7.5) Ur Specific Colon (1.000-1.030) Urine Protein (Negative) Urine Glucose (UA) (Negative) Urine Ketones (Negative) Urine Blood (Negative) Urine Nitrite (Negative) Urine Bilirubin (Negative) Urine Urobilinogen (Negative) Ur Leukocyte Esterase (Negative) Urine WBC (Auto) (0-5) /hpf Urine RBC (Auto) (0-4) /hpf U Hyaline Cast (Auto) (0-5) /lpf U Epithel Cells (Auto) (0-5) /lpf Urine Bacteria (Auto) (Negative) Nasal Screen MRSA (PCR) Negative (Negative) Salicylates 3.8 (2.8-20) mg/dl Acetaminophen < 2 L (10-30) ug/ml 04/03/19 04/03/19 04/03/19 Range/Units 15:49 14:59 13:49 WBC (4.8-10.8) K/uL RBC (4.2-5.4) M/uL Hgb (12.0-16.0) g/dL POC Hgb (12.0-16.0) g/dl Hct (37-47) % POC Hct (37-47) % MCV (80-100) fL MCH (25-34) pg MCHC (32-36) g/dL RDW Std Deviation (36.4-46.3) fL RDW Coeff of Olesya (11.5-14.5) % Plt Count (130-400) K/uL MPV (7.4-10.4) fL Immature Gran % (Auto) % Neut % (Auto) % Lymph % (Auto) % Bee % (Auto) % Eos % (Auto) % Baso % (Auto) % Immature Gran # (Auto) (0.00-0.02) K/uL Neut # (Auto) (1.4-6.5) K/uL Lymph # (Auto) (1.2-3.4) K/uL Bee # (Auto) (0.11-0.59) K/uL Eos # (Auto) (0-0.5) K/uL Baso # (Auto) (0-0.2) K/uL Toxic Vacuolation PT (9.0-12.0) Seconds INR (0.9-1.1) APTT (21.0-31.0) Seconds PTT Ratio VBG pH (7.36-7.41) VBG pCO2 (38-50) mmHg VBG pO2 mmHg VBG HCO3 mmol/L VBG O2 Saturation % VBG Base Excess mEq/L Barometric Pressure mm/Hg POC Sodium (135-144) mEq/L Sodium (136-145) mmol/L POC Potassium (3.3-5.0) mEq/L Potassium (3.5-5.1) mmol/L POC Chloride (101-112) mEq/L Chloride (98-107) mmol/L Carbon Dioxide (21-32) mmol/L POC Total CO2 (24-31) mEq/l Anion Gap (3-11) POC Anion Gap (16-25) mmol/L POC BUN (7-18) mg/dl BUN (7-18) mg/dl Creatinine (0.6-1.2) mg/dl POC Creatinine (0.6-1.3) mg/dl Est Cr Clr Drug Dosing ml/min Est GFR ( Amer) Est GFR (Non-Af Amer) BUN/Creatinine Ratio (10-20) Glucose (70-99) mg/dl POC Glucose 250 H 285 H (70-99) POC Glucose (other) (70-99) mg/dl Lactate (0.4-2.0) mmol/L Calcium (8.5-10.1) mg/dl POC Ioniz Calcium Jose (1.12-1.32) mmol/l Phosphorus (2.5-4.9) mg/dl Magnesium (1.8-2.4) mg/dl Total Bilirubin (0.2-1) mg/dl AST (15-37) U/L ALT (12-78) U/L Alkaline Phosphatase (45-117) U/L Troponin I (0-0.045) ng/ml Total Protein (6.4-8.2) gm/dl Albumin (3.4-5.0) gm/dl Globulin (2.5-4.0) gm/dl Albumin/Globulin Ratio (0.9-2) Beta-Hydroxybutyric Acd (0.2-2.81) mg/dl Procalcitonin (0-0.5) ng/ml Urine Color Yellow Urine Appearance Clear (Clear) Urine pH 5.0 (4.5-7.5) Ur Specific Colon 1.023 (1.000-1.030) Urine Protein 1+ H (Negative) Urine Glucose (UA) 3+ H (Negative) Urine Ketones 4+ H (Negative) Urine Blood 3+ H (Negative) Urine Nitrite Negative (Negative) Urine Bilirubin Negative (Negative) Urine Urobilinogen Negative (Negative) Ur Leukocyte Esterase Negative (Negative) Urine WBC (Auto) 1-5 (0-5) /hpf Urine RBC (Auto) >30 H (0-4) /hpf U Hyaline Cast (Auto) 1-5 (0-5) /lpf U Epithel Cells (Auto) 20-30 H (0-5) /lpf Urine Bacteria (Auto) Negative (Negative) Nasal Screen MRSA (PCR) (Negative) Salicylates (2.8-20) mg/dl Acetaminophen (10-30) ug/ml 04/03/19 04/03/19 04/03/19 Range/Units 13:44 13:41 13:38 WBC (4.8-10.8) K/uL RBC (4.2-5.4) M/uL Hgb (12.0-16.0) g/dL POC Hgb (12.0-16.0) g/dl Hct (37-47) % POC Hct (37-47) % MCV (80-100) fL MCH (25-34) pg MCHC (32-36) g/dL RDW Std Deviation (36.4-46.3) fL RDW Coeff of Olesya (11.5-14.5) % Plt Count (130-400) K/uL MPV (7.4-10.4) fL Immature Gran % (Auto) % Neut % (Auto) % Lymph % (Auto) % Bee % (Auto) % Eos % (Auto) % Baso % (Auto) % Immature Gran # (Auto) (0.00-0.02) K/uL Neut # (Auto) (1.4-6.5) K/uL Lymph # (Auto) (1.2-3.4) K/uL Bee # (Auto) (0.11-0.59) K/uL Eos # (Auto) (0-0.5) K/uL Baso # (Auto) (0-0.2) K/uL Toxic Vacuolation PT (9.0-12.0) Seconds INR (0.9-1.1) APTT (21.0-31.0) Seconds PTT Ratio VBG pH (7.36-7.41) VBG pCO2 (38-50) mmHg VBG pO2 mmHg VBG HCO3 mmol/L VBG O2 Saturation % VBG Base Excess mEq/L Barometric Pressure mm/Hg POC Sodium (135-144) mEq/L Sodium (136-145) mmol/L POC Potassium (3.3-5.0) mEq/L Potassium 7.1 H* D (3.5-5.1) mmol/L POC Chloride (101-112) mEq/L Chloride (98-107) mmol/L Carbon Dioxide (21-32) mmol/L POC Total CO2 (24-31) mEq/l Anion Gap (3-11) POC Anion Gap (16-25) mmol/L POC BUN (7-18) mg/dl BUN (7-18) mg/dl Creatinine (0.6-1.2) mg/dl POC Creatinine (0.6-1.3) mg/dl Est Cr Clr Drug Dosing ml/min Est GFR ( Amer) Est GFR (Non-Af Amer) BUN/Creatinine Ratio (10-20) Glucose (70-99) mg/dl POC Glucose 346 H* (70-99) POC Glucose (other) (70-99) mg/dl Lactate 1.7 (0.4-2.0) mmol/L Calcium (8.5-10.1) mg/dl POC Ioniz Calcium Jose (1.12-1.32) mmol/l Phosphorus (2.5-4.9) mg/dl Magnesium 2.1 (1.8-2.4) mg/dl Total Bilirubin (0.2-1) mg/dl AST 10 L (15-37) U/L ALT (12-78) U/L Alkaline Phosphatase (45-117) U/L Troponin I (0-0.045) ng/ml Total Protein (6.4-8.2) gm/dl Albumin (3.4-5.0) gm/dl Globulin (2.5-4.0) gm/dl Albumin/Globulin Ratio (0.9-2) Beta-Hydroxybutyric Acd (0.2-2.81) mg/dl Procalcitonin (0-0.5) ng/ml Urine Color Urine Appearance (Clear) Urine pH (4.5-7.5) Ur Specific Colon (1.000-1.030) Urine Protein (Negative) Urine Glucose (UA) (Negative) Urine Ketones (Negative) Urine Blood (Negative) Urine Nitrite (Negative) Urine Bilirubin (Negative) Urine Urobilinogen (Negative) Ur Leukocyte Esterase (Negative) Urine WBC (Auto) (0-5) /hpf Urine RBC (Auto) (0-4) /hpf U Hyaline Cast (Auto) (0-5) /lpf U Epithel Cells (Auto) (0-5) /lpf Urine Bacteria (Auto) (Negative) Nasal Screen MRSA (PCR) (Negative) Salicylates (2.8-20) mg/dl Acetaminophen (10-30) ug/ml 04/03/19 04/03/19 04/03/19 Range/Units 13:32 13:06 13:04 WBC (4.8-10.8) K/uL RBC (4.2-5.4) M/uL Hgb (12.0-16.0) g/dL POC Hgb 15.6 (12.0-16.0) g/dl Hct (37-47) % POC Hct 46 (37-47) % MCV (80-100) fL MCH (25-34) pg MCHC (32-36) g/dL RDW Std Deviation (36.4-46.3) fL RDW Coeff of Olesya (11.5-14.5) % Plt Count (130-400) K/uL MPV (7.4-10.4) fL Immature Gran % (Auto) % Neut % (Auto) % Lymph % (Auto) % Bee % (Auto) % Eos % (Auto) % Baso % (Auto) % Immature Gran # (Auto) (0.00-0.02) K/uL Neut # (Auto) (1.4-6.5) K/uL Lymph # (Auto) (1.2-3.4) K/uL Bee # (Auto) (0.11-0.59) K/uL Eos # (Auto) (0-0.5) K/uL Baso # (Auto) (0-0.2) K/uL Toxic Vacuolation PT (9.0-12.0) Seconds INR (0.9-1.1) APTT (21.0-31.0) Seconds PTT Ratio VBG pH 6.94 L (7.36-7.41) VBG pCO2 18 L (38-50) mmHg VBG pO2 51 mmHg VBG HCO3 4 mmol/L VBG O2 Saturation 77.4 % VBG Base Excess -27.3 mEq/L Barometric Pressure 729.5 mm/Hg POC Sodium 133 L (135-144) mEq/L Sodium (136-145) mmol/L POC Potassium 7.4 H* (3.3-5.0) mEq/L Potassium (3.5-5.1) mmol/L POC Chloride 116 H (101-112) mEq/L Chloride (98-107) mmol/L Carbon Dioxide (21-32) mmol/L POC Total CO2 6 L* (24-31) mEq/l Anion Gap (3-11) POC Anion Gap 20.0 (16-25) mmol/L POC BUN 14 (7-18) mg/dl BUN (7-18) mg/dl Creatinine (0.6-1.2) mg/dl POC Creatinine 0.6 (0.6-1.3) mg/dl Est Cr Clr Drug Dosing ml/min Est GFR ( Amer) Est GFR (Non-Af Amer) BUN/Creatinine Ratio (10-20) Glucose (70-99) mg/dl POC Glucose (70-99) POC Glucose (other) 432 H* (70-99) mg/dl Lactate (0.4-2.0) mmol/L Calcium (8.5-10.1) mg/dl POC Ioniz Calcium Jose 1.34 H (1.12-1.32) mmol/l Phosphorus 4.2 (2.5-4.9) mg/dl Magnesium (1.8-2.4) mg/dl Total Bilirubin (0.2-1) mg/dl AST (15-37) U/L ALT (12-78) U/L Alkaline Phosphatase (45-117) U/L Troponin I (0-0.045) ng/ml Total Protein (6.4-8.2) gm/dl Albumin (3.4-5.0) gm/dl Globulin (2.5-4.0) gm/dl Albumin/Globulin Ratio (0.9-2) Beta-Hydroxybutyric Acd (0.2-2.81) mg/dl Procalcitonin (0-0.5) ng/ml Urine Color Urine Appearance (Clear) Urine pH (4.5-7.5) Ur Specific Colon (1.000-1.030) Urine Protein (Negative) Urine Glucose (UA) (Negative) Urine Ketones (Negative) Urine Blood (Negative) Urine Nitrite (Negative) Urine Bilirubin (Negative) Urine Urobilinogen (Negative) Ur Leukocyte Esterase (Negative) Urine WBC (Auto) (0-5) /hpf Urine RBC (Auto) (0-4) /hpf U Hyaline Cast (Auto) (0-5) /lpf U Epithel Cells (Auto) (0-5) /lpf Urine Bacteria (Auto) (Negative) Nasal Screen MRSA (PCR) (Negative) Salicylates (2.8-20) mg/dl Acetaminophen (10-30) ug/ml 04/03/19 04/03/19 04/03/19 Range/Units 13:04 13:04 13:04 WBC 17.60 H (4.8-10.8) K/uL RBC 4.83 (4.2-5.4) M/uL Hgb 14.3 D (12.0-16.0) g/dL POC Hgb (12.0-16.0) g/dl Hct 44.0 (37-47) % POC Hct (37-47) % MCV 91.1 D (80-100) fL MCH 29.6 (25-34) pg MCHC 32.5 (32-36) g/dL RDW Std Deviation (36.4-46.3) fL RDW Coeff of Olesya (11.5-14.5) % Plt Count 357 D (130-400) K/uL MPV (7.4-10.4) fL Immature Gran % (Auto) 0.7 % Neut % (Auto) 89.1 % Lymph % (Auto) 5.4 % Bee % (Auto) 4.4 % Eos % (Auto) 0.2 % Baso % (Auto) 0.2 % Immature Gran # (Auto) 0.13 H (0.00-0.02) K/uL Neut # (Auto) 15.69 H (1.4-6.5) K/uL Lymph # (Auto) 0.95 L (1.2-3.4) K/uL Bee # (Auto) 0.77 H (0.11-0.59) K/uL Eos # (Auto) 0.03 (0-0.5) K/uL Baso # (Auto) 0.03 (0-0.2) K/uL Toxic Vacuolation 1+ PT 10.3 (9.0-12.0) Seconds INR 1.0 (0.9-1.1) APTT 25.4 (21.0-31.0) Seconds PTT Ratio 0.9 VBG pH (7.36-7.41) VBG pCO2 (38-50) mmHg VBG pO2 mmHg VBG HCO3 mmol/L VBG O2 Saturation % VBG Base Excess mEq/L Barometric Pressure mm/Hg POC Sodium (135-144) mEq/L Sodium 133 L (136-145) mmol/L POC Potassium (3.3-5.0) mEq/L Potassium (3.5-5.1) mmol/L POC Chloride (101-112) mEq/L Chloride 108 H (98-107) mmol/L Carbon Dioxide < 5 L* (21-32) mmol/L POC Total CO2 (24-31) mEq/l Anion Gap 21.0 H (3-11) POC Anion Gap (16-25) mmol/L POC BUN (7-18) mg/dl BUN 12 (7-18) mg/dl Creatinine 1.10 D (0.6-1.2) mg/dl POC Creatinine (0.6-1.3) mg/dl Est Cr Clr Drug Dosing 80.6 ml/min Est GFR ( Amer) 81.4 Est GFR (Non-Af Amer) 70.2 BUN/Creatinine Ratio 10.7 (10-20) Glucose 417 H* (70-99) mg/dl POC Glucose (70-99) POC Glucose (other) (70-99) mg/dl Lactate (0.4-2.0) mmol/L Calcium 9.6 D (8.5-10.1) mg/dl POC Ioniz Calcium Jose (1.12-1.32) mmol/l Phosphorus (2.5-4.9) mg/dl Magnesium (1.8-2.4) mg/dl Total Bilirubin 0.5 (0.2-1) mg/dl AST (15-37) U/L ALT 33 (12-78) U/L Alkaline Phosphatase 152 H (45-117) U/L Troponin I < 0.015 (0-0.045) ng/ml Total Protein 8.1 D (6.4-8.2) gm/dl Albumin 3.9 (3.4-5.0) gm/dl Globulin 4.2 H (2.5-4.0) gm/dl Albumin/Globulin Ratio 0.9 (0.9-2) Beta-Hydroxybutyric Acd (0.2-2.81) mg/dl Procalcitonin (0-0.5) ng/ml Urine Color Urine Appearance (Clear) Urine pH (4.5-7.5) Ur Specific Colon (1.000-1.030) Urine Protein (Negative) Urine Glucose (UA) (Negative) Urine Ketones (Negative) Urine Blood (Negative) Urine Nitrite (Negative) Urine Bilirubin (Negative) Urine Urobilinogen (Negative) Ur Leukocyte Esterase (Negative) Urine WBC (Auto) (0-5) /hpf Urine RBC (Auto) (0-4) /hpf U Hyaline Cast (Auto) (0-5) /lpf U Epithel Cells (Auto) (0-5) /lpf Urine Bacteria (Auto) (Negative) Nasal Screen MRSA (PCR) (Negative) Salicylates (2.8-20) mg/dl Acetaminophen (10-30) ug/ml 04/03/19 Range/Units 12:16 WBC (4.8-10.8) K/uL RBC (4.2-5.4) M/uL Hgb (12.0-16.0) g/dL POC Hgb (12.0-16.0) g/dl Hct (37-47) % POC Hct (37-47) % MCV (80-100) fL MCH (25-34) pg MCHC (32-36) g/dL RDW Std Deviation (36.4-46.3) fL RDW Coeff of Olesya (11.5-14.5) % Plt Count (130-400) K/uL MPV (7.4-10.4) fL Immature Gran % (Auto) % Neut % (Auto) % Lymph % (Auto) % Bee % (Auto) % Eos % (Auto) % Baso % (Auto) % Immature Gran # (Auto) (0.00-0.02) K/uL Neut # (Auto) (1.4-6.5) K/uL Lymph # (Auto) (1.2-3.4) K/uL Bee # (Auto) (0.11-0.59) K/uL Eos # (Auto) (0-0.5) K/uL Baso # (Auto) (0-0.2) K/uL Toxic Vacuolation PT (9.0-12.0) Seconds INR (0.9-1.1) APTT (21.0-31.0) Seconds PTT Ratio VBG pH (7.36-7.41) VBG pCO2 (38-50) mmHg VBG pO2 mmHg VBG HCO3 mmol/L VBG O2 Saturation % VBG Base Excess mEq/L Barometric Pressure mm/Hg POC Sodium (135-144) mEq/L Sodium (136-145) mmol/L POC Potassium (3.3-5.0) mEq/L Potassium (3.5-5.1) mmol/L POC Chloride (101-112) mEq/L Chloride (98-107) mmol/L Carbon Dioxide (21-32) mmol/L POC Total CO2 (24-31) mEq/l Anion Gap (3-11) POC Anion Gap (16-25) mmol/L POC BUN (7-18) mg/dl BUN (7-18) mg/dl Creatinine (0.6-1.2) mg/dl POC Creatinine (0.6-1.3) mg/dl Est Cr Clr Drug Dosing ml/min Est GFR ( Amer) Est GFR (Non-Af Amer) BUN/Creatinine Ratio (10-20) Glucose (70-99) mg/dl POC Glucose 395 H* (70-99) POC Glucose (other) (70-99) mg/dl Lactate (0.4-2.0) mmol/L Calcium (8.5-10.1) mg/dl POC Ioniz Calcium Jose (1.12-1.32) mmol/l Phosphorus (2.5-4.9) mg/dl Magnesium (1.8-2.4) mg/dl Total Bilirubin (0.2-1) mg/dl AST (15-37) U/L ALT (12-78) U/L Alkaline Phosphatase (45-117) U/L Troponin I (0-0.045) ng/ml Total Protein (6.4-8.2) gm/dl Albumin (3.4-5.0) gm/dl Globulin (2.5-4.0) gm/dl Albumin/Globulin Ratio (0.9-2) Beta-Hydroxybutyric Acd (0.2-2.81) mg/dl Procalcitonin (0-0.5) ng/ml Urine Color Urine Appearance (Clear) Urine pH (4.5-7.5) Ur Specific Colon (1.000-1.030) Urine Protein (Negative) Urine Glucose (UA) (Negative) Urine Ketones (Negative) Urine Blood (Negative) Urine Nitrite (Negative) Urine Bilirubin (Negative) Urine Urobilinogen (Negative) Ur Leukocyte Esterase (Negative) Urine WBC (Auto) (0-5) /hpf Urine RBC (Auto) (0-4) /hpf U Hyaline Cast (Auto) (0-5) /lpf U Epithel Cells (Auto) (0-5) /lpf Urine Bacteria (Auto) (Negative) Nasal Screen MRSA (PCR) (Negative) Salicylates (2.8-20) mg/dl Acetaminophen (10-30) ug/ml Medications Administered Current Inpatient Medications Dextrose (Dextrose 50%) 25 - 50 ml IV UD PRN; Protocol PRN Reason: Hypoglycemia Protocol Stop: 05/03/19 16:10 Glucagon (Glucagen) 1 mg SQ UD PRN; Protocol PRN Reason: Hypoglycemia Protocol Stop: 05/03/19 16:10 Glucose (Dex4 Glucose) 4 - 8 tabs PO UD PRN; Protocol PRN Reason: Hypoglycemia Protocol Stop: 05/03/19 16:10 Glucose (Glucose 40%) 15 - 30 gm PO UD PRN; Protocol PRN Reason: Hypoglycemia Protocol Stop: 05/03/19 16:10 Insulin Human Regular 250 (units/ Sodium Chloride) 250 mls @ 0 mls/hr IV .Q0M MATIAS; Protocol Stop: 05/03/19 13:29 Last Titration: 04/04/19 10:25 Dose: 0 units/hr, 0 mls/hr Documented by: Lactated Ringer's (Lr) 1,000 mls @ 100 mls/hr IV .Q10H MATIAS Stop: 05/04/19 10:29 Last Admin: 04/04/19 10:52 Dose: 100 mls/hr Documented by: Insulin Aspart (Novolog Aspart) 0 units SC ACHS MATIAS Stop: 05/04/19 16:29 Miscellaneous (Carbohydrates For Hypoglycemia) 15 - 30 gm PO UD PRN PRN Reason: Hypoglycemia Protocol Stop: 05/03/19 16:10 Miscellaneous (Stop Order) 1 ea N/A ONE ONE Stop: 04/04/19 13:01 Miscellaneous Information (Consult Glycemic Management Pharmacy) 1 ea N/A UD PRN; Protocol PRN Reason: Consult Stop: 05/03/19 16:17 Nystatin (Mycostatin) 5 ml PO QID MATIAS Stop: 04/13/19 20:59 Last Admin: 04/04/19 09:24 Dose: 5 ml Documented by: Ondansetron HCl (Zofran) 4 mg IV Q6H PRN PRN Reason: Nausea Stop: 05/03/19 16:10 Resident Activity Tracking Resident Involvement: Resident Care Provided Care Provided: Adult Hospital Medicine (1) DKA (diabetic ketoacidoses) Diabetes mellitus complication detail: without coma Diabetes mellitus type: type 1 Qualified Code(s): E10.10 - Type 1 diabetes mellitus with ketoacidosis without coma
[2019-04-04] MEDS ORDERED: INSULIN GLARGINE 100 UNIT/ML VIAL SC ONE (10:30)
[2019-04-04] MEDS: LACTATED RINGER'S 1,000 ML IV SCH ×2 (10:52→20:36)
--- NOTE | 2019-04-04 11:09 | Critical Care Progress Note ---
Date of Service April 04, 2019 Assessment & Plan (1) S/P admission to ICU (intensive care unit): DKA has resolved. It appears that she likely has some dietary indiscretions. Pharmacy is helping us adjust the insulin. I have also requested that endocrine see her on an inpatient basis. She needs diabetic education along with her family. No obvious infectious sequelae. Again, it seems like her DKA is due to issues with poor glycemic control. She does have a mild non-anion gap acidosis which is improving. She is safe to be transferred out to the floor. (2) DKA, type 1: (3) Dehydration: (4) Autism: (5) Tachypnea: (6) Tachycardia: (7) Hyperkalemia: (8) Metabolic acidosis: Subjective Patient is doing much better today. Her tachypnea has resolved. She notes that she does not have any chest pain or belly pain. She says that she is hungry. Her father is at bedside. Physical Exam Constitutional: The patient is short in stature. She is laying in bed. She is smiling. Eyes: PERRL, conjunctivae normal, anicteric sclerae ENMT: external ear and nose normal, oropharynx normal Neck: normal visual inspection Respiratory: normal respiratory effort, lungs clear to auscultation Clear to auscultation bilaterally. Cardiovascular: No murmurs rubs or gallops. Gastrointestinal (Abdomen): Soft, nontender, nondistended. Musculoskeletal: no cyanosis or clubbing, extremities motor strength 5/5 Skin: no rashes, warm and dry Neurologic: CN's II-XI intact bilaterally Psychiatric: Makes good eye contact. Smiling. Baseline autism. Results & Data Vital Signs (Past 12 Hours) Vital Signs Temp Pulse Pulse Resp BP BP Pulse Ox 04/04/19 09:38 98.4 F 90 18 116/75 100 04/04/19 08:38 91 H 18 121/68 99 04/04/19 08:00 92 H 19 98 04/04/19 07:38 93 H 19 101/57 L 99 04/04/19 07:00 90 18 98 04/04/19 06:00 107 H 20 110/66 99 04/04/19 05:00 98 H 20 128/72 100 04/04/19 04:00 99.3 F 103 H 20 96/48 L 100 04/04/19 03:00 103 H 20 118/55 L 98 04/04/19 02:00 100 H 20 99/38 L 99 04/04/19 01:00 104 H 22 99 04/04/19 00:00 99.5 F 112 H 22 102/67 100 Coding Level of Care Code 95489 Subseq Hosp Care Lvl 3 Diagnoses S/P admission to ICU (intensive care unit) DKA, type 1 E10.10 Diabetes mellitus complication detail: without coma Dehydration E86.0 Autism F84.0 Tachypnea R06.82 Tachycardia R00.0 Hyperkalemia E87.5 Metabolic acidosis E87.2 (1) DKA, type 1 Diabetes mellitus complication detail: without coma Qualified Code(s): E10.10 - Type 1 diabetes mellitus with ketoacidosis without coma
[2019-04-04] MEDS ORDERED: INSULIN ASPART 100 UNITS/ML VIAL SC SCH (11:30)
--- NOTE | 2019-04-04 12:22 | Pharmacy Report ---
Pharmacy Glycemic Short Note 2 - Date of Service April 04, 2019 - Glycemic Short BSG Results (Last 24 hours): 04/03/19 04/03/19 04/03/19 12:16 13:04 13:06 Glucose 417 H* POC Glucose 395 H* POC Glucose (other) 432 H* 04/03/19 04/03/19 04/03/19 13:44 14:59 15:49 Glucose POC Glucose 346 H* 285 H 250 H POC Glucose (other) 04/03/19 04/03/19 04/03/19 17:02 17:17 18:35 Glucose 183 H POC Glucose 171 H 170 H POC Glucose (other) 04/03/19 04/03/19 04/03/19 19:17 19:33 19:52 Glucose 147 H POC Glucose 132 H 128 H POC Glucose (other) 04/03/19 04/03/19 04/03/19 20:07 20:25 21:23 Glucose POC Glucose 139 H 165 H 208 H POC Glucose (other) 04/03/19 04/03/19 04/03/19 22:16 23:10 23:17 Glucose 246 H POC Glucose 217 H 206 H POC Glucose (other) 04/04/19 04/04/19 04/04/19 00:13 02:08 02:53 Glucose 220 H POC Glucose 240 H 224 H POC Glucose (other) 04/04/19 04/04/19 04/04/19 04:32 06:23 07:20 Glucose 184 H POC Glucose 203 H 206 H POC Glucose (other) 04/04/19 04/04/19 04/04/19 09:16 10:23 11:40 Glucose POC Glucose 132 H 104 H 124 H POC Glucose (other) OUTPATIENT ANTIDIABETIC REGIMEN: * Lantus 30 units SQ Q AM * Lispro TID w/ meals per scale (DE reported typical meal-time doses of 6-15 units/breakfast + 8-15 units/lunch + 8-20units/dinner * A1c = 9.2% ASSESSMENT: * Patient recently discharged from hospital following admission for DKA in the last week * Patient presented to the ER yesterday with moderate-severe DKA (Bicarb < 5, vpH 6.94, AG 21, Glu 417) * IV fluids and IV insulin infusion initiated in ER * This AM, AG acidosis has resolved (AG 6, Bicarb 17) but mild hyperchoremic metabolic acidosis present; and Glucose below 200 * Insulin drip rates being titrated down quickly this AM as BSGs less than 150 * Pt has now been ordered a diet and the plan is to transition her off the insulin drip today to a basal/bolus SQ regimen * Will use data obtained from last admission to guide initial SQ doses * OF NOTE, PT'S MOTHER REQUESTS INSULIN ADMINISTRATION FROM [facility]IAL[facility] ONLY (NO INSULIN PENS) PLAN FOR INPATIENT GLYCEMIC CONTROL: * Basal insulin * Lantus 40 units SQ x 1 this AM - reevaluate insulin needs tomorrow AM, will likely need a minimum of 30 units daily (home dose) * Discontinue the IV insulin infusion 2 hrs after Lantus given * Bolus insulin * NovoLog per scale ACHS + 00,04 initially * Goal Range: Low 110 mg/dL - High 140 mg/dL * Correction Factor: 20 mg/dL/unit * Nutritional / Prandial insulin per carb ratio of 1 unit per 6 grams CHO consumed PLAN FOR DISCHARGE: * to be determined
[2019-04-04] MEDS ORDERED: [UNRECOGNIZED DRUG - REMARK] ONE (13:00)
[2019-04-04] MEDS: INSULIN REGULAR 250 UNITS in SODIUM CHLORIDE 0.9% 247.5 ML IV SCH (13:34)
[2019-04-04] MEDS: INSULIN ASPART 100 UNITS/ML VIAL SC SCH ×2 (16:57→20:54)
--- NOTE | 2019-04-04 17:35 | Billing Data ---
Date of Service April 04, 2019 Coding Level of Care Code 60208 Subseq Hosp Care Lvl 2
[2019-04-05] MEDS: DEXTROSE 50% 50 ML SYRINGE IV PRN ×2 (00:11→07:47)
[2019-04-05] MEDS: INSULIN ASPART 100 UNITS/ML VIAL SC SCH ×6 (00:26→22:12)
[2019-04-05 05:48] LABS: Basophils # (auto) 0.02 K/uL (0-0.2); Basophils % (auto) 0.4 %; Hematocrit (blood only) 30.7 % (37-47); Hemoglobin 10.8 g/dL (12.0-16.0); Immature Granulocytes # (auto) 0.01 K/uL (0.00-0.02); Immature Granulocytes % (auto) 0.2 %; Lymphocytes # (auto) 2.43 K/uL (1.2-3.4); Lymphocytes % (auto) 49.4 %; Mean Corpuscular Hemoglobin 29.6 pg (25-34); Mean Corpuscular Hgb Conc 35.2 g/dL (32-36); Mean Corpuscular Volume 84.1 fL (80-100); Mean Platelet Volume 9.8 fL (7.4-10.4); Monocytes # (auto) 0.75 K/uL (0.11-0.59); Monocytes % (auto) 15.2 %; Neutrophils # (auto) 1.61 K/uL (1.4-6.5); Neutrophils % (auto) 32.8 %; Platelet Count 214 K/uL (130-400); RDW Coefficient of Variation 13.4 % (11.5-14.5); RDW Standard Deviation 40.8 fL (36.4-46.3); Red Blood Count 3.65 M/uL (4.2-5.4); White Blood Count 4.92 K/uL (4.8-10.8)
[2019-04-05 06:21] LABS: Blood Urea Nitrogen 3 mg/dl (7-18); Calcium 7.8 mg/dl (8.5-10.1); Carbon Dioxide 21 mmol/L (21-32); Chloride 115 mmol/L (98-107); Creatinine Clr Calc Pharmacy 217.5 ml/min; Est GFR (African American) > 150.0; Est GFR (Non-African American) 144.6; Glucose 71 mg/dl (70-99); Magnesium 1.9 mg/dl (1.8-2.4); Potassium 3.2 mmol/L (3.5-5.1); Sodium 140 mmol/L (136-145)
[2019-04-05] MEDS: LACTATED RINGER'S 1,000 ML IV SCH ×2 (06:39→17:38)
[2019-04-05] MEDS ORDERED: POTASSIUM CHLORIDE 20 MEQ/15 ML UDC PO STA (07:32)
[2019-04-05] MEDS: ENOXAPARIN INJ 40 MG/0.4 ML SYR SQ SCH (08:51)
[2019-04-05] MEDS: NYSTATIN SUSP 500,000 U/5 ML UDC PO SCH ×3 (08:51→21:43)
[2019-04-05] MEDS ORDERED: POTASSIUM CHLORIDE PWD 20 MEQ PACK PO ONE (11:11)
[2019-04-05] MEDS ORDERED: INSULIN GLARGINE 100 UNIT/ML VIAL SC ONE (12:45)
--- NOTE | 2019-04-05 13:13 | Pharmacy Report ---
Pharmacy Glycemic Short Note 2 - Date of Service April 05, 2019 - Glycemic Short BSG Results (Last 24 hours): 04/04/19 04/04/19 04/04/19 15:57 20:31 23:43 Glucose POC Glucose 108 H 132 H 45 L* 04/04/19 04/05/19 04/05/19 23:45 00:08 00:32 Glucose POC Glucose 46 L* 44 L* 142 H 04/05/19 04/05/19 04/05/19 04:44 05:33 07:37 Glucose 71 POC Glucose 86 56 L* 04/05/19 04/05/19 04/05/19 07:37 07:38 08:03 Glucose POC Glucose 72 54 L* 99 04/05/19 11:35 Glucose POC Glucose 125 H OUTPATIENT ANTIDIABETIC REGIMEN: * Lantus 30 units SQ Q AM * Lispro TID w/ meals per scale (DE reported typical meal-time doses of 6-15 units/breakfast + 8-15 units/lunch + 8-20units/dinner) * A1c = 9.2% ASSESSMENT: 04/05/19 * Met with patient and family today - they were concerned that patient had received 40 units of Lantus yesterday and this resulted in 2 episodes of hypoglycemia, last evening and early this morning. Explained to the family that we used this same dose last week to transition off of insulin drip and patient's blood sugars remained in the 200s at that time. Discussed with mother what dose of Lantus she would use today, she said she'd go back to her daily dose of 30 units. After further discussion I recommended that we only do 20 units today, as patient's PO intake is significantly decreased. Mother agreed with this decision. * Note, pt autistic, unable to treat hypoglycemia with gel/tablets - using IV Dextrose while inpatient. Patient is able to do applesauce at home. * Pt also has not had BM in over a week, will let provider know at MDR * Spoke with CDE to see patient's family, as this is the second occurrence of DKA in 2 weeks, first one seemed to be d/t stomach virus, but second episode is unexplainable other than still recovering and decreased PO intake. * Family also requested plate with nutritional dividers, CDE to obtain one for patient. * Will also loosen CR slightly at this time with decreased PO intake and recent hypoglycemia. 04/04/19 * Patient recently discharged from hospital following admission for DKA in the last week * Patient presented to the ER yesterday with moderate-severe DKA (Bicarb < 5, vpH 6.94, AG 21, Glu 417) * IV fluids and IV insulin infusion initiated in ER * This AM, AG acidosis has resolved (AG 6, Bicarb 17) but mild hyperchloremic metabolic acidosis present; and Glucose below 200 * Insulin drip rates being titrated down quickly this AM as BSGs less than 150 * Pt has now been ordered a diet and the plan is to transition her off the insulin drip today to a basal/bolus SQ regimen * Will use data obtained from last admission to guide initial SQ doses * OF NOTE, PT'S MOTHER REQUESTS INSULIN ADMINISTRATION FROM VIALS ONLY (NO INSULIN PENS) PLAN FOR INPATIENT GLYCEMIC CONTROL: * Basal insulin * DECREASE Lantus 20 units SQ x 1 today at 1245 with lunch * Will determine further dosing tomorrow morning. * Bolus insulin * NovoLog per scale ACHS * Goal Range: Low 110 mg/dL - High 140 mg/dL * Correction Factor: 20 mg/dL/unit * LOOSEN: Nutritional / Prandial insulin per carb ratio of 1 unit per 7 grams CHO consumed PLAN FOR DISCHARGE: * to be determined
--- NOTE | 2019-04-05 13:21 | Discharge Summary ---
Date of Service April 05, 2019 Admission HPI Per Admitting Provider Patient is a 24 years old female with type 1 diabetes on insulin Lantus and lispro, autism, who presents to the emergency room for shortness of breath and feeling sick in general. Patient was brought by her mother who takes care of her. Patient said have severe autism. She is alert and oriented but unable to speak in articulate manner and due to her autism. She presented with tachypnea hypotension dehydration fever and hyperkalemia. Patient's mother reports that patient had stomach bug since March 28 as well as other members of their family. Labs are reviewed which shows: WBC 17.6, hemoglobin 14.3, hematocrit 44, platelets 357, PT 10.3, INR 1.0, APTT 25.4, VBG 6.92, PCO2 124, PO2 124, bicarb 3, calcium of 7.1, sodium of 133, creatinine of 1.1, GFR of 70, glucose of 417, lactate 1.7, AST 10, ALT 33, alkaline phosphatase 152, troponin 0.015. Urine urine positive for ketones 4+ urine nitrate negative urine leukocyte esterase negative, over 30 of RBCs. Urine test negative. Patient had checked flu A and B and that was negative on April 01. Chest x-rays: Lungs are clear. There is no pneumothorax or pleural effusion. Decision was made to admit patient to the ICU to critical care for DKA. Admission Exam Per Admitting Provider Constitutional: WD/WN, vitals as above well developed and + obese Eyes: PERRL, conjunctivae normal, anicteric sclerae ENMT: external ear and nose normal, oropharynx normal Neck: trachea midline, no thyromegaly normal visual inspection Respiratory: + respiratory distress and + labored breathing Cardiovascular: Rate/Rhythm: + tachycardic Heart Sounds: normal S1 and normal S2 Gastrointestinal (Abdomen): normal bowel sounds, soft, nontender, no hepatosplenomegaly Musculoskeletal: no cyanosis or clubbing, extremities motor strength 5/5 Skin: no rashes, warm and dry Neurologic: patellar DTR's 2+ bilat, sensation intact CN's II-XI intact bilaterally Psychiatric: A+Ox3, euthymic affect Lymphatic: no cervical or axillary lymphadenopathy Principal Diagnosis DKA in the setting of type 1 diabetes mellitus requiring ICU admission Discharge Exam General: Young adult female, laying in bed in no acute distress. HEENT: Normocephalic atraumatic Neck: No significant lymphadenopathy, trachea midline, normal to visual inspection Cardiac: Regular rate and rhythm, normal S1, normal S2, I did not appreciated any significant murmurs rubs or gallops, I did not appreciate any significant pedal edema, No calf tenderness, capillary refill is less than 3 seconds Respiratory: Clear to auscultation bilaterally with symmetrical chest rise, I did not appreciate any significant wheezes, rales, rhonchi, no increased work of breathing GI: Normal bowel sounds, soft, nontender in all 4 quadrants, nondistended MSK: No sensory or motor changes, moves all extremities without issue, extremities are warm and well-perfused Skin: [place], clean, dry, intact. Neuro: Alert unable to assess orientation secondary to mental status Psych: Calm, cooperative Discharge Data Allergies Allergy/AdvReac Type Severity Reaction Status Date / Time adhesive tape Allergy Unknown Verified 04/03/19 15:01 erythromycin base Allergy Unknown Verified 04/03/19 15:01 gluten Allergy Unknown Verified 04/03/19 15:01 Penicillins Allergy Unknown Verified 04/03/19 15:01 Sulfa (Sulfonamide Allergy Unknown Verified 04/03/19 15:01 Antibiotics) wheat Allergy Unknown Verified 04/03/19 15:01 Consultations 04/03/19 13:59 Consult Music Specialist Stat ED Decision to Admit Stat 04/03/19 16:11 Consult Music Specialist Routine 04/03/19 20:07 Consult Endocrinology Routine Hospital Course (1) DKA (diabetic ketoacidoses): 24-year-old female with a past medical history of autism, type 1 diabetes, celiac disease, recently discharged from the hospital in early March for DKA admitted to the ICU for evaluation and management of DKA #DKA Patient with a history of type 1 diabetes, recently discharged from [facility] for DKA. During her last admission hemoglobin A1c was determined to be 9.2 indicating poor sugar control. Patient presented to the emergency department yesterday evening by personal transport, she was with her mother and 2 sisters. On presentation she was tachypneic, poorly mentating, subjective fever. There does not appear to be any acute trigger to cause her DKA, with the exception of poor glucose control. VBG on presentation demonstrated a pH of 6.94, she was hyperkalemic, hyponatremic, appeared dehydrated on physical exam, and tachypneic. Patient was transferred to the ICU for further evaluation and management. She was placed on insulin drip, and her gap closed overnight. This morning she received 40 units of glargine, and tolerated her diet. She was subsequently deemed stable [facility]. Her blood sugars have been checked every hour, and have been within normal limits, glycemic consult is been placed and pharmacy has been managing. Her BMP this morning 04/05/19 demonstrated a touch of hypokalemia which was repleted. Cumulatively the patient received 12.3 L of fluid throughout this admission. On the day of discharge I contacted the patient's pediatric endocrin ologist Dr. Bowling's office. He is out of town and currently however I spoke with the elementary educator who provided recommendations regarding long-acting insulin dose at discharge. On the day of discharge we spent an extensive amount of time counseling the patient and her family on type 1 diabetes, medications for type 1 diabetes, complications of diabetes, and the importance of adequate sugar control. -Lantus 40 units daily -NovoLog correction factor of 20, CHO ratio 1-6 -3 AM blood sugar checks. #Diabetes type 1 Patient with history of diabetes type 1, most recent A1c 9.2 indicating poor sugar control. Given the recent discharge from the hospital, and readmission for DKA. We are suspicious that the family needs education with regards to diet and glucose control. Furthermore they would likely benefit from having a local credit product analyst. Should these episodes continue to recur and the patient become hyperglycemic with a would be able to contact the credit product analyst for recommenda tions prior to presenting to the hospital hopefully averting a DKA admission. -See above #Thrush Patient diagnosed with thrush as an outpatient on presentation in the ED. -Continued nystatin 4 times daily -Complete remaining 2 days as an outpatient #Electrolyte abnormalities Patient presented with significant hyperkalemia and hyponatremia likely secondary to DKA. Mental status was intact. BMP was trended daily, electrolytes were repleted as indicated. FENa: Diabetic type I diet, gluten-free Code Status: Full code DVT PPX: Lovenox PT/OT: Not indicated Dispo: Home Lamberto Anne MD PGY 2, FCM This chart was completed utilizing [employer] voice recognition software. Grammatical errors, random word insertions, pronoun errors, and in complete sentences are an occasional consequence of the system. Any questions or concerns about the content, text, or information contained within the body of this dictation should be addressed directly to the physician for clarification. (2) S/P admission to ICU (intensive care unit): (3) Autism: (4) Celiac disease: (5) Type 1 diabetes: (6) Hyperkalemia: Total Time Total Time Spent Total Time Spent (In Minutes): See attending attestation Discharge Plan Discharge Items Patient Disposition: Home - Self-Care Reason For Visit: DKA Discharge Diagnosis: Diabetic ketoacidosis in the setting of type 1 diabetes requiring ICU admission Activity: Resume your previous activity Non-emergency contact: Primary Care Provider Call non-emergency contact if: you have any medication questions, your pain is unusual for you and your temperature is above 101 Follow-up/Referrals: Jose Paredes [Primary Care Provider] - Diet: Carb Count or DM1 Addtl Attending Provider Instructions: Care instructions: You were admitted to [facility] for treatment of []. A discharge summary will be sent to your primary care physician to ensure continuity of care. Please bring this discharge summary with you to your next office appointment so that your provider can review it at that time. Follow-up appointments: - Keep all your follow-up appointments as already scheduled. If you cannot make an appointment, notify your provider. - Please call to request a follow-up appointment with your primary care physician within one week of discharge. Please let us know if you are unable to obtain an appointment Follow-up labs: - Please go to a lab nearest you and obtain the requested lab work. Please have this completed at least 3 hours before your doctor's appointment (or the day before your appointment if possible). Medications: - Your medication list has been reviewed and reconciled upon discharge to ensure accuracy and continuity of care. - You are provided with a list of all your current medications at this time. Please review this list closely and make note of any changes. - Please take all of your medications exactly as prescribed. - Tell your primary care provider if you cannot afford your medications. - Call your primary care provider if you are having any side effects or any other problems. - Call your primary care provider before taking any over the counter medications or supplements, including herbals and vitamins, because some of these may interact with your current medications and/or make your symptoms worse. Symptoms: Please call your primary care provider for symptoms including, but not limited to: fevers (temperatures greater than 100.4), chills, intractable nausea or vomiting, diarrhea, rash, shortness of breath, bleeding, pain, or if you experience any worsening of the symptoms that brought you to the hospital. For EMERGENCY and VERY SERIOUS health-related issues, such as chest pain, shortness of breath, or sudden onset of the symptoms that brought you to the hospital, you may need to call 911 or go directly to the Emergency Room It has been our privilege to take care of you during your hospital stay. And Above All Else Feel Better! Best Wishes, Lamberto Anne MD PGY2 Resident, Family & Community Medicine [facility] at [address], [address] : [place] [address] Stand-Alone Forms: My [facility], Smoking Cessation Medications and DC Order Prescriptions: No Action insulin lispro [Humalog U-100 Insulin] 100 unit/mL Solution 1 sliding scale dose SUBCUT TIDM RF: 0 nystatin 100,000 unit/mL suspension 300,000 units BUCCAL QID 7 Days Qty: 84 RF: 0 Lantus U-100 Insulin 100 unit/mL solution 30 unit SUBCUT QAM RF: 0 Admission Data Admit Date/Time: 04/03/19 13:58 Attending Provider: Nicolas Ross Admit Provider: Marisela Bryan Primary Care Provider: Jose Paredes Other Providers: Joshua Jerome ; Marisela Bryan ; Yeni Martínez ; Rosetta Valencia ; Sushil,Merry Liriano ; Kiel Mcgill ; Abhijit Marley ; Lashonda Garcia ; Olga Chong ; Lluvia Hess ; Telly Hernandez
--- NOTE | 2019-04-05 16:00 | Hospitalist Progress Note ---
Date of Service April 05, 2019 Assessment & Plan (1) DKA (diabetic ketoacidoses): 24-year-old female with a past medical history of autism, type 1 diabetes, celiac disease, recently discharged from the hospital in early March for DKA admitted to the ICU for evaluation and management of DKA. DKA resolved and she was subsequently transferred to the floor #DKA Patient with a history of type 1 diabetes, recently discharged from [facility] for DKA. During her last admission hemoglobin A1c was determined to be 9.2 indicating poor sugar control. Patient presented to the emergency department yesterday evening by personal transport, she was with her mother and 2 sisters. On presentation she was tachypneic, poorly mentating, subjective fever. There does not appear to be any acute trigger to cause her DKA, with the exception of poor glucose control. VBG on presentation demonstrated a pH of 6.94, she was hyperkalemic, hyponatremic, appeared dehydrated on physical exam, and tachypneic. Patient was transferred to the ICU for further evaluation and management. She was placed on insulin drip, and her gap closed overnight. This morning she received 40 units of glargine, and tolerated her diet. She was subsequently deemed stable for transfer to the general medical floors. Her blood sugars have been checked every hour, and have been within normal limits, glycemic consult is been placed and pharmacy has been managing. Her BMP this morning 04/05/19 demonstrated a touch of hypokalemia which was repleted. Cumulatively the patient received 12.3 L of fluid throughout this admission. I contacted the patient's pediatric meter repairer Dr. Bowling's office. He is out of town and currently however I spoke with the tying machine operator lumber who Discussed the patient's past blood sugar history and insulin usage, and agreed with us regarding long-acting insulin dose at discharge. Throughout the admission we spent an extensive amount of time counseling the patient and her family on type 1 diabetes, medications for type 1 diabetes, complications of diabetes, and the importance of adequate sugar control. -Pharmacy glycemic management -Need discharge recommendations -Suspect 35 units of Lantus -NovoLog with correction factor of 20, and CHO ratio of 1-6 -Will need close follow-up on discharge -Given 20 units of Lantus today -NovoLog correction factor of 20, CHO ratio 1-7 -3 AM blood sugar checks. #Diabetes type 1 Patient with history of diabetes type 1, most recent A1c 9.2 indicating poor sugar control. Given the recent discharge from the hospital, and readmission for DKA. We are suspicious that the family needs education with regards to diet and glucose control. Furthermore they would likely benefit from having a local meter repairer. Should these episodes continue to recur and the patient become hyperglycemic with a would be able to contact the meter repairer for recommendations prior to presenting to the hospital hopefully averting a DKA admission. Patient also needs a sick plan, communicated this to her outpatient tying machine operator lumber, they are to discuss. -See above #Thrush Patient diagnosed with thrush as an outpatient on presentation in the ED. -Continue nystatin 4 times daily #Electrolyte abnormalities Patient presented with significant hyperkalemia and hyponatremia likely secondary to DKA. Mental status was intact. BMP was trended daily, electrolytes were repleted as indicated. -Repleted potassium x40 mEq this morning. FENa: Diabetic type I diet, gluten-free Code Status: Full code DVT PPX: Lovenox PT/OT: Not indicated Dispo: Home Lamberto Anne MD PGY 2, FCM This chart was completed utilizing [employer] voice recognition software. Grammatical errors, random word insertions, pronoun errors, and in complete sentences are an occasional consequence of the system. Any questions or concerns about the content, text, or information contained within the body of this dictation should be addressed directly to the physician for clarification. (2) S/P admission to ICU (intensive care unit): (3) Autism: (4) Celiac disease: (5) Type 1 diabetes: (6) Hyperkalemia: Supervising Physician Co-Signing Physician Notes I personally examined the patient and verified all mcneill points of history and exam, discussed case, and agree with decision making with Dr Anne. feeling better still not eating well, but a little better. extensive discussions with mother/family in regards to sugar management - overall she tries to do well w carb counting and matching insulins to carbs - describes "brittle diabetes" like scenario of some highs and lows unexpected. mother harbors huge fears of lows due to a lot when pt was 14yrs old that led to seizure that led to ~3 months of slow recovery. answered all questions to the best of my ability and to family's satisfaction. vitals noted nad breathing unlabored. eating a little better. no respiratory distress. no focal neuro deficits. DKA - recurrent. seems to have been viral GE and now poor oral intake/dehydration from thrush -- continue IV fluids until taking PO well. extensive discussions on home insulin management - does appear that while she has some erratic control but it's still quite possible that a lot of her "brittle" is insulin-carb mismatch -- discussed checking 2hr postprandial glucoses to help learn from insulin dosing/carbs consumed. time in ~450p, time out 540p ~50mins face to face discussing care/educating on insulins and management/helping troubleshoot. otherwise as above Subjective Patient sitting up in bed this morning in no acute distress father reports doing well overnight. She has not been eating as well recently. Yesterday was given 40 units of Lantus, had a couple of episodes of lows, this could be due to poor p.o. increase versus too much basal insulin. Plan to obtain further history of insulin regimen when mom is present later today. Otherwise patient is doing well, in good spirits, acute concerns related to discharge insulin plan, all questions answered. Physical Exam Physical Exam: General: Obese female in no acute distress HEENT: Normocephalic atraumatic Neck: Normal to visual inspection, negative JVD Cardiac: Regular rate and rhythm, I did not appreciate any significant murmurs, rubs, gallops, normal S1, normal S2, negative pedal edema, negative calf tenderness Respiratory: Clear to auscultation bilaterally with symmetrical chest expansion, I did not appreciate any significant wheezes, rales, rhonchi GI: Soft, nontender, nondistended, bowel sounds present MSK: Moves all extremities Neuro: Alert unable to assess orientation Psych: Calm, cooperative with the interview. Results & Data Vital Signs (Past 12 Hours) Vital Signs Temp Pulse Resp BP Pulse Ox 04/05/19 15:02 36.3 C L 72 20 119/82 100 04/05/19 11:15 37.2 C 71 18 116/76 100 04/05/19 07:22 36.9 C 83 18 121/77 99 Laboratory Results 04/05/19 04/05/19 04/05/19 Range/Units 11:35 08:03 07:38 WBC (4.8-10.8) K/uL RBC (4.2-5.4) M/uL Hgb (12.0-16.0) g/dL Hct (37-47) % MCV (80-100) fL MCH (25-34) pg MCHC (32-36) g/dL RDW Std Deviation (36.4-46.3) fL RDW Coeff of Olesya (11.5-14.5) % Plt Count (130-400) K/uL MPV (7.4-10.4) fL Immature Gran % (Auto) % Neut % (Auto) % Lymph % (Auto) % Mitchell % (Auto) % Eos % (Auto) % Baso % (Auto) % Immature Gran # (Auto) (0.00-0.02) K/uL Neut # (Auto) (1.4-6.5) K/uL Lymph # (Auto) (1.2-3.4) K/uL Mitchell # (Auto) (0.11-0.59) K/uL Eos # (Auto) (0-0.5) K/uL Baso # (Auto) (0-0.2) K/uL Sodium (136-145) mmol/L Potassium (3.5-5.1) mmol/L Chloride (98-107) mmol/L Carbon Dioxide (21-32) mmol/L Anion Gap (3-11) BUN (7-18) mg/dl Creatinine (0.6-1.2) mg/dl Est Cr Clr Drug Dosing ml/min Est GFR ( Amer) Est GFR (Non-Af Amer) BUN/Creatinine Ratio (10-20) Glucose (70-99) mg/dl POC Glucose 125 H 99 54 L* (70-99) Calcium (8.5-10.1) mg/dl Phosphorus (2.5-4.9) mg/dl Magnesium (1.8-2.4) mg/dl Random Cortisol mcg/dl 04/05/19 04/05/19 04/05/19 Range/Units 07:37 07:37 05:33 WBC (4.8-10.8) K/uL RBC (4.2-5.4) M/uL Hgb (12.0-16.0) g/dL Hct (37-47) % MCV (80-100) fL MCH (25-34) pg MCHC (32-36) g/dL RDW Std Deviation (36.4-46.3) fL RDW Coeff of Olesya (11.5-14.5) % Plt Count (130-400) K/uL MPV (7.4-10.4) fL Immature Gran % (Auto) % Neut % (Auto) % Lymph % (Auto) % Mitchell % (Auto) % Eos % (Auto) % Baso % (Auto) % Immature Gran # (Auto) (0.00-0.02) K/uL Neut # (Auto) (1.4-6.5) K/uL Lymph # (Auto) (1.2-3.4) K/uL Mitchell # (Auto) (0.11-0.59) K/uL Eos # (Auto) (0-0.5) K/uL Baso # (Auto) (0-0.2) K/uL Sodium (136-145) mmol/L Potassium (3.5-5.1) mmol/L Chloride (98-107) mmol/L Carbon Dioxide (21-32) mmol/L Anion Gap (3-11) BUN (7-18) mg/dl Creatinine (0.6-1.2) mg/dl Est Cr Clr Drug Dosing ml/min Est GFR ( Amer) Est GFR (Non-Af Amer) BUN/Creatinine Ratio (10-20) Glucose (70-99) mg/dl POC Glucose 72 56 L* (70-99) Calcium (8.5-10.1) mg/dl Phosphorus (2.5-4.9) mg/dl Magnesium (1.8-2.4) mg/dl Random Cortisol 12.00 mcg/dl 04/05/19 04/05/19 04/05/19 Range/Units 05:33 05:33 04:44 WBC 4.92 (4.8-10.8) K/uL RBC 3.65 L (4.2-5.4) M/uL Hgb 10.8 L (12.0-16.0) g/dL Hct 30.7 L (37-47) % MCV 84.1 (80-100) fL MCH 29.6 (25-34) pg MCHC 35.2 (32-36) g/dL RDW Std Deviation 40.8 (36.4-46.3) fL RDW Coeff of Olesya 13.4 (11.5-14.5) % Plt Count 214 (130-400) K/uL MPV 9.8 (7.4-10.4) fL Immature Gran % (Auto) 0.2 % Neut % (Auto) 32.8 % Lymph % (Auto) 49.4 % Mitchell % (Auto) 15.2 % Eos % (Auto) 2.0 % Baso % (Auto) 0.4 % Immature Gran # (Auto) 0.01 (0.00-0.02) K/uL Neut # (Auto) 1.61 (1.4-6.5) K/uL Lymph # (Auto) 2.43 (1.2-3.4) K/uL Mitchell # (Auto) 0.75 H (0.11-0.59) K/uL Eos # (Auto) 0.10 (0-0.5) K/uL Baso # (Auto) 0.02 (0-0.2) K/uL Sodium 140 (136-145) mmol/L Potassium 3.2 L (3.5-5.1) mmol/L Chloride 115 H (98-107) mmol/L Carbon Dioxide 21 (21-32) mmol/L Anion Gap 4.0 (3-11) BUN 3 L (7-18) mg/dl Creatinine 0.41 L D (0.6-1.2) mg/dl Est Cr Clr Drug Dosing 217.5 ml/min Est GFR ( Amer) > 150.0 Est GFR (Non-Af Amer) 144.6 BUN/Creatinine Ratio 7.0 L (10-20) Glucose 71 (70-99) mg/dl POC Glucose 86 (70-99) Calcium 7.8 L (8.5-10.1) mg/dl Phosphorus 2.0 L (2.5-4.9) mg/dl Magnesium 1.9 (1.8-2.4) mg/dl Random Cortisol mcg/dl 04/05/19 04/05/19 04/04/19 Range/Units 00:32 00:08 23:45 WBC (4.8-10.8) K/uL RBC (4.2-5.4) M/uL Hgb (12.0-16.0) g/dL Hct (37-47) % MCV (80-100) fL MCH (25-34) pg MCHC (32-36) g/dL RDW Std Deviation (36.4-46.3) fL RDW Coeff of Olesya (11.5-14.5) % Plt Count (130-400) K/uL MPV (7.4-10.4) fL Immature Gran % (Auto) % Neut % (Auto) % Lymph % (Auto) % Mitchell % (Auto) % Eos % (Auto) % Baso % (Auto) % Immature Gran # (Auto) (0.00-0.02) K/uL Neut # (Auto) (1.4-6.5) K/uL Lymph # (Auto) (1.2-3.4) K/uL Mitchell # (Auto) (0.11-0.59) K/uL Eos # (Auto) (0-0.5) K/uL Baso # (Auto) (0-0.2) K/uL Sodium (136-145) mmol/L Potassium (3.5-5.1) mmol/L Chloride (98-107) mmol/L Carbon Dioxide (21-32) mmol/L Anion Gap (3-11) BUN (7-18) mg/dl Creatinine (0.6-1.2) mg/dl Est Cr Clr Drug Dosing ml/min Est GFR ( Amer) Est GFR (Non-Af Amer) BUN/Creatinine Ratio (10-20) Glucose (70-99) mg/dl POC Glucose 142 H 44 L* 46 L* (70-99) Calcium (8.5-10.1) mg/dl Phosphorus (2.5-4.9) mg/dl Magnesium (1.8-2.4) mg/dl Random Cortisol mcg/dl 04/04/19 04/04/19 04/04/19 Range/Units 23:43 20:31 15:57 WBC (4.8-10.8) K/uL RBC (4.2-5.4) M/uL Hgb (12.0-16.0) g/dL Hct (37-47) % MCV (80-100) fL MCH (25-34) pg MCHC (32-36) g/dL RDW Std Deviation (36.4-46.3) fL RDW Coeff of Olesya (11.5-14.5) % Plt Count (130-400) K/uL MPV (7.4-10.4) fL Immature Gran % (Auto) % Neut % (Auto) % Lymph % (Auto) % Mitchell % (Auto) % Eos % (Auto) % Baso % (Auto) % Immature Gran # (Auto) (0.00-0.02) K/uL Neut # (Auto) (1.4-6.5) K/uL Lymph # (Auto) (1.2-3.4) K/uL Mitchell # (Auto) (0.11-0.59) K/uL Eos # (Auto) (0-0.5) K/uL Baso # (Auto) (0-0.2) K/uL Sodium (136-145) mmol/L Potassium (3.5-5.1) mmol/L Chloride (98-107) mmol/L Carbon Dioxide (21-32) mmol/L Anion Gap (3-11) BUN (7-18) mg/dl Creatinine (0.6-1.2) mg/dl Est Cr Clr Drug Dosing ml/min Est GFR ( Amer) Est GFR (Non-Af Amer) BUN/Creatinine Ratio (10-20) Glucose (70-99) mg/dl POC Glucose 45 L* 132 H 108 H (70-99) Calcium (8.5-10.1) mg/dl Phosphorus (2.5-4.9) mg/dl Magnesium (1.8-2.4) mg/dl Random Cortisol mcg/dl Medications Administered Current Inpatient Medications Dextrose (Dextrose 50%) 25 - 50 ml IV UD PRN; Protocol PRN Reason: Hypoglycemia Protocol Stop: 05/03/19 16:10 Last Admin: 04/05/19 07:47 Dose: 25 ml Documented by: Enoxaparin Sodium (Lovenox) 40 mg SQ QAM MATIAS Stop: 05/05/19 08:59 Last Admin: 04/05/19 08:51 Dose: 40 mg Documented by: Glucagon (Glucagen) 1 mg SQ UD PRN; Protocol PRN Reason: Hypoglycemia Protocol Stop: 05/03/19 16:10 Glucose (Dex4 Glucose) 4 - 8 tabs PO UD PRN; Protocol PRN Reason: Hypoglycemia Protocol Stop: 05/03/19 16:10 Glucose (Glucose 40%) 15 - 30 gm PO UD PRN; Protocol PRN Reason: Hypoglycemia Protocol Stop: 05/03/19 16:10 Lactated Ringer's (Lr) 1,000 mls @ 100 mls/hr IV .Q10H [facility] Stop: 05/04/19 10:29 Last Admin: 04/05/19 06:39 Dose: 100 mls/hr Documented by: Insulin Aspart (Novolog Aspart) 0 units SC ACHS [facility] Stop: 05/04/19 16:29 Last Admin: 04/05/19 12:41 Dose: 1 units Documented by: Miscellaneous (Carbohydrates For Hypoglycemia) 15 - 30 gm PO UD PRN PRN Reason: Hypoglycemia Protocol Stop: 05/03/19 16:10 Last Admin: 04/04/19 23:49 Dose: 30 gm Documented by: Miscellaneous Information (Consult Glycemic Management Pharmacy) 1 ea N/A UD PRN; Protocol PRN Reason: Consult Stop: 05/03/19 16:17 Nystatin (Mycostatin) 5 ml PO QID [facility] Stop: 04/13/19 20:59 Last Admin: 04/05/19 12:37 Dose: 5 ml Documented by: Ondansetron HCl (Zofran) 4 mg IV Q6H PRN PRN Reason: Nausea Stop: 05/03/19 16:10 Resident Activity Tracking Resident Involvement: Resident Care Provided Care Provided: Adult Hospital Medicine (1) DKA (diabetic ketoacidoses) Diabetes mellitus complication detail: without coma Diabetes mellitus type: type 1 Qualified Code(s): E10.10 - Type 1 diabetes mellitus with ketoacidosis without coma
[2019-04-05] MEDS ORDERED: ACETAMINOPHEN 500 MG TAB PO PRN (16:29)
--- NOTE | 2019-04-05 20:51 | Billing Data ---
Date of Service April 05, 2019 Coding Level of Care Code 44319 Prolonged Care (int'l)
--- NOTE | 2019-04-05 20:51 | Billing Data ---
Date of Service April 05, 2019 Coding Level of Care Code 38095 Subseq Hosp Care Lvl 3
[2019-04-06] MEDS: LACTATED RINGER'S 1,000 ML IV SCH (02:26)
[2019-04-06 06:42] LABS: Hematocrit (blood only) 29.4 % (37-47); Hemoglobin 10.3 g/dL (12.0-16.0); Mean Corpuscular Hemoglobin 29.4 pg (25-34); Mean Platelet Volume 9.9 fL (7.4-10.4); Platelet Count 191 K/uL (130-400); RDW Coefficient of Variation 13.3 % (11.5-14.5); RDW Standard Deviation 40.2 fL (36.4-46.3); White Blood Count 3.51 K/uL (4.8-10.8)
--- NOTE | 2019-04-06 07:13 | Discharge Summary ---
Date of Service April 06, 2019 Admission HPI Per Admitting Provider Patient is a 24 years old female with type 1 diabetes on insulin Lantus and lispro, autism, who presents to the emergency room for shortness of breath and feeling sick in general. Patient was brought by her mother who takes care of her. Patient said have severe autism. She is alert and oriented but unable to speak in articulate manner and due to her autism. She presented with tachypnea hypotension dehydration fever and hyperkalemia. Patient's mother reports that patient had stomach bug since March 28 as well as other members of their family. Labs are reviewed which shows: WBC 17.6, hemoglobin 14.3, hematocrit 44, platelets 357, PT 10.3, INR 1.0, APTT 25.4, VBG 6.92, PCO2 124, PO2 124, bicarb 3, calcium of 7.1, sodium of 133, creatinine of 1.1, GFR of 70, glucose of 417, lactate 1.7, AST 10, ALT 33, alkaline phosphatase 152, troponin 0.015. Urine urine positive for ketones 4+ urine nitrate negative urine leukocyte esterase negative, over 30 of RBCs. Urine test negative. Patient had checked flu A and B and that was negative on April 01. Chest x-rays: Lungs are clear. There is no pneumothorax or pleural effusion. Decision was made to admit patient to the ICU to critical care for DKA. Admission Exam Per Admitting Provider Constitutional: WD/WN, vitals as above well developed and + obese Eyes: PERRL, conjunctivae normal, anicteric sclerae ENMT: external ear and nose normal, oropharynx normal Neck: trachea midline, no thyromegaly normal visual inspection Respiratory: + respiratory distress and + labored breathing Cardiovascular:Rate/Rhythm: + tachycardic Heart Sounds: normal S1 and normal S2 Gastrointestinal (Abdomen): normal bowel sounds, soft, nontender, no hepatosplenomegaly Musculoskeletal: no cyanosis or clubbing, extremities motor strength 5/5 Skin: no rashes, warm and dry Neurologic: patellar DTR's 2+ bilat, sensation intact CN's II-XI intact bilaterally Psychiatric: A+Ox3, euthymic affect Lymphatic: no cervical or axillary lymphadenopathy Principal Diagnosis DKA Discharge Exam Constitutional WD/WN, vitals as above ENMT external ear and nose normal, oropharynx normal Respiratory normal respiratory effort, lungs clear to auscultation Cardiovascular Heart Sounds: normal S1 and normal S2 Gastrointestinal (Abdomen) normal bowel sounds, soft, nontender, no hepatosplenomegaly Skin no rashes, warm and dry Discharge Data Allergies Allergy/AdvReac Type Severity Reaction Status Date / Time adhesive tape Allergy Unknown Verified 04/03/19 15:01 erythromycin base Allergy Unknown Verified 04/03/19 15:01 gluten Allergy Unknown Verified 04/03/19 15:01 Penicillins Allergy Unknown Verified 04/03/19 15:01 Sulfa (Sulfonamide Allergy Unknown Verified 04/03/19 15:01 Antibiotics) wheat Allergy Unknown Verified 04/03/19 15:01 Consultations 04/03/19 13:59 Consult Rn Surgical Stat ED Decision to Admit Stat 04/03/19 16:11 Consult Rn Surgical Routine 04/03/19 20:07 Consult Endocrinology Routine Hospital Course (1) DKA (diabetic ketoacidoses): Lucy is a 24-year-old female with a past medical history of autism, type 1 diabetes, celiac disease, who recently discharged from the hospital in early March for DKA was admitted to [facility] ICU for evaluation and management of DKA. DKA resolved and she was subsequently transferred to the floor DKA on a background of Type 1 DM Patient with a history of type 1 diabetes, recently discharged from [facility] for DKA. During her last admission, her hemoglobin A1c was determined to be 9.2 indicating poor sugar control. Patient presented to the emergency department on 04/03 for tachypnea, poorly mentation, and subjective fever. There does not appear to be any acute trigger to cause her DKA, with the exception of poor glucose control. VBG on presentation demonstrated a pH of 6.94, she was hyperkalemic, hyponatremic, appeared dehydrated on physical exam, and tachypneic. Patient was transferred to the ICU for further evaluation and management. She was placed on insulin drip, and her gap closed overnight. Cumulatively the patient received 15 L of fluid throughout this admission. Throughout the admission, Dr. Anne and Cody spent an extensive amount of time counseling the patient and her family on type 1 diabetes, medications for type 1 diabetes, complications of diabetes, and the importance of adequate sugar control. Discharge recommendations -30 units of Lantus -NovoLog at mealtimes - mother is quite adept at counting carbs and adjusting bolus insulin as needed -extensive discussion was had with her mother regarding checking a 2 hour postprandial glucose -Will need close follow-up on discharge Thrush Patient diagnosed with thrush as an outpatient on presentation in the ED. -Continue nystatin 4 times daily Neutropenia -on day of discharge, patient was noted to have a WCC of 3.51 with an ANC of 0.9, unsure of cause at this time (potentially related to poor nutrition) -no signs or symptoms of infection -encouraged frequent handwashing -B12 level drawn and high at 1558 -recommend outpatient f/u and repeat CBC (2) S/P admission to ICU (intensive care unit): (3) Autism: (4) Celiac disease: (5) Type 1 diabetes: (6) Hyperkalemia: Total Time Total Time Spent Total Time Spent (In Minutes): >30 Discharge Plan Discharge Items Patient Disposition: Home - Self-Care Reason For Visit: DKA Discharge Diagnosis: Diabetic ketoacidosis in the setting of type 1 diabetes requiring ICU admission Activity: Resume your previous activity Non-emergency contact: Primary Care Provider Call non-emergency contact if: you have any medication questions, your pain is unusual for you and your temperature is above 101 Follow-up/Referrals: Jose Paredes [Primary Care Provider] - Diet: Carb Count or DM1 Addtl Attending Provider Instructions: Care instructions: Lucy was admitted to [facility] for treatment of Diabetic Ketoacidosis. Diabetes Mellitus -please continue Lucy's insulin regimen of 30 units of Lantus in the morning, and then additional bolus insulin for carb coverage -we recommend checking a sugar 2 hours after eating as this is an excellent measure of "cause/effect" with her carb coverage -please continue following up with her primary care provider and her temperer -if you notice that she has several lows during the day, she may need reduction in her Lantus dosing, however we do recommend continuing to cover her mealtime carbs with short acting insulin to prevent her from having high sugar levels after her meals, as over time, this can cause a cumulative effect in clogging her arteries Thrush -appears to be improving -continue the nystatin Low white cell count -while in the hospital, Lucy's white cell count was found to be on the lower side -given that she does not display any concerning signs or symptoms of infection, this can be followed up in clinic -we checked a vitamin B12 level to ensure this was not related, and her B12 level was normal, in fact high We have you scheduled with Dr Lamberto Anne on 04/11/19 at 8:50am - [address] [id number], A discharge summary will be sent to your primary care physician to ensure continuity of care. Please bring this discharge summary with you to your next office appointment so that your provider can review it at that time. Follow-up appointments: - Keep all your follow-up appointments as already scheduled. If you cannot make an appointment, notify your provider. - Please call to request a follow-up appointment with your primary care physician within one week of discharge. Please let us know if you are unable to obtain an appointment Medications: - Your medication list has been reviewed and reconciled upon discharge to ensure accuracy and continuity of care. - You are provided with a list of all your current medications at this time. Please review this list closely and make note of any changes. - Please take all of your medications exactly as prescribed. - Tell your primary care provider if you cannot afford your medications. - Call your primary care provider if you are having any side effects or any other problems. - Call your primary care provider before taking any over the counter medications or supplements, including herbals and vitamins, because some of these may interact with your current medications and/or make your symptoms worse. Symptoms: Please call your primary care provider for symptoms including, but not limited to: fevers (temperatures greater than 100.4), chills, intractable nausea or vomiting, diarrhea, rash, shortness of breath, bleeding, pain, or if you experience any worsening of the symptoms that brought you to the hospital. For EMERGENCY and VERY SERIOUS health-related issues, such as chest pain, shortness of breath, or sudden onset of the symptoms that brought you to the hospital, you may need to call 911 or go directly to the Emergency Room Pending Studies at Discharge: No Stand-Alone Forms: My [facility] [employer], Smoking Cessation Medications and DC Order Prescriptions: Continued insulin lispro [Humalog U-100 Insulin] 100 unit/mL Solution 1 sliding scale dose SUBCUT TIDM RF: 0 nystatin 100,000 unit/mL suspension 300,000 units BUCCAL QID 7 Days Qty: 84 RF: 0 Lantus U-100 Insulin 100 unit/mL solution 30 unit SUBCUT QAM RF: 0 Discharge Orders: Discharge Order (Routine); Ordered 04/06/19 Ordered By: Landon Avendaño Admission Data Admit Date/Time: 04/03/19 13:58 Attending Provider: Nicolas Ross Admit Provider: Marisela Bryan Primary Care Provider: Jose Paredes Other Providers: Joshua Jerome ; Marisela Bryan ; Yeni Martínez ; Rosetta Valencia ; Sushil,Merry Liriano ; Kiel Mcgill ; Abhijit Marley ; Lashonda Garcia ; Olga Chong ; Lluvia Hess ; Telly Hernandez Supervising Physician Co-Signing Physician Notes I personally examined the patient and verified all mcneill points of history and exam, discussed case, and agree with decision making with Dr Avendaño. feeling better eating better and had BM. extensive reiteration of insulin pharmacology, glucose physiology. answered all questions to the best of my ability vitals noted nad breathing unlabored. nc at mmm. no respiratory distress. no focal neuro deficits. DKA - recurrent. seems to have been viral GE and now poor oral intake/dehydration from thrush -- now improved significantly. reiterated significant education points to mom and sister, answered all questions to the best of my ability and to their satisfaction. stable for home otherwise as above Resident Activity Tracking Resident Involvement: Resident Care Provided Care Provided: Adult Hospital Medicine
[2019-04-06 07:20] LABS: Alanine Aminotransferase 23 U/L (12-78); Albumin Level 2.2 gm/dl (3.4-5.0); Aspartate Aminotransferase 21 U/L (15-37); BUN Creatinine Ratio 7.3 (10-20); Blood Urea Nitrogen 3 mg/dl (7-18); Calcium 8.2 mg/dl (8.5-10.1); Carbon Dioxide 24 mmol/L (21-32); Chloride 113 mmol/L (98-107); Creatinine Clr Calc Pharmacy 198.2 ml/min; Est GFR (African American) > 150.0; Est GFR (Non-African American) 140.2; Glucose 183 mg/dl (70-99); Potassium 3.6 mmol/L (3.5-5.1); Sodium 142 mmol/L (136-145)
[2019-04-06 07:22] LABS: Albumin Globulin Ratio 0.8 (0.9-2); Alkaline Phosphatase 97 U/L (45-117); Bilirubin,Total 0.4 mg/dl (0.2-1); Globulin 2.7 gm/dl (2.5-4.0); Total Protein 4.9 gm/dl (6.4-8.2)
[2019-04-06 07:37] LABS: RBC Morphology Unremarkable
[2019-04-06 07:53] LABS: ALC (manual) 2.54 K/uL (1.2-3.4); Basophils # (manual) 0.03 K/uL (0-0.2); Basophils % (manual) 0.9 %; Eosinophils # (manual) 0.03 K/uL (0-0.5); Eosinophils % (manual) 0.9 %; Lymphocytes # (manual) 2.05 K/uL (1.2-3.4); Lymphocytes % (manual) 58.3 %; Neutrophils % (manual) 25.7 %; Reactive Lymphocytes % (manual) 14.2 %
[2019-04-06] MEDS ORDERED: INSULIN GLARGINE 100 UNIT/ML VIAL SC SCH (08:15)
[2019-04-06] MEDS: ENOXAPARIN INJ 40 MG/0.4 ML SYR SQ SCH (08:28)
[2019-04-06] MEDS: NYSTATIN SUSP 500,000 U/5 ML UDC PO SCH ×2 (08:28→12:39)
[2019-04-06] MEDS: INSULIN ASPART 100 UNITS/ML VIAL SC SCH ×2 (09:13→12:40)
--- NOTE | 2019-04-06 09:51 | Pharmacy Report ---
Pharmacy Glycemic Short Note 2 - Date of Service April 06, 2019 - Glycemic Short BSG Results (Last 24 hours): 04/05/19 04/05/19 04/05/19 11:35 16:26 20:30 Glucose POC Glucose 125 H 80 136 H 04/06/19 04/06/19 06:30 07:29 Glucose 183 H POC Glucose 230 H OUTPATIENT ANTIDIABETIC REGIMEN: * Lantus 30 units SQ Q AM * Lispro TID w/ meals per scale (DE reported typical meal-time doses of 6-15 units/breakfast + 8-15 units/lunch + 8-20units/dinner) * A1c = 9.2% ASSESSMENT: 04/06/19 * Fasting blood sugar 183mg/dl - resume home dose of Lantus 30 units daily this morning. * Patient received a total of 24 units of insulin yesterday, 20 units basal, 4 units bolus, no further hypoglycemia last evening/night. 04/05/19 * Met with patient and family today - they were concerned that patient had re ceived 40 units of Lantus yesterday and this resulted in 2 episodes of hypoglycemia, last evening and early this morning. Explained to the family that we used this same dose last week to transition off of insulin drip and patient's blood sugars remained in the 200s at that time. Discussed with mother what dose of Lantus she would use today, she said she'd go back to her daily dose of 30 units. After further discussion I recommended that we only do 20 units today, as patient's PO intake is significantly decreased. Mother agreed with this decision. * Note, pt autistic, unable to treat hypoglycemia with gel/tablets - using IV Dextrose while inpatient. Patient is able to do applesauce at home. * Pt also has not had BM in over a week, will let provider know at [facility] * Spoke with CDE to see patient's family, as this is the second occurrence of DKA in 2 weeks, first one seemed to be d/t stomach virus, but second episode is unexplainable other than still recovering and decreased PO intake. * Family also requested plate with nutritional dividers, CDE to obtain one for patient. * Will also loosen CR slightly at this time with decreased PO intake and recent hypoglycemia. 04/04/19 * Patient recently discharged from hospital following admission for DKA in the last week * Patient presented to the ER yesterday with moderate-severe DKA (Bicarb < 5, vpH 6.94, AG 21, Glu 417) * IV fluids and IV insulin infusion initiated in ER * This AM, AG acidosis has resolved (AG 6, Bicarb 17) but mild hyperchloremic metabolic acidosis present; and Glucose below 200 * Insulin drip rates being titrated down quickly this AM as BSGs less than 150 * Pt has now been ordered a diet and the plan is to transition her off the insulin drip today to a basal/bolus SQ regimen * Will use data obtained from last admission to guide initial SQ doses * OF NOTE, PT'S MOTHER REQUESTS INSULIN ADMINISTRATION FROM VIALS ONLY (NO INSULIN PENS) PLAN FOR INPATIENT GLYCEMIC CONTROL: * Basal insulin * Lantus 30 units daily * Bolus insulin * NovoLog per scale ACHS * Goal Range: Low 110 mg/dL - High 140 mg/dL * Correction Factor: 20 mg/dL/unit * Nutritional / Prandial insulin per carb ratio of 1 unit per 7 grams CHO consumed PLAN FOR DISCHARGE: * At this point I would recommend resuming Lantus 30 units daily and Lispro with meals as above and follow-up with out patient endocrine provider.
--- NOTE | 2019-04-06 13:52 | Billing Data ---
Date of Service April 06, 2019 Coding Level of Care Code D/C Day Management >30 mins
== END 2019-04-06 14:48 | disposition home or self-care (01) | DRG 638 ==
LOC: ED 12:04 → SUATTDRO 13:58 → 1E 13:58 → 2W 04-04 17:45

== ENCOUNTER 2019-04-16 09:27 | Inpatient (IN) ==
[2019-04-16] MEDS ORDERED: SODIUM CHLORIDE 0.9% 1000ML 2,000 ML IV ONE (09:50)
[2019-04-16 10:04] LABS: POC Urine Bilirubin Negative (Negative); POC Urine Blood Negative (Negative); POC Urine Glucose 500 (Normal); POC Urine Leukocytes Negative (Negative); POC Urine Nitrite Negative (Negative); POC Urine Protein Negative (Negative); POC Urine Urobilinogen Normal (Normal); POC Urine pH 6 (4.5-7.5)
[2019-04-16 10:11] LABS: Appearance Urine Clear (Clear); Bilirubin Urine Negative (Negative); Blood Urine Negative (Negative); Color Urine Yellow; Glucose Urine UA 3+ (Negative); Leukocyte Esterase Urine Negative (Negative); Nitrite Urine Negative (Negative); Protein Urine Negative (Negative); Specific Gravity Urine 1.031 (1.000-1.030); Urobilinogen Urine Negative (Negative)
[2019-04-16 10:15] LABS: Hematocrit (blood only) 41.3 % (37-47); Hemoglobin 13.5 g/dL (12.0-16.0); Mean Corpuscular Hemoglobin 30.1 pg (25-34); Mean Corpuscular Hgb Conc 32.7 g/dL (32-36); Mean Corpuscular Volume 92.2 fL (80-100); Mean Platelet Volume 11.4 fL (7.4-10.4); Platelet Count 397 K/uL (130-400); RDW Coefficient of Variation 14.6 % (11.5-14.5); RDW Standard Deviation 48.8 fL (36.4-46.3); Red Blood Count 4.48 M/uL (4.2-5.4); White Blood Count 15.05 K/uL (4.8-10.8)
[2019-04-16 10:22] LABS: Ketones Urine 4+ (Negative)
[2019-04-16 10:29] LABS: Base Excess VBG -17.2 mEq/L; Oxygen Saturation VBG 78.2 %; pH VBG 7.17 (7.36-7.41)
[2019-04-16 10:42] LABS: Basophils # (auto) 0.06 K/uL (0-0.2); Basophils % (auto) 0.4 %; Eosinophils # (auto) 0.01 K/uL (0-0.5); Eosinophils % (auto) 0.1 %; Immature Granulocytes # (auto) 0.04 K/uL (0.00-0.02); Immature Granulocytes % (auto) 0.3 %; Monocytes # (auto) 0.41 K/uL (0.11-0.59); Monocytes % (auto) 2.7 %; Neutrophils # (auto) 13.33 K/uL (1.4-6.5); Neutrophils % (auto) 88.5 %
[2019-04-16 10:52] LABS: Albumin Globulin Ratio 1.1 (0.9-2); Albumin Level 4.1 gm/dl (3.4-5.0); BUN Creatinine Ratio 13.1 (10-20); Bilirubin,Total 0.7 mg/dl (0.2-1); Creatinine Clr Calc Pharmacy 71.6 ml/min; Est GFR (African American) 73.3; Est GFR (Non-African American) 63.2; Globulin 3.6 gm/dl (2.5-4.0); Total Protein 7.7 gm/dl (6.4-8.2)
[2019-04-16 11:31] LABS: Potassium 5.4 mmol/L (3.5-5.1)
[2019-04-16 11:44] LABS: Aspartate Aminotransferase 16 U/L (15-37)
[2019-04-16] MEDS ORDERED: DEXTROSE 50% 50 ML SYRINGE IV PRN ×2 (12:01→15:49)
[2019-04-16] MEDS ORDERED: GLUCOSE 10 TABS/TUBE PO PRN ×2 (12:01→15:49)
[2019-04-16] MEDS ORDERED: GLUCOSE 40% GEL 15 GM TUBE PO PRN ×2 (12:01→15:49)
[2019-04-16] MEDS ORDERED: SODIUM CHLORIDE 0.9% 1000ML 1,000 ML IV ONE (12:01)
[2019-04-16] MEDS ORDERED: DKA GOAL RANGE 150-250 mg/dl ONE (12:01)
[2019-04-16] MEDS ORDERED: CARBOHYDRATES FOR HYPOGLYCEMIA PO PRN ×2 (12:01→15:49)
[2019-04-16] MEDS ORDERED: ED DKA INSULIN DRIP ONE (12:01)
[2019-04-16] MEDS ORDERED: GLUCAGON FOR INJ 1 MG VIAL SQ PRN ×2 (12:01→15:49)
[2019-04-16] MEDS ORDERED: INSULIN REGULAR 250 UNITS in SODIUM CHLORIDE 0.9% 247.5 ML IV SCH (12:15)
[2019-04-16 12:21] LABS: Phosphorus 2.8 mg/dl (2.5-4.9)
[2019-04-16 12:40] LABS: Estimated Average Glucose 217 mg/dl; Hemoglobin A1C 9.2 % (4.5-5.6)
[2019-04-16] MEDS ORDERED: D5W AND NSS 1,000 ML IV SCH ×2 (13:00→16:01)
--- NOTE | 2019-04-16 13:40 | History & Physical Report ---
Date of Service April 16, 2019 Assessment & Plan (1) DKA (diabetic ketoacidoses): Admit to PCU inpatient on telemetry Vital signs every 4 hours DKA per protocol Serial BMP every 6 hours IV fluid hydration at this point with D5 normal saline at 100 cc/h Monitor closely electrolytes potassium, sodium, ketones in urine Since patient's glucose decreased to 150, started D5 and assess and will transition to sliding scale insulin. Patient would need to meet salesperson stereo equipment and patient pediatricians and her mom said she already has appointment with them. Hospital bed is still an issue. Placed consult for the rehabilitation case coordinator to help out. Consult with dietitian and asthma educator is very important. DVT prophylaxis SCDs and teds Patient is a full code Present on Admission?: Yes (2) Hyperkalemia: As the above Continue IV fluids and monitor potassium every 6 hours with serial BMPs. Replenish as needed. Present on Admission?: Yes (3) Metabolic acidosis: Management as the above. Present on Admission?: Yes (4) Diabetes mellitus type 1: A1c is 9.2, diabetes mellitus type 1 is very poorly controlled. We will try better control with diabetes. Education how to use insulin is essential, carb count. Patient would also need to meet with her chore worker and salesperson stereo equipment as soon as possible and establish follow-up appointment. Present on Admission?: Yes (5) Discharge planning issues: Placed referral to rehabilitation case coordinator for diabetic appointments as well as help with hospital bed. Present on Admission?: Yes History of Present Illness Chief Complaint: Diabetic ketoacidosis, nausea and vomiting Primary Care Juan morrison: Jose Paredes The patient is a 24 years old female with past medical history of diabetes mellitus type 1 poorly controlled hyperkalemia, celiac disease sensitive to wheat, autism who was brought by her mother to the emergency room with a complaint that patient vomited approximately 1 L of yellowish vomit this morning and felt sick. Per her mother she was monitoring her sugar regularly and noted that this morning blood glucose was 600 and patient was not doing well, so she brought her in. Patient herself is poor historian due to her autism but in comparison to the other admissions that occurred in the past 2 months she was not as sick as before. Per mom patient supposed to see chore worker who is coming from [place] this week on Tuesday. They are also trying to obtain hospital bed for her because she is incontinent for stool and urine and they were unable so far to get it through patient PCP nor chore worker. Patient denies fever, chills, chest pain, shortness of breath, abdominal pain, frequency, urgency. Labs are reviewed which showed: Sodium 134, potassium 5.4, chloride 103, CO2 10, anion gap 20, BUN 16, creatinine 1.2, GFR 63.2, glucose on the entrance was 529, and to decreased to 359, and 145, hemoglobin A1c 9.2, calcium 10, phosphorus 2.8, magnesium 2, total protein 7.7, albumin 4.1, globulin 3.6, lipase 35. Urine with high specific gravity of 1.0 31, urine glucose 3+, urine ketones 4+, otherwise negative for bilirubin leukocyte Estrace and bacteria. Decision was made to admit patient to PCU on telemetry for DKA. Allergies Allergy/AdvReac Type Severity Reaction Status Date / Time adhesive tape Allergy Unknown Verified 04/16/19 10:30 erythromycin base Allergy Unknown Verified 04/16/19 10:30 gluten Allergy Unknown Verified 04/16/19 10:30 Penicillins Allergy Unknown Verified 04/16/19 10:30 Sulfa (Sulfonamide Allergy Unknown Verified 04/16/19 10:30 Antibiotics) wheat Allergy Unknown Verified 04/16/19 10:30 Home Medications Home Medications Medication Instructions Recorded Confirmed Type insulin lispro [Humalog U-100 1 sliding scale dose SUBCUT TIDM 03/29/19 04/16/19 History Insulin] Lantus U-100 Insulin 30 unit SUBCUT QAM 04/01/19 04/16/19 History Past Med/Surg History Medical History Acidemia (Acute) Acute renal failure (ARF) (Acute) Autism Celiac disease DKA (diabetic ketoacidoses) (Acute) DKA, type 1 Hyperkalemia (Acute) Hypotension (Acute) Metabolic acidosis Right ovarian cyst S/P admission to ICU (intensive care unit) Tachycardia (Acute) Tachypnea (Acute) Type 1 diabetes Surgical History No pertinent past surgical history Social History Preferred Language: Romanian Communication Ability: Impaired Manager Nursing Home Required: No Beliefs That Will Affect Care: None Current Living Situation: Parent Other Information That Helps Us Care for You: No Feels Safe at Home: Yes Safety Concerns: Feels Safe At This Time Smoking Status: Never smoker Second Hand Exposure: No ; Hx Alcohol Use: No Hx Substance Use: No Review of Systems Review of Systems: All systems reviewed & are unremarkable except as noted in HPI & below Physical Exam Constitutional: WD/WN, vitals as above well developed and + obese Eyes: PERRL, conjunctivae normal, anicteric sclerae ENMT: external ear and nose normal, oropharynx normal Neck: trachea midline, no thyromegaly Respiratory: normal respiratory effort, lungs clear to auscultation Cardiovascular: RRR, no murmur, no edema Gastrointestinal (Abdomen): normal bowel sounds, soft, nontender, no hepatosplenomegaly Musculoskeletal: no cyanosis or clubbing, extremities motor strength 5/5 Skin: no rashes, warm and dry Neurologic: patellar DTR's 2+ bilat, sensation intact Psychiatric: Insight: + limited insight Judgement: + limited judgement Patient has autism Genitourinary: no vaginal lesions, no adnexal mass Lymphatic: no cervical or axillary lymphadenopathy Results & Data Vital Signs (Past 12 Hours) Vital Signs Temp Pulse Pulse Resp BP BP Pulse Ox 04/16/19 11:27 101 H 18 99/64 L 98 04/16/19 09:40 36.9 C 118 H 20 119/73 100 Code Status & VTE Plan Code Status Full code VTE Prophylaxis Plan VTE Prophylaxis will be ordered: Yes PG Care Time/CCT Total # of Minutes Spent Total Time Spent with Patient: Total time spent is greater than 50% in coordination of care (as documented) at patient's floor/unit and/or counseling patient: (1) DKA (diabetic ketoacidoses) Diabetes mellitus complication detail: without coma Diabetes mellitus type: type 1 Qualified Code(s): E10.10 - Type 1 diabetes mellitus with ketoacidosis without coma
--- NOTE | 2019-04-16 14:07 | Emergency Department Note ---
Entered by Maria Antonia Reed acting as a scribe for Nicolas Hernandes DO History of Present Illness General Chief complaint: Hyperglycemia Stated complaint: HIGH BLOOD SUGAR Source: patient and family History of Present Illness Onset (ago): hour(s) (0700 this morning) Location: head (hyperglycemia) Severity: similar to prior episodes Pain Consistency: + other (persistent) Maximum Pain Intensity: 0 Quality: + other (hyperglycemia) Relieved By: not by other (drinking water) Associated symptoms: + nausea/vomiting and + other (Positive hyperglycemia. Negative abdominal pain and dysuria.) Treatments prior to arrival: other (Lantis, Humalog) The patient is a 24 year old female presenting to the Emergency Department complaining of persistent hyperglycemia starting at 0700 this morning. The patients mother reports that the patient woke up this morning and had wet her bed. She states that after the patient woke up and began drinking a lot of water. She explains that the patient then vomited up most of the water she drank this morning. She notes that the patients blood sugar at home was over 600, as the patients meter cant read over 600. She adds that the patient has experienced these symptoms before as she has been admitted to the hospital for hyperglycemia. The patients mother reports that the patient was recently discharged from the hospital on 04/06/2019. She states that she gave the patient 33 of Lantis and 20 of Humalog [employer]. The patient denies abdominal pain and dysuria. Home Medications Home Medications Medication Instructions Recorded Confirmed Type insulin lispro [Humalog U-100 1 sliding scale dose SUBCUT TIDM 03/29/19 04/16/19 History Insulin] Lantus U-100 Insulin 30 unit SUBCUT QAM 04/01/19 04/16/19 History Allergies Allergy/AdvReac Type Severity Reaction Status Date / Time adhesive tape Allergy Unknown Verified 04/16/19 10:30 erythromycin base Allergy Unknown Verified 04/16/19 10:30 gluten Allergy Unknown Verified 04/16/19 10:30 Penicillins Allergy Unknown Verified 04/16/19 10:30 Sulfa (Sulfonamide Allergy Unknown Verified 04/16/19 10:30 Antibiotics) wheat Allergy Unknown Verified 04/16/19 10:30 Past Med/Surg History Medical History Acidemia (Acute) Acute renal failure (ARF) (Acute) Autism Celiac disease DKA (diabetic ketoacidoses) (Acute) DKA, type 1 Hyperkalemia (Acute) Hypotension (Acute) Metabolic acidosis Right ovarian cyst S/P admission to ICU (intensive care unit) Tachycardia (Acute) Tachypnea (Acute) Type 1 diabetes Surgical History No pertinent past surgical history Social History Preferred Language: Serbian Communication Ability: Impaired Building Illuminating Engineer Required: No Beliefs That Will Affect Care: None Current Living Situation: Parent Other Information That Helps Us Care for You: No Feels Safe at Home: Yes Safety Concerns: Feels Safe At This Time Smoking Status: Never smoker Second Hand Exposure: No ; Hx Alcohol Use: No Hx Substance Use: No Review of Systems See HPI for pertinent positives & negatives. and A total of 10 systems reviewed and were otherwise negative Physical Exam Vital Signs Vital Signs - 24 hr 04/16/19 09:40 04/16/19 11:27 Temperature 36.9 C Temperature Source Oral Pulse Rate 118 H Pulse Rate [Left] 101 H Pulse Rhythm [Left] Regular Pulse Strength [Left] Normal Respiratory Rate 20 18 Respiratory Effort / Characteristics Non-Labored Non-Labored Spontaneous Respiratory Depth Normal Normal Blood Pressure 119/73 Blood Pressure [Right Arm] 99/64 L Blood Pressure Mean 88 Blood Pressure Mean [Right Arm] 75 Blood Pressure Position [Right Arm] Lying Pulse Oximetry 100 98 Oxygen Delivery Method Room Air Room Air Sepsis Recent Fever Within 48 Hours No Sepsis Action Taken by Nursing No Action Required GENERAL: Patient is sitting up in bed. Disheveled. Anxious. Non toxic. EYE EXAM: normal conjunctiva. OROPHARYNX: no exudate, no erythema, lips, buccal mucosa, and tongue normal and mucous membranes are moist NECK: supple, no nuchal rigidity, no adenopathy, non-tender LUNGS: Clear to auscultation. Normal chest wall mechanics HEART: Tachycardic rate. No murmurs, S1 normal and S2 normal ABDOMEN: abdomen soft, non-tender, normo-active bowel sounds, no masses, no rebound or guarding. BACK: Back is symmetrical on inspection and there is no deformity, no midline tenderness, no CVA tenderness. SKIN: no rashes and no bruising UPPER EXTREMITIES: upper extremities are grossly normal. LOWER EXTREMITIES: No pitting edema. NEURO EXAM: Patient is at baseline. Moving all extremities. Non-focal. Course Course ED COURSE: Vital signs were reviewed and showed tachycardia. The patients medical record was reviewed The above diagnostic studies were performed and reviewed. ED treatments and interventions as stated above. 0950: The patient was evaluated in room A4B. A complete history and physical examination was performed. 1056: The patients potassium is still not back as her blood hemolyzed. 1204: I discussed the patients case with Dr. Bryan [facility] hospitalist. He patti l evaluate the patient for further management. 1220: I updated the patient and her mother at this time. 1252: I reevaluated the patient at this time. BSG 145. Insulin was not started. Patient will be started on D-5 and normal saline. 1300: Upon reevaluation, I discussed my findings with the patient and her mother who understands and agrees with the treatment plan. Based on the patients age, coexisting illnesses, exam and lab findings the decision to treat as an inpatient was made. The patient remained stable while under my care. The patient will be evaluated for further management. Administered Medications Dextrose/Sodium Chloride (D5w And Nss) 1,000 mls @ 150 mls/hr IV .Q6H40M MATIAS Stop: 05/16/19 12:59 Last Admin: 04/16/19 13:03 Dose: 150 mls/hr Documented by: [id number] Discontinued Medications Sodium Chloride (Nss 1000ml) 2,000 mls @ 999 mls/hr IV .Q2H1M ONE Stop: 04/16/19 11:50 Last Infusion: 04/16/19 12:20 Dose: 0 mls/hr Documented by: [id number] Admin: 04/16/19 10:10 Dose: 999 mls/hr Documented by: [id number] Critical Care Time Critical Care Time: Yes Total Critical Care Time: 36 I have personally spent 36 minutes of critical care time in the direct management of this patient. This includes bedside care, interpretation of diagnostic studies, and testing, discussion with consultants, patient, and family members, and other required patient management activities. This 36 minutes is in excess of all separately billable procedures. Medical Decision Making Differential Diagnosis Differential Diagnosis includes but is not limited to DKA, dehydration, stroke, anemia, hypoglycemia, hyponatremia, hypernatremia, urinary tract infection, pneumonia, bronchitis, sepsis, gastroenteritis, additional abdominal pathology, metabolic abnormalities and infections. Medical Records Attestation: I reviewed the patient's medical records. Home Medications Current Medication List: was personally reviewed by me Laboratory Data Attestation: I reviewed the patient's lab results. Result diagrams: 04/16/19 09:58 04/16/19 11:10 Lab Results 04/16/19 04/16/19 04/16/19 Range/Units 09:52 09:58 09:58 WBC 15.05 H (4.8-10.8) K/uL RBC 4.48 (4.2-5.4) M/uL Hgb 13.5 (12.0-16.0) g/dL Hct 41.3 (37-47) % MCV 92.2 (80-100) fL MCH 30.1 (25-34) pg MCHC 32.7 (32-36) g/dL RDW Std Deviation 48.8 H (36.4-46.3) fL RDW Coeff of [place] 14.6 H (11.5-14.5) % Plt Count 397 (130-400) K/uL MPV 11.4 H (7.4-10.4) fL Immature Gran % (Auto) 0.3 % Neut % (Auto) 88.5 % Lymph % (Auto) 8.0 % [place] % (Auto) 2.7 % Eos % (Auto) 0.1 % Baso % (Auto) 0.4 % Immature Gran # (Auto) 0.04 H (0.00-0.02) K/uL Neut # (Auto) 13.33 H (1.4-6.5) K/uL Lymph # (Auto) 1.20 (1.2-3.4) K/uL [place] # (Auto) 0.41 (0.11-0.59) K/uL Eos # (Auto) 0.01 (0-0.5) K/uL Baso # (Auto) 0.06 (0-0.2) K/uL VBG pH (7.36-7.41) VBG pCO2 (38-50) mmHg VBG pO2 mmHg VBG HCO3 mmol/L VBG O2 Saturation % VBG Base Excess mEq/L Barometric Pressure mm/Hg Sodium 134 L (136-145) mmol/L Potassium (3.5-5.1) mmol/L Chloride 103 (98-107) mmol/L Carbon Dioxide 10 L (21-32) mmol/L Anion Gap 20.0 H (3-11) BUN 16 (7-18) mg/dl Creatinine 1.20 (0.6-1.2) mg/dl Est Cr Clr Drug Dosing 71.6 ml/min Est GFR ( Amer) 73.3 Est GFR (Non-Af Amer) 63.2 BUN/Creatinine Ratio 13.1 (10-20) Glucose 529 H* (70-99) mg/dl POC Glucose 579 H* (70-99) mg/dl Estimat Average Glucose mg/dl Hemoglobin A1c (4.5-5.6) % Calcium 10.0 (8.5-10.1) mg/dl Phosphorus (2.5-4.9) mg/dl Magnesium (1.8-2.4) mg/dl Total Bilirubin 0.7 (0.2-1) mg/dl AST (15-37) U/L ALT 49 (12-78) U/L Alkaline Phosphatase 138 H (45-117) U/L Total Protein 7.7 (6.4-8.2) gm/dl Albumin 4.1 (3.4-5.0) gm/dl Globulin 3.6 (2.5-4.0) gm/dl Albumin/Globulin Ratio 1.1 (0.9-2) Lipase 35 L (73-393) U/L Beta-Hydroxybutyric Acd (0.2-2.81) mg/dl Urine Color Urine Appearance (Clear) Urine pH (4.5-7.5) POC Urine pH (4.5-7.5) Ur Specific [place] (1.000-1.030) Urine Protein (Negative) POC Urine Protein (Negative) Urine Glucose (UA) (Negative) POC Ur Glucose (UA) (Normal) Urine Ketones (Negative) POC Urine Ketones (Negative) Urine Blood (Negative) POC Urine Blood (Negative) Urine Nitrite (Negative) POC Urine Nitrite (Negative) Urine Bilirubin (Negative) POC Urine Bilirubin (Negative) Urine Urobilinogen (Negative) POC Urine Urobilinogen (Normal) Ur Leukocyte Esterase (Negative) POC U Leukocyte Esteras (Negative) 04/16/19 04/16/19 04/16/19 Range/Units 09:58 10:00 10:00 WBC (4.8-10.8) K/uL RBC (4.2-5.4) M/uL Hgb (12.0-16.0) g/dL Hct (37-47) % MCV (80-100) fL MCH (25-34) pg MCHC (32-36) g/dL RDW Std Deviation (36.4-46.3) fL RDW Coeff of [place]les[place] (11.5-14.5) % Plt Count (130-400) K/uL MPV (7.4-10.4) fL Immature Gran % (Auto) % Neut % (Auto) % Lymph % (Auto) % [place] % (Auto) % Eos % (Auto) % Baso % (Auto) % Immature Gran # (Auto) (0.00-0.02) K/uL Neut # (Auto) (1.4-6.5) K/uL Lymph # (Auto) (1.2-3.4) K/uL [place] # (Auto) (0.11-0.59) K/uL Eos # (Auto) (0-0.5) K/uL Baso # (Auto) (0-0.2) K/uL VBG pH (7.36-7.41) VBG pCO2 (38-50) mmHg VBG pO2 mmHg VBG HCO3 mmol/L VBG O2 Saturation % VBG Base Excess mEq/L Barometric Pressure mm/Hg Sodium (136-145) mmol/L Potassium (3.5-5.1) mmol/L Chloride (98-107) mmol/L Carbon Dioxide (21-32) mmol/L Anion Gap (3-11) BUN (7-18) mg/dl Creatinine (0.6-1.2) mg/dl Est Cr Clr Drug Dosing ml/min Est GFR ( Amer) Est GFR (Non-Af Amer) BUN/Creatinine Ratio (10-20) Glucose (70-99) mg/dl POC Glucose (70-99) mg/dl Estimat Average Glucose 217 mg/dl Hemoglobin A1c 9.2 H (4.5-5.6) % Calcium (8.5-10.1) mg/dl Phosphorus (2.5-4.9) mg/dl Magnesium (1.8-2.4) mg/dl Total Bilirubin (0.2-1) mg/dl AST (15-37) U/L ALT (12-78) U/L Alkaline Phosphatase (45-117) U/L Total Protein (6.4-8.2) gm/dl Albumin (3.4-5.0) gm/dl Globulin (2.5-4.0) gm/dl Albumin/Globulin Ratio (0.9-2) Lipase (73-393) U/L Beta-Hydroxybutyric Acd (0.2-2.81) mg/dl Urine Color Yellow Urine Appearance Clear (Clear) Urine pH 5.0 (4.5-7.5) POC Urine pH 6 (4.5-7.5) Ur Specific [place] 1.031 H (1.000-1.030) Urine Protein Negative (Negative) POC Urine Protein Negative (Negative) Urine Glucose (UA) 3+ H (Negative) POC Ur Glucose (UA) 500 H (Normal) Urine Ketones 4+ H (Negative) POC Urine Ketones 2+ (Moderate) H (Negative) Urine Blood Negative (Negative) POC Urine Blood Negative (Negative) Urine Nitrite Negative (Negative) POC Urine Nitrite Negative (Negative) Urine Bilirubin Negative (Negative) POC Urine Bilirubin Negative (Negative) Urine Urobilinogen Negative (Negative) POC Urine Urobilinogen Normal (Normal) Ur Leukocyte Esterase Negative (Negative) POC U Leukocyte Esteras Negative (Negative) 04/16/19 04/16/19 04/16/19 Range/Units 10:19 11:10 11:24 WBC (4.8-10.8) K/uL RBC (4.2-5.4) M/uL Hgb (12.0-16.0) g/dL Hct (37-47) % MCV (80-100) fL MCH (25-34) pg MCHC (32-36) g/dL RDW Std Deviation (36.4-46.3) fL RDW Coeff of [place]les[place] (11.5-14.5) % Plt Count (130-400) K/uL MPV (7.4-10.4) fL Immature Gran % (Auto) % Neut % (Auto) % Lymph % (Auto) % [place] % (Auto) % Eos % (Auto) % Baso % (Auto) % Immature Gran # (Auto) (0.00-0.02) K/uL Neut # (Auto) (1.4-6.5) K/uL Lymph # (Auto) (1.2-3.4) K/uL [place] # (Auto) (0.11-0.59) K/uL Eos # (Auto) (0-0.5) K/uL Baso # (Auto) (0-0.2) K/uL VBG pH 7.17 L (7.36-7.41) VBG pCO2 27 L (38-50) mmHg VBG pO2 52 mmHg VBG HCO3 10 mmol/L VBG O2 Saturation 78.2 % VBG Base Excess -17.2 mEq/L Barometric Pressure 740.3 mm/Hg Sodium (136-145) mmol/L Potassium 5.4 H (3.5-5.1) mmol/L Chloride (98-107) mmol/L Carbon Dioxide (21-32) mmol/L Anion Gap (3-11) BUN (7-18) mg/dl Creatinine (0.6-1.2) mg/dl Est Cr Clr Drug Dosing ml/min Est GFR ( Amer) Est GFR (Non-Af Amer) BUN/Creatinine Ratio (10-20) Glucose (70-99) mg/dl POC Glucose 359 H* (70-99) mg/dl Estimat Average Glucose mg/dl Hemoglobin A1c (4.5-5.6) % Calcium (8.5-10.1) mg/dl Phosphorus 2.8 (2.5-4.9) mg/dl Magnesium 2.0 (1.8-2.4) mg/dl Total Bilirubin (0.2-1) mg/dl AST 16 (15-37) U/L ALT (12-78) U/L Alkaline Phosphatase (45-117) U/L Total Protein (6.4-8.2) gm/dl Albumin (3.4-5.0) gm/dl Globulin (2.5-4.0) gm/dl Albumin/Globulin Ratio (0.9-2) Lipase (73-393) U/L Beta-Hydroxybutyric Acd TNP (0.2-2.81) mg/dl Urine Color Urine Appearance (Clear) Urine pH (4.5-7.5) POC Urine pH (4.5-7.5) Ur Specific [place] (1.000-1.030) Urine Protein (Negative) POC Urine Protein (Negative) Urine Glucose (UA) (Negative) POC Ur Glucose (UA) (Normal) Urine Ketones (Negative) POC Urine Ketones (Negative) Urine Blood (Negative) POC Urine Blood (Negative) Urine Nitrite (Negative) POC Urine Nitrite (Negative) Urine Bilirubin (Negative) POC Urine Bilirubin (Negative) Urine Urobilinogen (Negative) POC Urine Urobilinogen (Normal) Ur Leukocyte Esterase (Negative) POC U Leukocyte Esteras (Negative) 04/16/19 04/16/19 04/16/19 Range/Units 12:45 12:46 13:39 WBC (4.8-10.8) K/uL RBC (4.2-5.4) M/uL Hgb (12.0-16.0) g/dL Hct (37-47) % MCV (80-100) fL MCH (25-34) pg MCHC (32-36) g/dL RDW Std Deviation (36.4-46.3) fL RDW Coeff of [place] (11.5-14.5) % Plt Count (130-400) K/uL MPV (7.4-10.4) fL Immature Gran % (Auto) % Neut % (Auto) % Lymph % (Auto) % [place] % (Auto) % Eos % (Auto) % Baso % (Auto) % Immature Gran # (Auto) (0.00-0.02) K/uL Neut # (Auto) (1.4-6.5) K/uL Lymph # (Auto) (1.2-3.4) K/uL [place] # (Auto) (0.11-0.59) K/uL Eos # (Auto) (0-0.5) K/uL Baso # (Auto) (0-0.2) K/uL VBG pH (7.36-7.41) VBG pCO2 (38-50) mmHg VBG pO2 mmHg VBG HCO3 mmol/L VBG O2 Saturation % VBG Base Excess mEq/L Barometric Pressure mm/Hg Sodium (136-145) mmol/L Potassium (3.5-5.1) mmol/L Chloride (98-107) mmol/L Carbon Dioxide (21-32) mmol/L Anion Gap (3-11) BUN (7-18) mg/dl Creatinine (0.6-1.2) mg/dl Est Cr Clr Drug Dosing ml/min Est GFR ( Amer) Est GFR (Non-Af Amer) BUN/Creatinine Ratio (10-20) Glucose (70-99) mg/dl POC Glucose 145 H 171 H (70-99) mg/dl Estimat Average Glucose mg/dl Hemoglobin A1c (4.5-5.6) % Calcium (8.5-10.1) mg/dl Phosphorus (2.5-4.9) mg/dl Magnesium (1.8-2.4) mg/dl Total Bilirubin (0.2-1) mg/dl AST (15-37) U/L ALT (12-78) U/L Alkaline Phosphatase (45-117) U/L Total Protein (6.4-8.2) gm/dl Albumin (3.4-5.0) gm/dl Globulin (2.5-4.0) gm/dl Albumin/Globulin Ratio (0.9-2) Lipase (73-393) U/L Beta-Hydroxybutyric Acd Cancelled (0.2-2.81) mg/dl Urine Color Urine Appearance (Clear) Urine pH (4.5-7.5) POC Urine pH (4.5-7.5) Ur Specific [place] (1.000-1.030) Urine Protein (Negative) POC Urine Protein (Negative) Urine Glucose (UA) (Negative) POC Ur Glucose (UA) (Normal) Urine Ketones (Negative) POC Urine Ketones (Negative) Urine Blood (Negative) POC Urine Blood (Negative) Urine Nitrite (Negative) POC Urine Nitrite (Negative) Urine Bilirubin (Negative) POC Urine Bilirubin (Negative) Urine Urobilinogen (Negative) POC Urine Urobilinogen (Normal) Ur Leukocyte Esterase (Negative) POC U Leukocyte Esteras (Negative) Blood Pressure Blood Pressure Findings: Low blood pressure Blood Pressure Disposition: further management by hospitalist PASQUALE Narrative Patient is a 24-year-old female who was just recently admitted and discharged for DKA by myself just over a week ago. She presents the ER today with elevated blood sugars reading critically high and ketones in the urine. She got a total of 45 units of Humalog prior to arrival along with her 33 units of Lantus. Mom notes that she gave additional Humalog help with the elevated sugars. IVs were established blood work was obtained and showed a leukocytosis of 15,000. No significant anemia. BMP with a sodium of 134 and a potassium of 5.4. There is a gap at 20. CO2 was low at 10. pH was 7.17. Glucose was critically high at 529. She was given over 2 L of normal saline. Blood sugar trended down to 171. She was not given any insulin while in the ER and this was all corrected as mom gave a large dose at home prior to arrival. Lipase was unremarkable. Urine had plus for ketones. Patient was updated at bedside and discussed with hospitalist for admission secondary to DKA again with no other complaints. Impression & Plan DKA (diabetic ketoacidoses), Hyperkalemia, Hyperglycemia Discharge Plan Visit Data Chief Complaint: Hyperglycemia Stated Complaint: HIGH BLOOD SUGAR ED Provider: Nicolas Hernandes Discharge Problem: DKA (diabetic ketoacidoses), Hyperkalemia, Hyperglycemia Patient Disposition: Being Evaluated by Hospitalist Forms Stand Alone Forms: My [facility] Prescriptions Prescriptions: No Action insulin lispro [Humalog U-100 Insulin] 100 unit/mL Solution 1 sliding scale dose SUBCUT TIDM RF: 0 Lantus U-100 Insulin 100 unit/mL solution 30 unit SUBCUT QAM RF: 0 Referrals Referrals: Jose Paredes [Primary Care Provider] - Discharge Problem: DKA (diabetic ketoacidoses) Qualifiers: Diabetes mellitus type: type 1 Diabetes mellitus complication detail: without coma Qualified Code(s): E10.10 - Type 1 diabetes mellitus with ketoacidosis without coma The scribe's documentation has been prepared under my direction and personally reviewed by me in its entirety. I confirm that the note above accurately r eflects all work, treatment, procedures, and medical decision making performed by me.
[2019-04-16] MEDS ORDERED: ALUMINUM/MAGNESIUM SUSP 30 ML UDC PO PRN (15:49)
[2019-04-16] MEDS ORDERED: MAGNESIUM HYDROXIDE SUSP 30 ML UDC PO PRN (15:49)
[2019-04-16] MEDS ORDERED: ACETAMINOPHEN 325 MG TAB PO PRN (15:49)
[2019-04-16] MEDS ORDERED: ONDANSETRON INJ 2 MG/ML 2 ML VIAL IV PRN (15:49)
[2019-04-16] MEDS ORDERED: POLYETHYLENE (MIRALAX) 17 GM PACK PO PRN (15:49)
[2019-04-16] MEDS ORDERED: PHARMACY GLYCEMIC MGMT CONSULT PRN (15:55)
[2019-04-16] MEDS ORDERED: INSULIN ASPART 100 UNITS/ML 3 ML PEN SC SCH (16:30)
[2019-04-16] MEDS ORDERED: INSULIN ASPART 100 UNITS/ML VIAL SC SCH (16:30)
--- NOTE | 2019-04-16 16:34 | Pharmacy Report ---
Glycemic Control Consultation - Date of Service April 16, 2019 - Scope Scope: Glycemic Pharmacist consulted by Dr Bryan on 04/16/2019 for glycemic control and to write orders per [facility] inpatient glycemic control protocol - Objective Weight: 78.3 kg Accuchecks BSG (last 24hrs): 04/16/19 04/16/19 04/16/19 09:52 09:58 11:24 Glucose 529 H* POC Glucose 579 H* 359 H* 04/16/19 04/16/19 12:46 13:39 Glucose POC Glucose 145 H 171 H Laboratory Data (last 24hrs): 04/16/19 04/16/19 04/16/19 09:58 11:10 12:45 Potassium 5.4 H Carbon Dioxide 10 L Anion Gap 20.0 H Creatinine 1.20 Est Cr Clr Drug Dosing 71.6 Beta-Hydroxybutyric Acd TNP Cancelled 04/16/19 13:51 Potassium Carbon Dioxide Anion Gap Creatinine Est Cr Clr Drug Dosing Beta-Hydroxybutyric Acd 44.95 H HbA1c: Hemoglobin A1c 9.2 % (4.5-5.6) H 04/16/19 09:58 - Recent Pertinent Medications Outpatient Anti-diabetic Regimen: * Lantus 30u QAM + Humalog SSI * A1c = 9.2 % 04/16/2019 - Assessment & Plan Assessment & Plan: ASSESSMENT: * Pt is a 24yo F type 1 diabetic. PMHx consistent with celiac dx, autism, recurrent DKA. CO2/bicarbonate indicative of mild DKA. q4 prp ordered. * Per mother pt received humalog 20u + humalog 25u + lantus 33u SUPERVISOR TELLERS this AM. BSGs dropped rapidly in ER. Also, per mother, pt had emesis and nil food today. PO intake continues to be poor. PLAN FOR INPATIENT GLYCEMIC CONTROL: * Starting IV insulin infusion per moderate stress protocol * Goal Range 150 - 250 mg/dl * In the setting of DKA continuous IV insulin infusion has been shown to be the best method for achieving glycemic targets. On hold for now. * We will continue with dextrose containing fluids until PO intake improves. * Basal insulin * non indicated for today. * Please note that the plan above was derived based on current level of insulin resistance and hospital stress. These recommendations are appropriate for inpatient admission only. Plan of care upon discharge will need to be reassessed to avoid potential outpatient hypo/hyperglycemia. Thank you.
[2019-04-16 16:44] LABS: Basophils # (auto) 0.05 K/uL (0-0.2); Basophils % (auto) 0.5 %; Hematocrit (blood only) 37.8 % (37-47); Hemoglobin 12.6 g/dL (12.0-16.0); Immature Granulocytes # (auto) 0.03 K/uL (0.00-0.02); Immature Granulocytes % (auto) 0.3 %; Lymphocytes # (auto) 2.67 K/uL (1.2-3.4); Lymphocytes % (auto) 27.2 %; Mean Corpuscular Hemoglobin 29.4 pg (25-34); Mean Corpuscular Hgb Conc 33.3 g/dL (32-36); Mean Corpuscular Volume 88.3 fL (80-100); Mean Platelet Volume 11.3 fL (7.4-10.4); Monocytes # (auto) 0.87 K/uL (0.11-0.59); Monocytes % (auto) 8.9 %; Neutrophils # (auto) 6.18 K/uL (1.4-6.5); Neutrophils % (auto) 63.1 %; Platelet Count 362 K/uL (130-400); RDW Coefficient of Variation 14.8 % (11.5-14.5); RDW Standard Deviation 47.2 fL (36.4-46.3); Red Blood Count 4.28 M/uL (4.2-5.4)
[2019-04-16 17:10] LABS: BUN Creatinine Ratio 13.9 (10-20); Calcium 8.7 mg/dl (8.5-10.1); Creatinine Clr Calc Pharmacy 122.8 ml/min; Est GFR (African American) 140.5; Est GFR (Non-African American) 121.3
[2019-04-16 18:08] LABS: Potassium 5.6 mmol/L (3.5-5.1)
[2019-04-16] MEDS: INSULIN ASPART 100 UNITS/ML VIAL SC SCH ×2 (18:38→21:03)
[2019-04-16] MEDS: SODIUM CHLORIDE 0.9% 1000ML IV SCH (21:37)
[2019-04-16 22:22] LABS: BUN Creatinine Ratio 14.7 (10-20); Calcium 8.6 mg/dl (8.5-10.1); Creatinine Clr Calc Pharmacy 101.1 ml/min; Est GFR (African American) 111.2; Est GFR (Non-African American) 95.9
[2019-04-16 22:23] LABS: Potassium 4.1 mmol/L (3.5-5.1)
[2019-04-17 00:23] LABS: BUN Creatinine Ratio 16.1 (10-20); Calcium 8.3 mg/dl (8.5-10.1); Creatinine Clr Calc Pharmacy 122.8 ml/min; Est GFR (African American) 140.5; Est GFR (Non-African American) 121.3; Potassium 4.2 mmol/L (3.5-5.1)
[2019-04-17] MEDS ORDERED: INSULIN ASPART 100 UNITS/ML VIAL SC SCH ×3 (02:00→07:30)
[2019-04-17 04:08] LABS: Basophils # (auto) 0.08 K/uL (0-0.2); Basophils % (auto) 1.5 %; Eosinophils # (auto) 0.05 K/uL (0-0.5); Hematocrit (blood only) 34.5 % (37-47); Hemoglobin 11.5 g/dL (12.0-16.0); Lymphocytes # (auto) 2.57 K/uL (1.2-3.4); Lymphocytes % (auto) 49.7 %; Mean Corpuscular Hemoglobin 29.8 pg (25-34); Mean Corpuscular Hgb Conc 33.3 g/dL (32-36); Mean Corpuscular Volume 89.4 fL (80-100); Mean Platelet Volume 10.6 fL (7.4-10.4); Monocytes # (auto) 0.42 K/uL (0.11-0.59); Monocytes % (auto) 8.1 %; Neutrophils # (auto) 2.05 K/uL (1.4-6.5); Neutrophils % (auto) 39.7 %; Platelet Count 300 K/uL (130-400); RDW Coefficient of Variation 14.8 % (11.5-14.5); RDW Standard Deviation 47.8 fL (36.4-46.3); Red Blood Count 3.86 M/uL (4.2-5.4); White Blood Count 5.17 K/uL (4.8-10.8)
[2019-04-17 04:25] LABS: Albumin Level 2.9 gm/dl (3.4-5.0); BUN Creatinine Ratio 11.9 (10-20); Calcium 8.2 mg/dl (8.5-10.1); Creatinine Clr Calc Pharmacy 110.2 ml/min; Est GFR (African American) 123.3; Est GFR (Non-African American) 106.4; Potassium 4.7 mmol/L (3.5-5.1)
[2019-04-17 04:35] LABS: Albumin Globulin Ratio 0.9 (0.9-2); Bilirubin,Total 0.5 mg/dl (0.2-1); Globulin 3.2 gm/dl (2.5-4.0); Total Protein 6.1 gm/dl (6.4-8.2)
[2019-04-17] MEDS ORDERED: LANTUS PER UNIT CHARGE SQ SCH (09:00)
[2019-04-17] MEDS: INSULIN GLARGINE SOLOSTAR 100 UNITS/ML 3 ML PEN SC ONE ×2 (09:38→10:07)
[2019-04-17] MEDS ORDERED: INSULIN GLARGINE 100 UNIT/ML VIAL SC STA (09:43)
[2019-04-17 10:39] LABS: BUN Creatinine Ratio 10.1 (10-20); Calcium 8.5 mg/dl (8.5-10.1); Creatinine Clr Calc Pharmacy 113.3 ml/min; Est GFR (African American) 127.2; Est GFR (Non-African American) 109.8; Potassium 4.7 mmol/L (3.5-5.1)
[2019-04-17] MEDS ORDERED: INSULIN HUMAN LISPRO (humaLOG) 100 UNITS/ML VIAL SC SCH (11:30)
[2019-04-17] MEDS: SODIUM CHLORIDE 0.9% 1000ML IV SCH (11:44)
[2019-04-17] MEDS ORDERED: ONDANSETRON HOME PACK 4MG OD TAB PO ONE (13:10)
--- NOTE | 2019-04-17 15:58 | Endocrinology Consultation ---
Date of Consultation April 17, 2019 History of Present Illness Reason for Consultation: Consultation requested because of third episode of diabetic ketoacidosis since the start of 2019. The patient does not have significant previous care history in this institution. By history diagnosed with type 1 diabetes at the age of 11 and cared for almost exclusively in the pediatric endocrinology program at [facility]. Psychosocial situation is complicated and maybe highly relevant. The patient is diagnosed on the autism spectrum. She is 24 years old. She lives primarily with her mother and 2 sisters. She is significantly limited in her ability to communicate, though mostly can manage ADLs. 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 She reads books but there is no television to watch. Mom and sisters provide essentially all diabetes "self-care". The patient is able to mostly accept what needs to be done for her diabetes, though is not accepting of CGM because of all the alarms (not surprising for person on the autism spectrum). Because of the food preferences typical of autism, only treatment for hypoglycemia are Alok's pieces and m&ms. Apparently she does not recognize hypoglycemia. There is a breakfast, lunch and dinner. Treatment is with typical MDI. Not unusually, the patient's home care team is very attached to the professional care team at [facility], since they have been working with them over decade. Her diabetes is described as difficult to control, which of course is not surprising. Apparently blood sugars always highly variable. Per patient's mom, she was hospitalized in [facility] in 2018 in an attempt to improve glucose control, which was not accomplished. Again no previous records are currently available. Apparently there have not been previous episodes of DKA. The episodes of DKA since the first of the year have been fairly typical with the first 2 associated with bicarbonate around 5 mmol/L and the most recent less severe with bicarbonate at around 10 mmol/L. The home care team had been checking ketones and again the presentation on this occasion was quite typical with ketones running small for a day or 2, and then large on the morning of presentation with the clinical event being profuse vomiting. Anion gap was elevated initially and that is now resolved. Obviously something changed in the last several weeks to be causing repeated ketoacidosis in this patient. One possibility is that there is increased stress. Apparently the patient's mom was hospitalized for several weeks in February for a CVA from which she has mostly recovered. However, this was a major upheaval for the patient because she lived for those weeks with her father, with whom she typically spends no more than just a day or 2 at a time. The mother and father are . The patient's relationship with the father apparently is good, but still this was a significant change in routine. Occult infection as at a source of stress leading to DKA has apparently been excluded. However, at this point I cannot locate thyroid function testing and hyperthyroidism could most certainly be presenting in this way. could present in this way, but a test was negative early March. It is recommended that this be repeated. Last but not least the patient's home care team did not have a solid approach to treatment of ketosis at home. Recommendation is to check all urine for ketones and treat small ketones with 5% total daily dose q.4 hours, moderate ketones with 10% and large ketones with 20%. This is additional Humalog insulin over and above what would normally be given. Current total daily dose is approximately 70 units, so the recommended doses are 3, 7, 14 units. The patient's mom had wondered why the patient was being given both insulin and glucose in the hospital to treat DKA, but this actually proved to be helpful in her understanding the need to do the same at home, to treat ketosis. Therefore if ketones are present necessitating addition of large amounts of insulin as just stated, sugar must also be consumed. Stepping back, the ultimate solution to the problem of the repeated ketoacidosis must be discovery and mitigation of what has changed / is the cause of increased stress. Which may or may not have been accomplished. The process step to managing in the meantime is better management of ketosis as offered. Resolving that problem permanently may require longer-term interaction with the patient and her home care team, which was today offered on an outpatient basis - but the family must decide whether they wish to transfer outpatient care to our clinic or continue at [facility]. Attending Physician: Mars King MD Allergies Allergy/AdvReac Type Severity Reaction Status Date / Time adhesive tape Allergy Unknown Verified 04/16/19 10:30 erythromycin base Allergy Unknown Verified 04/16/19 10:30 gluten Allergy Unknown Verified 04/16/19 10:30 Penicillins Allergy Unknown Verified 04/16/19 10:30 Sulfa (Sulfonamide Allergy Unknown Verified 04/16/19 10:30 Antibiotics) wheat Allergy Unknown Verified 04/16/19 10:30 Home Medications Home Medications Medication Instructions Recorded Confirmed Type insulin lispro [Humalog U-100 1 sliding scale dose SUBCUT TIDM 03/29/19 04/16/19 History Insulin] Lantus U-100 Insulin 30 unit SUBCUT QAM 04/01/19 04/16/19 History ondansetron 4 mg PO Q6H PRN 5 Days #10 tab 04/17/19 Rx Patient History Medical History Acidemia (Acute) Acute renal failure (ARF) (Acute) Autism Celiac disease DKA (diabetic ketoacidoses) (Acute) DKA, type 1 Hyperkalemia (Acute) Hypotension (Acute) Metabolic acidosis Right ovarian cyst S/P admission to ICU (intensive care unit) Tachycardia (Acute) Tachypnea (Acute) Type 1 diabetes Surgical History No pertinent past surgical history Social History Preferred Language: Bermudian Communication Ability: Impaired Stitcher Operator Required: No Beliefs That Will Affect Care: None Current Living Situation: Parent Feels Safe at Home: Yes Smoking Status: Never smoker Second Hand Exposure: No ; Hx Alcohol Use: No Hx Substance Use: No Results & Data Vital Signs (Past 12 Hours) Vital Signs Temp Pulse Resp BP BP Pulse Ox 04/17/19 14:19 36.7 C 90 18 100/66 101/64 100 04/17/19 11:47 36.7 C 90 18 100/66 100 04/17/19 07:33 36.9 C 112 H 20 94/56 L 100 04/17/19 04:04 36.6 C 85 16 101/64 97 PG Care Time/CCT Total # of Minutes Spent Total Time Spent with Patient: Total time spent is greater than 50% in coordination of care (as documented) at patient's floor/unit and/or counseling patient:
--- NOTE | 2019-04-24 16:16 | Discharge Summary ---
Date of Service April 17, 2019 Admission HPI Per Admitting Provider The patient is a 24 years old female with past medical history of diabetes mellitus type 1 poorly controlled hyperkalemia, celiac disease sensitive to wheat, autism who was brought by her mother to the emergency room with a complaint that patient vomited approximately 1 L of yellowish vomit this morning and felt sick. Per her mother she was monitoring her sugar regularly and noted that this morning blood glucose was 600 and patient was not doing well, so she brought her in. Patient herself is poor historian due to her autism but in comparison to the other admissions that occurred in the past 2 months she was not as sick as before. Per mom patient supposed to see hob mill operator who is coming from [place] this week on Tuesday. They are also trying to obtain hospital bed for her because she is incontinent for stool and urine and they were unable so far to get it through patient PCP nor hob mill operator. Patient denies fever, chills, chest pain, shortness of breath, abdominal pain, frequency, urgency. Labs are reviewed which showed: Sodium 134, potassium 5.4, chloride 103, CO2 10, anion gap 20, BUN 16, creatinine 1.2, GFR 63.2, glucose on the entrance was 529, and to decreased to 359, and 145, hemoglobin A1c 9.2, calcium 10, phosphorus 2.8, magnesium 2, total protein 7.7, albumin 4.1, globulin 3.6, lipase 35. Urine with high specific gravity of 1.0 31, urine glucose 3+, urine ketones 4+, otherwise negative for bilirubin leukocyte Estrace and bacteria. Decision was made to admit patient to PCU on telemetry for DKA. Principal Diagnosis Diabetic ketoacidosis Discharge Exam Constitutional well developed and + obese Eyes + anicteric sclerae; normal pupil size ENMT external ear and nose normal, oropharynx normal Neck trachea midline, no thyromegaly Respiratory normal respiratory effort, lungs clear to auscultation Cardiovascular RRR, no murmur, no edema Gastrointestinal (Abdomen) normal bowel sounds, soft, nontender, no hepatosplenomegaly Musculoskeletal no cyanosis or clubbing, extremities motor strength 5/5 Skin no rashes, warm and dry Neurologic moves all extremities and awake; not confused Psychiatric A+Ox3, euthymic affect Insight: + limited insight Judgement: + limited judgement Discharge Data Allergies Allergy/AdvReac Type Severity Reaction Status Date / Time adhesive tape Allergy Unknown Verified 04/16/19 10:30 erythromycin base Allergy Unknown Verified 04/16/19 10:30 gluten Allergy Unknown Verified 04/16/19 10:30 Penicillins Allergy Unknown Verified 04/16/19 10:30 Sulfa (Sulfonamide Allergy Unknown Verified 04/16/19 10:30 Antibiotics) wheat Allergy Unknown Verified 04/16/19 10:30 Consultations 04/16/19 12:04 ED Decision to Admit Stat 04/16/19 15:49 Consult Case Management - Discharge Planning Stat 04/17/19 10:52 Consult Endocrinology Routine Hospital Course (1) DKA (diabetic ketoacidoses): Lucy Romero is a 24 year old female admitted to [facility] from April 16 to 2018 due to elevated glucose and ketones in your urine. She was diagnosed with diabetic ketoacidosis however no identifiable exacerbating factor identified. On admission glucose 579, pH 7.17, Anion gap 20, Urine ketones 4+. Treated initially with IV insulin and IV fluid resuscitation. Anion gap closed on next set of labs 2 hour after this. By request from her mother; she was switched back to subcutaneous insulin overnight. Again by request and since her anion gap closed she was discharged the following day after review from endocrinology. The patient, her mother and her sisters [facility] TSH and testing was normal. No infection found with history, CXR or urine analysis. Dr Mcgill ([facility] Endocrinology) recommended adding a ketone correction factor to her insulin regimen: 4 units for small urine ketones 8 units for moderate 16 units for large If she is having glucose levels < 250 and having continuing urine ketones recommend giving carbohydrates to maintain glucose levels. She is to call her algology teacher tomorrow to arrange follow up as there is some concern that her mother is only using a correction factor once her glucose reaches values > 300. This is her third admission in March with diabetic ketoacidosis. The first episode likely due to viral gastroenteritis, second episode possibly explained by oral thrush causing reduced oral intake. However no such precipitating event found for this episode. Kind regards, Dr Mars King (2) Hyperkalemia: (3) Metabolic acidosis: (4) Diabetes mellitus type 1: Total Time Total Time Spent Total Time Spent (In Minutes): 55 Total Time Includes: Examination of the Patient, Discharge Planning, Medication Reconciliation and Communication With Other Providers (Dr cMgill) Discharge Plan Discharge Items Patient Disposition: Home - Self-Care Reason For Visit: DKA Discharge Diagnosis: Diabetic ketoacidosis Activity: Resume your previous activity Non-emergency contact: Primary Care Provider Call non-emergency contact if: you have any medication questions and your symptoms worsen Follow-up/Referrals: Lamberto Anne MD [Primary Care Provider] - 04/25/19 1:10 pm (Please, follow up with Dr. Lamberto Anne on TuesdayApril 25 at 1:10 pm. *The office is located in [address] of [facility], next to this hospital. If you need to change this appointment, call the office at [phone].) Diet: Carb Count or DM1 and Gluten Free Addtl Attending Provider Instructions: You were admitted to [facility] from April 16 to 2018 due to elevated glucose and ketones in your urine. You were diagnosed with diabetic ketoacidosis however no identifiable exacerbating factor identified. On admission glucose 579, pH 7.17, Anion gap 20, Urine ketones 4+. Treated initially with IV insulin and IV fluid resuscitation. Gap closed on next set of labs 2 hour after this. By request from your mother; you were switched back to subcutaneous insulin. Again by request and since your anion gap has closed you were discharged the following day after review from endocrinology. Dr Mcgill ([facility] Endocrinology) recommended adding a ketone correction factor to your insulin regimen: 4 units for small urine ketones 8 units for moderate 16 units for large If you are having glucose levels < 250 and having continuing urine ketones recommend giving carbohydrates to maintain your glucose levels. Please call your algology teacher if you are having to use this correction factor or have further questions Please follow up with your algology teacher tomorrow as discussed for further insulin adjustments. This is your third admission in March with diabetic ketoacidosis. The first episode likely due to viral gastroenteritis, second episode possibly explained by oral thrush causing reduced oral intake. However no such precipitating event found for this episode. Main concern is you are not getting your correction factor insulin until your glucose levels are excessively high > 300. Please discuss this further with your algology teacher. In addition due to continued vomiting episodes recommend using ondansetron as needed for nausea or vomiting. Pending Studies at Discharge: No Stand-Alone Forms: My [facility], Smoking Cessation Medications and DC Order Prescriptions: Continued insulin lispro [Humalog U-100 Insulin] 100 unit/mL Solution 1 sliding scale dose SUBCUT TIDM RF: 0 Lantus U-100 Insulin 100 unit/mL solution 30 unit SUBCUT QAM RF: 0 Discharge Orders: Discharge Order (Routine); Ordered 04/17/19 Ordered By: Mars King Admission Data Admit Date/Time: 04/16/19 13:22 Attending Provider: Mars King Admit Provider: Marisela Bryan Primary Care Provider: Lamberto Anne I. Other Providers: Kiel Mcgill Other Interventions: Discharge Summary Assessment (RN) Last Done: 04/17/19 14:19 DC Date/Time DO NOT enter until pt leaves facility: 04/17/19 15:05 Coding Level of Care Code D/C Day Management >30 mins Diagnoses DKA (diabetic ketoacidoses) E10.10 Diabetes mellitus complication detail: without coma Diabetes mellitus type: type 1 Hyperkalemia E87.5 Metabolic acidosis E87.2 Diabetes mellitus type 1 E10.9
== END 2019-04-17 15:05 | disposition home or self-care (01) | DRG 638 ==
LOC: ED 09:27 → SUATTDRO 13:22 → 2S 13:22
DX: E87.5 Hyperkalemia; R15.9 Full incontinence of feces; R32 Unspecified urinary incontinence; Z88.1 Allergy status to other antibiotic agents; E10.10 Type 1 diabetes mellitus with ketoacidosis without coma; F84.0 Autistic disorder; Z88.0 Allergy status to penicillin; Z88.2 Allergy status to sulfonamides; K90.0 Celiac disease; Z91.048 Other nonmedicinal substance allergy status; Z79.4 Long term (current) use of insulin